=== PATIENT | male | born 1980 | race Caucasian/White ===

== ENCOUNTER → 2023-07-27 11:45 | Outpatient (REF) | payer BC, SELFPAY | LOC: RAD 11:45 | PROVIDERS: ATTENDING PHYSICIAN Internal Medicine Hematology & Oncology | DX: D72.10 Eosinophilia, unspecified (principal); D72.119 Hypereosinophilic syndrome [HES], unspecified; Z79.60 Long term (current) use of unspecified immunomodulators and immunosuppressants; D72.1 Eosinophilia; I81 Portal vein thrombosis | CPT/HCPCS: 71260; 74177; Q9967 ==

== ENCOUNTER 2024-11-13 19:34 | Inpatient (IN) | payer BC, SELFPAY ==
[2024-11-13 15:17] VITALS: BP 149/92
[2024-11-13 15:34] LABS: Hematocrit 38.4 % (39.0-52.0); Hemoglobin 12.9 g/dL (13.0-18.0); Mean Corp Hgb Conc. 33.6 g/dL (33.0-37.0); Mean Corpuscular Volume 83.1 fL (80.0-94.0); Platelet Count 260 10^3/uL (130-400); Red Cell Dist. Width 14.9 % (11.5-14.5)
[2024-11-13 15:53] VITALS: BP 107/77
[2024-11-13] MEDS: ZOFRAN 4 MG IV ×2 (15:58→16:54)
[2024-11-13] MEDS: NSS 1000 IV ×3 (15:59→21:44)
[2024-11-13 16:00] LABS: ALT (SGPT) 35 U/L (0-50); AST (SGOT) 20 U/L (17-59); Albumin 4.5 g/dl (3.5-5.0); Alkaline Phosphatase 53 U/L (38-126); Blood Urea Nitrogen 11 mg/dl (9-20); Calcium 9.1 mg/dl (8.4-10.2); Carbon Dioxide 24 mmol/L (22-30); Chloride 100 mmol/L (98-107); Glucose 208 mg/dl (70-99); Potassium 4.8 mmol/L (3.5-5.1); Sodium 133 mmol/L (135-145); Total Protein 7.5 g/dl (6.3-8.2); eGFR > 60.00
[2024-11-13] MEDS: ZOSYN 100 IV (16:04)
[2024-11-13] MEDS: SOLU-CORTEF 100 MG IV (16:05)
[2024-11-13] MEDS: MORPHINE SULFATE 4 MG IV (16:13)
[2024-11-13 16:15] VITALS: BMI 33.2
--- NOTE | 2024-11-13 16:17 | ED.GENMED ---
History of Present Illness
General
Chief Complaint: Abdominal Symptoms
Source: patient and spouse
Exam Limitations: none
Time Seen by Provider: 11/13/24 15:50
History of Present Illness
History of Present Illness:
44-year-old male with a history of hypereosinophilic syndrome presents with abdominal pain nausea vomiting general weakness lower abdominal pain bright red rectal bleeding multiple times. Started after prepping for a colonoscopy and upper GI
series. Just classically on steroids 21 mg. This was stopped 2 days ago. Also was on Eliquis for clotting issues. This was stopped a week ago.
Past History
Past History
ED Past Medical History: Other (Hypereosinophilic syndrome. Clotting issues. 31 yea yeah thank you)
Social History
Tobacco: Smoker
Alcohol: Occasional
Drug: None
Personal:
Living: with family
Employment: Employed
Family History
Family History: Other (Noncontributory)
Review of Systems
Review of Systems
All Other Systems: Not applicable
Constitutional: Reports fever
Respiratory: Reports no symptoms
Cardiac: Reports no symptoms
Phy Exam
Physical Exam
Physical Exam:
GENERAL: Alert and oriented in no apparent distress
EYE: Orbits normal.
NECK: Supple, no significant adenopathy.
ENT: Pharynx without erythema
CARDIAC: Tachycardic and regular no murmur
LUNGS: Clear breath sounds,normal
ABDOMEN: Soft, diffuse lower abdominal tenderness. No rebound or guarding no mass or hernia
NEUROLOGICAL: Alert and oriented , grossly non-focal
SKIN: Warm and dry, mild mottled appearance to the lower extremities. This apparently happens per the
MUSCULOSKELETAL: No edema,no deformity.Good color
PSYCH: Normal and appropriate interaction.
Course
Orders/Labs/Results
Orders:
Orders
11/13/24 15:24
Complete Blood Count/With Diff Urgent
Comprehensive Metabolic Panel Urgent
Lactic Acid Urgent
Lipase Urgent
Comment: ADD ON
11/13/24 15:54
Electrocardiogram (*1) Urgent
Reason for Study: Bradycardia / Tachycardia
EKG- Treatment ONCE
11/13/24 15:55
Ondansetron Injectable [Zofran] 4 mg .ROUTE .STK-MED ONE
11/13/24 15:57
IV Insert/Care/Rem.- Treatment PRN
0.9% Sodium Chloride 1000 ml [Nss] 1,000 ml IV BOLUS
Ondansetron Injectable [Zofran] 4 mg IV NOW STA
Piperacillin/Tazo 4.5 Gram [Zosyn] 4.5 gram in 100 ml IV NOW
Pulse Ox/cont/shift [RESP] Urgent
Quantity: 1
11/13/24 15:58
CT Abd/pelvis Angio W/wo Iv Urgent
Comment:
Reason For Exam: Severe bright red rectal bleeding
Hydrocortisone Sod Succinate [Solu-Cortef] 100 mg IV NOW STA
11/13/24 16:01
Blood Culture Q30M
BEBETO Source: Blood/Venous
Specimen Description:
Blood Culture Q30M
BEBETO Source: Blood/Venous
Specimen Description:
11/13/24 16:09
Type And Crossmatch [Type+Screen] Urgent
11/13/24 16:10
Add On- LAB Urgent
Tests Added?: lipase
11/13/24 16:11
Morphine Sulfate 4 mg .ROUTE .STK-MED ONE
11/13/24 16:13
Morphine Sulfate 4 mg IV NOW STA
11/13/24 16:52
Ondansetron Injectable [Zofran] 4 mg .ROUTE .STK-MED ONE
11/13/24 16:54
ABO2 Urgent
BBK Wristband Number:
Associate notified that ABO2 has been ordered: [id number]
Date: 11/13/24
Time: 16:26
Clinical Faculty ID: [id number]
Ondansetron Injectable [Zofran] 4 mg IV NOW STA
Abnormal Lab Results
11/13/24
15:24
WBC 11.6 H 10^3/uL
(4.8-10.8)
RBC 4.62 L 10^6/uL
(4.70-6.10)
Hgb 12.9 L g/dL
(13.0-18.0)
Hct 38.4 L %
(39.0-52.0)
RDW 14.9 H %
(11.5-14.5)
MPV 11.4 H fL
(7.4-10.4)
Abs Immat Gran (auto) 0.1 H 10^3/uL
(0-0.05)
Absolute Neuts (auto) 9.7 H 10^3/uL
(1.4-6.5)
Absolute Lymphs (auto) 0.5 L 10^3/uL
(1.2-3.4)
Absolute Monos (auto) 1.2 H 10^3/uL
(0.1-0.6)
Immature Gran % 0.8 H %
(0-0.5)
Neutrophils % 83.7 H %
(42.2-75.2)
Lymphocytes % 4.1 L %
(20.5-51.1)
Monocytes % 10.7 H %
(1.7-9.3)
Sodium 133 L mmol/L
(135-145)
Glucose 208 H mg/dl
(70-99)
11/13/24 15:24
11/13/24 15:24
Vital Signs
Initial and Last Documented VS:
Initial Vital Signs
Temp Pulse Resp BP Pulse Ox
100 F 145 16 149/92 98
11/13/24 15:17 11/13/24 15:17 11/13/24 15:17 11/13/24 15:17 11/13/24 15:17
Last Documented Vital Signs
Temp Pulse Resp BP Pulse Ox
100 F 120 9 107/77 97
11/13/24 15:17 11/13/24 16:15 11/13/24 16:15 11/13/24 15:53 11/13/24 16:28
*Radiology
Radiology exam reviewed: radiology read reviewed (Severe enteritis. No active bleed)
*Pulse Oximetry
SaO2: 98
Oxygen Mode of Delivery: Room air
Patient hypoxic: no
*Telescope Repairer Interpretation
Rate: tachycardiac
Interpretation: abnormal
Heart Rate: 130
Rhythm: sinus
*Critical Care Note
Total Time (30-74mins, 75-104mins- exclusive of procedures): 15
Update Note
Update Note:
Patient appears improved. Mildly tachycardic. Discussed with hematology at [facility]. They are comfortable having him here as is the patient and family.
ED Attending Note
-
Portions of this chart may have been created with voice recognition software.� Occasional wrong word or��sound alike� substitutions may have occurred due to the inherent limitations of voice recognition software.
Discharge Plan
Departure
Patient Disposition: Admit
Date of Disposition: 11/13/24
Time of Disposition: 17:54
Presentation/result/management discussed w/ accepting MD/DO: Hospitalist
Discharge Problem:
Severe enteritis, Acute GI bleed, History of hypereosinophilic syndrome
Prescriptions:
No Action
gabapentin 100 mg Capsule
100 mg PO TID
Referrals:
Ondina Llamas DO [Family Provider]
Interventions
Interventions:
*Risk Screen - Suicide Last Done: 11/13/24 15:18
*General Assessment Last Done: 11/13/24 16:28
*Neglect/Abuse Screening Last Done: 11/13/24 15:18
*ED- Fall Risk Assessment Last Done: 11/13/24 16:28
*ED COVID-19 Vaccine History Last Done: 11/13/24 16:28
SN-Fsfzog-Xeinfdhwcu Assessment Last Done: 11/13/24 16:28
Discharge Date and Time
Print Language: INDONESIAN
[2024-11-13 16:20] LABS: Nucleated Red Blood Cells % 0 % (-)
[2024-11-13 16:24] LABS: Lipase 44 U/L (23-300)
--- NOTE | 2024-11-13 18:04 | HPS.HSE ---
Addendum entered and electronically signed by Wilda Bellamy MD 11/13/24 19:45:
This is an addendum to the H&P written by Dominique Bruno on 11/13/2024. �Patient seen and examined independently with RESIDENTIAL GLAZIER.
44-year-old male past medical history of hypereosinophilic syndrome with skin involvement, diabetes, smoker, neuropathy, depression, portal vein thrombosis on Eliquis, obesity, presenting with abdominal pain, nausea and vomiting, bloody diarrhea
after taking Dulcolax and half a bottle of MiraLAX for EGD and colonoscopy today to be performed due to evaluation of underlying GI involvement of hypereosinophilic syndrome.
No prior history of GI involvement of hypereosinophilic syndrome.
Vital signs show temperature of 101.2. �Tachycardia.
Labs show leukocytosis of 11.
CTA abdomen pelvis shows no evidence of active GI bleeding. �Severe enteritis involving long segment of ileum. �No abdominal aortic aneurysm or dissection.
Patient with clinical sepsis secondary to enteritis. �N.p.o., IV fluids, blood cultures, Zosyn, Stool Studies, GI. �Stress dose steroids due to chronic steroid use. �Continue to hold Eliquis which has been held for 5 days.
Original Note:
Family Physician
-
Family Physician: Ondina Llamas DO
Chief Complaint
-
Abdominal pain, nausea, vomiting, bright red blood per rectum after [place] prep
History of Present Illness
44-year-old male with history of hypereosinophilic syndrome that causes a rash from neck to skin. He is maintained on prednisone 21 mg for the past few weeks he initially started at 30 mg but slowly tapers down by 1 mg. He follows with GI at [place]
who wanted to do routine endoscopy/colonoscopy although patient had not been having any GI symptoms. He took a prep of Dulcolax 4 tablets last night then MiraLAX half a bottle mixed with 32 ounces was supposed to do additional half a bottle with 32
ounces but did not get the prep due lower abdominal pain, nausea, vomiting, and bright red rectal bleeding times multiple times . He has been off of his 21 mg prednisone for 2 days however today when he had pain he took 15 mg. He was also on
Eliquis for history of portal vein thrombosis for several years however he has not taken in 5 days due to upcoming Endo [place]. He is an DM2 steroid-induced, neuropathy, depression, portal vein thrombosis, class II obesity
Medical History
Past Medical History
Past Medical History: Reports Other
Additional Past Medical History:
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
active smoker
DM2 steroid-induced
neuropathy
depression
portal vein thrombosis
class I obesity
Past Surgical History: Reports None
Social History
Tobacco: Smoker
Alcohol: None
Drug: None
Personal:
Living: With Family
Family History
Family History: Not pertinent
Allergies / Home Medications
Allergies reflects when Allergies were last updated in [employer].
Home Medications with original date entered in [employer]
Allergy/Medication List:
Allergies
Allergy/AdvReac Type Severity Reaction Status Date / Time
vancomycin Allergy Rash Verified 05/25/22 15:00
Home Medications
gabapentin 100 mg capsule 300 mg PO HS PRN Neuropathy 06/30/22
Prilosec OTC 20 mg PO DAILY 11/13/24
acyclovir 400 mg tablet 400 mg PO BID 11/13/24
apixaban 5 mg tablet (Eliquis) 5 mg PO BID 11/13/24
clobetasol 0.05 % topical cream 1 applic topical DAILY PRN rash 11/13/24
peginterferon shan-2a 180 mcg/mL subcutaneous solution (Pegasys) 144 mcg SC 11/13/24
prednisone 15 mg PO ONCE 11/13/24
prednisone 21 mg PO DAILY 11/13/24
ruxolitinib 5 mg tablet (Jakafi) 20 mg PO BID 11/13/24
sertraline 50 mg tablet 100 mg PO HS 11/13/24
sulfamethoxazole 800 mg-trimethoprim 160 mg tablet 1 tab PO MOWEFR 11/13/24
Review of Systems
-
History Source: Patient and Family ()
A 12 point ROS was completed and negative except as noted: Yes
Constitutional: Reports Fever and Chills
EENT: Denies Sore Throat or Runny Nose
Respiratory: Denies Cough or Trouble Breathing
Cardiac: Denies Chest Pain, Diaphoresis or Palpitations
Abdomen/GI: Reports Abdominal Pain, Nausea, Vomiting and Bloody Stools
: Denies Dysuria, Frequency, Flank Pain, Incontinence or Difficulty Voiding
Musculoskeletal: Denies Joint Pain or Edema
Skin: Denies Itching or Rash
Neurological: Denies Dizzy, Headache or Weakness
Endocrine: Reports No Symptoms
Hematologic/Lymphatic: Reports No Symptoms
Psych: Reports Calm
Physical Exam
Vital Signs
Vital Signs
Temp Pulse Resp BP Pulse Ox
100 F 120 9 107/77 97
11/13/24 15:17 11/13/24 16:15 11/13/24 16:15 11/13/24 15:53 11/13/24 16:28
Physical Exam
General: Comfortable, Conversant, Pain, Fever and Chills
HEENT: NormoCephalic, Anicteric, Moist mucous membranes, PERRLA, [place] Conjunctivae, No Ptosis and Other (Cheng face appearance from chronic steroid use)
Respiratory: Clear; No Wheezes, Rales or Rhonchi
Cardiac: S1/S2 and Tachycardia (Sinus); No Murmur, Rub, Gallop or Peripheral Edema
Breast: Deferred by me
GI: Soft, Non Distended, Normal Bowel Sounds and Tender (Lower abdomen)
Rectal: Deferred by Provider
Genito-urinary: Deferred by me
Musculoskeletal: No Clubbing, No Cyanosis and No Edema
Skin: Warm and Dry; No Rash or Jaundice
Neuro: AO x 3, No Motor Deficits, Nonfocal/grossly intact, Cranial Nerves Intact and No Sensory Deficits; No Slurred Speech, Facial Droop, Tremors or Sedated
Psych: Calm
Laboratory Results
-
11/13/24 15:24
11/13/24 15:24
Laboratory Results
Lactic Acid 1.9 mmol/L (0.7-2.0) 11/13/24 15:
Total Bilirubin 1.3 mg/dl (0.2-1.3) 11/13/24 15:
AST 20 U/L (17-59) 11/13/24 15:
ALT 35 U/L (0-50) 11/13/24 15:
Alkaline Phosphatase 53 U/L (38-126) 11/13/24 15:
Lipase 44 U/L (23-300) 11/13/24 15:24
Data Reviewed
-
CT Scan: Report Reviewed by me
Lab Data: Labs Reviewed by me
Impression/Plan
-
Impression/plan:
Admit to telemetry
# Sepsis with severe enteritis involving long segment of ileum with rectal bleeding post colonoscopy and upper GI series prep
WBC 11.6 with left shift, 101.7 F, HR 120, 107/77
Hgb stable 12.9
-IV NSS 2 L bolus
- IV NSS 100 cc/h
-Consult GI
- Hydrocortisone 100 mg given in ER-patient is on chronic steroid 21 mg last dose was 11/11/2024 has slowly been tapering from 30 mg down by 1 mg has been at 21 mg for the past few weeks
-We will give stress dose hydrocortisone 50 mg every 8 hours given sepsis
- IV Zosyn
-Tylenol as needed
- IV Dilaudid as needed pain, Zofran nausea
- Follow CBC, CMP, blood cultures x 2
#History of Hypereosinophilic syndrome with typical skin rash follows at [place] [facility] on chronic steroids
on chronic steroid 21 mg last dose was 11/11/2024 has slowly been tapering from 30 mg down by 1 mg has been at 21 mg for the past few weeks
Patient did take 15 mg this morning
-Continue Jakafi 20 mg twice daily
-Patient receives Pegasys infusion once a week
-Continue Prilosec 20 mg daily
-Continue acyclovir 4 mg twice daily
-Patient is on prophylactic Bactrim DS Sunday
CT abdomen pelvis angio with and without:
1. No CTA evidence for active GI bleed.
2. Severe enteritis involving a long segment of ileum.
3. No abdominal aortic aneurysm or dissection.
4. Additional chronic changes as described.
#History of portal vein thrombosis years ago
Has not taken Eliquis 5 mg twice daily in 5 days due to upper GI and colonoscopy plan
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
Blood sugar 208, check HgbA1c
- Patient is using Ozempic 1 mg once a week last dose was 11/08/2024
#Chronic neuropathy
Patient takes gabapentin 300 mg at bedtime as needed
#Depression
Continue Zoloft 50 mg at bedtime
#Class I obesity�BMI 33
Patient currently on Ozempic
DVT prophylaxis
SCDs
Full code
[2024-11-13] MEDS: TYLENOL 1000 MG PO (18:45)
[2024-11-13 21:25] VITALS: BP 142/95
[2024-11-13] MEDS: DILAUDID 1 MG IV (21:45)
[2024-11-13] MEDS: ZOSYN 50 IV (22:19)
[2024-11-13 22:26] LABS: Glucose - Point of Care 171 mg/dl (70-99)
[2024-11-13] MEDS: ZOLOFT 50 MG PO (23:02)
[2024-11-13] MEDS: ZOVIRAX PO (23:04)
[2024-11-14] VITALS (16 sets, daily range): BP systolic 106–156; BP diastolic 67–96; BMI 32.4
[2024-11-14] MEDS: SOLU-CORTEF 50 MG IV ×4 (00:17→23:56)
[2024-11-14] MEDS: TYLENOL 1000 MG PO ×2 (00:34→11:00)
[2024-11-14] MEDS: ZOSYN 50 IV ×4 (04:06→21:51)
[2024-11-14] MEDS: DILAUDID 1 MG IV ×3 (04:48→21:53)
[2024-11-14] MEDS: ZOFRAN 4 MG IV (05:00)
[2024-11-14 06:36] LABS: Glucose - Point of Care 182 mg/dl (70-99)
--- NOTE | 2024-11-14 06:45 | CON.GI ---
Addendum entered and electronically signed by Chris Silva MD 11/14/24 13:38:
I saw and examined the patient.
The CHINESE INSTRUCTOR or PA's note was reviewed and I agree with the note.
Comment: 44yo male with hx hypereosinophilic syndrome presents with rectal bleeding and abd pain while prepping for EGD/colonoscopy scheduled for yesterday. Initially BRBPR, now dark stools. Has been on steroids, Pegasys, Jakafi and follows at
[place] for hypereosinophilic syndrome. Has hx chronic PVT and is on eliquis, which was held for his GI procedures. On admission, fever 101.2, WBC 11.6. CT shows severe wall thickening, submucosal edema RLQ ileal loops down to ICV in addition to SMV
thrombosis. Abdomen is diffusely tender with guarding
REC:
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
Despite his rectal bleeding, he may resume anticoagulation post op and we can monitor for ongoing bleeding. The benefits outweigh the risks and goal is to preserve SB viability. Discussed with General Surgery and Hematology.
Continue PPI BID
Will follow
Addendum entered and electronically signed by OLMAN Moser 11/14/24 13:24:
also add to below noted tender and mild guarding when seen in Exam earlier today
Addendum entered and electronically signed by OLMAN Moser 11/14/24 12:53:
add to below also noted fever overnight -- appeciate surgical input
Addendum entered and electronically signed by OLMAN Moser 11/14/24 11:12:
with hx chronic steroid use and bleeding will also change PPI to IV BID
Original Note:
Consultation
-
Date/Time Consultation Requested: 11/13/24 1920
Date/Time Consultation Performed: 11/14/24 0950
Requesting Provider: OLMAN Damian
Performing Provider: OLMAN Mckinley, Chris Silva MD
Reason for Consultation: rectal bleeding
Medical History
Chief Complaint / HPI
History of Present Illness:
Pt is a 44yo with hx hypereosinophilic syndrome with steroid dependence since [address] Montano at [place], clotting disorder with chronic portal vein thrombus chronic Eliquis for last year, , obesity on Ozempic with use for DM , NIDDM,
depression presents to 12/14 with abdominal pain, nausea, vomiting, weakness with rectal bleeding. Pt was prepping for EGD/colon at [place] when started with symptoms. On admission CT a/p angio was completed with no active GI bleeding but noted
severe enteritis in long segment of ileum, no dissection but also noted changes of chronic right portal vein thrombus with atrophic changes of right hepatic lobe, attenuated right portal vein branches and mild upper abd varices with diffuse hepatic
steatosis.
In review with patient he has had intermittent rashes and noted concern for PVT. He initially held Eliquis on then weekend prior to GI procedures. He also held Ozempic 2 weeks ago. + some wt loss with Ozempic He admits to occasional nausea
but denies GI symptoms prior to prep no odynophagia, dysphagia, GERD,, vomiting, diarrhea, constipation or bleeding prior to prep. Since prep he had multiple bout of blood stool and overnight noted darker stool with less volume.
Past Medical History
Past Medical History: NIDDM (steroid induced), Psychiatric (depression) and Other (hypereosinophilic syndrome with steroid dependence, clotting disorder with chronic portal vein thrombus on chronic Eliquis, obesity)
Past Surgical History: Other (wisdom teeth extraction)
Social History
Tobacco: Former Smoker
Alcohol: None
Drug: None
Personal:
Living: With Family
Employment: Employed
Family History
Family History: Other (no family hx GI issues or clotting issues )
Allergies / Home Medications
Allergy/AdvReac Type Severity Reaction Status Date / Time
vancomycin Allergy Rash Verified 05/25/22 15:00
�Medication �Instructions �Recorded
gabapentin 100 mg capsule 300 mg PO HS PRN Neuropathy 06/30/22
Prilosec OTC 20 mg PO DAILY 11/13/24
acyclovir 400 mg tablet 400 mg PO BID 11/13/24
apixaban 5 mg tablet (Eliquis) 5 mg PO BID 11/13/24
clobetasol 0.05 % topical cream 1 applic topical DAILY PRN rash 11/13/24
peginterferon shan-2a 180 mcg/mL 144 mcg SC 11/13/24
subcutaneous solution (Pegasys)
prednisone 15 mg PO ONCE 11/13/24
prednisone 21 mg PO DAILY 11/13/24
ruxolitinib 5 mg tablet (Jakafi) 20 mg PO BID 11/13/24
sertraline 50 mg tablet 50 mg PO HS 11/13/24
sulfamethoxazole 800 1 tab PO MOWEFR 11/13/24
mg-trimethoprim 160 mg tablet
Review of Systems
-
History Source: Patient and Family
Constitutional: Reports Weight Loss
EENT: Reports No Symptoms
Respiratory: Reports No Symptoms
Cardiac: Reports Palpitations
Abdomen/GI: Reports Abdominal Pain and Bloody Stools
: Reports No Symptoms
Musculoskeletal: Reports No Symptoms
Skin: Reports No Symptoms
Neurological: Reports Weakness
Endocrine: Reports No Symptoms
Hematologic/Lymphatic: Reports Bleeding
Vital Signs
Temp Pulse Resp BP Pulse Ox
99.6 F 121 18 140/93 98
11/14/24 04:12 11/14/24 03:14 11/14/24 03:14 11/14/24 03:14 11/14/24 03:14
Physical Exam
Exam
General: Other (some distress with pain )
HEENT: Normocephalic and Anicteric
Respiratory: Clear
Cardiac: Other (tachy )
GI: Soft and Distended
Musculoskeletal: No Clubbing and No Cyanosis
Skin: Warm and Dry
Neuro: Awake, Alert and Other (sleepy but arousable)
Psych: Calm
Results
WBC 11.6 10^3/uL (4.8-10.8) H 11/13/24 15:24
Hgb 12.9 g/dL (13.0-18.0) L 11/13/24 15:24
Hct 38.4 % (39.0-52.0) L 11/13/24 15:24
MCV 83.1 fL (80.0-94.0) 11/13/24 15:24
Plt Count 260 10^3/uL (130-400) 11/13/24 15:24
Absolute Neuts (auto) 9.7 10^3/uL (1.4-6.5) H 11/13/24 15:24
Sodium 133 mmol/L (135-145) L 11/13/24 15:24
Potassium 4.8 mmol/L (3.5-5.1) 11/13/24 15:
Chloride 100 mmol/L (98-107) 11/13/24 15:24
Carbon Dioxide 24 mmol/L (22-30) 11/13/24 15:24
BUN 11 mg/dl (9-20) 11/13/24 15:24
Creatinine 0.8 mg/dL (0.7-1.3) 11/13/24 15:24
Calcium 9.1 mg/dl (8.4-10.2) 11/13/24 15:24
Total Bilirubin 1.3 mg/dl (0.2-1.3) 11/13/24 15:24
AST 20 U/L (17-59) 11/13/24 15:24
ALT 35 U/L (0-50) 11/13/24 15:24
Alkaline Phosphatase 53 U/L (38-126) 11/13/24 15:24
Lipase 44 U/L (23-300) 11/13/24 15:24
Diagnostic Image Results:
11/13/24 CTA
1. No CTA evidence for active GI bleed.
2. Severe enteritis involving a long segment of ileum.
3. No abdominal aortic aneurysm or dissection.
4. Additional chronic changes as described as changes of chronic right portal vein thrombus with atrophic changes of right hepatic lobe, attenuated right portal vein branches and mild upper abd varices with diffiuse hepatic steatosis.
07/2023 CT chest/abd/pelvis
1. Negative for lymphadenopathy. Interval decrease in size of previously seen axillary, mediastinal, retroperitoneal, and inguinal lymph nodes. This interval decrease in the size of the spleen, now at the upper limits of normal.
2. Unchanged findings related to known chronic right portal vein thrombosis with atrophic changes of the right lobe of the liver, attenuated right portal vein branches, upper abdominal varices.
3. Hepatic fatty infiltration.
02/2023 MRI abdomen
1. Similar appearance of chronic thrombosis of the right portal vein. Stable enhancing curvilinear vascular shunts in the peripheral right hepatic lobe. Improved heterogeneous parenchymal enhancement compared to the MRI abdomen from 12/21/2022.
2. Mild splenomegaly.
Prior GI Procedures:
EGD: none
Colonoscopy: none
Assessment / Plan
-
Pt is a 44yo with hx hypereosinophilic syndrome with steroid dependence since [address] Montano at [place], clotting disorder with chronic portal vein thrombus chronic Eliquis for last year, , obesity on Ozempic with use for DM , NIDDM,
depression presents to 12/14 with abdominal pain, nausea, vomiting, weakness with rectal bleeding. Pt was prepping for EGD/colon at [place] when started with symptoms. On admission CT a/p angio was completed with no active GI bleeding but noted
severe enteritis in long segment of ileum, no dissection but also noted changes of chronic right portal vein thrombus with atrophic changes of right hepatic lobe, attenuated right portal vein branches and mild upper abd varices with diffuse hepatic
steatosis.
-GI bleeding
-CTA with severe enteritis
-tachycardia
-hypereosinophilic syndrome with steroid dependence and underlying clotting disorder with chronic portal vein thrombus chronic Eliquis prior to
other med issues:
-tobacco abuse
-obesity
- NIDDM
-depression
-hepatic steatosis
PLAN:
etiology of bleeding/pain related to enteritis vs other
etiology of enteritis -- ischemic process with hold on anticoagulation, vs secondary to hypereosinophilic related vs other-- no chronic symptoms prior to prep
reviewed wt Dr. Donovan with increased pain on exam -- will get heme eval for ? need to anticoagulation, surgical eval with extent of enteritis with increased pain/tachycardia and transfer to IMU
serial exams
trend hbg and stool studies
sips of clear diet
updated nursing staff
updated several time on plan
eventual EGD/colon but hold for now with increased pain/tachycardia etc
OP follow up with Dr. ray -- chronic follow for hypereosinophilic syndrome
-
-
Thank you for consultation and allowing me to participate in the patient's care. Please call the denier control operator GI physician during the after hours with any questions or concerns.
[2024-11-14] MEDS: NOVOLOG FLEXPEN-LOW RESISTANCE 1 UNITS SC ×2 (06:53→23:55)
--- NOTE | 2024-11-14 07:25 | W.PN.HOSP.TC ---
Today's Communication/Plan
-
IV Dilaudid for pain; increase the dose, Zofran for nausea,
Maintain IV fluids for now
Keep n.p.o.
Follow-up on blood culture
repeat cbc later today
consult heme and surgery
transfer to IMU
stool studies
Assessment / Plan
Assessment / Plan
This is a 44-year-old male with past medical history of hypereosinophilic syndrome with skin involvement, diabetes, smoker, neuropathy, depression, portal vein thrombus on Eliquis, obesity presented with abdominal pain, nausea and vomiting, bright
red blood in the stools after taking Dulcolax and MiraLAX for EGD and colonoscopy.
# Sepsis with severe enteritis involving long segment of ileum with rectal bleeding post colonoscopy and upper GI series prep
Leukocytosis resolved, intermittent fevers, remains tachycardic
- Hemoglobin dropped from 12.9-10.7(partly dilutional)
- s/p IV NSS 2 L bolus in ER ; currently on IV NSS 100 cc/h
- Awaiting GI input
- Hydrocortisone 100 mg given in ER-patient is on chronic steroid 21 mg last dose was 11/11/2024 has slowly been tapering from 30 mg down by 1 mg has been at 21 mg for the past few weeks
- We will continue stress dose hydrocortisone 50 mg every 8 hours given sepsis
- Continue IV Zosyn
- Tylenol as needed
- IV Dilaudid as needed pain, Zofran nausea
- Blood cultures pending
#History of Hypereosinophilic syndrome with typical skin rash follows at [facility] on chronic steroids
on chronic steroid 21 mg last dose was 11/11/2024 has slowly been tapering from 30 mg down by 1 mg has been at 21 mg for the past few weeks
-Continue Jakafi 20 mg twice daily
-Patient receives Pegasys infusion once a week
-Continue Prilosec 20 mg daily
-Continue acyclovir 4 mg twice daily
-Patient is on prophylactic Bactrim DS Sunday
11/13/24 CT abdomen pelvis angio with and without:
1. No CTA evidence for active GI bleed.
2. Severe enteritis involving a long segment of ileum.
3. No abdominal aortic aneurysm or dissection.
4. Additional chronic changes as described.
#History of portal vein thrombosis years ago
Has not taken Eliquis 5 mg twice daily in 6 days due to upper GI and colonoscopy plan
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
A1c is pending
- Patient is using Ozempic 1 mg once a week last dose was 11/08/2024
#Chronic neuropathy
Patient takes gabapentin 300 mg at bedtime as needed
#Depression
Continue Zoloft 50 mg at bedtime
#Class I obesity�BMI 33
Patient currently on Ozempic
DVT prophylaxis
SCDs
Full code
Anticipated Discharge: 24 - 48 hours
Subjective/Interval History
-
Date of Service: November 14, 2024
Seen and examined at bedside. Patient lying in the bed. Tachycardic with intermittent fevers of 101.8. Appears in mild distress
Objective Data
-
Labs:
Laboratory Results
11/14/24
07:22
WBC Pending
Hgb Pending
Hct Pending
Plt Count Pending
Sodium Pending
Potassium Pending
Chloride Pending
Carbon Dioxide Pending
BUN Pending
Creatinine Pending
Glucose Pending
Calcium Pending
Total Bilirubin Pending
AST Pending
ALT Pending
Alkaline Phosphatase Pending
Vital Signs:
Vital Signs
Temp Pulse Resp BP Pulse Ox
99.5 F 116 18 151/90 95
11/14/24 07:23 11/14/24 07:23 11/14/24 07:23 11/14/24 07:23 11/14/24 07:23
Review of Systems
-
History Source: Patient
All other systems: Reviewed and negative (Except document)
Abdomen/GI: Reports Abdominal Pain, Nausea, Bloody Stools and Black Stools
Physical Exam
-
General: Well Developed and Pain (Lower abdominal)
Respiratory: Clear to Auscultation and Non Labored Respirations
Cardiac: S1/S2 and Tachycardic
GI: Soft, Tender (Diffuse mostly in the lower quadrants) and No Hernias
Neuro: Awake, Alert and Oriented
Psych: Calm
Data Reviewed
-
CT Scan: Report Reviewed by me, Discussed with Physician and Discussed with Patient
Labs: Labs Reviewed by me, Discussed with Physician and Discussed with Patient
[2024-11-14 08:07] LABS: Hematocrit 31.9 % (39.0-52.0); Hemoglobin 10.7 g/dL (13.0-18.0); Mean Corp Hgb Conc. 33.5 g/dL (33.0-37.0); Mean Corpuscular Volume 83.7 fL (80.0-94.0); Red Cell Dist. Width 14.9 % (11.5-14.5)
[2024-11-14 08:31] LABS: ALT (SGPT) 40 U/L (0-50); AST (SGOT) 29 U/L (17-59); Albumin 3.7 g/dl (3.5-5.0); Alkaline Phosphatase 47 U/L (38-126); Blood Urea Nitrogen 8 mg/dl (9-20); Calcium 8.0 mg/dl (8.4-10.2); Carbon Dioxide 23 mmol/L (22-30); Chloride 102 mmol/L (98-107); Estimated Creatinine Clearance > 125 ml/min; Glucose 157 mg/dl (70-99); Potassium 4.0 mmol/L (3.5-5.1); Sodium 133 mmol/L (135-145); Total Protein 6.4 g/dl (6.3-8.2); eGFR > 60.00
[2024-11-14 08:42] LABS: Nucleated Red Blood Cells % 0 % (-); Platelet Count 174 10^3/uL (130-400)
[2024-11-14 08:54] LABS: Glycohemoglobin (HgbA1c) 7.9 % (4.0-5.6)
[2024-11-14] MEDS: NSS 1000 IV (09:56)
[2024-11-14] MEDS: COMPAZINE 10 MG IV (10:14)
[2024-11-14] MEDS: ZOVIRAX 400 MG PO (11:02)
[2024-11-14] MEDS: PROTONIX 40 MG PO (11:02)
--- NOTE | 2024-11-14 11:45 | W.PN.UPDATE ---
Update Note
Progress Note Update
Discsussed with team and surgery since there is a new/addendum on the CTA report which shows that there is evidence of SMV thrombosis. Patient continues to be in distress/pain. Surgery plan for an exploratory laparotomy, bowel resection.
--- NOTE | 2024-11-14 11:45 | CON.GS ---
Addendum entered and electronically signed by Jeff Uribe MD 11/14/24 12:09:
I saw and examined the patient independently.
The Sales And Service Change Leader's note was reviewed and I agree with the note, assessment and plan except where noted below.
Comment: This is a 44-year-old male with history of hypereosinophilic syndrome with known clotting disorder and chronic portal vein thrombus on Eliquis held anticipation of a colonoscopy this week however during the prep he developed nausea vomiting
and intense abdominal pain followed by rectal bleeding. He presented to our hospital yesterday with a CT scan which demonstrated significant inflammation in the terminal ileum as well as an SMV thrombus concerning for type IV mesenteric ischemia.
His exam is concerning with a high-grade fever, tachycardia and tenderness on exam out of proportion to his reported pain.
Will plan for an exploratory laparotomy, bowel resection. I did explain to the patient and his that unless I felt very certain about the remaining blood supply we would likely do this in a staged procedure with a planned second look operation
either this or Sunday.
IV antibiotics ordered.
The patient has an active type and screen, coags sent.
Risks/Benefits/Alternatives, expected postoperative course and possible complications (bleeding, infection, injury to surrounding structures, acute/chronic pain) discussed at length. Patient wishes to proceed with surgery. All questions answered.
Consent obtained.
I spent 70 minutes in total for the care of this patient today including direct patient care and counseling, reviewing labs, imaging, coordination of care, as well as documentation.
Original Note:
Consultation
-
Date/Time Consultation Performed: 11/14/24 1130
Medical History
-
Chief Complaint: Abdominal pain
History of Present Illness:
Mr Dave is a 44 yo male with current smoker with a hx hypereosinophilic syndrome with steroid dependence since [address] Montano at [facility], clotting disorder with chronic portal vein thrombus on Eliquis (LD 11/08), NIDDM and obesity on
Ozempic who was undergoing a bowel prep at home for upcoming EGD and Colonoscopy at [facility] when he developed nausea, vomiting and abdominal pain with rectal bleeding. Pain has increased since presentation with marked tenderness on abdominal exam.
Still passing some liquid stools but less volume and with dark blood noted. Nausea persists. He is significantly tachycardic with low grade fever of 100.2.
Past Medical History
Past Medical History: NIDDM, Psychiatric (depression) and Other (obesity, with hx hypereosinophilic syndrome with steroid dependence since [address] Montano at [facility], clotting disorder with chronic portal vein thrombus, neuropathy)
Past Surgical History: None
Social History
Tobacco: Smoker
Alcohol: None
Personal:
Family History
Family History: Reviewed & Not Pertinent
Allergies / Home Medications
Allergy/AdvReac Type Severity Reaction Status Date / Time
vancomycin Allergy Rash Verified 05/25/22 15:00
�Medication �Instructions �Recorded �Confirmed �Type
gabapentin 100 mg capsule 300 mg PO HS PRN Neuropathy 06/30/22 11/13/24 History
Prilosec OTC 20 mg PO DAILY 11/13/24 11/13/24 History
acyclovir 400 mg tablet 400 mg PO BID 11/13/24 11/13/24 History
apixaban 5 mg tablet (Eliquis) 5 mg PO BID 11/13/24 11/13/24 History
clobetasol 0.05 % topical cream 1 applic topical DAILY PRN rash 11/13/24 11/13/24 History
peginterferon shan-2a 180 mcg/mL 144 mcg SC 11/13/24 History
subcutaneous solution (Pegasys)
prednisone 15 mg PO ONCE 11/13/24 11/13/24 History
prednisone 21 mg PO DAILY 11/13/24 11/13/24 History
ruxolitinib 5 mg tablet (Jakafi) 20 mg PO BID 11/13/24 11/13/24 History
sertraline 50 mg tablet 50 mg PO HS 11/13/24 11/13/24 History
sulfamethoxazole 800 1 tab PO MOWEFR 11/13/24 11/13/24 History
mg-trimethoprim 160 mg tablet
Review of Systems
-
History Source: Patient and Family
All other systems: Negative unless noted
A 10 point review of systems was completed, and was negative except as per HPI.
Physical Exam
Vital Signs
Temp Pulse Resp BP Pulse Ox
100.2 F 135 25 156/93 94
11/14/24 11:29 11/14/24 11:29 11/14/24 11:29 11/14/24 11:29 11/14/24 11:29
11/13/24 11/14/24 11/15/24
06:59 06:59 06:59
Actual Weight 114.305 kg
Body Mass Index (BMI) 32.4
Lab Results
11/14/24 07:22
WBC 8.4 10^3/uL (4.8-10.8) 11/14/24 07:22
Hgb 10.7 g/dL (13.0-18.0) L 11/14/24 07:22
Hct 31.9 % (39.0-52.0) L 11/14/24 07:22
Plt Count 174 10^3/uL (130-400) D 11/14/24 07:22
Abs Immat Gran (auto) 0.1 10^3/uL (0-0.05) H 11/14/24 07:22
Neutrophils % 92.1 % (42.2-75.2) H 11/14/24 07:22
Physical Exam
General: Well Developed; Negative Comfortable
HEENT: Moist Mucous Membranes
Respiratory: Non Labored Respirations
GI: Tender and Distended
Skin: Warm
Neuro: Awake, Alert and AO x 3
Psych: Calm
Data Reviewed
-
CT Scan: Image Personally Visualized and interpreted, Report Reviewed by me, Discussed with Physician, Discussed with Patient and Discussed with Family
Labs: Labs Reviewed by me, Discussed with Physician and Discussed with Patient
Old Records: Reviewed
Assessment / Plan
-
44 yo male active smoker with a h/o hypereosinophilic syndrome with steroid dependence, clotting disorder with chronic portal vein thrombus on Eliquis (LD 11/08), NIDDM and obesity on Ozempic who was undergoing a bowel prep at home for upcoming EGD
and Colonoscopy at [facility] when he developed nausea, vomiting and abdominal pain with rectal bleeding. Pain has increased since presentation with severe abdominal tenderness. Acute blood loss anemia present with repeat trending. Hgb 12.9 on arrival now
at 11. Coags pending. Leukocytosis on presentation resolved with repeat.
CT imaging from yesterday reviewed with severe enteritis involving a long segment of the terminal ileum. Portal vein thrombus again noted as well as concern for SMV thrombosis with patent SMA. Suspect mesenteric and bowel ischemia secondary to
venous congestion/impaired venous drainage.
Plan:
Check coags, cbc, bmp, lactic acid stat. type and screen is current, will transfuse if necessary
Continue NPO for OR
Will plan OR emergently for dx lap
Hold AC prior to OR
c/w IV zosyn
d/w vascular and GI teams at bedside as well as patient's primary nurse. d/w hospitalist team via telephone.
--- NOTE | 2024-11-14 11:56 | CON.ONC ---
Documented by User: Janis Madison MD, Resident 11/14/24 13:05
Consultation
-
Date Consultation Requested: 11/13/24
Date Consultation Performed: 11/14/24
Requesting Provider: Dr. Chris Silva
Performing Provider: Dr. Omero Brower
Reason for Consultation: sepsis severe enteritis, anticoagulation
Impression
Impression
Sepsis secondary to severe enteritis
Possible mesenteric ischemia
Acute blood loss anemia in setting of rectal bleed
Hypereosinophilic syndrome with steroid dependence
Chronic portal vein thrombosis (last dose eliquis 11/08)
DMII
Neuropathy
Plan
Plan
--To OR today for exploratory laparoscopy and possible bowel resection for concern for mesenteric ischemia
--Okay for heparin drip post-op
--Cont Jakifi
--Cont acyclovir
--Continue stress dose steroids in setting of acute illness
--Monitor CBC - hg appears stable - transfuse for hg <7
Patient History
History of Present Illness
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 Donovan and Dr. De La Fuente at [place], chronic portal vein thrombus on chronic Eliquis, type 2 diabetes, depression and neuropathy
presents to the hospital with abdominal pain, nausea, vomiting and rectal bleeding. Patient had been doing a GI prep for endoscopy/colonoscopy at [facility] to evaluate if there was GI involvement related to his hypereosinophilic syndrome. In
preparation for endoscopy/colonoscopy, his last dose of Eliquis was 11/08. After starting the prep, he started to have lower abdominal pain, nausea, vomiting and bright rectal bleeding multiple times at which point he came into the hospital for
further evaluation.
Of note, patient receives pegasys injections weekly and is on jakafi for treatment of his hypereosinophilic syndrome. He has been off of his prednisone for the 2 days prior to admission, but due to pain on 11/13 he took a 15mg dose of prednisone. He
was seen by Dr. Hill in 2023. He was diagnosed with a chronic thrombosis of the right portal vein found incidentally noted in MRI 12/21/22 and started on Eliquis. Hypereosinophilic syndrome is associated with hypercoagulable state.
In the ED he was febrile with temp 101.2, HR 120, 97% on room air. WBC was 11.6, hg 12.9, Na 133, Cr 0.8. Ab/pelvic CT revealed severe enteritis/ileitis along ileum and later addendum added SMV thrombosis. Cultures were taken, he was started on
Zosyn, stress dose steroids and was admitted for sepsis secondary to severe enteritis. GI was consulted. Due to tachycardia, fevers, pain out of proportion to exam and SMV thrombosis on CT, general surgery was consulted as well for concerns of
mesenteric ischemia. Heme/onc was consulted for recommendations of anti-coagulation post-operatively and history of hypereosinophilic syndrome.
Past-Medical/Surgical History
Past medical history: hypereosinophilic syndrome lymphocytic variant, Steroid-dependence,active smoker, DM2 steroid-induced, neuropathy, depression, portal vein thrombosis, class I obesity
Past surgical history: [place] tooth removal
Social history: Active smoker
Allergies
Allergy/AdvReac Type Severity Reaction Status Date / Time
vancomycin Allergy Rash Verified 05/25/22 15:00
Home Medications
gabapentin 100 mg capsule 300 mg PO HS PRN Neuropathy 06/30/22
Prilosec OTC 20 mg PO DAILY 11/13/24
acyclovir 400 mg tablet 400 mg PO BID 11/13/24
apixaban 5 mg tablet (Eliquis) 5 mg PO BID 11/13/24
clobetasol 0.05 % topical cream 1 applic topical DAILY PRN rash 11/13/24
peginterferon shan-2a 180 mcg/mL subcutaneous solution (Pegasys) 144 mcg SC 11/13/24
prednisone 15 mg PO ONCE 11/13/24
prednisone 21 mg PO DAILY 11/13/24
ruxolitinib 5 mg tablet (Jakafi) 20 mg PO BID 11/13/24
sertraline 50 mg tablet 50 mg PO HS 11/13/24
sulfamethoxazole 800 mg-trimethoprim 160 mg tablet 1 tab PO MOWEFR 11/13/24
Patient Medication
�Medication �Instructions �Recorded �Confirmed �Last Taken �Type
gabapentin 100 mg capsule 300 mg PO HS PRN Neuropathy 06/30/22 11/13/24 11/09/24 22:00 History
Prilosec OTC 20 mg PO DAILY 11/13/24 11/13/24 11/13/24 09:00 History
acyclovir 400 mg tablet 400 mg PO BID 11/13/24 11/13/24 11/13/24 09:00 History
apixaban 5 mg tablet (Eliquis) 5 mg PO BID 11/13/24 11/13/24 11/08/24 20:00 History
clobetasol 0.05 % topical cream 1 applic topical DAILY PRN rash 11/13/24 11/13/24 10/14/24 History
1
peginterferon shan-2a 180 mcg/mL 144 mcg SC 11/13/24 11/10/24 09:00 History
subcutaneous solution (Pegasys)
prednisone 15 mg PO ONCE 11/13/24 11/13/24 11/13/24 09:00 History
prednisone 21 mg PO DAILY 11/13/24 11/13/24 11/11/24 09:00 History
ruxolitinib 5 mg tablet (Jakafi) 20 mg PO BID 11/13/24 11/13/24 11/13/24 09:00 History
sertraline 50 mg tablet 50 mg PO HS 11/13/24 11/13/24 11/12/24 22:00 History
sulfamethoxazole 800 1 tab PO MOWEFR 11/13/24 11/13/24 11/12/24 09:00 History
mg-trimethoprim 160 mg tablet
Active Medications
Generic Name Dose Route Start Last Admin
Trade Name Freq PRN Reason Stop Dose Admin
Acetaminophen 1,000 mg 11/14/24 00:29 11/14/24 11:00
Acetaminophen 500 Mg Tablet PO 12/12/24 00:28 1,000 mg
Q6HPRN PRN Administration
temp >100.5 or mild pain
Acyclovir Sodium 400 mg 11/13/24 22:00 11/14/24 11:02
Acyclovir Sodium 200 Mg Capsule PO 11/23/24 21:59 400 mg
BID ERIN Administration
Dextrose 12.5 grams 11/13/24 21:17
Dextrose 50% (0.5 Grams/Ml) 50 Ml Syringe IV 12/11/24 21:16
[id number] PRN
hypoglycemia
Protocol
Gabapentin 300 mg 11/13/24 21:26
Gabapentin 300 Mg Capsule PO 12/11/24 21:25
HSPRN PRN
Neuropathy
Glucagon 1 mg 11/13/24 21:17
Glucagon 1 Mg Vial IM 12/11/24 21:16
PRN PRN
hypoglycemia
Protocol
Hydrocortisone Sodium Succinate 50 mg 11/14/24 00:00 11/14/24 09:57
Hydrocortisone Sodium Succinate 100 Mg/2 Ml Vial IV 12/12/24 00:00 50 mg
Q8 ERIN Administration
Hydromorphone HCl 1 mg 11/14/24 11:14
Hydromorphone 0.5 Mg/0.5 Ml Syringe IV 11/27/24 21:16
Q4HPRN PRN
mod pain
Hydromorphone HCl 1.5 mg 11/14/24 11:14
Hydromorphone 1 Mg/Ml Carpuject IV 11/27/24 21:21
Q4HPRN PRN
severe pain
Hydromorphone HCl 0.5 mg 11/14/24 11:14
Hydromorphone 0.25 Mg/0.5 Ml Syringe IV 11/27/24 21:16
Q3HPRN PRN
mild pain
Sodium Chloride 1,000 mls @ 100 mls/hr 11/13/24 21:17 11/14/24 09:56
Nss IV 1,000 mls
.Q10H ERIN Administration
Piperacillin Sod/Tazobactam Sod 3.375 gram in 50 mls @ 100 mls/hr 11/13/24 22:00 11/14/24 09:56
Zosyn IV 50 mls
Q6H ERIN Administration
Insulin Aspart 0 units 11/14/24 07:30 11/14/24 06:53
Insulin Aspart Low Resistance 300 Units/3 Ml Pen.Injctr SC 12/12/24 07:29 1 units
AC ERIN Administration
Protocol
Ruxolitinib [Jakafi] 0 mg 11/13/24 21:17
20 Mg Tablet Po Bid PO 12/11/24 21:16
BID ERIN
Ondansetron HCl 4 mg 11/13/24 21:17 11/14/24 05:00
Ondansetron 4 Mg/2 Ml Vial IV 12/11/24 21:16 4 mg
Q6HPRN PRN Administration
nausea and vomiting
Pantoprazole Sodium 40 mg 11/14/24 20:00
Pantoprazole Sodium 40 Mg/10 Ml Vial IV 12/12/24 19:59
BID ERIN
Sertraline HCl 50 mg 11/13/24 23:00 11/13/24 23:02
Sertraline 50 Mg Tablet PO 12/11/24 22:59 50 mg
HS ERIN Administration
Sodium Chloride 0 flush 11/13/24 22:00
Sodium Chloride 0.9% (Flush) Syringe IV 12/11/24 21:59
PER PROTOCOL ERIN
Sodium Chloride 10 ml 11/14/24 20:00
Sodium Chloride 0.9% (Preservative Free) 10 Ml Vial IV 12/12/24 19:59
BID ERIN
Review of Systems
-
History Source: Patient
Constitutional: Reports Fever, Fatigue and Chills
Respiratory: Reports Trouble Breathing
Cardiac: Reports No Symptoms
GI: Reports Abdominal Pain, Nausea, Diarrhea and Bloody Stools
: Reports No Symptoms
Neuro: Reports No Symptoms
Physical Exam
-
General: Appears in Distress and Pain
Cardiology: Normal Sinus Rhythm, S1 and S2
Pulmonary: Clear
GI: Normal Bowel Sounds, Distended and Other (Tenderness in LLQ )
Musculoskeletal: No Cyanosis and No Edema
Skin: Warm and Dry
Psych: Calm
Labs
Lab Results
WBC Cancelled 11/14/24 13:00
RBC Cancelled 11/14/24 13:00
Hgb Cancelled 11/14/24 13:00
Hct Cancelled 11/14/24 13:00
MCV Cancelled 11/14/24 13:00
MCH Cancelled 11/14/24 13:00
MCHC Cancelled 11/14/24 13:00
RDW Cancelled 11/14/24 13:00
Plt Count Cancelled 11/14/24 13:00
MPV Cancelled 11/14/24 13:00
Abs Immat Gran (auto) 0.1 10^3/uL (0-0.05) H 11/14/24 07:22
Absolute Neuts (auto) 7.7 10^3/uL (1.4-6.5) H 11/14/24 07:22
Absolute Lymphs (auto) 0.1 10^3/uL (1.2-3.4) L 11/14/24 07:22
Absolute Monos (auto) 0.5 10^3/uL (0.1-0.6) 11/14/24 07:22
Absolute Eos (auto) 0.0 10^3/uL (0-0.7) 11/14/24 07:22
Absolute Basos (auto) 0.0 10^3/uL (0-0.2) 11/14/24 07:22
Immature Gran % 0.6 % (0-0.5) H 11/14/24 07:22
Neutrophils % 92.1 % (42.2-75.2) H 11/14/24 07:22
Lymphocytes % 1.4 % (20.5-51.1) L 11/14/24 07:22
Monocytes % 5.8 % (1.7-9.3) 11/14/24 07:22
Eosinophils % 0.0 % (0-6) 11/14/24 07:22
Basophils % 0.1 % (0-2) 11/14/24 07:22
Creatinine 0.6 mg/dL (0.7-1.3) L 11/14/24 07:22
Vital Signs
Vital Signs
Temp Pulse Resp BP Pulse Ox
100.2 F 135 25 156/93 94
11/14/24 11:29 11/14/24 11:29 11/14/24 11:29 11/14/24 11:29 11/14/24 11:29

Documented by User: Omero Brower MD 11/14/24 13:41
Impression
Impression
Sepsis secondary to severe enteritis
Possible mesenteric ischemia
rectal bleed
Hypereosinophilic syndrome with steroid dependence
Chronic portal vein thrombosis (last dose eliquis 11/08)
hypercoagulable state
DMII
Neuropathy
Plan
Plan
1. Hypercoagulable state - in setting of hypereosinophilic sydrome w/ h/o portal vein thrombosis - w/ possible SMV thrombosis on CT imaging
-eliquis has been held for several days
-plans are underway for exploratory laparoscopy w/ possible bowel resection this afternoon for mesenteric ischemia
-post-operatively - heparin drip could be utilized for anticoagulation - w/ close monitoring of hemoglobin/ GI blood loss
-GI following
-follow CBC
Hematology Addendum:
Patient seen and evaluated w/ resident and agree w/ note and plan as outlined
1. Hypercoagulable state - w/ HES syndrome - h/o portal vein thrombosis/ SMV thrombosis on CT imaging
-discussed case w/ GI - heparin gtt will be utilized post-operatively for anticoagualtion w/ close monitoring
-follow CBC
Will continue to follow with you.
Patient History
History of Present Illness
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 Donovan and Dr[address] De La Fuente at [place], chronic portal vein thrombus on chronic Eliquis, type 2 diabetes, depression and neuropathy
presents to the hospital with abdominal pain, nausea, vomiting and rectal bleeding. Patient had been doing a GI prep for endoscopy/colonoscopy at [place] to evaluate if there was GI involvement related to his hypereosinophilic syndrome. In
preparation for endoscopy/colonoscopy, his last dose of Eliquis was 11/08. After starting the prep, he started to have lower abdominal pain, nausea, vomiting and bright rectal bleeding multiple times at which point he came into the hospital for
further evaluation.
Of note, patient receives Pegasys injections weekly and is on Jakafi for treatment of his hypereosinophilic syndrome. He has been off of his prednisone for the 2 days prior to admission, but due to pain on 11/13 he took a 15mg dose of prednisone. He
was also seen in the past by Dr. Hill in 2023. He was diagnosed with a chronic thrombosis of the right portal vein found incidentally noted in MRI 12/21/22 and started on Eliquis. Hypereosinophilic syndrome is associated with hypercoagulable
state.
In the ED he was febrile with temp 101.2, HR 120, 97% on room air. WBC was 11.6, hg 12.9, Na 133, Cr 0.8. Ab/pelvic CT revealed severe enteritis/ileitis along ileum and later addendum added SMV thrombosis. Cultures were taken, he was started on
Zosyn, stress dose steroids and was admitted for sepsis secondary to severe enteritis. GI was consulted. Due to tachycardia, fevers, pain out of proportion to exam and SMV thrombosis on CT, general surgery was consulted as well for concerns of
mesenteric ischemia. Plans are tentively underway for him to go to the OR this afternoon.
Past-Medical/Surgical History
Past medical history: hypereosinophilic syndrome lymphocytic variant, Steroid-dependence,active smoker, DM2 steroid-induced, neuropathy, depression, portal vein thrombosis, class I obesity
Past surgical history: [place] tooth removal
Social history: Active smoker
FH: non-contributory
Allergies
Allergy/AdvReac Type Severity Reaction Status Date / Time
vancomycin Allergy Rash Verified 05/25/22 15:00
Home Medications
gabapentin 100 mg capsule 300 mg PO HS PRN Neuropathy 06/30/22
Prilosec OTC 20 mg PO DAILY 11/13/24
acyclovir 400 mg tablet 400 mg PO BID 11/13/24
apixaban 5 mg tablet (Eliquis) 5 mg PO BID 11/13/24
clobetasol 0.05 % topical cream 1 applic topical DAILY PRN rash 11/13/24
peginterferon shan-2a 180 mcg/mL subcutaneous solution (Pegasys) 144 mcg SC 11/13/24
prednisone 15 mg PO ONCE 11/13/24
prednisone 21 mg PO DAILY 11/13/24
ruxolitinib 5 mg tablet (Jakafi) 20 mg PO BID 11/13/24
sertraline 50 mg tablet 50 mg PO HS 11/13/24
sulfamethoxazole 800 mg-trimethoprim 160 mg tablet 1 tab PO MOWEFR 11/13/24
[2024-11-14 12:01] LABS: Hematocrit 32.0 % (39.0-52.0); Hemoglobin 11.0 g/dL (13.0-18.0); Mean Corp Hgb Conc. 34.4 g/dL (33.0-37.0); Mean Corpuscular Volume 82.9 fL (80.0-94.0); Platelet Count 167 10^3/uL (130-400); Red Cell Dist. Width 15.0 % (11.5-14.5)
--- NOTE | 2024-11-14 12:05 | W.SUR.PREOP ---
Pre-Operative Surgical Note
-
I have examined this patient prior to the performance of the scheduled procedure.
The patient's condition is unchanged from the time of the current History and
Physical and the patient is able to undergo the scheduled procedure.
[2024-11-14 12:11] LABS: INR 1.25; PT 16.0 Sec (11.4-14.6)
[2024-11-14 12:12] LABS: APTT 31.6 Sec (23.4-35.0)
[2024-11-14 12:16] LABS: Blood Urea Nitrogen 8 mg/dl (9-20); Calcium 8.0 mg/dl (8.4-10.2); Carbon Dioxide 21 mmol/L (22-30); Chloride 103 mmol/L (98-107); Estimated Creatinine Clearance > 125 ml/min; Glucose 171 mg/dl (70-99); Potassium 3.9 mmol/L (3.5-5.1); Sodium 130 mmol/L (135-145); eGFR > 60.00
--- NOTE | 2024-11-14 12:33 | CM ---
CM following re: discharge planning.
Reviewed pt's chart, met with pt and pt's spouse at bedside.
Pt is a 44 year old male, admitted with primary dx of Abdominal pain. OR today.
Pt reports he lives with spouse 2SH, 3 steps to enter, has no children. 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
PCP: Omero Brower
Pharmacy: [facility]
D/c plan: home with anticipated no needs. Spouse to transport at discharge.
CM will follow with discharge plan updates as hospitalization progresses
--- NOTE | 2024-11-14 14:21 | W.IMMPOSTOP ---
Surgical Immed Post Op Note
-
Primary Surgeon: Jeff Uribe MD
Assisting Surgeon: None
Pre-op Diagnosis: Acute mesenteric ischemia
Post-op Diagnosis: Same
Procedure Performed:
Exploratory laparotomy, small bowel resection
Anesthesia Type: General
Specimen / Cultures: Small bowel
Estimated Blood Loss: 7 cc
Complications: None
Operative Findings: Bowen and NG tube placed. NG tube confirmed to be in good position intraoperatively. Periumbilical vertical midline incision. Umbilical hernia reduced. Abdomen entered safely with murky fluid. Small bowel run proximal to
distal. The distal 40 cm of the small bowel was notable for increasing creeping fat and a markedly thickened mesentery. There was a roughly 20 cm segment of mildly dusky bowel before there was a 18 cm segment of small bowel that was frankly
necrotic but not perforated. There was an additional 12 cm of healthy bowel/terminal ileum before the colon. A small bowel resection of the 18 cm segment of necrotic bowel was performed using 2 fires of an 80 POONAM stapler. The intervening
mesentery was ligated using LigaSure device. The ends were marked with Prolene suture, single tail for proximal, double tail for distal. Given the question of viability of the proximal bowel we elected not to perform an anastomosis and plan for a
second look laparotomy in 2 to 3 days pending his clinical course.
POST OP PLAN:
Imaging: None
Labs: Routine AM
Diet: NPO.
Analgesia: Tylenol IV, Dilaudid 0.5mg q2h PRN
Neuro/vascular checks: Per unit protocol
AC/AP: Okay for heparin drip no bolus tonight at 10 PM
Activity: Ad Analisa
Wound/Incisions/Drains: Routine, Bowen to gravity, NG tube to low intermittent wall suction.
Abx: Continue antibiotics
Dispo: IMU. Family updated
[2024-11-14 14:30] LABS: Glucose - Point of Care 164 mg/dl (70-99)
--- NOTE | 2024-11-14 14:36 | OR.RPT ---
Operative Report
Operative Report
Patient Name: Magen Dave
: 1980
Date of Operation: 11/14/2024
Preoperative Diagnosis: Acute mesenteric ischemia
Postoperative Diagnosis: Same
Procedure(s):
1. Exploratory laparotomy
2. Small bowel resection
Surgeon(s):
Dr. Uribe
Image Archivist(s):
None
Anesthesia: General
Estimated Blood Loss: 7 cc
Urine Output: See anesthesia records
Drains/Lines/Implants:
16 Gib[place]tarian Bowen catheter
18 Gib[place]tarian NG tube
Specimens: Small bowel
Indication for surgery:
This is a 44-year-old male with history significant for diabetes, hypereosinophilic syndrome, history of portal vein thrombus on chronic Eliquis who after starting a prep in anticipation of a colonoscopy this week began having sudden and severe
abdominal pain that worsened prompting a visit to our ER and subsequent CT scan which demonstrated significantly inflamed terminal ileum and SMV thrombus. General surgery consulted. Patient was tachycardic and tender on exam out of proportion to
his pain all consistent with type for mesenteric ischemia. After discussion of risk benefits and alternatives, the patient consented to surgery.
Operative Findings: Bowen and NG tube placed. NG tube confirmed to be in good position intraoperatively. Periumbilical vertical midline incision. Umbilical hernia reduced. Abdomen entered safely with murky fluid. Small bowel run proximal to
distal. The distal 40 cm of the small bowel was notable for increasing creeping fat and a markedly thickened mesentery. There was a roughly 20 cm segment of mildly dusky bowel before there was a 18 cm segment of small bowel that was frankly
necrotic but not perforated. There was an additional 12 cm of healthy bowel/terminal ileum before the colon. A small bowel resection of the 18 cm segment of necrotic bowel was performed using 2 fires of an 80 POONAM stapler. The intervening
mesentery was ligated using LigaSure device. The ends were marked with Prolene suture, single tail for proximal, double tail for distal. Given the question of viability of the proximal bowel we elected not to perform an anastomosis and plan for a
second look laparotomy in 2 to 3 days pending his clinical course.
Details of the operation:
The patient was brought to the operating room and positioned supine on the operating table. General anesthesia with rapid sequence intubation was induced, followed by successful endotracheal intubation. A Bowen catheter and NG tube were placed
without incident. The abdomen was prepped and draped in the usual sterile fashion. A timeout was performed.
A vertical midline periumbilical incision was made. A fairly prominent umbilical hernia was identified and reduced. The abdomen was entered safely. We immediately encountered somewhat murky appearing ascites. The skin was protected using a large
Keerthi device. The small bowel was identified and run initially proximally which all appeared to be normal. We then began running the bowel distally. The majority of the small bowel was completely normal however as we ran the distal edge jejunum
the mesentery started becoming more thickened and creeping fat was noted. We encountered a segment of roughly 20 cm that was mildly dusky before and 18 said major segment of frankly necrotic bowel. Distal to this there was an additional 12 cm of
healthy bowel before the terminal ileum reached the colon. Thankfully there was no perforation in the necrotic bowel was resected using 2 fires of the 80 POONAM stapler with purple loads. The intervening mesentery was ligated using a bipolar energy
device. Given that the upstream bowel looks somewhat dusky I was concerned about performing an anastomosis in this setting so elected to papito the ends of the bowel with Prolene suture (single tail for proximal, double tail for distal) with plans
for a second look laparotomy in a few days. After confirming hemostasis the bowel was returned to the abdomen and the abdomen was irrigated with 500 cc of warm saline and suctioned until clear. Given his obesity I elected to close his abdomen to
decrease the risk of future incisional hernia. The fascia was closed using running 0 PDS suture anchored at each apex and run towards the middle and tied together. The skin was then approximated using skin stapler, gaps were left in the lower
portion of the wound to allow for drainage. The wound was then covered with an Aquacel dressing, concluding the procedure. Counts were correct x 2. The patient tolerated the procedure well. They were extubated and taken to the recovery area
hemodynamically stable with plans to be admitted to the IMU for hemodynamic monitoring.
I was the attending physician and performed the procedure with no assistance. I was present for all portions of the case
Jeff Uribe MD
--- NOTE | 2024-11-14 15:49 | PTCARENOTE ---
Received patient from PACU in bed. Patient AAOx3, no complaints. Oriented to room, family at bedside. NGT to LIS. RA. NST on monitor with HR in 120s, aware. All other VSS, on RA. Midline incision CDI with some circled shadowing on dressing. Bowen
draining clear, yellow urine. IVF infusing per orders. Will closely monitor.
[2024-11-14] MEDS: NOVOLOG FLEXPEN-LOW RESISTANCE SC (15:53)
[2024-11-14] MEDS: OFIRMEV 100 IV ×2 (16:20→21:51)
[2024-11-14 18:14] LABS: Glucose - Point of Care 217 mg/dl (70-99)
[2024-11-14] MEDS: NOVOLOG FLEXPEN-LOW RESISTANCE 2 UNITS SC (18:16)
[2024-11-14] MEDS: ZOVIRAX INJECTION 108 MG IV (20:05)
[2024-11-14] MEDS: NSS (PRESERVATIVE FREE) 10 ML IV (20:05)
[2024-11-14] MEDS: PROTONIX IV 40 MG IV (20:05)
[2024-11-14] MEDS: FLUSH (NSS) 2 FLUSH IV (20:06)
[2024-11-14 20:13] LABS: Hematocrit 29.9 % (39.0-52.0); Hemoglobin 10.5 g/dL (13.0-18.0); Mean Corp Hgb Conc. 35.1 g/dL (33.0-37.0); Mean Corpuscular Volume 80.6 fL (80.0-94.0); Platelet Count 161 10^3/uL (130-400); Red Cell Dist. Width 15.0 % (11.5-14.5)
[2024-11-14 20:23] LABS: APTT 34.3 Sec (23.4-35.0)
[2024-11-14] MEDS: HEPARIN 25000 UNITS/250 ML IV (21:55)
--- NOTE | 2024-11-14 22:19 | PTCARENOTE ---
PTT obtained as ordered at 1999 resulted 34.3. Heparin gtt at 2000unit/hr initiated as ordered at this time. Next PTT in for 0415 in am. All pt's questions answered to his satisfaction. Will continue to monitor.
[2024-11-14 23:41] LABS: Glucose - Point of Care 185 mg/dl (70-99)
[2024-11-15] VITALS (19 sets, daily range): BP systolic 110–159; BP diastolic 70–99
[2024-11-15] MEDS: NSS 1000 IV ×2 (04:11→16:34)
[2024-11-15] MEDS: NSS IV (04:11)
[2024-11-15] MEDS: OFIRMEV 100 IV ×4 (04:12→21:00)
[2024-11-15] MEDS: ZOSYN 50 IV ×4 (04:17→21:00)
[2024-11-15] MEDS: CHLORASEPTIC/SORE THROAT SPRAY 2 SPRAY PO ×2 (04:20→21:18)
[2024-11-15 04:25] LABS: Hematocrit 29.8 % (39.0-52.0); Hemoglobin 10.0 g/dL (13.0-18.0); Mean Corp Hgb Conc. 33.6 g/dL (33.0-37.0); Mean Corpuscular Volume 84.2 fL (80.0-94.0); Nucleated Red Blood Cells % 0 % (-); Platelet Count 144 10^3/uL (130-400); Red Cell Dist. Width 14.9 % (11.5-14.5)
[2024-11-15 04:36] LABS: APTT 127.2 Sec (23.4-35.0)
[2024-11-15 05:12] LABS: ALT (SGPT) 72 U/L (0-50); AST (SGOT) 52 U/L (17-59); Albumin 3.2 g/dl (3.5-5.0); Alkaline Phosphatase 49 U/L (38-126); Blood Urea Nitrogen 7 mg/dl (9-20); Calcium 7.5 mg/dl (8.4-10.2); Carbon Dioxide 25 mmol/L (22-30); Chloride 105 mmol/L (98-107); Estimated Creatinine Clearance > 125 ml/min; Glucose 158 mg/dl (70-99); Potassium 3.8 mmol/L (3.5-5.1); Sodium 135 mmol/L (135-145); Total Protein 5.8 g/dl (6.3-8.2); eGFR > 60.00
[2024-11-15] MEDS: NOVOLOG FLEXPEN-LOW RESISTANCE 1 UNITS SC ×2 (05:43→13:13)
[2024-11-15 05:48] LABS: Glucose - Point of Care 152 mg/dl (70-99)
--- NOTE | 2024-11-15 07:16 | W.PN.HOSP.TC ---
Today's Communication/Plan
-
Continue ivf, maintain NG.
relook procedure with surgery in 2-3 days
cont zosyn
Assessment / Plan
Assessment / Plan
This is a 44-year-old male with past medical history of hypereosinophilic syndrome with skin involvement, diabetes, smoker, neuropathy, depression, portal vein thrombus on Eliquis, obesity presented with abdominal pain, nausea and vomiting, bright
red blood in the stools after taking Dulcolax and MiraLAX for EGD and colonoscopy.
# Sepsis with severe enteritis involving long segment of ileum with rectal bleeding post colonoscopy and upper GI series prep
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 s/p resection 18cm necrotic ileum 11/14 and SB left in discontinuity for relook in 2-3 days
- Leukocytosis resolved
- Hemoglobin appears stable
- NSS 100 cc/h
- Hydrocortisone 100 mg given in ER-patient is on chronic steroid 21 mg last dose was 11/11/2024 has slowly been tapering from 30 mg down by 1 mg has been at 21 mg for the past few weeks
- We will continue stress dose hydrocortisone 50 mg every 8 hours given sepsis
- Continue IV Zosyn
- IV Tylenol
- IV Dilaudid as needed pain, Zofran nausea
- Blood cultures NGTD
#History of Hypereosinophilic syndrome with typical skin rash follows at [facility] on chronic steroids
on chronic steroid 21 mg last dose was 11/11/2024 has slowly been tapering from 30 mg down by 1 mg has been at 21 mg for the past few weeks
-Continue Jakafi 20 mg twice daily
-Patient receives Pegasys infusion once a week
-Continue Prilosec 20 mg daily
-Continue acyclovir 4 mg twice daily; now iv
-Patient is on prophylactic Bactrim DS Sunday
.
#History of portal vein thrombosis years ago
Has not taken Eliquis 5 mg twice daily in 6 days due to upper GI and colonoscopy plan; now on hep gtt
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
A1c is 7.9
- Patient is using Ozempic 1 mg once a week last dose was 11/08/2024
#Chronic neuropathy
Patient takes gabapentin 300 mg at bedtime as needed
#Depression
Zoloft 50 mg at bedtime, npo and on hold for now
#Class I obesity�BMI 33
Patient currently on Ozempic
DVT prophylaxis
SCDs
Full code
Anticipated Discharge: > 48 hours
Subjective/Interval History
-
Date of Service: November 15, 2024
seen and examined at bedside. Lying Comfortable. Offers no new complaints.AFVSS
Objective Data
-
Labs:
Laboratory Results
11/14/24 11/15/24 11/15/24
20:03 04:03 10:40
WBC 7.8 7.0
Hgb 10.5 L 10.0 L
Hct 29.9 L 29.8 L
Plt Count 161 144
APTT 34.3 127.2 H Pending
Sodium 135
Potassium 3.8
Chloride 105
Carbon Dioxide 25
BUN 7 L
Creatinine 0.6 L
Glucose 158 H
Calcium 7.5 L
Total Bilirubin 1.4 H
AST 52
ALT 72 H
Alkaline Phosphatase 49
Vital Signs:
Vital Signs
Temp Pulse Resp BP Pulse Ox
99.2 F 91 17 145/82 95
11/15/24 03:00 11/15/24 06:15 11/15/24 06:15 11/15/24 06:00 11/15/24 06:15
I&O
11/14/24 11/15/24 11/16/24
06:59 06:59 06:59
Intake Total 1540 / 1540
Output Total 2375 / 2375
Balance -835 / -835
Review of Systems
-
History Source: Patient
All other systems: Reviewed and negative (Except document)
Abdomen/GI: Reports Abdominal Pain (Mild Pain near surgery site)
Genitourinary: Reports No Symptoms
Physical Exam
-
General: Well Developed and No Apparent Distress
HEENT: Moist Mucous Membranes
Respiratory: Clear to Auscultation and Non Labored Respirations
Cardiac: Regular Rhythm and S1/S2
GI: Soft, Nontender, No Hernias and Other (Dressing in place)
Neuro: Awake, Alert and Oriented
Psych: Calm
Data Reviewed
-
Labs: Labs Reviewed by me, Discussed with Physician and Discussed with Patient
--- NOTE | 2024-11-15 08:55 | W.PN.GI.CBS2 ---
Today's Communication / Plan
-
No further rectal bleeding or discharge since SB resection with SB left in discontinuity for relook in 2-3 days
On heparin gtt, hgb stable
Further management per surgery and hospitalist team
Will sign off for now. Please call back if needed
Assessment / Plan
-
Pt is a 44yo with hx hypereosinophilic syndrome with steroid dependence since [address] Montano at [place], clotting disorder with chronic portal vein thrombus chronic Eliquis for last year, , obesity on Ozempic with use for DM , NIDDM,
depression presents to 12/14 with abdominal pain, nausea, vomiting, weakness with rectal bleeding. Pt was prepping for EGD/colon at [place] when started with symptoms. On admission CT a/p angio was completed with no active GI bleeding but noted
severe enteritis in long segment of ileum, no dissection but also noted changes of chronic right portal vein thrombus with atrophic changes of right hepatic lobe, attenuated right portal vein branches and mild upper abd varices with diffuse hepatic
steatosis. In addition, addendum reported SMV thrombosis
Impression:
Acute mesenteric ischemia due to SMV thrombosis. s/p resection 18cm necrotic ileum 11/14 and SB left in discontinuity for relook in 2-3 days
-GI bleeding- resolved
-hypereosinophilic syndrome on prednisone, Pegasys, Jakafi
-chronic portal vein thrombus chronic Eliquis
Subjective
Subjective
Date of Service: November 15, 2024
Feels much better today. Minimal abd pain. No rectal output
On heparin gtt
Objective
Data Reviewed
Laboratory Data:
Laboratory Results
11/15/24 04:03
11/15/24 04:03
Laboratory Results
PT Cancelled 11/14/24 13:00
INR Cancelled 11/14/24 13:00
APTT 127.2 Sec (23.4-35.0) H 11/15/24 04:03
Total Bilirubin 1.4 mg/dl (0.2-1.3) H 11/15/24 04:03
AST 52 U/L (17-59) 11/15/24 04:03
ALT 72 U/L (0-50) H 11/15/24 04:03
Alkaline Phosphatase 49 U/L (38-126) 11/15/24 04:03
Lipase 44 U/L (23-300) 11/13/24 15:24
Vital Signs and I&O:
Vital Signs
Temp Pulse Resp BP Pulse Ox
98.5 F 91 17 145/82 94
11/15/24 08:03 11/15/24 06:15 11/15/24 06:15 11/15/24 06:00 11/15/24 07:53
I&O
11/14/24 11/15/24 11/16/24
06:59 06:59 06:59
Intake Total 1540 / 1540
Output Total 2375 / 2375
Balance -835 / -835
Physical Exam
Physical Exam
GI: Soft, Non Distended, Tender (mild, much improved from admission) and Other (midline incision)
[2024-11-15] MEDS: ZOVIRAX INJECTION 108 MG IV ×2 (08:57→21:00)
[2024-11-15] MEDS: SOLU-CORTEF 50 MG IV ×3 (08:58→23:52)
[2024-11-15] MEDS: NSS (PRESERVATIVE FREE) 10 ML IV ×2 (08:58→21:00)
[2024-11-15] MEDS: PROTONIX IV 40 MG IV ×2 (08:58→21:00)
--- NOTE | 2024-11-15 09:47 | CM ---
Patient seen at bedside with Silvia
NGT
OR tomorrow
PLAN: home with anticipated no needs. Spouse to transport at discharge.
CM will follow with discharge plan updates as hospitalization progresses
[2024-11-15] MEDS: DILAUDID 1 MG IV ×2 (10:06→20:58)
[2024-11-15 11:37] LABS: APTT 78.3 Sec (23.4-35.0)
[2024-11-15] MEDS: HEPARIN 25000 UNITS/250 ML IV (12:07)
[2024-11-15 12:50] LABS: Glucose - Point of Care 156 mg/dl (70-99)
--- NOTE | 2024-11-15 13:26 | W.PN.ONC2 ---
Today's Communication / Plan
-
- continue heparin gtt for now.
- ACL, B2G testing.
Impression
Impression
Sepsis secondary to severe enteritis
Possible mesenteric ischemia
rectal bleed
Hypereosinophilic syndrome with steroid dependence
Chronic portal vein thrombosis (last dose eliquis 11/08)
hypercoagulable state
DMII
Neuropathy
Plan
Plan
1. Hypercoagulable state - in setting of hypereosinophilic syndrome, FVL w/ h/o portal vein thrombosis
-presented with bowel ischemia w/ SMV thrombosis in setting of holding eliquis since 11/08 for elective colonoscopy.
-s/p exploratory laparoscopy 11/14 with removal of 18 cm of more distal SB. anastomosis not performed due to questionable viability of more proximal bowel. plan for repeat laparotomy 2-3 days pending clinical course.
- now on heparin gtt.
- prior thrombophilia testing was notable for elevated AcL IgM 46, B2G IgM 96 however due to other underlying hypercoagulable conditions (HES, FVL) diagnosis of APLAS and need to switch to coumadin felt appropriately un-necessary. repeat AcL, B2G
antibodies studies now with recurrent thrombotic event with only 72 hours of holding DOAC. If positive he should have these repeated in 12 weeks.
- I would not consider this to be DOAC failure and, up to now, no recurrent VTE events on DOAC. therefore, reasonable to resume this on discharge pending further APLA testing. However, reviewed that DOACs are predominately absorbed in SB and SB
resections can impact efficacy due to impaired absorption. Eliquis is less affected by this however decreased concentrations can be seen after significant resection of the proximal small bowel. From op report it appears majority of bowel was taken
more distally however if additional resection of more proximal bowel required on repeat laproscopy would favor switching to coumadin to ensure AC remains therapeutic in this high VTE risk pt.
Will continue to follow with you.
Subjective/Objective
Chief Complaint
SMV thrombosis off AC, hx of FVL w/ PVT on DOAC, HES
Subjective
pt feeling well post surgery, resolution of abdominal pain. no recurrent GIB. Denies fevers, chills, chest pain. He notes mild hives under left arm in setting of holding HES meds.
Vital Signs:
Vital Signs
Temp Pulse Resp BP Pulse Ox
99.0 F 91 17 145/82 94
11/15/24 11:59 11/15/24 06:15 11/15/24 06:15 11/15/24 06:00 11/15/24 07:53
Lab Results:
Laboratory Data
WBC 7.0 10^3/uL (4.8-10.8) 11/15/24 04:03
Hgb 10.0 g/dL (13.0-18.0) L 11/15/24 04:03
Plt Count 144 10^3/uL (130-400) 11/15/24 04:03
PT Cancelled 11/14/24 13:00
INR Cancelled 11/14/24 13:00
APTT 78.3 Sec (23.4-35.0) H 11/15/24 11:07
eGFR > 60.00 11/15/24 04:03
Physical Exam
HEENT: Other (NGT in place ); No Jaundice
Pulmonary: Clear
GI: Soft and Normal Bowel Sounds; No Distended
Extremities: No Edema
Neuro: Non Focal
Review of Systems
Review of Systems
Respiratory: Denies Dyspnea
Cardiovascular: Denies Chest Pain
Gastrointestinal: Denies Nausea/Vomiting or Diarrhea
Skin: Reports Rash
--- NOTE | 2024-11-15 13:58 | W.PN.GS2 ---
Addendum entered and electronically signed by Omid Sue MD 11/15/24 14:44:
I saw and examined the patient.
The SECURITY ALARM INSTALLER's note was reviewed and I agree with the note.
Comment: KSENIA VEGA, ttp about incision, denies n/v; excellent UOP; incision cdi with interpolated jayjay and scant ss drainage; plan for RTOR for second look and possible anastomosis. D/w pw and . op findings and expected clinical course
including likely post-op ileus explained.
Original Note:
Today's Communication / Plan
-
OR in AM
NGT and strict NPO
Assessment / Plan
-
44 yo male with history of hypereosinophilic syndrome with known clotting disorder and chronic portal vein thrombus on Eliquis with AC held in anticipation of a colonoscopy this week who developed nausea, vomiting and intense abdominal pain followed
by rectal bleeding during his prep. CT with findings concerning for mesenteric ischemia, portal vein thrombus and SMV thrombus noted and taken to the OR for mesenteric ischemia.
POD #1 ex lap with SBR (18cm necrotic bowel), left in discontinuity given ?viability of proximal bowel
AFVSS
Pain much better than preop
NGT with light bilious outputs (low output)
Plan:
RTOR planned tomorrow to reassess bowel and perform anastomosis vs additional resection pending operative findings
Continue IV heparin gtt, hold at tomorrow at 0400 for OR in AM
Strict NPO, IV meds only
NGT to wall suction, do not clamp
C/W vogel
Analgesics scheduled and prn
Subjective Data
-
Date of Service: November 15, 2024
Pt seen and examined at bedside with Dr Sue earlier this am around 0845. Spouse at bedside, updated. Pain well controlled. Denies n/v.
Objective Data
-
Intake and Output
11/14/24 11/15/24 11/16/24
06:59 06:59 06:59
Intake Total 1540 / 1540
Output Total 2375 / 2375
Balance -835 / -835
Intake:
IV fluids (Total) 900 / 900
normosol 100 / 100
IV piggybacks 640 / 640
Output:
Gastrointestinal tube output ( 100 / 100
Total)
[place] Sump 100 / 100
Urine, Vogel 2275 / 2275
Vital Signs
Temp Pulse Resp BP Pulse Ox
99.0 F 91 17 145/82 94
11/15/24 11:59 11/15/24 06:15 11/15/24 06:15 11/15/24 06:00 11/15/24 07:53
Lab Results
11/15/24 04:03
11/15/24 04:03
Calcium 7.5 mg/dl (8.4-10.2) L 11/15/24 04:03
Total Bilirubin 1.4 mg/dl (0.2-1.3) H 11/15/24 04:03
AST 52 U/L (17-59) 11/15/24 04:03
ALT 72 U/L (0-50) H 11/15/24 04:03
Alkaline Phosphatase 49 U/L (38-126) 11/15/24 04:03
Total Protein 5.8 g/dl (6.3-8.2) L 11/15/24 04:03
Albumin 3.2 g/dl (3.5-5.0) L 11/15/24 04:03
Physical Exam
-
NAD
ABD soft, mild tenderness around incisions, no rebound/rigidity or guarding
NGT with light bilious outputs
Midline incision with intact jayjay, dressing changed
[2024-11-15] MEDS: DILAUDID 0.5 MG IV (16:43)
[2024-11-15 17:26] LABS: APTT 89.9 Sec (23.4-35.0)
--- NOTE | 2024-11-15 17:34 | PTCARENOTE ---
Pt care assumed after morning report. Pt alert and oriented x 3 NG intact to left nares and to LIS, No flushing ordered. NG patent and draining pale green liquid. Pt has loud audible bowel sounds, Small smear of brown from rectum. Pt seen by
surgical team and they changed midline abdominal dressing from Aquacel to gauze, which is CDI throughout the shift. PT remains on heparin gtt per protocol, Lungs diminished and pt started on IS today. OOB with 1 assist and tolerated over 3 hours in
recliner. Pt medicated for generalized abdominal pain and IV Dilaudid effective each time. Pt visited with family members and is in good spirits.
[2024-11-15 18:33] LABS: Glucose - Point of Care 122 mg/dl (70-99)
[2024-11-15] MEDS: NOVOLOG FLEXPEN-LOW RESISTANCE SC ×2 (18:34→23:03)
[2024-11-15] MEDS: FLUSH (NSS) 2 FLUSH IV ×3 (20:59→23:52)
[2024-11-15] MEDS: ZOFRAN 4 MG IV (21:36)
--- NOTE | 2024-11-15 21:56 | PTCARENOTE ---
Pt received at beginning of shift resting comfortably in bed. at bedside. AAOx3. Admits to lower abdominal pain 6/10 pain rating. Medicated with Dilaudid as ordered. Developed nausea, medicated with Zofran as ordered with good relief. Left nare
[place] sump to LIS with clear green drainage in collection canister. Tube clamped to gown. Midline abdominal gauze dressing with shadowing noted, marked. Abdomen softly distended and round. +BS. Bowen draining yellow urine. Knee high scd's on. VSS.
Afebrile. SR on CM rate 90's. POX 94% on RA. Heparin gtt infusing at 1800units/hr. Next PTT in am. IVF's infusing as ordered. Pt strict NPO. For OR tomorrow. Rest of assessment as documented. Pt turning self. staying at bedside tonight. Call
reese remains within reach. Will continue to monitor.
[2024-11-15 23:08] LABS: Glucose - Point of Care 124 mg/dl (70-99)
[2024-11-16] VITALS (21 sets, daily range): BP systolic 121–161; BP diastolic 63–97; BMI 32.4
--- NOTE | 2024-11-16 | PTCARENOTE ---
CHG bath given. All linens changed.
--- NOTE | 2024-11-16 01:59 | PTCARENOTE ---
Addendum entered by Althea Williamson RN 11/16/24 02:52:
Per surgery
Original Note:
Heparin gtt stopped and disconnected as ordered at this time for OR time between 8am-10am this morning.
[2024-11-16] MEDS: ZOSYN 50 IV ×3 (03:27→21:05)
[2024-11-16] MEDS: NSS 1000 IV ×2 (03:27→18:43)
[2024-11-16] MEDS: OFIRMEV 100 IV ×4 (03:27→21:03)
[2024-11-16 03:57] LABS: Hematocrit 27.5 % (39.0-52.0); Hemoglobin 9.3 g/dL (13.0-18.0); Mean Corp Hgb Conc. 33.8 g/dL (33.0-37.0); Mean Corpuscular Volume 84.6 fL (80.0-94.0); Nucleated Red Blood Cells % 0 % (-); Platelet Count 157 10^3/uL (130-400); Red Cell Dist. Width 15.3 % (11.5-14.5)
[2024-11-16 04:19] LABS: APTT 41.0 Sec (23.4-35.0)
[2024-11-16 04:21] LABS: ALT (SGPT) 65 U/L (0-50); AST (SGOT) 36 U/L (17-59); Albumin 3.1 g/dl (3.5-5.0); Alkaline Phosphatase 57 U/L (38-126); Blood Urea Nitrogen 8 mg/dl (9-20); Calcium 7.6 mg/dl (8.4-10.2); Carbon Dioxide 24 mmol/L (22-30); Chloride 108 mmol/L (98-107); Estimated Creatinine Clearance > 125 ml/min; Glucose 136 mg/dl (70-99); Potassium 3.8 mmol/L (3.5-5.1); Sodium 137 mmol/L (135-145); Total Protein 5.6 g/dl (6.3-8.2); eGFR > 60.00
[2024-11-16] MEDS: NOVOLOG FLEXPEN-LOW RESISTANCE SC ×2 (05:14→12:32)
[2024-11-16 05:18] LABS: Glucose - Point of Care 127 mg/dl (70-99)
[2024-11-16] MEDS: DILAUDID 1 MG IV ×3 (06:18→23:17)
[2024-11-16] MEDS: FLUSH (NSS) 2 FLUSH IV ×3 (06:19→21:07)
--- NOTE | 2024-11-16 06:25 | PTCARENOTE ---
CHG bath given this am. Pt tearful with concern for surgery and outcome. Emotional support provided to pt. Pt c/o 09/02 right lower abdominal pain. Medicated with Dilaudid as ordered. Currently resting comfortable. Call reese remains at bedside. Will
continue to monitor.
--- NOTE | 2024-11-16 07:14 | W.PN.HOSP.TC ---
Today's Communication/Plan
-
Relook surgery(ex lap) today with general surgery
Continue Zosyn
Assessment / Plan
Assessment / Plan
This is a 44-year-old male with past medical history of hypereosinophilic syndrome with skin involvement, diabetes, smoker, neuropathy, depression, portal vein thrombus on Eliquis, obesity presented with abdominal pain, nausea and vomiting, bright
red blood in the stools after taking Dulcolax and MiraLAX for EGD and colonoscopy.
# Sepsis with severe enteritis involving long segment of ileum with rectal bleeding post colonoscopy and upper GI series prep
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 s/p resection 18cm necrotic ileum 11/14 and SB left in discontinuity ; plan to repeat procedure today
- Leukocytosis resolved
- Hemoglobin appears stable
- NSS 100 cc/h
- Hydrocortisone 100 mg given in ER-patient is on chronic steroid 21 mg last dose was 11/11/2024 has slowly been tapering from 30 mg down by 1 mg has been at 21 mg for the past few weeks
- We will continue stress dose hydrocortisone 50 mg every 8 hours given sepsis
- Continue IV Zosyn
- IV Tylenol
- IV Dilaudid as needed pain, Zofran nausea
- Blood cultures NGTD
#History of Hypereosinophilic syndrome with typical skin rash follows at [facility] on chronic steroids
on chronic steroid 21 mg last dose was 11/11/2024 has slowly been tapering from 30 mg down by 1 mg has been at 21 mg for the past few weeks
-Continue Jakafi 20 mg twice daily
-Patient receives Pegasys infusion once a week
-Continue Prilosec 20 mg daily
-Continue acyclovir 4 mg twice daily; now iv
-Patient is on prophylactic Bactrim DS Sunday
.
#History of portal vein thrombosis years ago
Has not taken Eliquis 5 mg twice daily in 6 days due to upper GI and colonoscopy plan; now on hep gtt
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
A1c is 7.9
- Patient is using Ozempic 1 mg once a week last dose was 11/08/2024
#Chronic neuropathy
Patient takes gabapentin 300 mg at bedtime as needed
#Depression
Zoloft 50 mg at bedtime, npo and on hold for now
#Class I obesity�BMI 33
Patient currently on Ozempic
DVT prophylaxis
SCDs
Full code
Anticipated Discharge: > 48 hours
Subjective/Interval History
-
Date of Service: November 16, 2024
Seen and examined at bedside. AFVSS. Offers no new complaints.
Objective Data
-
Labs:
Laboratory Results
11/16/24
03:26
WBC 4.9
Hgb 9.3 L
Hct 27.5 L
Plt Count 157
APTT 41.0 H
Sodium 137
Potassium 3.8
Chloride 108 H
Carbon Dioxide 24
BUN 8 L
Creatinine 0.5 L
Glucose 136 H
Calcium 7.6 L
Total Bilirubin 0.7
AST 36
ALT 65 H
Alkaline Phosphatase 57
Vital Signs:
Vital Signs
Temp Pulse Resp BP Pulse Ox
98.0 F 83 14 141/82 95
11/16/24 03:55 11/16/24 06:30 11/16/24 06:30 11/16/24 05:00 11/16/24 06:30
I&O
11/15/24 11/16/24 11/17/24
06:59 06:59 06:59
Intake Total 1540 / 1540 3078 / 3078
Output Total 2375 / 2375 1700 / 1700
Balance -835 / -835 1378 / 1378
Review of Systems
-
History Source: Patient
All other systems: Reviewed and negative (Except document)
Abdomen/GI: Reports Abdominal Pain (Mild Pain near surgery site)
Genitourinary: Reports No Symptoms
Physical Exam
-
General: Well Developed and No Apparent Distress
HEENT: Moist Mucous Membranes
Respiratory: Clear to Auscultation and Non Labored Respirations
Cardiac: Regular Rhythm and S1/S2
GI: Soft, Nontender, No Hernias and Other (Dressing in place)
Neuro: Awake, Alert and Oriented
Psych: Calm
Data Reviewed
-
Labs: Labs Reviewed by me, Discussed with Physician and Discussed with Patient
[2024-11-16] MEDS: PROTONIX IV 40 MG IV ×2 (08:10→21:06)
[2024-11-16] MEDS: NSS (PRESERVATIVE FREE) 10 ML IV ×2 (08:10→21:06)
[2024-11-16] MEDS: SOLU-CORTEF 50 MG IV ×3 (08:11→23:16)
[2024-11-16] MEDS: ZOVIRAX INJECTION 108 MG IV ×2 (08:11→21:08)
[2024-11-16] MEDS: FLUSH (NSS) 3 FLUSH IV (08:13)
--- NOTE | 2024-11-16 08:49 | PTCARENOTE ---
Patient with gabriela Tapia at bedside. Emotional support provided and pre/post op plan of care reviewed. Surgeon at bedside and discussed surgical plan and answered questions for pt and nish tapia. Pt transported to OR via bed and hand off to
Jelly.
[2024-11-16] MEDS: ZOSYN IV (09:07)
--- NOTE | 2024-11-16 10:47 | W.IMMPOSTOP ---
Surgical Immed Post Op Note
-
Primary Surgeon: Jeff Uribe MD
Assisting Surgeon: Omid Sue MD
Pre-op Diagnosis: Acute mesenteric ischemia
Post-op Diagnosis: Same
Procedure Performed:
Diagnostic laparoscopy converted to an exploratory laparotomy
Small bowel anastomosis
Anesthesia Type: General
Specimen / Cultures: None
Estimated Blood Loss: 11 cc
Complications: None
Operative Findings: His previous ends of the small bowel were noted to be healthy and viable as was the remainder of the bowel. We then converted to perform our extracorporeal small bowel anastomosis. Due to the somewhat shortened limb of the
distal bowel we elected to do a side to side functional end-to-end isoperistaltic handsewn small bowel anastomosis using 2 layers (3-0 PDS inner, 3-0 silk outer). The fascia was then closed with 0 PDS sutures anchored at each apex and run towards
the middle and tied together. The skin was closed with skin jayjay.
POST OP PLAN:
Imaging: None
Labs: Routine AM
Diet: N.p.o., continue NG tube to low intermittent wall suction. Will start TPN
Analgesia: Tylenol 650mg q6 Cabrrea, Dilaudid 0.5mg q2h PRN
Neuro/vascular checks: Per unit protocol
AC/AP: Will plan to restart heparin drip tomorrow morning
Activity: Ad Analisa
Wound/Incisions/Drains: Routine
Abx: Continue antibiotics x 24 hours
Dispo: IMU
[2024-11-16 11:09] LABS: Glucose - Point of Care 135 mg/dl (70-99)
[2024-11-16] MEDS: ZOFRAN 4 MG IV ×2 (11:18→18:18)
--- NOTE | 2024-11-16 12:09 | PTCARENOTE ---
Patient arrived to room via bed. He is drowsy but easily arousable to vice and oriented x 4 and surroundings. He is repporting pain as improved at 3/10. Room air pulse ox 94%, pt lungs diminished but clear to auscultation. NSR at 90 BPM. IV infusing
NS at 100ml/hr. Pt moving all extremities and following directions with ease. SCDs intact to lower extremities. NG to LIS, Abd distended, absent bowel tones NG patent for light green draiange. ABd Aquacell dressing CDI
[2024-11-16 12:18] LABS: Magnesium 2.5 mg/dl (1.6-2.3); Triglycerides 266 mg/dl (10-149)
[2024-11-16] MEDS: NSS IV (12:35)
[2024-11-16] MEDS: POTASSIUM PHOSPHATE 259.0909 MEQ IV (13:13)
[2024-11-16 18:16] LABS: Glucose - Point of Care 154 mg/dl (70-99)
--- NOTE | 2024-11-16 18:36 | PTCARENOTE ---
PICC line placed by VAT team, placement confirmed by xray.
--- NOTE | 2024-11-16 18:38 | PTCARENOTE ---
Patient with complaint of abdominal pain and describes it as sharp pain in Rt lower quadrant and radiates up to left. Patient given IV Dilaudid and then complains of nausea, medicated with IV Zofran and nausea relieved. NG patent for light green
drainage.
[2024-11-16] MEDS: NOVOLOG FLEXPEN-LOW RESISTANCE 1 UNITS SC ×2 (18:59→23:18)
--- NOTE | 2024-11-16 19:16 | PTCARENOTE ---
NG to LIS, new order to flush NG, NG flushes easily, pt tolerated and now draining darker green fluid. Pt okay for ice chips, instructed to begin sparingly
[2024-11-16] MEDS: Parenteral Nutrition, Central 1060 IV (20:59)
--- NOTE | 2024-11-16 22:05 | PTCARENOTE ---
Pt received at beginning of shift resting comfortably in bed. AAOx3. VSS. Afebrile. SR on CM rate 70's. POX RA 97%. States pain 2/10 to abdomen. Abdominal dressing with shadowing, marked. Hypoactive BS. Left nare [place] sump to LIS flushed at
beginning shift as ordered with red/brownish drainage in collection canister. Marked at 60. IVF's infusing as ordered. TPN initiated to newly placed/verified right PICC. Bowen draining clear yellow urine. Knee highs scd's on. Rest of assessment as
documented. at bedside. Call reese remains within reach. Will continue to monitor.
[2024-11-16 23:29] LABS: Glucose - Point of Care 173 mg/dl (70-99)
[2024-11-17] VITALS (10 sets, daily range): BP systolic 133–161; BP diastolic 72–90; BMI 33.9
[2024-11-17] MEDS: ZOSYN 50 IV ×4 (04:02→21:58)
[2024-11-17] MEDS: OFIRMEV 100 IV ×2 (04:02→10:44)
[2024-11-17] MEDS: DILAUDID 1 MG IV (04:02)
[2024-11-17] MEDS: NOVOLOG FLEXPEN-LOW RESISTANCE 1 UNITS SC (05:36)
[2024-11-17 05:45] LABS: Glucose - Point of Care 194 mg/dl (70-99)
[2024-11-17 06:06] LABS: APTT 27.4 Sec (23.4-35.0); Hematocrit 25.3 % (39.0-52.0); Hemoglobin 8.5 g/dL (13.0-18.0); Mean Corp Hgb Conc. 33.6 g/dL (33.0-37.0); Mean Corpuscular Volume 83.8 fL (80.0-94.0); Nucleated Red Blood Cells % 0 % (-); Platelet Count 195 10^3/uL (130-400); Red Cell Dist. Width 15.4 % (11.5-14.5)
[2024-11-17 06:17] LABS: ALT (SGPT) 42 U/L (0-50); AST (SGOT) 19 U/L (17-59); Albumin 2.9 g/dl (3.5-5.0); Alkaline Phosphatase 58 U/L (38-126); Blood Urea Nitrogen 9 mg/dl (9-20); Calcium 7.1 mg/dl (8.4-10.2); Carbon Dioxide 25 mmol/L (22-30); Chloride 108 mmol/L (98-107); Estimated Creatinine Clearance > 125 ml/min; Glucose 190 mg/dl (70-99); Magnesium 2.4 mg/dl (1.6-2.3); Potassium 4.0 mmol/L (3.5-5.1); Sodium 137 mmol/L (135-145); Total Protein 5.5 g/dl (6.3-8.2); Triglycerides 243 mg/dl (10-149); eGFR > 60.00
[2024-11-17] MEDS: NSS 1000 IV ×2 (06:40→18:29)
--- NOTE | 2024-11-17 07:05 | W.PN.HOSP.TC ---
Addendum entered and electronically signed by Rudi Prescott MD 11/17/24 21:15:
Attending Addendum-
I saw and evaluated the patient. I reviewed the resident�s note and agree with findings and plan as documented in the resident�s note. Sub: Complained of RLQ pain this am. 'possibly gas pain' Denies flatus or BM. Pain better controlled now. Per
nursing has urinated. Full 12 point ROS reviewed and negative except as documented Exam: Vitals reviewed in chart GEN-NAD HEENT- NG tube in place heart RRR lungs clear Abd soft mild ttp RLQ hypoactive BS no rebound guarding incision bandaged LE no
edema RUE picc in place - NPB
Plan:
# Sepsis with severe enteritis involving long segment of ileum with rectal bleeding and cellulitis
# Acute mesenteric ischemia
- 11/14- SB resection- 18cm necrotic ileum
- 11/16- s/p SB re-anastomosis
- Hemoglobin stable
- cont NPO cont TPN x 2-3 days hopefully start PO soon.
- start stress dose steroid taper- SALESFORCE DEVELOPER has been at 21 mg for the past few weeks
- cont IV Zosyn for now- DC soon
- IV Tylenol
- IV Dilaudid as needed pain, Zofran nausea
- Blood cultures NGTD
#History of Hypereosinophilic syndrome with typical skin rash follows at [facility] on chronic steroids
on chronic steroid 21 mg last dose was 11/11/2024 has slowly been tapering from 30 mg down by 1 mg has been at 21 mg for the past few weeks
-SALES[employer]CE DEVELOPER Jakafi
-SALESFORCE DEVELOPER Pegasys infusion once a week
-Continue pantoprazole
-Continue acyclovir
-SALESFORCE DEVELOPER Bactrim DS Sunday
-start stress dose steroid slow taper to home dose.
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
- Eliquis on hold
- start hep gtt- high risk for clot (hypercoag state)
#Hypophosphatemia
- replete
- repeat in am
#Hypocalcemia
- check albumin
- replete prn
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
- A1c is 7.9
- on NovoLog 3u q 6 adjust accordingly
- SALESFORCE DEVELOPER Ozempic 1 mg once a week last dose was 11/08
- start SSI mod resistance
#Chronic neuropathy-gabapentin 300 mg at bedtime as needed
#Depression-Zoloft q hs
#Urinary Retention- TOV underway 11/18
#Class I obesity�BMI 33
DVT prophylaxis
SCDs
Full code
Time spent coordinating care, review of plan of care with resident, personally reviewed records in EMR, med rec, consults, notes, labs, radiology, d/w nursing � 52 mins
Original Note:
Today's Communication/Plan
-
Started heparin drip
continue TPN
monitor NG secretions
Assessment / Plan
Assessment / Plan
This is a 44-year-old male with past medical history of hypereosinophilic syndrome with skin involvement, diabetes, smoker, neuropathy, depression, portal vein thrombus on Eliquis, obesity presented with abdominal pain, nausea and vomiting, bright
red blood in the stools after taking Dulcolax and MiraLAX for EGD and colonoscopy.
# Sepsis with severe enteritis involving long segment of ileum with rectal bleeding post colonoscopy and upper GI series prep
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 s/p resection 18cm necrotic ileum 11/14 and SB left in discontinuity ; plan to repeat procedure today
- Leukocytosis resolved
- Hemoglobin 8.6 (from 8.5) appears stable
- NSS 60 cc/h
-NPO+TPN
- Hydrocortisone 100 mg given in ER-patient is on chronic steroid 21 mg last dose was 11/11/2024 has slowly been tapering from 30 mg down by 1 mg has been at 21 mg for the past few weeks
- We will start tapering off stress dose hydrocortisone 50mg Q12h
- Continue IV Zosyn will discuss tomorrow if necessary to continue
- IV Tylenol
- IV Dilaudid as needed pain, Zofran nausea
- Blood cultures NGTD
#History of Hypereosinophilic syndrome with typical skin rash follows at [facility] on chronic steroids
on chronic steroid 21 mg last dose was 11/11/2024 has slowly been tapering from 30 mg down by 1 mg has been at 21 mg for the past few weeks
-Continue Jakafi 20 mg twice daily
-Patient receives Pegasys infusion once a week
-Continue IV pantoprozole 40mg BID
-Holding Acyclovir
.
#History of portal vein thrombosis years ago
Has not taken Eliquis 5 mg twice daily in 6 days due to upper GI and colonoscopy plan; now on hep gtt
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
A1c is 7.9
- Patient is using Ozempic 1 mg once a week last dose was 11/08/2024
#Chronic neuropathy
Patient takes gabapentin 300 mg at bedtime as needed
#Depression
Zoloft 50 mg at bedtime, npo and on hold for now
#Class I obesity�BMI 33
Patient currently on Ozempic
DVT prophylaxis- heparin
Full code
Anticipated Discharge: 24 - 48 hours
Subjective/Interval History
-
Date of Service: November 17, 2024
I saw the patient around 7:30 AM. He had a surgery yesterday in the morning. He reports experiencing intense pain 8/10 on the right lower quadrant spreading vaguely to all quadrants. Nurse gave him pain med his pain improved an hour later. Currently
experiences pain 3/10. He has NG tube on yellow/brown in color. He eats crushed ice PO. No nausea, chest pain, SOB. He has vogel catheter yellow color.
Surgery: start heparin today morning
Objective Data
-
Labs:
Laboratory Results
11/17/24
05:44
WBC 4.4 L
Hgb 8.5 L
Hct 25.3 L
Plt Count 195 D
APTT 27.4
Sodium 137
Potassium 4.0
Chloride 108 H
Carbon Dioxide 25
BUN 9
Creatinine 0.5 L
Glucose 190 H
Calcium 7.1 L
Total Bilirubin 0.6
AST 19
ALT 42
Alkaline Phosphatase 58
Vital Signs:
Vital Signs
Temp Pulse Resp BP Pulse Ox
98.2 F 80 17 142/83 97
11/17/24 03:00 11/17/24 06:00 11/17/24 06:00 11/17/24 06:00 11/17/24 06:00
I&O
11/16/24 11/17/24 11/18/24
06:59 06:59 06:59
Intake Total 3078 / 3078 3082 / 3082
Output Total 1700 / 1700 2575 / 2575
Balance 1378 / 1378 507 / 507
Review of Systems
-
History Source: Patient
Constitutional: Reports No Symptoms
EENT: Reports No Symptoms Reported
Respiratory: Reports No Symptoms
Cardiac: Reports No Symptoms
Abdomen/GI: Reports Abdominal Pain
Genitourinary: Reports No Symptoms
Musculoskeletal: Reports No Symptoms
Skin: Reports No Symptoms
Neuro: Reports No Symptoms
Psych: Reports Other (Calm)
Physical Exam
-
General: Well Developed, Well Nourished and No Apparent Distress
HEENT: Normocephalic and Atraumatic
Respiratory: Clear to Auscultation
Cardiac: Regular Rhythm and S1/S2
GI: Soft, Tender and Other (decreased bowel sounds)
Musculoskeletal: No Edema
Skin: Warm and Dry
Neuro: AO x 3
Psych: Calm
--- NOTE | 2024-11-17 07:09 | PTCARENOTE ---
Received pt at change of shift. Salum sump in left nare at 60 cm to LIS. 450 output this shift. C/o nausea and pain. Pain medication administered as ordered (see MAR). TPN infusing at 44 ml/hr. NSS at 100 ml/hr. Resting in bed with call reese
in reach.
--- NOTE | 2024-11-17 08:00 | PTCARENOTE ---
Pt AAOx3 , Lungs are clear and shallow, encourafed to use IS, vogel in place with yellow urine. Trace BLE and hand edema. NG tube to i nt suction. R dual picc with TPN infusing as ordered. May have ice chips. CHG bath completed. Pt in NSR
[2024-11-17] MEDS: NSS (PRESERVATIVE FREE) 10 ML IV ×2 (08:37→21:50)
[2024-11-17] MEDS: PROTONIX IV 40 MG IV ×2 (08:38→21:50)
[2024-11-17] MEDS: SOLU-CORTEF 50 MG IV ×2 (08:38→15:43)
[2024-11-17] MEDS: ZOVIRAX INJECTION 108 MG IV ×2 (08:39→20:26)
[2024-11-17] MEDS: SODIUM PHOSPHATE 255 MEQ IV (08:39)
--- NOTE | 2024-11-17 11:16 | W.PN.GS2 ---
Today's Communication / Plan
-
NPO/NGT/TPN
Resume heparin once h/h stable
Assessment / Plan
-
44 yo male with history of hypereosinophilic syndrome with known clotting disorder and chronic portal vein thrombus on Eliquis with AC held in anticipation of a colonoscopy this week who developed nausea, vomiting and intense abdominal pain followed
by rectal bleeding during his prep. CT with findings concerning for mesenteric ischemia, portal vein thrombus and SMV thrombus noted and taken to the OR for mesenteric ischemia.
POD #3 ex lap with SBR (18cm necrotic bowel), left in discontinuity given ?viability of proximal bowel
POD #1 RTOR for small bowel anastomosis, no further resection needed
AFVSS
NGT with bilious outputs, await bowel recovery
Acute blood loss anemia present with element of hemodilution. Drifted this am.
No leukocytosis
Plan:
NGT to LIWS, NPO with ice chips for comfort.
Hold PO meds, converted acyclovir to IV
Void trial today
TPN initiated on 11/16/24, nutrition consulted for recs. Anticipate prolonged NPO
Insulin SS while on TPN
Replace phos, trend labs
PO AC on hold. Hold IV heparin gtt given drift in h/h. Repeat at noon and resume heparin if stable
IV steroids as per primary team
Analgesics scheduled and prn
Subjective Data
-
Date of Service: November 17, 2024
Pt seen and examined at bedside with Dr. Uribe. Denies n/v. Pain well managed, occasional cramping pain to the right abdomen. Not yet passing flatus or stools.
Objective Data
-
Intake and Output
11/16/24 11/17/24 11/18/24
06:59 06:59 06:59
Intake Total 3078 / 3078 3082 / 3082 355 / 355
Output Total 1700 / 1700 2575 / 2575 450 / 450
Balance 1378 / 1378 507 / 507 -95 / -95
Intake:
IV fluids (Total) 1950 / 1949 2099 / 2099
normosol 100 / 100
ofirmev 100 / 100
IV piggybacks 1128 / 1128 600 / 600 355 / 355
TPN/PPN 352 / 352
Amount instilled into GI Tube ( 30 / 30
Total)
Howard Sump 30 / 30
Output:
Gastrointestinal tube output ( 200 / 200 50 / 50 450 / 450
Total)
Howard Sump 200 / 200 50 / 50 450 / 450
Urine, Vogel 1500 / 1500 2525 / 2525
Vital Signs
Temp Pulse Resp BP Pulse Ox
98.7 F 76 20 158/84 96
11/17/24 08:21 11/17/24 10:00 11/17/24 10:00 11/17/24 10:00 11/17/24 10:00
Lab Results
11/17/24 05:44
Calcium 7.1 mg/dl (8.4-10.2) L 11/17/24 05:44
Phosphorus 1.3 mg/dl (2.5-4.5) L 11/17/24 05:44
Magnesium 2.4 mg/dl (1.6-2.3) H 11/17/24 05:44
Total Bilirubin 0.6 mg/dl (0.2-1.3) 11/17/24 05:44
AST 19 U/L (17-59) 11/17/24 05:44
ALT 42 U/L (0-50) 11/17/24 05:44
Alkaline Phosphatase 58 U/L (38-126) 11/17/24 05:44
Total Protein 5.5 g/dl (6.3-8.2) L 11/17/24 05:44
Albumin 2.9 g/dl (3.5-5.0) L 11/17/24 05:44
Physical Exam
-
NAD
ABD soft, mild tenderness around incisions, no rebound/rigidity or guarding
NGT with light bilious outputs
Midline incision with intact dressing
Patient has a vogel catheter: Yes
Patient has a central line: Yes
[2024-11-17] MEDS: DILAUDID 0.5 MG IV ×2 (11:38→19:56)
[2024-11-17] MEDS: ZOFRAN 4 MG IV ×2 (12:00→19:55)
[2024-11-17] MEDS: NOVOLOG FLEXPEN-LOW RESISTANCE 2 UNITS SC (12:03)
[2024-11-17 12:04] LABS: Glucose - Point of Care 235 mg/dl (70-99)
--- NOTE | 2024-11-17 12:23 | PTCARENOTE ---
Pt OOb in chair without incident
[2024-11-17 12:35] LABS: APTT 26.9 Sec (23.4-35.0)
[2024-11-17 12:44] LABS: Hematocrit 25.2 % (39.0-52.0); Hemoglobin 8.6 g/dL (13.0-18.0)
[2024-11-17] MEDS: HEPARIN 25000 UNITS/250 ML IV (13:49)
--- NOTE | 2024-11-17 16:14 | CM ---
CM reviewed chart
Pt remains in IMU
NPO/NGT/TPN initiated
CM will follow for dc planning
Call from [facility]/Iliana SEGOVIA to offer assistance with dc planning [phone]
Discharge Disposition- home, follow for needs
[2024-11-17] MEDS: NOVOLOG FLEXPEN 3 UNITS SC ×2 (17:56→23:45)
[2024-11-17] MEDS: NOVOLOG FLEXPEN-MODERATE RESISTANCE 3 UNITS SC ×2 (17:58→23:45)
[2024-11-17 18:01] LABS: Glucose - Point of Care 234 mg/dl (70-99)
--- NOTE | 2024-11-17 18:08 | PTCARENOTE ---
Pt moved to chair, pt thinks he passed a small amt of gas
--- NOTE | 2024-11-17 19:41 | W.PN.ONC2 ---
Today's Communication / Plan
-
Continue current management
Await APLA panel.
We remain available for outpt support in any way needed. He does has a rare condition warranting management at tertiary institution.
Will continue to follow closely.
Impression
Impression
Sepsis secondary to severe enteritis
Ischemic bowel s/p ex lap with small bowel resection 11/14/24, repeat procedure 11/16/24
Rectal bleed
Hypereosinophilic syndrome with steroid dependence, now managed by Dr.s Donovan and Leisa at [facility]
Chronic portal vein thrombosis (last dose eliquis 11/08)
Hypercoagulable state
DMII
Neuropathy
Plan
Plan
1. Hypercoagulable state - in setting of hypereosinophilic syndrome, FVL w/ h/o portal vein thrombosis
-presented with bowel ischemia w/ SMV thrombosis in setting of holding eliquis since 11/08 for elective colonoscopy.
-s/p exploratory laparoscopy 11/14 with removal of 18 cm of more distal SB, followed by anastomosis 11/16.
- heparin gtt temporarily held for dropping hemoglobin with plan to resume today 11/17 if noon CBC shows stable Hgb.
- prior thrombophilia testing was notable for elevated AcL IgM 46, B2G IgM 96 however due to other underlying hypercoagulable conditions (HES, FVL) diagnosis of APLAS and need to switch to coumadin felt appropriately un-necessary. repeat AcL, B2G
antibodies studies now with recurrent thrombotic event with only 72 hours of holding DOAC. If positive he should have these repeated in 12 weeks.
- I would not consider this to be DOAC failure and, up to now, no recurrent VTE events on DOAC. therefore, reasonable to resume this on discharge pending further APLA testing. However, reviewed that DOACs are predominately absorbed in SB and SB
resections can impact efficacy due to impaired absorption. Eliquis is less affected by this however decreased concentrations can be seen after significant resection of the proximal small bowel. From op report it appears majority of bowel was taken
more distally however if additional resection of more proximal bowel required on repeat laproscopy would favor switching to coumadin to ensure AC remains therapeutic in this high VTE risk pt.
Subjective/Objective
Chief Complaint
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
Subjective
States feeling better today. Appears awake, alert, non-toxic.
Vital Signs:
Vital Signs
Temp Pulse Resp BP Pulse Ox
98.3 F 81 18 152/86 95
11/17/24 15:05 11/17/24 18:00 11/17/24 18:00 11/17/24 18:00 11/17/24 12:00
Lab Results:
Laboratory Data
WBC 4.4 10^3/uL (4.8-10.8) L 11/17/24 05:44
Hgb 8.6 g/dL (13.0-18.0) L 11/17/24 11:54
Plt Count 195 10^3/uL (130-400) D 11/17/24 05:44
PT Cancelled 11/14/24 13:00
INR Cancelled 11/14/24 13:00
APTT 26.9 Sec (23.4-35.0) 11/17/24 11:54
eGFR > 60.00 11/17/24 05:44
Physical Exam
HEENT: Moist Mucous Membranes; No Jaundice
Cardiology: Normal Sinus Rhythm, S1 and S2
Pulmonary: Clear
GI: Soft
Extremities: No C/C/E
Neuro: Non Focal
[2024-11-17 20:49] LABS: APTT 41.7 Sec (23.4-35.0)
[2024-11-17 21:38] LABS: Beta-2-Glycoprotein I Ab. IgG <10 SGU (<=20); Beta-2-Glycoprotein I Ab. IgM 40 SMU (<=20)
[2024-11-17] MEDS: Parenteral Nutrition, Central 1580 IV (21:42)
--- NOTE | 2024-11-17 22:53 | PTCARENOTE ---
Patient assisted from the chair to bed for the night; steady gait. NGT @ 62 cm and connected to LIWS; flushed and patent. Re-taped to nose. Light brown output in suction canister. Reports 6/10 pain to abdomen. Zofran provided to prevent nausea with
IV Dilaudid. Encouraged to brace abdomen w/ wrapped blanket when coughing or moving. +BS throughout, RLQ slightly tender upon palpation. Abd dressing with old drainage area that is marked; no change in shadowing. RUE PICC dressing intact, +blood
return. New TPN order infusing @66mL/hr to DL PICC. Heparin gtt infusing to LAC PIV; titrating per protocol. IVF & Abx to second lumen in RUE PICC. SCDs on. Sp02 mid 90s on RA; encouraged deep breathing. NSR/ST on telemetry. Voiding via urinal.
Small cup of ice chips provided. at bedside, to stay overnight. Pt and thankful for care. Call reese within reach. calls appropriately for assistance.
[2024-11-17] MEDS: CHLORASEPTIC/SORE THROAT SPRAY 1 SPRAY PO (23:51)
[2024-11-17 23:54] LABS: Glucose - Point of Care 226 mg/dl (70-99)
[2024-11-18] VITALS (15 sets, daily range): BP systolic 128–154; BP diastolic 67–98; PULSE 95; O2SAT 99; BMI 33.0
[2024-11-18] MEDS: HEPARIN 25000 UNITS/250 ML IV ×3 (00:31→19:16)
[2024-11-18] MEDS: ZOSYN 50 IV ×4 (04:06→21:59)
[2024-11-18 04:19] LABS: Hematocrit 23.6 % (39.0-52.0); Hemoglobin 8.0 g/dL (13.0-18.0); Mean Corp Hgb Conc. 33.9 g/dL (33.0-37.0); Mean Corpuscular Volume 82.2 fL (80.0-94.0); Platelet Count 187 10^3/uL (130-400); Red Cell Dist. Width 15.3 % (11.5-14.5)
--- NOTE | 2024-11-18 04:19 | PTCARENOTE ---
Patient reports 4/10 pain to abdomen. Requesting a lower dose of pain medication. One time order for 0.25mg IV Dilaudid received from OLMAN Hu.
[2024-11-18] MEDS: DILAUDID 0.25 MG IV (04:23)
[2024-11-18 04:35] LABS: APTT 85.3 Sec (23.4-35.0)
[2024-11-18 04:47] LABS: Blood Urea Nitrogen 8 mg/dl (9-20); Calcium 7.2 mg/dl (8.4-10.2); Carbon Dioxide 28 mmol/L (22-30); Chloride 110 mmol/L (98-107); Estimated Creatinine Clearance > 125 ml/min; Glucose 191 mg/dl (70-99); Potassium 3.1 mmol/L (3.5-5.1); Sodium 139 mmol/L (135-145); eGFR > 60.00
[2024-11-18] MEDS: KCL 270 MEQ IV (05:21)
[2024-11-18] MEDS: NOVOLOG FLEXPEN 3 UNITS SC (05:23)
[2024-11-18] MEDS: NOVOLOG FLEXPEN-MODERATE RESISTANCE 1 UNITS SC (05:24)
[2024-11-18 05:32] LABS: Glucose - Point of Care 193 mg/dl (70-99)
--- NOTE | 2024-11-18 07:33 | PTCARENOTE ---
Pt voided in urinal and had a med thick liq brown BM . Now OOB to chair with Heparin and TPN infusing. Also Yusra Caballero infusing . Pt on Ra states he feels better today than yesterday . NGT in place draining brown fluid.
--- NOTE | 2024-11-18 07:43 | W.PN.HOSP.TC ---
Addendum entered and electronically signed by Rudi Prescott MD 11/18/24 20:14:
Attending Addendum-
I saw and evaluated the patient. I reviewed the resident�s note and agree with findings and plan as documented in the resident�s note. Sub: Has been having multiple BMs and passing gas. Seen with present. Feels greatly improved. . Pain better
controlled now. Full 12 point ROS reviewed and negative except as documented Exam: Vitals reviewed in chart GEN-NAD HEENT- NG tube in place clamped heart RRR lungs clear Abd soft mild ttp pos BS no rebound guarding incision bandaged LE 1+ pitting
edema B/L RUE picc in place - NPB
Plan:
# Sepsis with severe enteritis involving long segment of ileum with ABLA and cellulitis
# Acute mesenteric ischemia
- transfer to [facility] if repeat hb stable
- 11/14- SB resection- 18cm necrotic ileum
- 11/16- s/p SB anastomosis
- Hemoglobin trending down- check stat hb
- cont NPO cont TPN x 2-3 days hopefully start PO soon
- NG clamp trial underway
- start stress dose steroid taper- PHYSICAL THERAPY ASST has been at 21 mg for the past few weeks
- cont IV Zosyn 08/30
- IV Dilaudid as needed pain, Zofran nausea
- Blood cultures NGTD
#History of Hypereosinophilic syndrome
-follows at [facility]
-on chronic steroid 21 mg last dose was 11/11/2024 has slowly been tapering from 30 mg down by 1 mg has been at 21 mg for the past few weeks
-hold Jakafi
-Pegasys infusion once a week as OP
-Continue pantoprazole
-hold acyclovir
-hold Bactrim DS Sunday
-heme/onc input appreciated
-cont stress dose steroid slow taper to home dose
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
- Eliquis on hold
- cont hep gtt- high risk for clot (hypercoag state)
# Hyponatremia
- resolved
#Hypophosphatemia
- replete
- repeat in am
# Hypokalemia- replete, repeat in AM
#Hypocalcemia
- corrected > 8
- replete prn
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
- A1c-7.9
- sugars elevated, increase NovoLog 3u->6u q 6
- PHYSICAL THERAPY ASST Ozempic 1 mg once a week last dose was 11/08
- start SSI mod resistance
#Chronic neuropathy-gabapentin 300 mg at bedtime as needed
#Depression-Zoloft q hs-held
#Urinary Retention- successful TOV-11/18
#Class I obesity�BMI 33
DVT prophylaxis-hep gtt
Full code
Time spent coordinating care, review of plan of care with resident, personally reviewed records in EMR, med rec, consults, notes, labs, radiology, d/w nursing, surgery and � 54 mins
Original Note:
Today's Communication/Plan
-
Increase Insulin from 3U to 6U
Continue Zosyn #D6/7
Move to Medical/surgical floor
Assessment / Plan
Assessment / Plan
This is a 44-year-old male with past medical history of hypereosinophilic syndrome with skin involvement, diabetes, smoker, neuropathy, depression, portal vein thrombus on Eliquis, obesity presented with abdominal pain, nausea and vomiting, bright
red blood in the stools after taking Dulcolax and MiraLAX for EGD and colonoscopy.
# Sepsis with severe enteritis involving long segment of ileum with rectal bleeding post colonoscopy and upper GI series prep
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 s/p resection 18cm necrotic ileum 11/14 and SB left in discontinuity ; plan to repeat procedure today
- Leukocytosis resolved
- Hemoglobin 8.3 (from 8.6, 8.5) appears stable
- NSS 60 cc/h
-NPO+TPN
- Hydrocortisone 100 mg given in ER-patient is on chronic steroid 21 mg last dose was 11/11/2024 has slowly been tapering from 30 mg down by 1 mg has been at 21 mg for the past few weeks
- Started tapering off stress dose hydrocortisone 50mg Q12h
- 11/18/2024 Continue IV Zosyn #D 6
- IV Tylenol
- IV Dilaudid as needed pain, Zofran nausea
- Blood cultures NGTD 11/13/2024
#History of Hypereosinophilic syndrome with typical skin rash follows at [facility] on chronic steroids
on chronic steroid 21 mg last dose was 11/11/2024 has slowly been tapering from 30 mg down by 1 mg has been at 21 mg for the past few weeks
-discontinued Jakafi 20 mg BID
-Patient receives Pegasys infusion once a week
-Continue IV pantoprozole 40mg BID
-Holding Acyclovir
.
#History of portal vein thrombosis years ago
Has not taken Eliquis 5 mg twice daily in 6 days due to upper GI and colonoscopy plan; now on hep gtt APTT 45.8
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
A1c is 7.9
- Patient is using Ozempic 1 mg once a week last dose was 11/08/2024
- Hyperglycemia 193 - TPN dose changed 11/17/2024 (from44 dose 66)-- increased insulin Aspart 6Units SC Q6h
-monitor glucose
- Phosphorus 1.4- repleted Na Phosphate 40 Meq in dextrose
- Potassium 3.1- IV KCl 40 Meq in NaCl
-Corrected Calcium 8.08
#Chronic neuropathy
Patient takes gabapentin 300 mg at bedtime as needed
#Depression
Zoloft 50 mg at bedtime, npo and on hold for now
#Class I obesity�BMI 33
Patient currently on Ozempic
DVT prophylaxis- heparin
Full code
Anticipated Discharge: > 48 hours
Subjective/Interval History
-
Date of Service: November 18, 2024
I see him sitting on his chair, calm. Overnight he pushed himself to sit on the chair but he didnt take pain med at that time. He had pain after moving to his bed. At that time he reports Vague pain on his abdomen 10/02. He received daluidid 0.25
his pain resolved. Had difficulty with sleeping. He woke up at 4am his whole body felt achy. He took dilaudid 0.05 he felt better.
Today in the morning he passed first gas at 5 am. Then at 7am he had bowel movements. Nurse describes it like medium mushy liquid bowel movements.
Since yesterday vogel catheter out, voiding great. NPO only ice chips.
Objective Data
-
Labs:
Laboratory Results
11/17/24 11/18/24 11/18/24
20:21 04:03 10:00
WBC 3.3 L
Hgb 8.0 L
Hct 23.6 L
Plt Count 187
APTT 41.7 H 85.3 H Pending
Sodium 139
Potassium 3.1 L
Chloride 110 H
Carbon Dioxide 28
BUN 8 L
Creatinine 0.4 L
Glucose 191 H
Calcium 7.2 L
Vital Signs:
Vital Signs
Temp Pulse Resp BP Pulse Ox
98.3 F 83 19 140/77 97
11/18/24 03:55 11/18/24 06:00 11/18/24 06:00 11/18/24 06:00 11/18/24 06:00
I&O
11/17/24 11/18/24 11/19/24
06:59 06:59 06:59
Intake Total 3082 / 3082 1835 / 1835
Output Total 2575 / 2575 3125 / 3125
Balance 507 / 507 -1290 / -1290
Review of Systems
-
History Source: Patient
Constitutional: Reports No Symptoms and Fatigue
EENT: Reports No Symptoms Reported
Respiratory: Reports No Symptoms and Cough (coughs a lot of phlegm)
Cardiac: Reports No Symptoms
Abdomen/GI: Reports Abdominal Pain (started at 8pm yesterday and at 4 am vague)
Breast: Reports No Symptoms
Genitourinary: Reports No Symptoms
Musculoskeletal: Reports No Symptoms
Skin: Reports No Symptoms
Neuro: Reports No Symptoms
Allergy / Immunology: Reports No Symptoms
Psych: Reports Other (calm )
Physical Exam
-
General: Well Developed and Well Nourished
HEENT: Normocephalic and Atraumatic
Respiratory: Clear to Auscultation
Cardiac: Regular Rhythm
Breast: Deferred by me
GI: Soft, Nontender, Nondistended and Normal Bowel Sounds
Musculoskeletal: No Cyanosis and No Edema
Skin: Warm
Neuro: AO x 3
Psych: Calm
[2024-11-18] MEDS: PROTONIX IV 40 MG IV ×2 (08:50→19:57)
[2024-11-18] MEDS: NSS (PRESERVATIVE FREE) 10 ML IV ×2 (08:51→19:57)
[2024-11-18] MEDS: SOLU-CORTEF 50 MG IV ×2 (08:51→19:57)
[2024-11-18] MEDS: ZOVIRAX INJECTION 108 MG IV ×2 (08:54→19:57)
[2024-11-18 09:49] LABS: ALT (SGPT) 44 U/L (0-50); AST (SGOT) 37 U/L (17-59); Albumin 2.9 g/dl (3.5-5.0); Alkaline Phosphatase 84 U/L (38-126); Magnesium 2.3 mg/dl (1.6-2.3); Total Protein 5.2 g/dl (6.3-8.2)
--- NOTE | 2024-11-18 10:09 | W.PN.GS2 ---
Today's Communication / Plan
-
-- NGT clamp trial for today
-- DVT: PO AC on hold until dietary advancement, continue with Hep gtt, recheck Hb in AM
Assessment / Plan
-
44 yo male with history of hypereosinophilic syndrome with known clotting disorder and chronic portal vein thrombus on Eliquis with AC held in anticipation of a colonoscopy this week who developed nausea, vomiting and intense abdominal pain followed
by rectal bleeding during his prep. CT with findings concerning for mesenteric ischemia, portal vein thrombus and SMV thrombus noted and taken to the OR for mesenteric ischemia.
POD #4 ex lap with SBR (18cm necrotic bowel), left in discontinuity given ?viability of proximal bowel
POD #2 RTOR for small bowel anastomosis, no further resection needed
AFVSS
NGT with low volume light bilious output, plan for clamp trial today
Acute blood loss anemia present with element of hemodilution. Stable.
Leukopenia
Recovering well overall. Ileus watch, plan for NGT clamp trial today. Continue to monitor anemia, okay to resume heparin drip.
Plan:
-- NGT clamp trial for today
-- Pain control: IV Tylenol and Dilaudid
-- Hold PO meds,IV steroids and abx, and antivirals as per primary team
-- TPN reordered, nutrition consult appreciated
-- Insulin SS while on TPN
-- Replace phos, trend labs
-- DVT: PO AC on hold until dietary advancement, continue with Hep gtt, recheck Hb in AM
Subjective Data
-
Date of Service: November 18, 2024
Feels improved, continued abdominal soreness. No nausea or vomiting. Reports passing flatus and formed, nonbloody bowel movements. No fevers or chills. OOB to chair yesterday, plans for PT work today. Voiding.
Objective Data
-
Intake and Output
11/17/24 11/18/24 11/19/24
06:59 06:59 06:59
Intake Total 3082 / 3082 1835 / 1835
Output Total 2575 / 2575 3125 / 3125
Balance 507 / 507 -1290 / -1290
Intake:
Oral fluids 100 / 100
IV fluids (Total) 2100 / 2099 800 / 800
normosol 100 / 100
ofirmev 100 / 100
IV piggybacks 600 / 600 855 / 855
TPN/PPN 352 / 352
Amount instilled into GI Tube ( 30 / 30 80 / 80
Total)
[place] Sump 30 / 30 80 / 80
Output:
Gastrointestinal tube output ( 50 / 50 1100 / 1100
Total)
[place] Sump 50 / 50 1100 / 1100
Urine, Vogel 2524 / 2524
Urine, Voided 2024
Vital Signs
Temp Pulse Resp BP Pulse Ox
98.3 F 91 21 148/98 97
11/18/24 03:55 11/18/24 08:00 11/18/24 08:00 11/18/24 08:00 11/18/24 06:00
Lab Results
11/18/24 04:03
11/18/24 04:03
Calcium 7.2 mg/dl (8.4-10.2) L 11/18/24 04:03
Phosphorus 1.4 mg/dl (2.5-4.5) L 11/18/24 04:03
Magnesium 2.3 mg/dl (1.6-2.3) 11/18/24 04:03
Total Bilirubin 0.4 mg/dl (0.2-1.3) 11/18/24 04:03
Direct Bilirubin 0.3 mg/dl (0.0-0.4) 11/18/24 04:03
AST 37 U/L (17-59) 11/18/24 04:03
ALT 44 U/L (0-50) 11/18/24 04:03
Alkaline Phosphatase 84 U/L (38-126) 11/18/24 04:03
Total Protein 5.2 g/dl (6.3-8.2) L 11/18/24 04:03
Albumin 2.9 g/dl (3.5-5.0) L 11/18/24 04:03
Physical Exam
-
Gen: NAD
HEENT: NGT with low volume light bilious output
Abd: soft, mild tenderness, ND, obese, non-peritoneal, midline dressing with shadowing, no active drainage
Patient has a vogel catheter: No
Patient has a central line: No
[2024-11-18 10:54] LABS: APTT 65.6 Sec (23.4-35.0)
[2024-11-18] MEDS: OFIRMEV 100 IV ×2 (11:36→17:43)
[2024-11-18] MEDS: NOVOLOG FLEXPEN-MODERATE RESISTANCE 5 UNITS SC (11:39)
[2024-11-18 11:47] LABS: Glucose - Point of Care 270 mg/dl (70-99)
--- NOTE | 2024-11-18 11:58 | W.PN.ONC ---
Today's Communication / Plan
-
Continue heparin drip; eventual transition to oral a/c
Await cardiolipin Ab panel, rec. repeating APLA panel in 12 weeks
Impression
Impression
Sepsis secondary to severe enteritis
Ischemic bowel s/p ex lap with small bowel resection 11/14/24, repeat procedure 11/16/24
Rectal bleed
Hypereosinophilic syndrome with steroid dependence, now managed by Dr.s Donovan and Leisa at [facility]
Chronic portal vein thrombosis (last dose eliquis 11/08)
Hypercoagulable state
DMII
Neuropathy
Plan
Plan
1. Hypercoagulable state - in setting of hypereosinophilic syndrome, FVL w/ h/o portal vein thrombosis
-presented with bowel ischemia w/ SMV thrombosis in setting of holding eliquis since 11/08 for elective colonoscopy.
-s/p exploratory laparoscopy 11/14 with removal of 18 cm of more distal SB, followed by anastomosis 11/16.
- prior thrombophilia testing was notable for elevated AcL IgM 46, B2G IgM 96 however due to other underlying hypercoagulable conditions (HES, FVL) diagnosis of APLAS and need to switch to coumadin felt appropriately un-necessary.
- 11/15/24 APL labs repeated -- [id number] Igm = 40, ACLA pending. Unclear how accurate these results are in the setting of sepsis/surgery; he should have these repeated in 12 weeks.
- I would not consider this to be DOAC failure and, up to now, no recurrent VTE events on DOAC. therefore, reasonable to resume this on discharge pending further APLA testing. However, reviewed that DOACs are predominately absorbed in SB and SB
resections can impact efficacy due to impaired absorption. Eliquis is less affected by this however decreased concentrations can be seen after significant resection of the proximal small bowel. From op report it appears majority of bowel was taken
more distally however if additional resection of more proximal bowel required on repeat laproscopy would favor switching to coumadin to ensure AC remains therapeutic in this high VTE risk pt.
Subjective/Objective
Subjective/Objective
feels like he's making good progress -- passing flatus, got OOB and walked around unit
Vital Signs:
Vital Signs
Temp Pulse Resp BP Pulse Ox
97.8 F 104 19 152/71 100
11/18/24 07:50 11/18/24 10:00 11/18/24 10:00 11/18/24 09:45 11/18/24 09:45
Lab Results:
Laboratory Data
WBC 3.3 10^3/uL (4.8-10.8) L 11/18/24 04:03
Hgb 8.0 g/dL (13.0-18.0) L 11/18/24 04:03
Plt Count 187 10^3/uL (130-400) 11/18/24 04:03
PT Cancelled 11/14/24 13:00
INR Cancelled 11/14/24 13:00
APTT 65.6 Sec (23.4-35.0) H 11/18/24 10:09
eGFR > 60.00 11/18/24 04:03
--- NOTE | 2024-11-18 12:09 | PTCARENOTE ---
Pt to BSC large BM very soft. Pt tired today. For tx to med surg . NGT remains clamped no nausea or discomfort.
--- NOTE | 2024-11-18 13:21 | PN.CDI ---
CDI
- -
CDI:
Physician Documentation Request
Admit Date: 11/13/24 19:34
Dear Doctor Kenyon/Resident,
Please review the following and provide your response in the progress notes.
Clinical Indicators:
Pt admitted with Sepsis 2/2 Acute mesenteric ischemia SMA thrombosis /rectal bleeding
S/P 11/14- SB resection- 18cm necrotic ileum 11/16- s/p SB re-anastomosis
Trended Hemoglobin/Hematocrit below
11/13/24 11/14/24 11/17/24
15:24 20:03 05:44
Hgb 12.9 L 10.5 L 8.5 L
Hct 38.4 L 29.9 L 25.3 L
11/18/24
04:03
Hgb 8.0 L
Hct 23.6 L
Please provide a diagnosis for the above laboratory finding:
Acute blood loss anemia
Abnormal lab value only
Other ( please specify)
Use of terms such as suspected, likely, concern for, or probable (associated with a specific diagnosis that is being evaluated, monitored, or treated as if it exists) are acceptable and can be coded in the inpatient setting, when documented at the
time of discharge.
Thank you,
Veena Shoemaker RN
CDI Specialist
[place] [employer]
Please use your independent medical judgment in providing your response.
[2024-11-18] MEDS: NOVOLOG FLEXPEN 6 UNITS SC ×2 (13:23→17:44)
[2024-11-18] MEDS: NSS 1000 IV (13:25)
--- NOTE | 2024-11-18 13:30 | PN.CDI ---
CDI
- -
CDI:
Physician Documentation Request
Admit Date: 11/13/24 19:34
Dear Doctor Kenyon/ Resident,
Please review the following and provide your response in the progress notes.
Clinical Indicators:
Pt admitted with Sepsis 2/2 Enteritis /Acute mesenteric ischemia SMA thrombosis /rectal bleeding
Sodium levels are as below /Pt did get IVFs
11/13/24 11/14/24 11/14/24
15:24 07:22 11:51
Sodium 133 L 133 L 130 L
Based on the above, could you clarify in the progress notes, the appropriate diagnosis, if significant, that supports the above abnormalities and additional evaluation, monitoring and/or treatment rendered:
Hyponatremia
Abnormal lab value
Other ( please specify)
Use of terms such as suspected, likely, concern for, or probable (associated with a specific diagnosis that is being evaluated, monitored, or treated as if it exists) are acceptable and can be coded in the inpatient setting, when documented at the
time of discharge.
Thank you,
Veena Shoemaker RN
CDI Specialist
[place] [employer]
Please use your independent medical judgment in providing your response.
[2024-11-18] MEDS: SODIUM PHOSPHATE 260 MEQ IV (13:31)
[2024-11-18 13:37] LABS: Glucose - Point of Care 266 mg/dl (70-99)
[2024-11-18] MEDS: ZOFRAN 4 MG IV (15:24)
--- NOTE | 2024-11-18 15:57 | PTCARENOTE ---
Pt had large liq bm hemecult positive also pt is pale VS stableat thie time.
[2024-11-18] MEDS: DILAUDID 0.5 MG IV (16:24)
--- NOTE | 2024-11-18 16:39 | PTCARENOTE ---
DR Prescott , resident and DR Kirby TT , DR Kirby ordered H/H and stop heparin drip.
[2024-11-18 16:47] LABS: Hematocrit 24.8 % (39.0-52.0); Hemoglobin 8.3 g/dL (13.0-18.0)
--- NOTE | 2024-11-18 16:58 | PTCARENOTE ---
NG to suction per DR Kirby
--- NOTE | 2024-11-18 17:30 | PTCARENOTE ---
Dr Kirby aware of H/H . saw pt start Heparin and do PTT as ordered .
[2024-11-18] MEDS: NOVOLOG FLEXPEN-MODERATE RESISTANCE 3 UNITS SC (17:44)
[2024-11-18 17:48] LABS: APTT 45.8 Sec (23.4-35.0)
[2024-11-18 17:51] LABS: Glucose - Point of Care 216 mg/dl (70-99)
--- NOTE | 2024-11-18 19:49 | W.PN.UPDATE ---
Update Note
Progress Note Update
Talked to the patient. He reports after seeing us he saw Physical therapy team. He walked in the hallway. He came back to the room had bowel movement. Did not notice blood. Around 3pm he started feeling nauseous, started burping, felt like going to
vomit. He did not vomit. He stood up hoping it will improve, he the ended up having a bowel movement. He did not notice any blood on toilet paper. He reports his nurse noticed discoloration orange/red color after cleaning the toilet. She checked for
hemeoccult test. Nurse told him he looked pale. He felt lightheaded, experienced 3/10 whole body pain. She gave Zofran for nausea, he was still burping. Hemeoccult test was (+). He was concerned because the symptoms when he was admitted were very
similar.
Earlier NG tube was clamped for 6 hours. Surgery team ordered H/H, visited him put on NG tube, held heparin. Hb 8.3, Hct 24.8. Surgeon decided on continuing heparin and watching him for tonight at IMU.
mentioned talking to , he recommended holding pegasys, jakafi for 2 weeks from surgery date 11/16/2024 until pathology results come back. Day #2
[2024-11-18] MEDS: Parenteral Nutrition, Central 1610 IV (21:45)
--- NOTE | 2024-11-18 22:36 | PTCARENOTE ---
Patient HR increased to 140s-150s while using BSC. Pt extremely modest and refusing to let staff be in the room while pt is utilizing the BSC. RN checked on pt from the doorway, pt denied lightheadedness or dizziness. Reports feeling his heart
racing and slightly winded. HR decreased to 90s once pt back in bed. BP stable. at bedside assisting pt. Pt had 2 moderate liquid dark brown/dark maroon colored stool. Discussed with OLMAN Charles. Plan to recheck H/H at [place]. Will report any
changes to LEAVE SPECIALIST and trend BP.
[2024-11-19] VITALS (24 sets, daily range): BP systolic 124–174; BP diastolic 70–116; BMI 32.7
[2024-11-19] MEDS: NOVOLOG FLEXPEN 6 UNITS SC ×3 (00:18→13:51)
[2024-11-19] MEDS: NOVOLOG FLEXPEN-MODERATE RESISTANCE 5 UNITS SC ×3 (00:18→17:58)
[2024-11-19 00:27] LABS: Glucose - Point of Care 289 mg/dl (70-99)
[2024-11-19] MEDS: OFIRMEV 100 IV ×2 (00:27→05:44)
[2024-11-19 00:35] LABS: Hematocrit 22.6 % (39.0-52.0); Hemoglobin 7.7 g/dL (13.0-18.0)
[2024-11-19 00:55] LABS: APTT 156.3 Sec (23.4-35.0)
--- NOTE | 2024-11-19 01:02 | PTCARENOTE ---
PTT 156.3.. Heparin gtt placed on HOLD for 1 hour per protocol.
H/H resulted; OLMAN Charles made aware. BP 158/74 (100) HR 74. Sp02 97% RA. Patient offers no complaints at this time. at bedside.
[2024-11-19] MEDS: ZOSYN 50 IV ×3 (03:17→16:09)
--- NOTE | 2024-11-19 03:33 | W.PN.UPDATE ---
Update Note
Progress Note Update
-Mod-large red burgundy bm at midnight.
-Will hold heparin drip and check h&h. hgb is dropping gradually 8.3 --> 7.7---> 7.4 . Vital signs within normal baseline, denies dizziness, lightheaded.
-At 0545 am Another red liquid bm around 200cc, vital signs still within baseline.
- Will order one unit of blood ordered and will continue monitoring h&h q 6hrs
--- NOTE | 2024-11-19 03:39 | PTCARENOTE ---
Patient had moderate to large dark red/burgundy liquid BM in BSC. HR up to 120-130s upon exertion, able to decrease to 90s when pt back to bed. pt denied dizziness or lightheadedness. OLMAN Charles made aware via tiger text. Morning labs sent.
Mirta sent tiger text to update. Heparin gtt stopped at this time; ok per OLMAN. Pt and updated.
[2024-11-19 03:44] LABS: Hematocrit 21.7 % (39.0-52.0); Hemoglobin 7.4 g/dL (13.0-18.0)
[2024-11-19] MEDS: DILAUDID 0.25 MG IV (04:21)
[2024-11-19 04:44] LABS: Blood Urea Nitrogen 9 mg/dl (9-20); Calcium 7.9 mg/dl (8.4-10.2); Carbon Dioxide 28 mmol/L (22-30); Chloride 109 mmol/L (98-107); Estimated Creatinine Clearance > 125 ml/min; Glucose 209 mg/dl (70-99); Potassium 3.2 mmol/L (3.5-5.1); Sodium 140 mmol/L (135-145); eGFR > 60.00
[2024-11-19] MEDS: NOVOLOG FLEXPEN-MODERATE RESISTANCE 1 UNITS SC (05:54)
--- NOTE | 2024-11-19 06:04 | PTCARENOTE ---
Patient had bright red liquid BM, agreed to use bedpan and stay in bed for safety. OLMAN Charles made aware. Lupillo texted Dr. Kirby again to make aware. Pt tearful and upset, at bedside. Support provided. Type & screen sent.
[2024-11-19 06:08] LABS: Glucose - Point of Care 189 mg/dl (70-99)
--- NOTE | 2024-11-19 07:06 | W.PN.HOSP.TC ---
Addendum entered and electronically signed by Rudi Presoctt MD 11/19/24 20:39:
Attending Addendum-
I saw and evaluated the patient. I reviewed the resident�s note and agree with findings and plan as documented in the resident�s note. Sub: overnight had multiple bloody BMs. hb dropping so PRCB x 1 unit ordered. Patient complains fo centralized abd
pain, dizziness, nausea, and burping. No vomiting. Seen with present. Denies fevers chills. Had large bloody BM this am. Full 12 point ROS reviewed and negative except as documented Exam: Vitals reviewed in chart GEN-NAD HEENT- NG tube in
place draining bilious material non bloody heart RRR lungs clear Abd soft mild ttp central pos BS no rebound guarding incision bandaged LE 1+ pitting edema B/L RUE picc in place
Plan:
# Sepsis with severe enteritis involving long segment of ileum with ABLA likely exacerbated by hep gtt
# Acute mesenteric ischemia
- continue care in IMU
- 11/14- POD#5- SB resection- 18cm necrotic ileum
- 11/16- POD# 3-SB anastomosis
- Hemoglobin trending down-transfuse 1 unit prbc- 11/19
- serial h and h
- cont NPO cont TPN x 2-3 days hopefully start PO soon
- NG unclamped 11/19
- cont stress dose steroid taper- LEAD PRINTER has been at 21 mg for the past few weeks
- last day of IV Zosyn 09/29
- Blood cultures NGTD
- d/w surg re obtaining CTA a/p to visualize source of bleed
#History of Hypereosinophilic syndrome
-follows at [facility]
-on chronic steroid 21 mg last dose was 11/11/2024 has slowly been tapering from 30 mg down by 1 mg has been at 21 mg for the past few weeks
-hold Jakafi
-Pegasys infusion once a week as OP
-Continue pantoprazole
-cont acyclovir
-hold Bactrim DS Sunday
-heme/onc input appreciated
-cont stress dose steroid slow taper to home dose
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
- Eliquis on hold
- hep gtt- on hold due to GI bleed, t/c using Coumadin instead of DOAC in future
- repeat CTA if warranted
- appreciate heme onc input regarding restarting hep gtt
# Hyponatremia
- resolved
#Hypophosphatemia
- replete
- repeat in am
# Hypokalemia- replete, repeat in AM check mag
#Hypocalcemia
- corrected @ 8
- replete prn
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
- A1c-7.9
- sugars still elevated, increase NovoLog 6u->9u q 6
- LEAD PRINTER Ozempic 1 mg once a week last dose was 11/08
- cont SSI mod resistance
#Chronic neuropathy-gabapentin 300 mg at bedtime as needed
#Depression-Zoloft q hs-held
#Urinary Retention- successful TOV-11/18
#Class I obesity�BMI 33
DVT prophylaxis-hep gtt held- cont scds
Full code
Time spent coordinating care, review of plan of care with resident, personally reviewed records in EMR, med rec, consults, notes, labs, radiology, d/w nursing, surgery and � 52 mins
Original Note:
Today's Communication/Plan
-
Discuss with surgery if they have any suggestions regarding CTA imaging
Taper off Hydrocortisone slowly back to his baseline
Follow aPTT in 6 hours
Increased his Insulin dose, will monitor glucose levels
Check H&H for anemia [id number]
Assessment / Plan
Assessment / Plan
This is a 44-year-old male with past medical history of hypereosinophilic syndrome with skin involvement, diabetes, smoker, neuropathy, depression, portal vein thrombus on Eliquis, obesity presented with abdominal pain, nausea and vomiting, bright
red blood in the stools after taking Dulcolax and MiraLAX for EGD and colonoscopy. Post-op #D3 he started having continous bloody bowel movements.
# Sepsis with severe enteritis involving long segment of ileum with rectal bleeding post colonoscopy and upper GI series prep
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 s/p resection 18cm necrotic ileum 11/14 and SB left in discontinuity ; plan to repeat procedure today
- Leukocytosis resolved
- Hemoglobin 7.4 (from 7.7, 8.5) declining, P1RBC was given will monitor h&h Q6h
- NSS 60 cc/h
-NPO+TPN
- Hydrocortisone 100 mg given in ER-patient is on chronic steroid 21 mg last dose was 11/11/2024 has slowly been tapering from 30 mg down by 1 mg has been at 21 mg for the past few weeks
- 11/19/2024 Continue IV Zosyn #D 09/29
- IV Tylenol
- IV Dilaudid as needed pain, Zofran nausea
- Blood cultures NGTD 11/13/2024
-Surgery- CTA scan of abdomen/pelvis was not recommended. Heparin on hold. Will watch hb level after 1PRBC
#Acute blood loss anemia
-Hb 7.4 ( from 7.7/ 8.3 )
-Heparin on hold. (APTT 156.3)
-APTT in 6 hours
#History of Hypereosinophilic syndrome with typical skin rash follows at [facility] on chronic steroids
on chronic steroid 21 mg last dose was 11/11/2024 has slowly been tapering from 30 mg down by 1 mg has been at 21 mg for the past few weeks
- Will tapering off stress dose hydrocortisone to 25mg IV Q12h. Eventually back to his baseline 21mg
-discontinued Jakafi 20 mg BID
-Patient receives Pegasys infusion once a week- held by
-Continue IV pantoprozole 40mg BID
-Holding Acyclovir
#Hyponatremia
-resolved 140
#Electrolyte abnormalities
- Phosphorus 2.4- discussed with pharmacist maxed out his TPN for Phosporus, given curve is at -- monitor BMP, Phos, Mg, K
- Potassium 3.2 - 40 Meq KCL IV
.
#History of portal vein thrombosis years ago
Has not taken Eliquis 5 mg twice daily in 6 days due to upper GI and colonoscopy plan; now on hep gtt APTT 156.3 H (from 45.8)- on hold because of ongoing bleeding started 11/18/24 D#2 will check aPTT in 6 hours
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
A1c is 7.9
- Patient is using Ozempic 1 mg once a week last dose was 11/08/2024
- Hyperglycemia 209 (from 191) - TPN dose changed 11/17/2024 (from44 dose 66)-- increased insulin Aspart 9 Units SC Q6h
-monitor glucose
#Chronic neuropathy
Patient takes gabapentin 300 mg at bedtime as needed
#Depression
Zoloft 50 mg at bedtime, npo and on hold for now
#Class I obesity�BMI 33
Patient currently on Ozempic
DVT prophylaxis- heparin
Full code
Anticipated Discharge: > 48 hours
Subjective/Interval History
-
Date of Service: November 19, 2024
Overnight he had 5 bowel movements last 2 ones were bright red, liquid blood. All liquid, bloody. He felt lighheaded and his HR went up. Nurse encouraged him not move from bed. He has been staying on bed for few hours now. He started feeling
heartburn nurse adjusted his seat, pump feels better. He is going to receive RBC pack. HE feels lightheaded and sleepy. Experiences pain in general on his body.
Objective Data
-
Labs:
Laboratory Results
11/19/24 11/19/24 11/19/24
00:25 03:35 08:00
Hgb 7.7 L 7.4 L
Hct 22.6 L 21.7 L
APTT 156.3 H* Pending
Sodium 140
Potassium 3.2 L
Chloride 109 H
Carbon Dioxide 28
BUN 9
Creatinine 0.4 L
Glucose 209 H
Calcium 7.9 L
11/19/24 11/19/24 11/19/24
09:30 15:30 21:30
Hgb Pending Pending Pending
Hct Pending Pending Pending
APTT
Sodium
Potassium
Chloride
Carbon Dioxide
BUN
Creatinine
Glucose
Calcium
Vital Signs:
Vital Signs
Temp Pulse Resp BP Pulse Ox
98.0 F 91 21 144/79 100
11/19/24 03:14 11/19/24 06:00 11/18/24 18:00 11/19/24 06:00 11/19/24 06:00
I&O
11/18/24 11/19/24 11/20/24
06:59 06:59 06:59
Intake Total 1835 / 1835 3108 / 3108
Output Total 3125 / 3125 1675 / 1675
Balance -1290 / -1290 1433 / 1433
Review of Systems
-
History Source: Patient and Family
Constitutional: Reports Fatigue
EENT: Reports No Symptoms Reported
Respiratory: Reports No Symptoms
Cardiac: Reports No Symptoms
Abdomen/GI: Reports Bloody Stools (bright red 2 bm)
Breast: Reports No Symptoms
Genitourinary: Reports No Symptoms
Musculoskeletal: Reports No Symptoms
Skin: Reports No Symptoms
Neuro: Reports Lightheadedness
Physical Exam
-
General: Appears in Distress
HEENT: Normocephalic
Respiratory: Decreased Breath Sounds
Cardiac: Regular Rhythm, S1/S2 and Tachycardic
GI: Soft, Nondistended and Tender
Skin: Warm
Neuro: Sedated
Psych: Calm
Data Reviewed
-
Labs: Labs Reviewed by me and Discussed with Physician
--- NOTE | 2024-11-19 08:12 | W.PN.ONC2 ---
Today's Communication / Plan
-
IV heparin to maintain therapeutic aPTT with severe hypercoagulability.
PRBC for HgB < 7.5 as active GI bleeding.
Discussed need for bridging in the future (admission for IV heparin) for even minor invasive procedures.
Impression
Impression
Sepsis secondary to severe enteritis
Ischemic bowel s/p ex lap with small bowel resection 11/14/24, repeat procedure 11/16/24
Rectal bleed
Hypereosinophilic syndrome with steroid dependence, now managed by Dr.s Donovan and Leisa at [facility]
Chronic portal vein thrombosis (last dose eliquis 11/08)
Hypercoagulable state
DMII
Neuropathy
Plan
Plan
1. Hypercoagulable state - in setting of hypereosinophilic syndrome, FVL w/ h/o portal vein thrombosis
-presented with bowel ischemia w/ SMV thrombosis in setting of holding eliquis since 11/08 for elective colonoscopy.
-s/p exploratory laparoscopy 11/14 with removal of 18 cm of more distal SB, followed by anastomosis 11/16.
- prior thrombophilia testing was notable for elevated AcL IgM 46, B2G IgM 96 however due to other underlying hypercoagulable conditions (HES, FVL) diagnosis of APLAS and need to switch to coumadin felt appropriately un-necessary.
- 11/15/24 APL labs repeated -- B2GP1 Igm = 40, ACLA IgM 25. Unclear how accurate these results are in the setting of sepsis/surgery; he should have these repeated in 12 weeks.
- I would NOT consider this to be DOAC failure and, up to now, no recurrent VTE events on DOAC. therefore, reasonable to resume this on discharge pending further APLA testing. However, reviewed that DOACs are predominately absorbed in SB and SB
resections can impact efficacy due to impaired absorption. Eliquis is less affected by this however decreased concentrations can be seen after significant resection of the proximal small bowel. From op report it appears majority of bowel was taken
more distally however if additional resection of more proximal bowel required on repeat laproscopy would favor switching to coumadin to ensure AC remains therapeutic in this high VTE risk pt.
Subjective/Objective
Chief Complaint
ACS Heme Onc
Subjective
PRBC ordered. asking how quickly he can get. Still GI bleeding
Vital Signs:
Vital Signs
Temp Pulse Resp BP Pulse Ox
98.2 F 83 16 152/72 100
11/19/24 08:09 11/19/24 08:09 11/19/24 08:09 11/19/24 08:09 11/19/24 06:00
Lab Results:
Laboratory Data
WBC Cancelled 11/19/24 07:50
Hgb Cancelled 11/19/24 07:50
Plt Count Cancelled 11/19/24 07:50
PT Cancelled 11/14/24 13:00
INR Cancelled 11/14/24 13:00
APTT Cancelled 11/19/24 08:00
eGFR > 60.00 11/19/24 03:35
Physical Exam
Cardiology: S1 and S2
Pulmonary: Clear
GI: Soft
[2024-11-19] MEDS: DILAUDID 0.5 MG IV (08:13)
[2024-11-19] MEDS: PROTONIX IV 40 MG IV (08:14)
[2024-11-19] MEDS: SOLU-CORTEF 50 MG IV (08:14)
[2024-11-19] MEDS: NSS (PRESERVATIVE FREE) 10 ML IV (08:14)
[2024-11-19] MEDS: ZOFRAN 4 MG IV ×2 (08:25→14:39)
[2024-11-19 08:49] LABS: Mean Corp Hgb Conc. 32.9 g/dL (33.0-37.0); Mean Corpuscular Volume 85.6 fL (80.0-94.0); Nucleated Red Blood Cells % 0.9 % (-); Platelet Count 198 10^3/uL (130-400); Red Cell Dist. Width 15.7 % (11.5-14.5)
--- NOTE | 2024-11-19 09:15 | PN.CDI ---
CDI
- -
CDI:
Physician Documentation Request
Admit Date: 11/13/24 19:34
Dear Doctor Kenyon/Resident,
Please review the following and provide your response in the progress notes.
Clinical Indicators:
Pt admitted with Sepsis 2/2 Enteritis /Acute mesenteric ischemia SMA thrombosis /rectal bleeding
Progress notes 11/17 &11/18 ,' # Sepsis with severe enteritis involving long segment of ileum with rectal bleeding and cellulitis ..IV Zosyn..'
Please clarify the location of the documented cellulitis :
Use of terms such as suspected, likely, concern for, or probable (associated with a specific diagnosis that is being evaluated, monitored, or treated as if it exists) are acceptable and can be coded in the inpatient setting, when documented at the
time of discharge.
Thank you,
Veena Shoemaker RN
CDI Specialist
[facility]
Please use your independent medical judgment in providing your response.
--- NOTE | 2024-11-19 09:19 | PN.CDI ---
CDI
- -
CDI:
Physician Documentation Request
Admit Date: 11/13/24 19:34
Dear Doctor Kenyon/ Resident ,
Please review the following and provide your response in the progress notes.
Clinical Indicators:
Pt admitted with Sepsis 2/2 Enteritis /Acute mesenteric ischemia SMA thrombosis /rectal bleeding
Progress note 11/18, ' Sepsis with severe enteritis involving long segment of ileum with ABLA and cellulitis ...- Eliquis on holdcont hep gtt- high risk for clot (hypercoag state) ...'
Update note 11/19 , ' -Mod-large red burgundy bm at midnight..... Will hold heparin drip and check h&h. hgb is dropping gradually 8.3 --> 7.7---> 7.4 .At 0545 am Another red liquid bm around 200cc, vital signs still within baseline. Will order one
unit of blood ordered and will continue monitoring h&h q 6hrs....'
Please clarify the relationship between these conditions:
Yes, ABLA ___ is related to/associated with/exacerbated by Heparin gtt ___.
No, _ABLA __ is not related to/associated with/exacerbated by heparin gtt __ but it is due to ___. (Please specify)
Other ( please specify)
Use of terms such as suspected, likely, concern for, or probable (associated with a specific diagnosis that is being evaluated, monitored, or treated as if it exists) are acceptable and can be coded in the inpatient setting, when documented at the
time of discharge.
Thank you,
Veena Shoemaker RN
CDI Specialist
[place] [facility]
Please use your independent medical judgment in providing your response.
[2024-11-19] MEDS: ZOVIRAX INJECTION 108 MG IV (09:30)
[2024-11-19 09:38] LABS: Magnesium 1.8 mg/dl (1.6-2.3)
[2024-11-19] MEDS: DILAUDID 1 MG IV ×3 (11:25→17:32)
--- NOTE | 2024-11-19 11:44 | W.PN.GS2 ---
Today's Communication / Plan
-
TPN
NGT
serial H&H
hold A/C
Assessment / Plan
-
44 yo male with history of hypereosinophilic syndrome with known clotting disorder and chronic portal vein thrombus on Eliquis with AC held in anticipation of a colonoscopy this week who developed nausea, vomiting and intense abdominal pain followed
by rectal bleeding during his prep. CT with findings concerning for mesenteric ischemia, portal vein thrombus and SMV thrombus noted and taken to the OR for mesenteric ischemia.
POD #5 ex lap with SBR (18cm necrotic bowel), left in discontinuity given ?viability of proximal bowel
POD #3 RTOR for small bowel anastomosis, no further resection needed
AFVSS
NGT with low volume light bilious output
Acute blood loss anemia present with BRBPR overnight while on hep gtt
Leukopenia
1uPRBC transfusing
Expect GI bleed may prolong ileus. Cont NGT, can remain clamped if not nauseous. Continue to monitor anemia, hold hep gtt.
Plan:
-- NGT clamp trial to cont
-- Pain control: IV Tylenol and Dilaudid
-- Hold PO meds,IV steroids and abx, and antivirals as per primary team
-- TPN reordered, nutrition consult appreciated
-- Insulin SS while on TPN
-- Replace phos, K, Mag, trend labs
-- DVT: PO AC on hold until dietary advancement, Hep gtt on hold since overnight GI bleed, serial Hb today, may require further transfusion
Subjective Data
-
Date of Service: November 19, 2024
Melena overnight and Hb trending down while on A/C, HD stable, afebrile, pain controlled, OOBTC yesterday
Objective Data
-
Intake and Output
11/18/24 11/19/24 11/20/24
06:59 06:59 06:59
Intake Total 1835 / 1835 3108 / 3108 250 / 250
Output Total 3125 / 3125 1974 75 / 75
Balance -1290 / -1290 1133 / 1133 175 / 175
Intake:
Oral fluids 100 / 100
IV fluids (Total) 800 / 800 700 / 700
IV piggybacks 855 / 855 768 / 768
TPN/PPN 1580 / 1580
Amount instilled into GI Tube ( 80 / 80 60 / 60
Total)
Alcova Sump 80 / 80 60 / 60
Blood Product Amount Infused ( 250 / 250
mL)
Packed Rbc Leukoreduced Unit 250 / 250
[id number]
Output:
Liquid stool amount 200 / 200 75 / 75
Rectum 200 / 200 75 / 75
Gastrointestinal tube output ( 1100 / 1100 500 / 500
Total)
Alcova Sump 1100 / 1100 500 / 500
Urine, Voided 2024 1275 / 1275
Vital Signs
Temp Pulse Resp BP Pulse Ox
97.8 F 76 16 150/78 97
11/19/24 10:16 11/19/24 10:16 11/19/24 10:16 11/19/24 10:16 11/19/24 10:00
Lab Results
11/19/24 03:35
Calcium 7.9 mg/dl (8.4-10.2) L 11/19/24 03:35
Phosphorus 2.4 mg/dl (2.5-4.5) L 11/19/24 03:35
Magnesium 1.8 mg/dl (1.6-2.3) 11/19/24 03:35
Total Bilirubin 0.4 mg/dl (0.2-1.3) 11/18/24 04:03
Direct Bilirubin 0.3 mg/dl (0.0-0.4) 11/18/24 04:03
AST 37 U/L (17-59) 11/18/24 04:03
ALT 44 U/L (0-50) 11/18/24 04:03
Alkaline Phosphatase 84 U/L (38-126) 11/18/24 04:03
Total Protein 5.2 g/dl (6.3-8.2) L 11/18/24 04:03
Albumin 2.9 g/dl (3.5-5.0) L 11/18/24 04:03
Physical Exam
-
Gen: Pallor
Abd: soft, approp ttp, incision cdi with jayjay
Patient has a vogel catheter: No
Patient has a central line: Yes (PICC)
[2024-11-19 12:17] LABS: Glucose - Point of Care 285 mg/dl (70-99)
[2024-11-19 13:33] LABS: Hematocrit 27.3 % (39.0-52.0); Hemoglobin 9.3 g/dL (13.0-18.0)
[2024-11-19] MEDS: SODIUM PHOSPHATE 265 MEQ IV (13:50)
--- NOTE | 2024-11-19 15:54 | CM ---
chart reviewed. Case Management will continue to monitor and support discharge plan to Home; No skilled PT recommended
--- NOTE | 2024-11-19 16:29 | PTCARENOTE ---
Received this am- PRBC given as ordered. Post H/H drawn and resulted 9.4. AAOx3, RA, SR/ST 80-90s. BP 160s/90s. removed aquacell dressing- jayjay CDI TYREL. No drainage noted. NGT to LIS c/o heartburn resolved with slightly increased
suction, also given zofran and protonix iv. Ausculated placement of ngt, flushed as needed. Pain 3/10 this am 04/04 after 0.5mg IV Dilaudid.
This pm complaining of increased pain 7-810 abdomen slightly distended. Has had 3 50ml burgandy stools this shift. D/w Dr. Sue- ok to ambulate, get oob etc... HR up 150s when started to walk so went to bathroom instead washed up and after 1/2
hour more lightheaded BP now 120s/80s. Back to bed BP 134/92. Still has increased pain Dilaudid 1mg given x2 during these episodes - requesting another dose .
[2024-11-19] MEDS: KCL 100 IV (16:47)
[2024-11-19 17:56] LABS: Hematocrit 27.9 % (39.0-52.0); Hemoglobin 9.6 g/dL (13.0-18.0)
[2024-11-19] MEDS: NOVOLOG FLEXPEN 9 UNITS SC (17:58)
[2024-11-19 18:00] LABS: Glucose - Point of Care 287 mg/dl (70-99)
[2024-11-19 18:23] LABS: APTT 22.6 Sec (23.4-35.0)
--- NOTE | 2024-11-19 19:27 | PTCARENOTE ---
Pt continued to have 40-50ml burgandy thick liquid stools every 20-30min, pain increased to 9/10 IV Dilaudid again administered without relief. Discussed with Dr. Sue on phone- labs ordered drawn/ sent and escorted to CT scan by RN. Labs
relayed to provider. Awaiting CT scan results.
[2024-11-19 20:17] LABS: Hematocrit 30.1 % (39.0-52.0); Hemoglobin 10.3 g/dL (13.0-18.0)
--- NOTE | 2024-11-19 20:52 | PTCARENOTE ---
At start of shift pt was experiencing 10/10 abdominal pain, pale, weakness, nausea, lightheadedness at times. Abdomen distended, pt stated pain was throughout, tender on palpitation. NGT to suction. BP stable. ST 110-120's. Was in contact with
general surgery awaiting CT results. was at bedside. TPN running, IVF running, & K rider was finishing. TT overnight EXCELLENCE COACH about pt condition and more pain meds. Pt starting to have frequent bloody BM's, redrew another H&H. CT resulted & orders
for emergent surgery. Pt prepped and report given to PACU nurse. Pt taken to OR. updated. Family updated and in waiting room.
[2024-11-19 21:26] LABS: B.E. - POC 2.4 mmol/L; Glucose - POC 212 mg/dl (70-99); HCO3 - POC 26 mmol/L (21-28); Hematocrit - POC 29 % PCV (42-52); Hemodilution- POC Yes; Hemoglobin Calculated - POC 9.8; Ionized Calcium - POC 1.02 mmol/L (1.15-1.33); Lactate - POC 1.58 mmol/L (0.36-0.75); O2 Saturation %Calculated-POC 100.0 % (94-98); PCO2 - POC 36 mmHg (35-48); PO2 - POC 409 mmHg (83-108); Potassium - POC 2.8 mmol/L (3.5-5.1); Sodium - POC 142 mmol/L (136-145); Specimen Type - POC Arterial; pH - POC 7.47 (7.35-7.45)
--- NOTE | 2024-11-19 22:15 | W.IMMPOSTOP ---
Surgical Immed Post Op Note
-
Primary Surgeon: Vikram
Pre-op Diagnosis: Ischemic bowel
Post-op Diagnosis: Same
Procedure Performed: Exploratory laparotomy, small bowel resection
Anesthesia Type: GETA
Specimen / Cultures: Small bowel
Estimated Blood Loss: 5cc
Complications: None immediate
Operative Findings: 25cm frankly necrotic small bowel, proximal to this another 20cm approximately of dusky bowel, this was resected en bloc; anastomosis intact; proximal limb of anastomosis with mild early patchy ischemia extending from there to
the distal staple line, this was left in situ; mesentery taken with voyant; staple lines and cut edge of mesentery oversewn with 2-0 silk and surgiflo applied; abthera closure; tentatively for second look in 48 hrs and ileostomy creation to enable
rapid return to anticoagulation, pt to remain vented until then; and family updated
[2024-11-19] MEDS: SUBLIMAZE 100 IV (22:32)
[2024-11-19] MEDS: SUBLIMAZE 50 MCG IV ×3 (22:33→23:55)
[2024-11-19] MEDS: HEPARIN 9200 UNITS IV (22:44)
[2024-11-19] MEDS: HEPARIN 25000 UNITS/250 ML IV (22:46)
[2024-11-19 22:59] LABS: APTT 23.4 Sec (23.4-35.0); INR 0.96; PT 13.2 Sec (11.4-14.6)
[2024-11-19 23:04] LABS: Hematocrit 26.8 % (39.0-52.0); Hemoglobin 9.6 g/dL (13.0-18.0); Mean Corp Hgb Conc. 35.8 g/dL (33.0-37.0); Mean Corpuscular Volume 84.0 fL (80.0-94.0); Platelet Count 198 10^3/uL (130-400); Red Cell Dist. Width 15.9 % (11.5-14.5)
[2024-11-19 23:09] LABS: ALT (SGPT) 134 U/L (0-50); AST (SGOT) 85 U/L (17-59); Albumin 2.6 g/dl (3.5-5.0); Alkaline Phosphatase 149 U/L (38-126); Blood Urea Nitrogen 7 mg/dl (9-20); Calcium 7.9 mg/dl (8.4-10.2); Carbon Dioxide 25 mmol/L (22-30); Chloride 110 mmol/L (98-107); Estimated Creatinine Clearance > 125 ml/min; Glucose 189 mg/dl (70-99); Magnesium 1.7 mg/dl (1.6-2.3); Potassium 3.6 mmol/L (3.5-5.1); Sodium 138 mmol/L (135-145); Total Protein 4.9 g/dl (6.3-8.2); eGFR > 60.00
[2024-11-19 23:42] LABS: B.E. 0.7 mmol/L; HCO3 23.4 mmol/L (21-28); O2 Saturation % 100.0 % (94-98); PCO2 30 mmHg (35-48); PO2 195 mmHg (83-108)
[2024-11-19] MEDS: MAGNESIUM SULFATE 102 GRAMS IV (23:44)
[2024-11-19 23:45] LABS: O2 Therapy VENT
[2024-11-19] MEDS: ZOSYN IV (23:51)
[2024-11-20] VITALS (7 sets, daily range): BP systolic 91–145; BP diastolic 52–71; BMI 32.8
--- NOTE | 2024-11-20 | PTCARENOTE ---
Pt received from OR ~2219. Intubated. Dex and levo gtts. Wound vac to abdominal incision - sanguineous drainage. A-line zeroed. Labs drawn and sent. Heparin bolused as ordered and then gtt initiated at ordered dose. Fent gtt initiated. PRN fent
boluses - see MAY. Pt RASS ranging from 0 to -1. Opens eyes to voice, follows commands.
CXR - EXCAVATOR OPERATOR and RT at bedside. ETT advanced 1cm.
IV Mg and K repletion - see MAY.
[2024-11-20] MEDS: LR 1000 IV (00:06)
[2024-11-20] MEDS: KCL 160 MEQ IV (00:07)
[2024-11-20] MEDS: SUBLIMAZE 50 MCG IV ×9 (00:28→20:45)
[2024-11-20] MEDS: PRECEDEX 100 IV ×3 (00:55→05:34)
[2024-11-20] MEDS: SOLU-CORTEF 25 MG IV ×5 (00:56→23:04)
[2024-11-20] MEDS: NSS (PRESERVATIVE FREE) IV (00:59)
[2024-11-20] MEDS: PROTONIX IV IV (00:59)
[2024-11-20] MEDS: ZOVIRAX INJECTION 108 MG IV ×3 (01:30→19:18)
[2024-11-20] MEDS: Parenteral Nutrition, Central 1630 IV (01:39)
[2024-11-20 01:49] LABS: Glucose - Point of Care 236 mg/dl (70-99)
[2024-11-20] MEDS: NOVOLOG FLEXPEN-MODERATE RESISTANCE 3 UNITS SC (01:50)
[2024-11-20] MEDS: NOVOLOG FLEXPEN 9 UNITS SC ×2 (01:50→05:39)
[2024-11-20] MEDS: ZOSYN 50 IV ×4 (03:30→22:06)
[2024-11-20 04:10] LABS: Hematocrit 24.7 % (39.0-52.0); Hemoglobin 8.9 g/dL (13.0-18.0); Mean Corp Hgb Conc. 36.0 g/dL (33.0-37.0); Mean Corpuscular Volume 85.5 fL (80.0-94.0); Platelet Count 192 10^3/uL (130-400); Red Cell Dist. Width 16.0 % (11.5-14.5)
[2024-11-20] MEDS: SUBLIMAZE 100 IV ×5 (04:44→22:21)
[2024-11-20 04:52] LABS: B.E. 0.5 mmol/L; HCO3 24.5 mmol/L (21-28); O2 Saturation % 99.9 % (94-98); PCO2 36 mmHg (35-48); PO2 160 mmHg (83-108)
[2024-11-20 04:54] LABS: O2 Therapy VENT
[2024-11-20 04:54] LABS: ALT (SGPT) 125 U/L (0-50); AST (SGOT) 63 U/L (17-59); Albumin 2.6 g/dl (3.5-5.0); Alkaline Phosphatase 139 U/L (38-126); Blood Urea Nitrogen 8 mg/dl (9-20); Calcium 7.3 mg/dl (8.4-10.2); Carbon Dioxide 24 mmol/L (22-30); Chloride 113 mmol/L (98-107); Estimated Creatinine Clearance > 125 ml/min; Glucose 299 mg/dl (70-99); Magnesium 2.0 mg/dl (1.6-2.3); Potassium 4.5 mmol/L (3.5-5.1); Sodium 139 mmol/L (135-145); Total Protein 4.6 g/dl (6.3-8.2); eGFR > 60.00
[2024-11-20 05:01] LABS: APTT 94.0 Sec (23.4-35.0)
[2024-11-20] MEDS: NOVOLOG FLEXPEN-MODERATE RESISTANCE 7 UNITS SC (05:39)
[2024-11-20 05:49] LABS: Glucose - Point of Care 344 mg/dl (70-99)
--- NOTE | 2024-11-20 06:19 | PTCARENOTE ---
#7 ETT 24cm @ lip. Vent settings AC 550/16/+5/30%, tolerating. Pt able to make pain known when RN in room - PRN fent boluses (see MAR). Serosanguineous drainage out wound vac. Yellow urine draining from vogel. NGT to LIS. SR on telemetry. AM labs
drawn and sent - REGISTRATION OFFICER aware of values.
--- NOTE | 2024-11-20 07:07 | CON.INTV ---
Consultation
Consultation Request
Date/Time Consultation Requested: 11/19/2024
Date/Time Consultation Performed: 11/20/2024
Medical History
-
Chief Complaint: Blood per rectum
History of Present Illness:
Patient is a 44-year-old male with history of hypereosinophilic syndrome along with hypercoagulable state chronically on steroids, Eliquis, Jakafi and Pegasys who was receiving GI prep for a scheduled EGD and colonoscopy as outpatient and his
Eliquis had been on hold. He presented to [facility] with abdominal discomfort and bloody diarrhea. CT scan was suggestive of enteritis and initially patient was admitted to the hospital on IV fluids, antibiotics for concern for enteritis.
Patient was evaluated by GI and surgery service and on 11/14 was taken to the OR and had a segment of small bowel resected for mesenteric ischemia. Patient had another trip to OR on 11/17 for reanastomosis without needing additional resection. On
11/19 patient had worsening clinical status and repeat imaging was suggestive again of acute mesenteric ischemia requiring emergent laparotomy additional small bowel resection and postprocedure patient was brought to ICU intubated, mechanically
ventilated. Car Sander consult was requested for further input.
Past Medical History
Past Medical History: Reports Other
Additional Past Medical History:
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
active smoker
DM2 steroid-induced
neuropathy
depression
portal vein thrombosis
class I obesity
Past Surgical History: Reports None
Social History
Tobacco: Smoker
Alcohol: None
Drug: None
Personal:
Living: With Family
Family History
Family History: Not pertinent
Allergies / Home Medications
Allergies / Home Medications
Allergies
Allergy/AdvReac Type Severity Reaction Status Date / Time
vancomycin Allergy Rash Verified 05/25/22 15:00
Home Medications
�Medication �Instructions �Recorded �Confirmed �Last Taken �Type
gabapentin 100 mg capsule 300 mg PO HS PRN Neuropathy 06/30/22 11/13/24 11/09/24 22:00 History
Prilosec OTC 20 mg PO DAILY 11/13/24 11/13/24 11/13/24 09:00 History
acyclovir 400 mg tablet 400 mg PO BID 11/13/24 11/13/24 11/13/24 09:00 History
apixaban 5 mg tablet (Eliquis) 5 mg PO BID 11/13/24 11/13/24 11/08/24 20:00 History
clobetasol 0.05 % topical cream 1 applic topical DAILY PRN rash 11/13/24 11/13/24 10/14/24 History
1
peginterferon shan-2a 180 mcg/mL 144 mcg SC 11/13/24 11/10/24 09:00 History
subcutaneous solution (Pegasys)
prednisone 15 mg PO ONCE 11/13/24 11/13/24 11/13/24 09:00 History
prednisone 21 mg PO DAILY 11/13/24 11/13/24 11/11/24 09:00 History
ruxolitinib 5 mg tablet (Jakafi) 20 mg PO BID 11/13/24 11/13/24 11/13/24 09:00 History
sertraline 50 mg tablet 50 mg PO HS 11/13/24 11/13/24 11/12/24 22:00 History
sulfamethoxazole 800 1 tab PO MOWEFR 11/13/24 11/13/24 11/12/24 09:00 History
mg-trimethoprim 160 mg tablet
Review of Systems
-
Unable to Obtain full review of systems at this time due to: Patient Intubation
Vitals / Labs / Diagnostic Testing
Vital Signs
Temp Pulse Resp BP Pulse Ox
98.7 F 93 16 118/71 99
11/20/24 03:00 11/20/24 06:00 11/20/24 06:00 11/20/24 05:07 11/20/24 06:31
Lab Data
11/20/24 03:54
11/20/24 03:54
Laboratory Results
11/19/24 11/19/24 11/19/24
08:00 17:43 22:40
PT 13.2
INR 0.96
APTT Cancelled 22.6 L 23.4
pH
pCO2
pO2
HCO3
O2 Delivery Level
11/19/24 11/20/24 11/20/24
23:20 03:54 04:30
PT
INR
APTT 94.0 H
pH 7.50 H Cancelled 7.44
pCO2 30 L Cancelled 36
pO2 195 H Cancelled 160 H
HCO3 23.4 Cancelled 24.5
O2 Delivery Level Vent Cancelled Vent
Microbiology
11/13/24 16:01 Blood/Venous Blood Culture - Final
No Growth - Final Report
11/13/24 16:01 Blood/Venous Blood Culture - Final
No Growth - Final Report
Diagnostic Testing:
Physical Exam
-
HEENT: Normocephalic
Cardiovascular: S1/S2
Respiratory: Clear and Non-Labored Respirations
GI: Other (No bowel sounds, mild distention,)
Neurology: Other (Sedated however wakes up with little stimulation)
Skin: Warm
General: Comfortable
Assessment
-
11/20 overview: Patient currently intubated, mechanically ventilated and sedated. Current infusions Levophed infusing at 5, TPN, heparin infusion. Propofol infusing at 20, fentanyl infusing at 225. ABG 7.40 4/36/160, vent settings 550/16/30%/5.
#1. Acute venoocclusive mesenteric ischemia.
- In the setting of persistent SMV thrombus extending into the tributaries inferiorly
- Patient is status post emergent laparotomy, small bowel resection and reanastomosis (11/19)
- General Surgery on case, tentative plan for a second look in 48 hours and possible ileostomy creation
- Patient is s/p ex lap and small bowel resection on 11/14, laparotomy for small bowel anastomosis 11/16
- Also concern for antiphospholipid antibody syndrome, oncology service on case, workup currently in process
#2. Shock, suspect septic in the setting of severe enteritis
- Continue IV Zosyn, IV fluid resuscitation and pressor support as needed to keep MAP above 65
- Considering patient is chronically steroid-dependent, will continue stress dose steroids
#3. Acute respiratory failure, in the setting of emergent laparotomy
- Currently intubated, mechanically ventilated and sedated
- In anticipation of repeat laparotomy in 48 hours, will continue mechanical ventilation
- Chest x-ray reviewed, ET tube in appropriate position
- Start propofol infusion, continue fentanyl drip, discontinue Precedex
#4. Hypereosinophilic syndrome with known hypercoagulable state
- H/o portal vein thrombosis, chronically on Eliquis, which was temporarily on hold for scheduled EGD and colonoscopy prior to this hospitalization
- Has chronically been on steroid, Pegasys and Jakafi for hypereosinophilic syndrome and follows up at [facility].
- Hematology oncology service on case
#5. Chronically steroid dependent.
- Hydrocortisone 25 mg IV q 6 hrs, stress dosing
#6. DM, with hyperglycemia
- TPN and steroids exacerbating hyperglycemia
- Initiate insulin infusion
Other medical diagnoses:
- Chronic neuropathy
- Depression
- Obesity, BMI 33
DVT prophylaxis, currently on IV heparin
GI prophylaxis, IV Protonix
Critical Care time 60 mins -- The patient is admitted for acute critical illness for the treatment of vital organ failure and/or prevention of further life-threatening conditions. Total care includes time spent in review of history, physical exam,
medications, hemodynamic/ventilator parameters, laboratory data, imaging and discussion with house staff, pharmacy, respiratory therapy, messaging architect, and nursing.
Data:
CXR 10/2024: Endotracheal tube with tip 3.6 cm above the clair.
Mild elevation right hemidiaphragm. Linear atelectasis in the right lower lung.
CT Abd/Pel 10/2024: There is persistent thrombus within the SMV and extending into the tributaries of the SMV inferiorly. There is a small amount of nonocclusive thrombus in the anterior aspect of the main portal vein.
There is an approximately 20 cm long segment of significant bowel wall thickening and adjacent edema, in the region of the proximal to mid ileum, which appears to be new from previous CT of November 13, 2024. Findings would suggest venoocclusive
mesenteric ischemia.
There is also to a lesser degree wall thickening and adjacent mesenteric edema involving the distal ileum, although less severe than the proximal to mid ileal involvement.
Small to moderate amount of free fluid as described.
No evidence of free intraperitoneal air.
--- NOTE | 2024-11-20 07:21 | W.PN.ANS.POP ---
Anesthesia Post Operative
- Anesthesia Post Op Note
Vital Signs Stable-See Nursing Note: Yes (Patient on vasopressor support)
Airway Patent: Yes (Intubated )
Adequate Pain Control: No (Patient on fentanyl infusion; per RN, patient requiring breakthrough)
Change in Mental Status: No
Current Postoperative Nausea & Vomiting: No
Anesthesia Complications: No
General Anesthetic Recall: No
Unplanned Admission: No
Post Op Hydration Adequate: Yes
--- NOTE | 2024-11-20 07:39 | W.PN.HOSP.TC ---
Addendum entered and electronically signed by Rudi Prescott MD 11/20/24 21:12:
Attending Addendum-
I saw and evaluated the patient. I reviewed the resident�s note and agree with findings and plan as documented in the resident�s note. Sub: taken to OR emergently yesterday secondary to worsening mesenteric ischemia. Patient seen with present.
no further bloody BM's per nursing. Patinet is intubated and sedated but able to answer questions and write. Denies pain SOB. Very appreciative and pleasant. Full 12 point ROS reviewed and negative except as documented Exam: Vitals reviewed in
chart GEN-NAD HEENT- intubated, NG tube in place draining bilious material non bloody, heart RRR lungs clear Abd soft NT ND pos BS no rebound guarding- wound vac in place draining sero sang fluid, LE 1+ pitting edema B/L RUE picc in place
vogel in place with clear yellow urine
Plan:
# Severe Sepsis with enteritis involving long segment of ileum with ABLA likely exacerbated mesenteric ischemia
# Acute worsening mesenteric ischemia
- transferred to ICU on 11/19 post op- intubated and sedated
- wean levophed for MAP > 65 cont IVF
- 11/14- POD#5- SB resection- 18cm necrotic ileum
- 11/16- POD#3-SB anastomosis
- 11/19- POD#1- emergently taken to OR for new SB ischemia with resection of 25cm frankly necrotic small bowel, proximal to this another 20cm approximately of dusky bowel
- likely due to holding of hep gtt with acute GI bleed
- RTOR 11/20 for ostomy creation with ab wall closure
- serial h and h
- cont NPO cont TPN
- NG
- increase stress dose steroids- SECRETARY BOOKKEEPER has been at 21 mg for the past few weeks
- cont Zosyn #8
- Blood cultures NGTD
#History of Hypereosinophilic syndrome
-follows at [facility]
-on chronic steroid 21 mg last dose was 11/11/2024 has slowly been tapering from 30 mg down by 1 mg has been at 21 mg for the past few weeks
-hold Jakafi
-Pegasys infusion once a week as OP
-Continue pantoprazole
-cont acyclovir
-hold Bactrim DS Sunday
-heme/onc input appreciated
-restart stress dose steroid
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
- Eliquis on hold
- cont hep gtt - minimize time off hep gtt- high risk propagation of clots
- appreciate heme onc input
#DM 2
- A1c-7.9
- uncontrolled
- transition to insulin gtt
- SECRETARY BOOKKEEPER Ozempic 1 mg once a week last dose was 11/08
#Chronic neuropathy-gabapentin 300 mg at bedtime as needed
#Depression-Zoloft q hs-held
#Urinary Retention- successful TOV-11/18, vogel reinserted post op to monitor U/O
#Class I obesity�BMI 33
DVT prophylaxis-hep gtt
Full code
CC Note
Due to a high probability of clinically significant, life-threatening deterioration, the patient required a high level of preparedness to intervene emergently. I personally spent this critical care time directly and personally managing the patient.
This critical care time included obtaining a history; examining the patient; ordering and review of studies and STAT labs; arranging urgent treatment with development of a management plan; evaluation of patient's response to treatment; reassessment;
and, discussions with other providers.
This critical care time was performed to assess and manage the high probability of imminent, life-threatening deterioration that could result in multi-organ failure. It was exclusive of separately billable procedures and treating other patients and
teaching time.
Total critical care time: Approximately 32 minutes
Original Note:
Today's Communication/Plan
-
increase Aspart 12U Q6hrs- monitor glucose
Hydrocortisone 50mg IV Q12h
Monitor Aptt Q6h
Monitor H&H
Assessment / Plan
Assessment / Plan
This is a 44-year-old male with past medical history of hypereosinophilic syndrome with skin involvement, diabetes, smoker, neuropathy, depression, portal vein thrombus on Eliquis, obesity presented with abdominal pain, nausea and vomiting, bright
red blood in the stools after taking Dulcolax and MiraLAX for EGD and colonoscopy. Post-op #D3 he started having continuous bloody bowel movements. Patient had another surgery for ischemic bowel. Post-op #D1
# Sepsis with severe enteritis involving long segment of ileum with rectal bleeding post colonoscopy and upper GI series prep
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 s/p resection 18cm necrotic ileum 11/14 and SB left in discontinuity ; plan to repeat procedure today
- Leukocytosis resolved
- Hemoglobin 8.9 (from 9.6, 10.3) after 1 PRBC. Will check H&H
- Lactated Ringer's 125ml/hr Q8h
-NPO+TPN
- Hydrocortisone 100 mg given in ER-patient is on chronic steroid 21 mg last dose was 11/11/2024 has slowly been tapering from 30 mg down by 1 mg has been at 21 mg for the past few weeks
- 11/20/2024 Continue IV Zosyn #D 8
- IV Tylenol
- IV Dilaudid as needed pain, Zofran nausea
- Blood cultures NGTD 11/13/2024
-Surgery- CTA scan of abdomen/pelvis was not recommended.
-11/20 Post op D#1 - ischemic bowel--laparatomy, small bowel resection--tentanively for 2nd look in 48hr+ileostomy. Pt vented until then.
#Acute blood loss anemia
-Hb 8.9 declining ( from 9.6, 10.3 )
-Heparin restarted. APTT 94 (from 23.4)
-APTT in 6 hours
#History of Hypereosinophilic syndrome with typical skin rash follows at [facility] on chronic steroids
on chronic steroid 21 mg last dose was 11/11/2024 has slowly been tapering from 30 mg down by 1 mg has been at 21 mg for the past few weeks
-3rd post op #D1 will increase Hydrocortisone from 25mg IV Q12h to 50mg IV Q12h. Once stable goal is to taper stress dose hydrocortisone to his baseline 21mg
-discontinued Jakafi 20 mg BID
-Patient receives Pegasys infusion once a week- held by
-Continue IV pantoprozole 40mg BID
-Holding Acyclovir
#Hyponatremia
-resolved 139
#Electrolyte abnormalities
- Phosphorus 2.4- discussed with pharmacist maxed out his TPN for Phosporus, given curve is at -- monitor BMP, Phos, Mg, K--11/20 P 2.8
- Potassium 3.2 - 40 Meq KCL IV--- 11/20 K 4.5
.
#History of portal vein thrombosis years ago
Has not taken Eliquis 5 mg twice daily in 6 days due to upper GI and colonoscopy plan; now on hep gtt APTT 156.3 H (from 45.8)- on hold because of ongoing bleeding started 11/18/24 D#2
-11/20 Heparin restarted- will check aPTT in 6 hours
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
A1c is 7.9
- Patient is using Ozempic 1 mg once a week last dose was 11/08/2024
- Hyperglycemia 209 (from 191) - TPN dose changed 11/17/2024 (from44 dose 66)-- increased insulin Aspart 12 Units SC Q6h
- 11/20 Glucose 299H-- monitor glucose
#Chronic neuropathy
Patient takes gabapentin 300 mg at bedtime as needed
#Depression
Zoloft 50 mg at bedtime, npo and on hold for now
#Class I obesity�BMI 33
Patient currently on Ozempic
DVT prophylaxis- heparin
Full code
Anticipated Discharge: > 48 hours
Subjective/Interval History
-
Date of Service: November 20, 2024
Patient was moved to ICU from IMU. He is intubated. I was not able to talk to his in details she was not there. Per records he RTOR for new small bowel ischemia, small bowel resection.
Objective Data
-
Labs:
Laboratory Results
11/19/24 11/19/24 11/19/24
15:30 20:00 22:40
WBC 6.4
Hgb Cancelled 10.3 L
Hct Cancelled 30.1 L
Plt Count
PT
INR
APTT
HCO3
Sodium
Potassium
Chloride
Carbon Dioxide
BUN
Creatinine
Glucose
Calcium
Total Bilirubin
AST
ALT
Alkaline Phosphatase
11/19/24 11/19/24 11/19/24
22:40 22:40 22:40
WBC Cancelled
Hgb 9.6 L Cancelled
Hct 26.8 L Cancelled
Plt Count 198
PT
INR
APTT
HCO3
Sodium
Potassium
Chloride
Carbon Dioxide
BUN
Creatinine
Glucose
Calcium
Total Bilirubin
AST
ALT
Alkaline Phosphatase
11/19/24 11/19/24 11/20/24
22:40 23:20 03:54
WBC 5.5
Hgb 8.9 L
Hct 24.7 L
Plt Count Cancelled 192
PT 13.2
INR 0.96
APTT 23.4
HCO3 23.4 Cancelled
Sodium 138 139
Potassium 3.6 4.5
Chloride 110 H 113 H
Carbon Dioxide 25 24
BUN 7 L 8 L
Creatinine 0.4 L 0.4 L
Glucose 189 H 299 H
Calcium 7.9 L 7.3 L
Total Bilirubin 1.0 0.7
AST 85 H 63 H
ALT 134 H 125 H
Alkaline Phosphatase 149 H 139 H
11/20/24 11/20/24
04:30 10:30
WBC
Hgb
Hct
Plt Count
PT
INR
APTT 94.0 H Pending
HCO3 24.5
Sodium
Potassium
Chloride
Carbon Dioxide
BUN
Creatinine
Glucose
Calcium
Total Bilirubin
AST
ALT
Alkaline Phosphatase
Vital Signs:
Vital Signs
Temp Pulse Resp BP Pulse Ox
98.7 F 93 16 118/71 99
11/20/24 03:00 11/20/24 06:00 11/20/24 06:00 11/20/24 05:07 11/20/24 06:31
I&O
11/19/24 11/20/24 11/21/24
06:59 06:59 06:59
Intake Total 3108 / 3108 3764.4 / 3764.4
Output Total 1974 3525 / 3525
Balance 1133 / 1133 239.4 / 239.4
Review of Systems
-
Unable to obtain full review of systems at this time due to: Patient Intubation
Physical Exam
-
General: Appears Chronically Ill
HEENT: Normocephalic, Atraumatic, Oxygen and Other (NG tube)
Respiratory: Clear to Auscultation
Cardiac: Regular Rhythm
Breast: Deferred by me
GI: Soft, Nontender and Nondistended
Rectal: Deferred by Provider
Genito-urinary: Vogel
Musculoskeletal: No Edema
Skin: Warm
Neuro: Sedated
[2024-11-20] MEDS: NSS (PRESERVATIVE FREE) 10 ML IV ×2 (08:05→19:19)
[2024-11-20] MEDS: PROTONIX IV 40 MG IV ×2 (08:05→19:19)
[2024-11-20] MEDS: DIPRIVAN 100 IV ×5 (08:17→23:38)
--- NOTE | 2024-11-20 08:30 | PTCARENOTE ---
Received pt @ change of shift intubated/sedated/restrained in b/l soft limb and 4 rails- see flow sheet. Pt. awake; follows commands/ nod head 'yes'/'no' approp and communicates via writing/texting. CPOT 4- admin prn fent bolus and gtt increased.
RASS also increased; Dr. Cummings to bedside and orders received to d/c precedex gtt and initiate propofol gtt-see flow sheets. SR on monitor. SPo2 100% on vent settings AC16/550/.30/+5; ett #7.0/24 @ lip in center. Auscultated dim breath sounds
throughout. No secretions from ett. Hypoactive BS, abd round/obese/tender. Midline wound vac in place, dressing c/d/i; lg amt output in vac canister ser/sang. L NGT tube secured @ 60cm to LIS; no output. Therm vogel in place draining
jesica/yellow urine. R DL PICC w TPN, prop, fent, levo, and heparin- see flow sheets. R rad A-line transduced, calibrated, and monitored; all ports patent and secured. Pt. @ bedside. Emotional support given and safe environment maintained.
[2024-11-20 09:09] LABS: Triglycerides 217 mg/dl (10-149)
[2024-11-20] MEDS: LR IV (10:21)
--- NOTE | 2024-11-20 10:30 | W.PN.ONC2 ---
Today's Communication / Plan
-
IV heparin to maintain therapeutic aPTT with severe hypercoagulability.
PRBC for HgB < 7.5 as active GI bleeding.
eventual OAC when no further procedures plannedd
Impression
Impression
44-year-old M a/w sepsis and severe enteritis.
Hx of SMV thrombosis, FVL, GI bleed, hyper eosinophilic syndrome
s/p exploratory laparotomy and small bowel resection 11/14. Repeat exploratory laparotomy on 11/16 with small bowel anastomosis. OR 11/19 for additional bowel resection
Rectal bleed
Hypereosinophilic syndrome with steroid dependence, now managed by Dr.s Donovan and Leisa at [facility]
Chronic portal vein thrombosis (last dose eliquis 11/08)
Hypercoagulable state
DMII
Neuropathy
Plan
Plan
1. Hypercoagulable state - in setting of hypereosinophilic syndrome, FVL w/ h/o portal vein thrombosis
-presented with bowel ischemia w/ SMV thrombosis in setting of holding eliquis since 11/08 for elective colonoscopy.
-s/p exploratory laparoscopy 11/14 with removal of 18 cm of more distal SB, followed by anastomosis 11/16, and additional bowel resection 11/19
- prior thrombophilia testing was notable for elevated AcL IgM 46, B2G IgM 96 however due to other underlying hypercoagulable conditions (HES, FVL) diagnosis of APLAS and need to switch to coumadin felt appropriately un-necessary.
- 11/15/24 APL labs repeated -- [id number] Igm = 40, ACLA IgM 25. Unclear how accurate these results are in the setting of sepsis/surgery; he should have these repeated in 12 weeks.
- I would NOT consider this to be DOAC failure and, up to now, no recurrent VTE events on DOAC. therefore, reasonable to resume this on discharge pending further APLA testing. However, reviewed that DOACs are predominately absorbed in SB and SB
resections can impact efficacy due to impaired absorption. Eliquis is less affected by this however decreased concentrations can be seen after significant resection of the proximal small bowel. From op report it appears majority of bowel was taken
more distally however if additional resection of more proximal bowel required on repeat laproscopy would favor switching to coumadin to ensure AC remains therapeutic in this high VTE risk pt.
Subjective/Objective
Subjective
Tmax 101F, VDRF
Vital Signs:
Vital Signs
Temp Pulse Resp BP Pulse Ox
101.0 F H 93 16 118/71 99
11/20/24 08:00 11/20/24 06:00 11/20/24 06:00 11/20/24 05:07 11/20/24 08:16
Lab Results:
Laboratory Data
WBC 5.5 10^3/uL (4.8-10.8) 11/20/24 03:54
Hgb 8.9 g/dL (13.0-18.0) L 11/20/24 03:54
Plt Count 192 10^3/uL (130-400) 11/20/24 03:54
PT 13.2 Sec (11.4-14.6) 11/19/24 22:40
INR 0.96 11/19/24 22:40
APTT 94.0 Sec (23.4-35.0) H 11/20/24 04:30
eGFR > 60.00 11/20/24 03:54
[2024-11-20] MEDS: HEPARIN 25000 UNITS/250 ML IV (10:39)
[2024-11-20] MEDS: NOVOLIN R 100 UNITS IV (10:44)
[2024-11-20] MEDS: NOVOLIN R INSULIN INFUSION 100 IV ×2 (10:44→20:29)
[2024-11-20 10:46] LABS: Glucose - Point of Care 287 mg/dl (70-99)
[2024-11-20 11:02] LABS: APTT 84.3 Sec (23.4-35.0)
--- NOTE | 2024-11-20 11:39 | W.PN.GS2 ---
Today's Communication / Plan
-
TPN
Hep gtt
RTOR tomorrow, will time hep gtt hiatus with OR schedule with goal maximum 4 hrs off
Assessment / Plan
-
44 yo male with history of hypereosinophilic syndrome with known clotting disorder and chronic portal vein thrombus on Eliquis with AC held in anticipation of a colonoscopy this week who developed nausea, vomiting and intense abdominal pain followed
by rectal bleeding during his prep. CT with findings concerning for mesenteric ischemia, portal vein thrombus and SMV thrombus noted and taken to the OR for mesenteric ischemia.
POD #6 ex lap with SBR (18cm necrotic bowel), left in discontinuity given ?viability of proximal bowel
POD #4 RTOR for small bowel anastomosis, no further resection needed
POD #1 RTOR for new small bowel ischemia, small bowel resection, discontinuity
1mcg levo, no overt signs of bleeding on full dose AC
Melena yesterday at 11am, no further episodes since then
Hb stable
Suspect propagation of SMV thrombus while hep gtt held for acute GI bleed. Would not stop hep gtt, in the event of bleeding, plan to transfuse
Plan:
-- Vent, sedation
-- Pain control: fentanyl gtt
-- Hold PO meds, cont IV steroids and abx, and antivirals as per primary team
-- TPN reordered, nutrition consult appreciated
-- Insulin SS while on TPN
-- Mag improved, mild hypophos, K trending up but remains WNL, TPN adjusted
-- DVT: PO AC on hold until dietary advancement, Hep gtt to continue without interruption
-- Plan for RTOR tomorrow for ostomy creation and ab wall closure
Subjective Data
-
Date of Service: November 20, 2024
Stable on 1mcg levo, pain improved but not resolved, vented
Objective Data
-
Intake and Output
11/19/24 11/20/24 11/21/24
06:59 06:59 06:59
Intake Total 3108 / 3108 3764.4 / 3764.4
Output Total 1974 / 1974 3525 / 3525
Balance 1133 / 1133 239.4 / 239.4
Intake:
Oral fluids 100 / 100
IV fluids (Total) 700 / 700 1519.4 / 1519.4
Dex 346.8 / 346.8
Fent 145.0 / 145.0
Heparin 150 / 150
Levo 127.6 / 127.6
Lr 1,000 ml @ 125 mls/hr IV . 750 / 750
Q8H ERIN Rx#:[id number]
IV piggybacks 768 / 768 735 / 735
TPN/PPN 1580 / 1580 1110 / 1110
Amount instilled into GI Tube ( 60 / 60 50 / 50
Total)
[place] Sump 60 / 60 50 / 50
Blood Product Amount Infused ( 250 / 250
mL)
Packed Rbc Leukoreduced Unit 250 / 250
[id number]
Output:
Liquid stool amount 200 / 200 175 / 175
Rectum 200 / 200 175 / 175
Drain Output (Total) 900 / 900
Abdomen Wound Vac 900 / 900
Gastrointestinal tube output ( 500 / 500 200 / 200
Total)
[place] Sump 500 / 500 200 / 200
Urine, Vogel 1100 / 1100
Urine, Voided 1275 / 1275 1150 / 1150
Vital Signs
Temp Pulse Resp BP Pulse Ox
101.0 F H 93 16 118/71 99
11/20/24 08:00 11/20/24 06:00 11/20/24 06:00 11/20/24 05:07 11/20/24 11:32
Lab Results
11/20/24 03:54
11/20/24 03:54
Calcium 7.3 mg/dl (8.4-10.2) L 11/20/24 03:54
Phosphorus 2.8 mg/dl (2.5-4.5) 11/20/24 03:54
Magnesium 2.0 mg/dl (1.6-2.3) 11/20/24 03:54
Total Bilirubin 0.7 mg/dl (0.2-1.3) 11/20/24 03:54
Direct Bilirubin 0.3 mg/dl (0.0-0.4) 11/20/24 03:54
AST 63 U/L (17-59) H 11/20/24 03:54
ALT 125 U/L (0-50) H 11/20/24 03:54
Alkaline Phosphatase 139 U/L (38-126) H 11/20/24 03:54
Total Protein 4.6 g/dl (6.3-8.2) L 11/20/24 03:54
Albumin 2.6 g/dl (3.5-5.0) L 11/20/24 03:54
Physical Exam
-
Gen: vented
Abd: soft, approp ttp, vac in place and functioning with serous fluid, no signs of bleeding
Patient has a vogel catheter: Yes
Patient has a central line: Yes (PICC)
--- NOTE | 2024-11-20 11:49 | PN.DE.MGMTRT ---
Insulin Management
- -
11/20/2024 Diabetes Management Consult
Patient admitted 11/13 with abdominal pain, N & V, weakness, bright red rectal bleeding. Consult for diabetes Management 11/20. PMH Hypereosinophilic syndrome, neuropathy, diabetes, current smoker, obesity, portal vein thrombosis. Prior to
admission no diabetes medications listed, A1C 7.9% on admission, cr .4 eGFR > 60.
Patient is intubated on ventilator, critically ill, he is able to nod head appropriately, no family at bedside.
Patient has had CT scan - type IV mesenteric ischemia, small bowel resection 11/14, small bowel anastomosis 11/16, for possible or tomorrow.
Patient glucose has trended up to 344, critical care glycemic protocol has been started. @ 10>34. Will continue glycemic protocol till after surgery and assess for readiness to transition off.
Discussed with nurse.
Will follow.
Diabetes History
- -
Type of Diabetes: 2
Pre-Admission Diabetes Regimen
11/19/24 11/20/24
22:40 03:54
Creatinine 0.4 L 0.4 L
Lab Results
Hemoglobin A1c 7.9 % (4.0-5.6) H 11/14/24 07:22
Insulin Pump Settings
IP Diabetes Regimen
11/19/24 11/19/24 11/19/24
12:06 17:45 22:40
Glucose 189 H
POC Glucose 285 H 287 H
11/20/24 11/20/24 11/20/24
01:37 03:54 05:38
Glucose 299 H
POC Glucose 236 H 344 H
11/20/24
10:34
Glucose
POC Glucose 287 H
Patient Education
--- NOTE | 2024-11-20 12:00 | PTCARENOTE ---
pt. remains on prop, fent, levo, heparin gtts and initiated insulin gtt for critical care glycemic protocol per orders- see flow sheet. Dr. Sue to bedside this AM. Plan to take pt. back to OR tomorrow and will stay intubated today. Admin prn
fent bolus' and increased fent/prop gtts for increased CPOT/RASS- see flow sheets. Pt. assisted w active repositioning in bed. remains @ bedside. Pt. and updated on plan of care. Safe environment maintained.
[2024-11-20] MEDS: LEVOPHED 250 IV ×2 (12:24→12:27)
[2024-11-20] MEDS: NOVOLOG FLEXPEN 4 UNITS SC (12:27)
[2024-11-20 12:33] LABS: Glucose - Point of Care 252 mg/dl (70-99)
[2024-11-20 13:57] LABS: Glucose - Point of Care 215 mg/dl (70-99)
--- NOTE | 2024-11-20 14:19 | CM ---
POD #6 ex lap with SBR (18cm necrotic bowel); POD #4 OR for small bowel anastomosis; POD #1 OR for new small bowel ischemia, small bowel resection.
For return to OR on 11/21/24 for ostomy creation and abd walll closure. NPO, NGT, TPN, Vent. Discharge POC: TBD. Anticipate HH RN at the least.
[2024-11-20 14:51] LABS: Glucose - Point of Care 232 mg/dl (70-99)
[2024-11-20 15:47] LABS: Glucose - Point of Care 190 mg/dl (70-99)
--- NOTE | 2024-11-20 16:34 | WOUNDNOTE ---
[facility] RN NOTE: Patient visited for ileostomy stoma siting. Patient is vented and painful when moved, abdomen distended with midline wound vac intact from previous surgery on 11/19. Patient marked on upper and lower quadrants of right side of abdomen.
Spoke to and Dr. Sue about limitations of siting due to position, abdominal distension and body habitus. understands. Will add wound vac to [employer] website for start of rental 11/19. Will follow up with patient after surgery.
[2024-11-20 16:48] LABS: Glucose - Point of Care 175 mg/dl (70-99)
[2024-11-20 17:31] LABS: Glucose - Point of Care 188 mg/dl (70-99)
[2024-11-20] MEDS: BENADRYL 25 MG IV (18:25)
[2024-11-20 18:50] LABS: Glucose - Point of Care 148 mg/dl (70-99)
[2024-11-20 19:00] LABS: APTT 90.6 Sec (23.4-35.0)
--- NOTE | 2024-11-20 19:05 | PTCARENOTE ---
Plan remains for OR in AM and for heparin gtt to remain up to OR time per Dr. Sue. assembler 1st shift updated.
[2024-11-20 19:43] LABS: Glucose - Point of Care 163 mg/dl (70-99)
[2024-11-20 20:47] LABS: Glucose - Point of Care 139 mg/dl (70-99)
[2024-11-20] MEDS: Parenteral Nutrition, Central 1710 IV (21:52)
--- NOTE | 2024-11-20 22:00 | PTCARENOTE ---
Received pt at change of shift intubated/sedated/restrained in b/l soft limb and 4 rails- see flow sheet. Pt. awake; follows commands/ nod head 'yes'/'no' appropriately. Communicates via writing/texting. SR/SB on monitor. POX 100% on vent settings
AC16/550/.30/+5; ett #7.0/24 at lip. Hypoactive BS. Midline wound vac in place, dressing c/d/i; output serous. NGT tube secured @ 60cm to LIS; no output. Bowen in place draining jesica/yellow urine. R DL PICC w TPN, prop, fent, levo, and heparin-
see flow sheets. Insulin gtt infusing per glycemic protocol. R rad A-line zeroed
[2024-11-20 23:14] LABS: Glucose - Point of Care 148 mg/dl (70-99)
[2024-11-21] VITALS (21 sets, daily range): BP systolic 104–158; BP diastolic 53–96; BMI 33.7
[2024-11-21] MEDS: HEPARIN 25000 UNITS/250 ML IV ×2 (00:12→12:52)
[2024-11-21] MEDS: SUBLIMAZE 50 MCG IV ×2 (00:52→04:29)
[2024-11-21 01:10] LABS: Glucose - Point of Care 162 mg/dl (70-99)
--- NOTE | 2024-11-21 01:20 | PTCARENOTE ---
PRN fent bolus - see MAY. Prop titrated up for increased RASS. Pt continuing to tolerate vent settings as previously documented. Repositioning q2h and as needed. at bedside. Reinforced plan of care for AM. Both pt and agreeable, no further
questions at this time.
[2024-11-21] MEDS: SUBLIMAZE 100 IV ×2 (02:21→06:04)
[2024-11-21] MEDS: DIPRIVAN 100 IV ×2 (02:48→06:05)
[2024-11-21] MEDS: ZOSYN 50 IV ×4 (03:06→21:44)
[2024-11-21 03:26] LABS: Glucose - Point of Care 154 mg/dl (70-99)
[2024-11-21 04:29] LABS: B.E. 2.4 mmol/L; HCO3 26.2 mmol/L (21-28); O2 Saturation % 99.2 % (94-98); PCO2 36 mmHg (35-48); PO2 166 mmHg (83-108)
[2024-11-21 04:30] LABS: O2 Therapy 60
[2024-11-21 04:38] LABS: Hematocrit 19.5 % (39.0-52.0); Hemoglobin 6.8 g/dL (13.0-18.0); Mean Corp Hgb Conc. 34.9 g/dL (33.0-37.0); Mean Corpuscular Volume 85.9 fL (80.0-94.0); Platelet Count 134 10^3/uL (130-400); Red Cell Dist. Width 16.3 % (11.5-14.5)
[2024-11-21 04:39] LABS: APTT 97.7 Sec (23.4-35.0)
[2024-11-21] MEDS: SOLU-CORTEF 25 MG IV ×2 (04:59→17:08)
[2024-11-21 05:05] LABS: Hematocrit 19.1 % (39.0-52.0); Hemoglobin 6.9 g/dL (13.0-18.0)
[2024-11-21 05:16] LABS: Blood Urea Nitrogen 11 mg/dl (9-20); Calcium 8.2 mg/dl (8.4-10.2); Carbon Dioxide 26 mmol/L (22-30); Chloride 108 mmol/L (98-107); Estimated Creatinine Clearance > 125 ml/min; Glucose 163 mg/dl (70-99); Magnesium 1.9 mg/dl (1.6-2.3); Potassium 3.6 mmol/L (3.5-5.1); Sodium 136 mmol/L (135-145); eGFR > 60.00
[2024-11-21 05:18] LABS: Glucose - Point of Care 133 mg/dl (70-99)
--- NOTE | 2024-11-21 05:48 | PTCARENOTE ---
Levo weaning as tolerated. PRN fent bolus - see MAR. Pt becoming intensely itchy. Pt communicates that this is the same kind of itch he would usually get at home and why he started prednisone.
Am labs drawn and sent. Hgb low- ECONOMIC RESEARCH ANALYST aware. Repeat H+H and the 1u PRBC ordered and transfusing.
[2024-11-21 06:45] LABS: Glucose - Point of Care 137 mg/dl (70-99)
--- NOTE | 2024-11-21 07:10 | W.PN.INTV ---
Today's Communication / Plan
Recommendations
Return to OR today for closure, extubated in PACU
Pain control, add SENIOR DRUPAL DEVELOPER
Bleeding noted, surgery aware, repeat H&H--transfuse further if needed
Resumed on IV heparin
Wean IV steroids
Continue IV abx
Observation 24 hours
Assessment
-
Patient is a 44-year-old male with history of hypereosinophilic syndrome along with hypercoagulable state chronically on steroids, Eliquis, Jakafi and Pegasys who was receiving GI prep for a scheduled EGD and colonoscopy as outpatient and his
Eliquis had been on hold. He presented to [facility] with abdominal discomfort and bloody diarrhea. CT scan was suggestive of enteritis and initially patient was admitted to the hospital on IV fluids, antibiotics for concern for enteritis.
Patient was evaluated by GI and surgery service and on 11/14 was taken to the OR and had a segment of small bowel resected for mesenteric ischemia. Patient had another trip to OR on 11/17 for reanastomosis without needing additional resection. On
11/19 patient had worsening clinical status and repeat imaging was suggestive again of acute mesenteric ischemia requiring emergent laparotomy additional small bowel resection and postprocedure patient was brought to ICU intubated, mechanically
ventilated. Glove Brusher consult was requested for further input.
Acute venoocclusive mesenteric ischemia s/p Exploratory laparotomy/Small bowel resection 11/14/24
Diagnostic laparoscopy converted to an exploratory laparotomy/ Small bowel anastomosis 11/16/24
Status post emergent laparotomy, small bowel resection 11/19/24
S/p Planned diagnostic laparoscopy converted to exploratory laparotomy/Small bowel anastomosis 11/21/24
Shock, suspect septic in the setting of severe enteritis
Acute respiratory failure, in the setting of emergent laparotomy, extubated 11/21
Acute blood loss anemia
Leukopenia
Hyperglycemia
Hypocalcemia
Transaminitis
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
DM, with hyperglycemia/neuropathy
Current smoker
depression
portal vein thrombosis on eliquis as OP
class I obesity
Plan
Sedation now off, previously infusing Propofol at 20, fentanyl infusing at 225.
Pain control, add dilaudid SENIOR DRUPAL DEVELOPER
Breakthrough pain PRN
Rass goal 0
Not on pressors, weaned to off
Heparin infusion continued, eventual bridge back to eliquis when no further OR planned
Add IV lopressor PRN for SBP >160
Remains on tele monitor
ABG 7.40 4/36/160, vent settings 550/16/30%/5.
Previously intubated, mechanically ventilated and sedated for procedures
Extubated in PACU 11/21
Chest x-ray reviewed, ET tube in appropriate position
Repeat imaging as needed
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
Patient is status post s/p Exploratory laparotomy/Small bowel resection 11/14/24
Diagnostic laparoscopy converted to an exploratory laparotomy/ Small bowel anastomosis 11/16/24
Status post emergent laparotomy, small bowel resection 11/19/24
S/p Planned diagnostic laparoscopy converted to exploratory laparotomy/Small bowel anastomosis 11/21/24
General Surgery on case, following
Follow H&H
NPO status, diet advancement per team
Continue IV Zosyn, 11/13-11/21
Can likely stop following full course 10-14 days
Considering patient is chronically steroid-dependent, will continue stress dose steroids
Start weaning IV dose to q8, resume q12 in 24 hours
H/o portal vein thrombosis, chronically on Eliquis, which was temporarily on hold for scheduled EGD and colonoscopy prior to this hospitalization
Has chronically been on steroid, Pegasys and Jakafi for hypereosinophilic syndrome and follows up at [facility].
Hematology oncology service on case
Follow H&H for further transfusion as indicated
DM, with hyperglycemia
TPN and steroids exacerbating hyperglycemia
Initiate insulin infusion
Can transition back to SQ when PO access approved
DVT prophylaxis, currently on IV heparin
GI prophylaxis, IV Protonix
Data:
CXR 10/2024: Endotracheal tube with tip 3.6 cm above the clair. Mild elevation right hemidiaphragm. Linear atelectasis in the right lower lung.
CT Abd/Pel 10/2024: There is persistent thrombus within the SMV and extending into the tributaries of the SMV inferiorly. There is a small amount of nonocclusive thrombus in the anterior aspect of the main portal vein. There is an approximately 20
cm long segment of significant bowel wall thickening and adjacent edema, in the region of the proximal to mid ileum, which appears to be new from previous CT of November 13, 2024. Findings would suggest venoocclusive mesenteric ischemia. There is also
to a lesser degree wall thickening and adjacent mesenteric edema involving the distal ileum, although less severe than the proximal to mid ileal involvement. Small to moderate amount of free fluid as described. No evidence of free intraperitoneal
air.
ECHO 06/21/22- 1. Normal left ventricular size, wall thickness and systolic function without regional wall motion abnormalities. Estimated LV ejection fraction is 60 to 65% by visual estimation and by Luciano's method. Global longitudinal strain is
normal at -18.4%
2. Normal right ventricular size and function.
3. No significant valvular abnormalities.
4. No pericardial effusion.
5. No prior echocardiogram available for comparison.
-----
Critical Care time 45 mins -- The patient is admitted for acute critical illness for the treatment of vital organ failure and/or prevention of further life-threatening conditions. Total care includes time spent in review of history, physical exam,
medications, hemodynamic/ventilator parameters, laboratory data, imaging and discussion with house staff, pharmacy, respiratory therapy, plate furnace operator, and nursing.
Subjective Dataa
Subjective Data
Date of Service:
Date of Service: November 21, 2024
Chief Complaint: Glove Brusher Follow Up
Subjective:
s/p OR today, pain noted
Objective Data
Data Reviewed
Vital Signs / I&O / Oxygen:
Vital Signs
Temp Pulse Resp BP Pulse Ox
97.7 F 68 16 150/70 100
11/21/24 07:07 11/21/24 07:07 11/21/24 07:07 11/21/24 07:07 11/21/24 06:00
Intake and Output
11/20/24 11/21/24 11/22/24
06:59 06:59 06:59
Intake Total 3764.4 / 4050.2 3976.7 / 4134.0 407.3 / 407.3
Output Total 3525 / 3625 1725 / 2275 550 / 550
Balance 239.4 / 425.2 2251.7 / 1859.0 -142.7 / -142.7
SaO2 [A/C] 100
SaO2 100
Nasal Cannula flow liters per 2
minute
Physical Exam
General: Comfortable, Pain and Other (NAD, chronically ill appearing)
HEENT: Normocephalic, Anicteric and Moist Mucous Membranes
Cardiovascular: S1-S2 and Regular Rhythm
Respiratory: Clear and Non-Labored Respirations
GI: Soft, Distended, Tender, NG Tube and Other (incisions/drains noted, bleeding at site of drain)
Neurology: Awake, Alert, Oriented and No Motor Deficits
Skin: Warm, Dry and Good Color
Labs/Micro/Reports
Lab Data
11/21/24 04:43
11/21/24 04:13
Laboratory Results
11/20/24 11/20/24 11/21/24
10:35 18:40 04:13
APTT 84.3 H 90.6 H 97.7 H
pH 7.47 H
pCO2 36
pO2 166 H
HCO3 26.2
O2 Delivery Level 60
Microbiology
11/13/24 16:01 Blood/Venous Blood Culture - Final
No Growth - Final Report
11/13/24 16:01 Blood/Venous Blood Culture - Final
No Growth - Final Report
--- NOTE | 2024-11-21 07:44 | PN.DE.MGMTRT ---
Insulin Management
- -
11/21/2024: Diabetes Management Follow up
Patient admitted 11/13 with abdominal pain, N & V, weakness, bright red rectal bleeding. Consult for diabetes Management 11/20. PMH Hypereosinophilic syndrome, neuropathy, diabetes, current smoker, obesity, portal vein thrombosis. Prior to
admission no diabetes medications listed, A1C 7.9% on admission, Cr 0.4 eGFR > 60. CT scan--> Type IV mesenteric ischemia, small bowel resection 11/14, small bowel anastomosis 11/16.
Pt to OR early this AM for Exploratory laparotomy, small bowel anastomosis.
Patient returned to the ICU extubated. Awake, alert, oriented, answering questions and able to discuss diabetes care plan
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 at bedside, very supportive, was ab;e to collaborate OP meds.
Glucose trended down to 70 intra-op and critical care glycemic protocol was discontinued by anesthesia.
Glucose range was 133 to 162, requiring 6 to 8 units of insulin /hour prior to OR and drip getting discontinued.
Will give Lantus 20 units @ Noon and daily in AM. Start Q6H NovoLog 6 units and moderate corrective insulin Q6H
Anticipate higher insulin requirements wile on TPN and need to restart Critical Care glycemic protocol
Discussed with nurse. Will cont to follow.
Diabetes History
- -
Type of Diabetes: 2 requiring insulin
Pre-Admission Diabetes Regimen
11/21/24
04:13
Creatinine 0.4 L
Lab Results
Hemoglobin A1c 7.9 % (4.0-5.6) H 11/14/24 07:22
Insulin Pump Settings
IP Diabetes Regimen
11/20/24 11/20/24 11/20/24
10:34 12:19 13:45
Glucose
POC Glucose 287 H 252 H 215 H
11/20/24 11/20/24 11/20/24
14:40 15:36 16:36
Glucose
POC Glucose 232 H 190 H 175 H
11/20/24 11/20/24 11/20/24
17:20 18:38 19:31
Glucose
POC Glucose 188 H 148 H 163 H
11/20/24 11/20/24 11/21/24
20:35 23:03 00:58
Glucose
POC Glucose 139 H 148 H 162 H
11/21/24 11/21/24 11/21/24
03:15 04:13 05:06
Glucose 163 H
POC Glucose 154 H 133 H
11/21/24
06:33
Glucose
POC Glucose 137 H
Patient Education
--- NOTE | 2024-11-21 08:02 | W.PN.HOSP.TC ---
Addendum entered and electronically signed by Rudi Prescott MD 11/21/24 20:37:
Attending Addendum-
I saw and evaluated the patient. I reviewed the resident�s note and agree with findings and plan as documented in the resident�s note. Sub: seem post OP. Extubated in PACU. very pleasant apprecaitive and alert. Compains of abd pain but well
controlled. No fevers chills blood in stools. Full 12 point ROS reviewed and negative except as documented Exam: Vitals reviewed in chart GEN-NAD HEENT-NG tube in place draining bilious material non bloody, heart RRR lungs clear Abd soft NT ND pos
BS no rebound guarding- REE drain in place LE 1+ pitting edema B/L RUE picc in place vogel in place with clear yellow urine
Plan:
# Severe Sepsis with enteritis involving long segment of ileum with ABLA likely exacerbated by hep gtt
# Acute worsening mesenteric ischemia
- transferred to ICU on 11/19 post op- intubated and sedated
- extubated in PACU- 11/21
- weaned off sedation
- weaned off levophed
- 11/14- POD#5- SB resection- 18cm necrotic ileum
- 11/16- POD#3-SB anastomosis
- 11/19- POD#1- emergently taken to OR for new SB ischemia with resection of 25cm frankly necrotic small bowel, proximal to this another 20cm approximately of dusky bowel
- likely due to holding of hep gtt during acute GI bleed
- 11/21- Exploratory laparotomy, small bowel anastomosis-operation performed without stopping IV heparin!
- serial h and h
- NPO cont TPN
- cont NG
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
- cont Zosyn #9 would DC soon
- Blood cultures NGTD
- start HOSE TUBING BACKER for pain control
#History of Hypereosinophilic syndrome
-follows at [facility]
-on chronic steroid 21 mg last dose was 11/11/2024 has slowly been tapering from 30 mg down by 1 mg has been at 21 mg for the past few weeks
-hold Jakafi
-Pegasys infusion once a week as OP
-Continue pantoprazole
-cont acyclovir
-hold Bactrim DS Sunday
-heme/onc input appreciated
-wean stress dose steroid
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
- Eliquis on hold
- cont hep gtt - minimize time off hep gtt- high risk propagation of clot
- appreciate heme onc input on timing for transition hep gtt to eliquis
#DM 2
- A1c-7.9
- transition insulin gtt->BB and mealtime
- DESIGN ENGINE[employer] Ozempic 1 mg once a week last dose was 11/08
#Chronic neuropathy-gabapentin
#Depression-Zoloft q hs-held
#Urinary Retention- successful TOV-11/18, vogel reinserted post op to monitor U/O
#Class I obesity�BMI 33
DVT prophylaxis-hep gtt
Full code
CC Note
Due to a high probability of clinically significant, life-threatening deterioration, the patient required a high level of preparedness to intervene emergently. I personally spent this critical care time directly and personally managing the patient.
This critical care time included obtaining a history; examining the patient; ordering and review of studies and STAT labs; arranging urgent treatment with development of a management plan; evaluation of patient's response to treatment; reassessment;
discussions with other providers and family.
This critical care time was performed to assess and manage the high probability of imminent, life-threatening deterioration that could result in multi-organ failure. It was exclusive of separately billable procedures and treating other patients and
teaching time.
Total critical care time: Approximately 34 minutes
Original Note:
Today's Communication/Plan
-
F/u post surgery
Assessment / Plan
Assessment / Plan
This is a 44-year-old male with past medical history of hypereosinophilic syndrome with skin involvement, diabetes, smoker, neuropathy, depression, portal vein thrombus on Eliquis, obesity presented with abdominal pain, nausea and vomiting, bright
red blood in the stools after taking Dulcolax and MiraLAX for EGD and colonoscopy. Post-op #D3 he started having continuous bloody bowel movements. Patient had another surgery for ischemic bowel. Post-op #D1
# Sepsis with severe enteritis involving long segment of ileum with rectal bleeding post colonoscopy and upper GI series prep
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 s/p resection 18cm necrotic ileum 11/14 and SB left in discontinuity ; plan to repeat procedure today
- Leukocytosis resolved
- Lactated Ringer's 125ml/hr Q8h
-NPO+TPN
- Hydrocortisone 100 mg given in ER-patient is on chronic steroid 21 mg last dose was 11/11/2024 has slowly been tapering from 30 mg down by 1 mg has been at 21 mg for the past few weeks
- 11/12/2024 Continue IV Zosyn #D9
- IV Tylenol
- IV Dilaudid as needed pain, Zofran nausea
- Blood cultures NGTD 11/13/2024
-Surgery- CTA scan of abdomen/pelvis was not recommended.
-11/20 Post op D#2 - ischemic bowel--laparatomy, small bowel resection--tentanively for 2nd look in 48hr+ileostomy. Pt vented until then.
#Acute blood loss anemia
-Hemoglobin improving after 1 PRBC. H&H trending
-Heparin restarted. APTT trending Q6h
#History of Hypereosinophilic syndrome with typical skin rash follows at [facility] on chronic steroids
on chronic steroid 21 mg last dose was 11/11/2024 has slowly been tapering from 30 mg down by 1 mg has been at 21 mg for the past few weeks
-3rd post op #D2 will increase Hydrocortisone from 25mg IV Q12h to 50mg IV Q12h. Once stable goal is to taper stress dose hydrocortisone to his baseline 21mg
-discontinued Jakafi 20 mg BID
-Patient receives Pegasys infusion once a week- held by
-Continue IV pantoprozole 40mg BID
-Holding Acyclovir
#Hyponatremia
-resolved
#Electrolyte abnormalities
- Phosphorus 2.4- discussed with pharmacist maxed out his TPN for Phosporus, given curve is at -- monitor BMP, Phos, Mg, K
- Potassium 40 Meq KCL IV--3.6
.
#History of portal vein thrombosis years ago
Has not taken Eliquis 5 mg twice daily in 6 days due to upper GI and colonoscopy plan; now on hep gtt APTT 156.3 H (from 45.8)- on hold because of ongoing bleeding started 11/18/24 D#2
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
A1c is 7.9
- Patient is using Ozempic 1 mg once a week last dose was 11/08/2024
- Hyperglycemia- TPN dose changed 11/17/2024 (from44 dose 66)-- Insulin drip per protocol
#Chronic neuropathy
Patient takes gabapentin 300 mg at bedtime as needed
#Depression
Zoloft 50 mg at bedtime, npo and on hold for now
#Class I obesity�BMI 33
Patient currently on Ozempic
DVT prophylaxis- heparin
Full code
Anticipated Discharge: > 48 hours
Subjective/Interval History
-
Date of Service: November 21, 2024
He is intubated and able to communicate through typing. He did not have any complaints overnight. He received 1U PRBC. He is going to have exploratory laparatomy/ small bowel anastamosis
Objective Data
-
Labs:
Laboratory Results
11/21/24 11/21/24
04:13 04:43
WBC 4.0 L
Hgb 6.8 L* D 6.9 L*
Hct 19.5 L* 19.1 L*
Plt Count 134 D
APTT 97.7 H
HCO3 26.2
Sodium 136
Potassium 3.6
Chloride 108 H
Carbon Dioxide 26
BUN 11
Creatinine 0.4 L
Glucose 163 H
Calcium 8.2 L
Vital Signs:
Vital Signs
Temp Pulse Resp BP Pulse Ox
97.7 F 68 16 150/70 98
11/21/24 07:07 11/21/24 07:07 11/21/24 07:07 11/21/24 07:07 11/21/24 07:25
I&O
11/20/24 11/21/24 11/22/24
06:59 06:59 06:59
Intake Total 3764.4 / 4050.2 3976.7 / 4134.0 407.3 / 407.3
Output Total 3525 / 3625 1725 / 2275 550 / 550
Balance 239.4 / 425.2 2251.7 / 1859.0 -142.7 / -142.7
Review of Systems
-
Unable to obtain full review of systems at this time due to: Patient Intubation
Physical Exam
-
General: Well Developed, Well Nourished and Intubated
HEENT: Normocephalic and Atraumatic
Respiratory: Clear to Auscultation
Cardiac: Regular Rhythm and S1/S2
Breast: Deferred by me
GI: Soft and Nondistended
Rectal: Deferred by Provider
Genito-urinary: Vogel
Musculoskeletal: No Cyanosis and No Edema
Skin: Warm
Neuro: Sedated
Psych: Calm
--- NOTE | 2024-11-21 08:11 | PTCARENOTE ---
report received from shift supervisor melting. rounds done. pt on fent,insulin,heparin,dipivan,tpn gtts. ac mode on vent. pt then taken to OR by OR team. pt at bedside reviewed plan of care and gave emotional support.
[2024-11-21 08:53] LABS: B.E. - POC 2.2 mmol/L; Glucose - POC 180 mg/dl (70-99); HCO3 - POC 26 mmol/L (21-28); Hematocrit - POC 25 % PCV (42-52); Hemodilution- POC Yes; Hemoglobin Calculated - POC 8.6; Ionized Calcium - POC 1.10 mmol/L (1.15-1.33); Lactate - POC 0.97 mmol/L (0.36-0.75); O2 Saturation %Calculated-POC 99.9 % (94-98); PCO2 - POC 37 mmHg (35-48); PO2 - POC 253 mmHg (83-108); Potassium - POC 3.7 mmol/L (3.5-5.1); Sodium - POC 143 mmol/L (136-145); Specimen Type - POC Arterial; pH - POC 7.46 (7.35-7.45)
--- NOTE | 2024-11-21 08:54 | WOUNDNOTE ---
WO RN note: Heidi Elliott from the OR stated patient's vac was removed and is no longer needed. Heidi to send the rental vac ulta pump to [facility] for apple picker. Notified [employer] on stop bill date as of 11/21/24 and apple picker in [facility] (Diane's desk) (work
order #[id number]).
[2024-11-21 09:24] LABS: INR 1.07; PT 14.2 Sec (11.4-14.6)
[2024-11-21 09:27] LABS: APTT 61.7 Sec (23.4-35.0)
--- NOTE | 2024-11-21 09:32 | W.PN.ONC2 ---
Today's Communication / Plan
-
Would defer to the surgeon with acute post operative bleeding if IV heparin to maintain therapeutic aPTT with severe hypercoagulability can be continued
agree with PRBC for HgB < 7.5 as active GI bleeding.
eventual OAC when no further procedures planned and bleeding is stable
Impression
Impression
44-year-old M a/w sepsis and severe enteritis.
Hx of SMV thrombosis, FVL, GI bleed, hyper eosinophilic syndrome
s/p exploratory laparotomy and small bowel resection 11/14. Repeat exploratory laparotomy on 11/16 with small bowel anastomosis. OR 11/19 for additional bowel resection
Rectal bleed
Hypereosinophilic syndrome with steroid dependence, now managed by Dr.s Donovan and Leisa at [facility]
Chronic portal vein thrombosis (last dose eliquis 11/08)
Hypercoagulable state
DMII
Neuropathy
ABLA -post operative abdominal bleeding 11/21
Plan
Plan
1. Hypercoagulable state - in setting of hypereosinophilic syndrome, FVL w/ h/o portal vein thrombosis
-presented with bowel ischemia w/ SMV thrombosis in setting of holding eliquis since 11/08 for elective colonoscopy.
-s/p exploratory laparoscopy 11/14 with removal of 18 cm of more distal SB, followed by anastomosis 11/16, and additional bowel resection 11/19
- prior thrombophilia testing was notable for elevated AcL IgM 46, B2G IgM 96 however due to other underlying hypercoagulable conditions (HES, FVL) diagnosis of APLAS and need to switch to coumadin felt appropriately un-necessary.
- 11/15/24 APL labs repeated -- B2GP1 Igm = 40, ACLA IgM 25. Unclear how accurate these results are in the setting of sepsis/surgery; he should have these repeated in 12 weeks.
- I would NOT consider this to be DOAC failure and, up to now, no recurrent VTE events on DOAC. therefore, reasonable to resume this on discharge pending further APLA testing. However, reviewed that DOACs are predominately absorbed in SB and SB
resections can impact efficacy due to impaired absorption. Eliquis is less affected by this however decreased concentrations can be seen after significant resection of the proximal small bowel. From op report it appears majority of bowel was taken
more distally however if additional resection of more proximal bowel required on repeat laproscopy would favor switching to coumadin to ensure AC remains therapeutic in this high VTE risk pt.
Subjective/Objective
Subjective
afebrile, VDRF
melena noted 11/19
post operative bleeding overnight
Vital Signs:
Vital Signs
Temp Pulse Resp BP Pulse Ox
97.7 F 68 16 150/70 98
11/21/24 07:07 11/21/24 07:07 11/21/24 07:07 11/21/24 07:07 11/21/24 07:25
Lab Results:
Laboratory Data
WBC 4.0 10^3/uL (4.8-10.8) L 11/21/24 04:13
Hgb 6.9 g/dL (13.0-18.0) L* 11/21/24 04:43
Plt Count 134 10^3/uL (130-400) D 11/21/24 04:13
PT 14.2 Sec (11.4-14.6) 11/21/24 09:07
INR 1.07 11/21/24 09:07
APTT 61.7 Sec (23.4-35.0) H 11/21/24 09:07
eGFR > 60.00 11/21/24 04:13
Physical Exam
HEENT: Moist Mucous Membranes; No Jaundice
Pulmonary: Other (unlaboredd)
GI: Other (sawyer bleeding from abdominal surgical site. REE drain with serosang drainage)
Extremities: Pulses Present
--- NOTE | 2024-11-21 10:00 | W.IMMPOSTOP ---
Surgical Immed Post Op Note
-
Primary Surgeon: Vikram
Assisting Surgeon: Rony
Pre-op Diagnosis: Ischemic bowel
Post-op Diagnosis: Same
Procedure Performed: Exploratory laparotomy, small bowel anastomosis
Anesthesia Type: GETA
Specimen / Cultures: None
Estimated Blood Loss: 11cc
Complications: None immediate
Operative Findings: Operation performed without stopping IV heparin. All bowel viable, prior anastomosis intact but edematous, prior questionable bowel with improved and clearly viable appearance; new anastomosis created in side to side
antiperistaltic fashion with stapled common channel using POONAM abernathy load 60mm stapler, enterotomy closed with 2 layers of interrupted silk suture; 19 fr law drain
Expect prolonged ileus
updated by phone
[2024-11-21] MEDS: DILAUDID 1 MG IV ×2 (10:05→11:29)
[2024-11-21] MEDS: NSS (PRESERVATIVE FREE) 10 ML IV ×2 (10:17→19:28)
[2024-11-21] MEDS: ZOVIRAX INJECTION 108 MG IV ×2 (10:17→19:28)
[2024-11-21] MEDS: PROTONIX IV 40 MG IV ×2 (10:17→19:28)
[2024-11-21] MEDS: HEPARIN 9200 UNITS IV (10:29)
--- NOTE | 2024-11-21 10:42 | PTCARENOTE ---
pt received from the OR. pt aaox3. states 11/[address] Cronin notified orders given. ngt placement checked and set to liws. right terra drain in place. draining serosanguineous. dressing leaking bloody. heparin gtt running titrated and bolus
given based on last ptt. tpn running. pt family at bedside
[2024-11-21 11:27] LABS: Glucose - Point of Care 190 mg/dl (70-99)
--- NOTE | 2024-11-21 11:27 | W.PN.UPDATE ---
Addendum entered and electronically signed by Omid Sue MD 11/21/24 11:56:
Pulsatile bleeding at lateral skin edge. Hemostasis achieved with 2 2-0 nylon figure of eight sutures to the skin. Drain tube + pressure dressing lateral to skin incision.
Original Note:
Update Note
Progress Note Update
Called to bedside for bleeding from skin at drain site. Laterally there is a small pulsatile bleed. The bulb is light ss fluid. Plan for suture hemostasis at bedside.
[2024-11-21] MEDS: XYLOCAINE 1% WITH EPINEPHRINE 20 ML INFIL (11:35)
[2024-11-21] MEDS: NOVOLOG FLEXPEN 6 UNITS SC ×2 (11:39→18:30)
[2024-11-21] MEDS: NOVOLOG FLEXPEN-MODERATE RESISTANCE 1 UNITS SC (11:39)
--- NOTE | 2024-11-21 11:47 | OR.RPT ---
Operative Report
Operative Report
Patient Name: Magen Dave
: 1980
Date of Operation: 11/16/2024
Preoperative Diagnosis: Acute mesenteric ischemia, bowel discontinuity
Postoperative Diagnosis: Same
Procedure(s):
1. Planned diagnostic laparoscopy converted to exploratory laparotomy
2. Small bowel anastomosis
Surgeon(s):
Dr. Jeff Uribe
Skiing Instructor(s):
Dr. Omid Sue
Anesthesia: General
Estimated Blood Loss: 11 cc
Urine Output: See anesthesia records
Drains/Lines/Implants: None
Specimens: None
Indication for surgery:
This is a 44-year-old male presented with abdominal pain found to have an SMV thrombus and type IV mesenteric ischemia was taken to the OR emergently on 11/14/2024 for exploratory laparotomy and bowel resection. Due to the etiology of his condition
he was started on a heparin drip postoperatively. Over the next 48 hours he continued to remain stable and so the decision was made to take him back as a planned reexploration and perform a possible small bowel anastomosis to return the bowel in
continuity. Risk benefits and alternatives were reviewed with the family and patient who consented to surgery.
Operative Findings: His previous ends of the small bowel were noted to be healthy and viable as was the remainder of the bowel. We then converted to perform our extracorporeal small bowel anastomosis. Due to the somewhat shortened limb of the
distal bowel we elected to do a side to side functional end-to-end isoperistaltic handsewn small bowel anastomosis using 2 layers (3-0 PDS inner, 3-0 silk outer). The fascia was then closed with 0 PDS sutures anchored at each apex and run towards
the middle and tied together. The skin was closed with skin jayjay.
Details of the operation:
The patient was brought to the operating room and positioned supine on the operating table. General anesthesia was induced, followed by successful endotracheal intubation. The abdomen was prepped and draped in usual fashion. His previous midline
incision was opened and his fascial sutures cut to reestablish access to the abdomen. A medium size Matheus wound retractor was placed with And pneumoperitoneum was established through to 5 ports placed through the retractor we performed a
diagnostic laparoscopy no the space was somewhat limited all bowel looked completely viable including the cecum and transverse colon. Pneumoperitoneum was evacuated and we extracorporealized the bowel. Proximally the bowel all looked healthy and
pulses could be appreciated in the mesentery. Distally the terminal ileum ran about 12 to 15 cm so some of the adhesions around the cecum were lysed to bring this up into the field. The stapled ends of the small bowel were oversewn and a 5 cm
[id number] isoperistaltic handsewn anastomosis was performed in 2 layers using 3-0 PDS (inner) and 3-0 silk (outer). Satisfied with our anastomosis the abdomen was briefly washed out with some warm irrigation and suctioned out. The fascia was
then closed with 0 PDS sutures anchored at each apex and run towards the middle and tied together. The skin was closed with skin jayjay. A dressing in the form of Aquacel was applied. All counts were correct at the end of procedure. The patient
tolerated the procedure well. They were extubated and taken to the recovery area hemodynamically stable with plans to be admitted to the ICU for hemodynamic monitoring.
I was the attending physician and performed the procedure with assistance from Dr. Sue who assisted with providing tension and counter tension as well as performing part of the small bowel anastomosis and fascial closures. I was present for all
portions of the case.
Jeff Uribe MD
[2024-11-21] MEDS: LANTUS 0.2 UNITS SC (11:52)
[2024-11-21 11:58] LABS: Hematocrit 26.9 % (39.0-52.0); Hemoglobin 9.1 g/dL (13.0-18.0)
[2024-11-21] MEDS: DILAUDID PCA 30 IV (12:17)
--- NOTE | 2024-11-21 12:36 | PTCARENOTE ---
pt having bleeding from terra site dr Sue notified. at bedside with SEWAGE RETICULATION DRAFTING OFFICER to place stitch. pt has had no bleeding since. terra continues to drain ss fluid. judge clerk pain pump started as ordered. pt instructed and demonstrated pain pump usage. bed bath
done.
--- NOTE | 2024-11-21 14:55 | CM ---
OR today: Acute mesenteric ischemia, diagnostic and exploratory laparoscopy, Small bowel anastomosis. Discharge POC: 11/18/24 therapy note, likely no needs. Will assess closer to discharge and for HH RN.
[2024-11-21 16:50] LABS: Hematocrit 27.2 % (39.0-52.0); Hemoglobin 9.4 g/dL (13.0-18.0)
[2024-11-21 16:58] LABS: APTT 140.5 Sec (23.4-35.0)
[2024-11-21] MEDS: NOVOLOG FLEXPEN-MODERATE RESISTANCE 3 UNITS SC (18:29)
[2024-11-21 18:42] LABS: Glucose - Point of Care 244 mg/dl (70-99)
--- NOTE | 2024-11-21 19:40 | PTCARENOTE ---
Assumed care of patient. PT AOx3, VSS, resting comfortably in bed. BRINE SUPERVISOR pump on. Heparin gtt and TPN infusing as ordered. See flow sheets for vitals and full assessment. Call reese within reach. Will continue to monitor.
[2024-11-21] MEDS: Parenteral Nutrition, Central 1820 IV (21:38)
[2024-11-21 23:30] LABS: APTT 74.6 Sec (23.4-35.0)
[2024-11-22] VITALS (23 sets, daily range): BP systolic 106–160; BP diastolic 62–97; BMI 33.4
[2024-11-22] MEDS: DILAUDID 1 MG IV ×3 (00:08→21:40)
[2024-11-22 00:09] LABS: Glucose - Point of Care 248 mg/dl (70-99)
[2024-11-22] MEDS: SOLU-CORTEF 25 MG IV ×3 (00:09→20:11)
[2024-11-22] MEDS: NOVOLOG FLEXPEN-MODERATE RESISTANCE 3 UNITS SC (00:09)
[2024-11-22] MEDS: NOVOLOG FLEXPEN 8 UNITS SC (00:09)
[2024-11-22] MEDS: HEPARIN 25000 UNITS/250 ML IV ×3 (00:20→21:57)
[2024-11-22] MEDS: VALIUM INJECTION 5 MG IV (02:06)
[2024-11-22 03:15] LABS: Glucose - Point of Care 251 mg/dl (70-99)
[2024-11-22] MEDS: NOVOLIN R INSULIN INFUSION 100 IV ×2 (03:47→21:52)
[2024-11-22] MEDS: ZOSYN 50 IV ×4 (03:53→22:10)
--- NOTE | 2024-11-22 03:59 | PTCARENOTE ---
Pts blood sugar 248 at 0000. Per WORKERS COMPENSATION CLAIMS ANALYST, give standing and coverage as ordered and recheck in 3 hours. If no improvement, will restart insulin gtt per diabetic educators recommendation.
At 0300, sugar 251. restarting hyperglycemic protocol. Starting at 4 units/hr per protocol, NO bolus.
Patient inadvertently removed right radial kizzy. Notified WORKERS COMPENSATION CLAIMS ANALYST. Applied pressure and dressing to radial site.
[2024-11-22 05:12] LABS: Glucose - Point of Care 239 mg/dl (70-99)
[2024-11-22 05:27] LABS: Hematocrit 25.7 % (39.0-52.0); Hemoglobin 8.9 g/dL (13.0-18.0); Mean Corp Hgb Conc. 34.6 g/dL (33.0-37.0); Mean Corpuscular Volume 87.4 fL (80.0-94.0); Platelet Count 187 10^3/uL (130-400); Red Cell Dist. Width 16.7 % (11.5-14.5)
[2024-11-22 05:36] LABS: APTT 90.2 Sec (23.4-35.0)
[2024-11-22 05:46] LABS: Blood Urea Nitrogen 17 mg/dl (9-20); Calcium 8.0 mg/dl (8.4-10.2); Carbon Dioxide 31 mmol/L (22-30); Chloride 103 mmol/L (98-107); Estimated Creatinine Clearance > 125 ml/min; Glucose 221 mg/dl (70-99); Potassium 3.8 mmol/L (3.5-5.1); Sodium 135 mmol/L (135-145); Triglycerides 238 mg/dl (10-149); eGFR > 60.00
[2024-11-22] MEDS: DILAUDID PCA 30 IV (05:53)
[2024-11-22] MEDS: KCL 50 IV (06:17)
[2024-11-22 06:21] LABS: Glucose - Point of Care 220 mg/dl (70-99)
--- NOTE | 2024-11-22 06:51 | W.PN.HOSP.TC ---
Addendum entered and electronically signed by Rose Marie Clinton MD 11/22/24 16:17:
I saw and evaluated the patient independently. I reviewed the resident�s note and agree with findings and plan as documented by Dr. De Paz.
GENERAL: well developed, well nourished, male scared, tearful, crying
HEENT: NC/AT--NGT in place
HEART: regular rate and rhythm, +S1, +S2
LUNGS : clear to auscultation bilaterally
ABDOM: soft, nontender, nondistended, + bowel sounds--recent surgical sites c/d/i
EXT: no cyanosis, clubbing, or edema
NEUROLOGIC: grossly intact
SKIN: no rashes noted
Sepsis with severe enteritis involving long segment of ileum with rectal bleeding post colonoscopy and upper GI series prep complicated by Acute mesenteric ischemia due to SMV thrombosis. s/p resection 18cm necrotic ileum 11/14 and SB left in
discontinuity--apprec gen surgery--cont TPN and keep K > 4 and mag > 2--WBC normal--on stress dose steroids -- zosyn day 10 of 14 --pain control--cultures neg
surgeries as per surgery:
POD #6 ex lap with SBR (18cm necrotic bowel), left in discontinuity given ?viability of proximal bowel
POD #6 RTOR for small bowel anastomosis, no further resection needed
POD #3 RTOR for new small bowel ischemia, small bowel resection, discontinuity
POD #1 RTOR for SB anastomosis, abdominal closure
Acute blood loss anemia--Has received 2 units pRBC to date--follow H&H while on heparin drip--
Depressed, anxious--appropriate response--Consult Psychiatry
History of Hypereosinophilic syndrome with typical skin rash follows at [facility] on chronic steroids--has been on 21 mg for the past few weeks --His baseline Steroid 21mg PO Prednisone = 84mg Hydrocortisone= keep it Hydrocortisone 25mg Q8h until able
to resume ORAL intake and taper to outpt doses--discontinued Jakafi 20 mg BID--Patient receives Pegasys infusion once a week- held by -Continue IV pantoprazole 40mg BID--on IV acyclovir
Hyponatremia--resolved
Electrolyte abnormalities-- Phosphorus 2.4- discussed with pharmacist maxed out his TPN for Phosporus, given curve is at -- monitor BMP, Phos, Mg, K-- 11/22--replete via TPN
History of portal vein thrombosis years ago--Has not taken Eliquis 5 mg twice daily in 6 days due to upper GI and colonoscopy plan; on hep gtt APTT
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
Chronic neuropathy--Patient takes gabapentin 300 mg at bedtime as needed
Depression--Zoloft 50 mg at bedtime, npo and on hold for now
Class I obesity�BMI 33--Hold Ozempic
DVT prophylaxis- heparin
Full code
Original Note:
Today's Communication/Plan
-
Psych consult
Monitor electrolytes
continue ab
Assessment / Plan
Assessment / Plan
This is a 44-year-old male with past medical history of hypereosinophilic syndrome with skin involvement, diabetes, smoker, neuropathy, depression, portal vein thrombus on Eliquis, obesity presented with abdominal pain, nausea and vomiting, bright
red blood in the stools after taking Dulcolax and MiraLAX for EGD and colonoscopy. Post-op #D3 he started having continuous bloody bowel movements. Patient had another surgery for ischemic bowel. Post-op #D1
# Sepsis with severe enteritis involving long segment of ileum with rectal bleeding post colonoscopy and upper GI series prep
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 s/p resection 18cm necrotic ileum 11/14 and SB left in discontinuity ; plan to repeat procedure today
- Leukocytosis resolved
- Lactated Ringer's 125ml/hr Q8h
- Hydrocortisone 100 mg given in ER-patient is on chronic steroid 21 mg last dose was 11/11/2024 has slowly been tapering from 30 mg down by 1 mg has been at 21 mg for the past few weeks
- 11/12/2024 Continue IV Zosyn #D10/14
- IV Tylenol
- IV Dilaudid as needed pain, Zofran nausea
- Blood cultures NGTD 11/13/2024
-Surgery- CTA scan of abdomen/pelvis was not recommended.
-11/20 Post op D#3 - ischemic bowel--laparatomy, small bowel resection--tentanively for 2nd look in 48hr+ileostomy. Pt vented until then
-Oncology-PRBC for HgB < 7.5 as active GI bleeding.
-11/21 Post op D#2 -Exploratory laparotomy, small bowel anastomosis- Operation performed without stopping IV heparin- extubated
-Continue Heparin ggt
-11/21 Post op Pulsatile bleeding at lateral skin edge. Suture Hemostasis- achieved by surgeon at bedside
-NPO+TPN
-NG tube
-Bowen reinserted monitor u/o
-His baseline Steroid 21mg PO Prednisone = 84mg Hydrocortisone= keep it Hydrocortisone 25mg Q8h
#Acute blood loss anemia
-Hemoglobin improving after 1 PRBC. H&H trending
-Heparin restarted. APTT trending Q6h (goal 73-111)
-Move IMU 11/23
#Depressed, anxious
-Consult Psychiatry
#History of Hypereosinophilic syndrome with typical skin rash follows at [facility] on chronic steroids
on chronic steroid 21 mg last dose was 11/11/2024 has slowly been tapering from 30 mg down by 1 mg has been at 21 mg for the past few weeks
-discontinued Jakafi 20 mg BID
-Patient receives Pegasys infusion once a week- held by
-Continue IV pantoprozole 40mg BID
-Holding Acyclovir
-3rd post op #D2 will increase Hydrocortisone from 25mg IV Q12h to 25mg IV Q6h. Once stable goal is to taper stress dose hydrocortisone to his baseline 21mg
#Hyponatremia
-resolved
#Electrolyte abnormalities
- Phosphorus 2.4- discussed with pharmacist maxed out his TPN for Phosporus, given curve is at -- monitor BMP, Phos, Mg, K
- 11/22 Potassium 20Meq IV (goal>4)
.
#History of portal vein thrombosis years ago
-Has not taken Eliquis 5 mg twice daily in 6 days due to upper GI and colonoscopy plan; on hep gtt APTT - on hold because of ongoing bleeding started 11/18/24 D#2
-Heparin ggt- Aptt trending
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
A1c is 7.9
- Patient is using Ozempic 1 mg once a week last dose was 11/08/2024
- Hyperglycemia- TPN dose changed 11/17/2024 (from44 dose 66)-- Insulin drip per protocol
-11/22 Insulin Glargine 30U
#Chronic neuropathy
Patient takes gabapentin 300 mg at bedtime as needed
#Depression
Zoloft 50 mg at bedtime, npo and on hold for now
#Class I obesity�BMI 33
Patient currently on Ozempic
DVT prophylaxis- heparin
Full code
Anticipated Discharge: > 48 hours
Subjective/Interval History
-
Date of Service: November 22, 2024
Patient was lying in the bed. He is emotional and worried about his situation. He could not sleep all night. He received small dose of Valium at night felt less anxious. He was able to pass gas once, scared of bleeding again. He is still
complaining about abdominal pain.
Objective Data
-
Labs:
Laboratory Results
11/21/24 11/22/24
23:08 05:07
WBC 8.8
Hgb 8.9 L
Hct 25.7 L
Plt Count 187 D
APTT 74.6 H 90.2 H
Sodium 135
Potassium 3.8
Chloride 103
Carbon Dioxide 31 H
BUN 17
Creatinine 0.5 L
Glucose 221 H
Calcium 8.0 L
Vital Signs:
Vital Signs
Temp Pulse Resp BP Pulse Ox
98.5 F 127 13 106/62 99
11/22/24 04:00 11/22/24 06:00 11/22/24 06:00 11/22/24 06:00 11/22/24 05:00
I&O
11/20/24 11/21/24 11/22/24
06:59 06:59 06:59
Intake Total 3764.4 / 4050.2 3976.7 / 4134.0 2896.3 / 2896.3
Output Total 3525 / 3625 1725 / 2275 3415 / 3415
Balance 239.4 / 425.2 2251.7 / 1859.0 -518.7 / -518.7
Review of Systems
-
History Source: Patient
Constitutional: Reports Sleep Disturbance
EENT: Reports No Symptoms Reported
Respiratory: Reports No Symptoms
Cardiac: Reports No Symptoms
Abdomen/GI: Reports Abdominal Pain
Breast: Reports No Symptoms
Genitourinary: Reports No Symptoms
Musculoskeletal: Reports No Symptoms
Skin: Reports Rash (little red new rash like HES )
Neuro: Reports No Symptoms
Endocrine: Reports No Symptoms
Hematologic / Lymphatic: Reports No Symptoms
Allergy / Immunology: Reports No Symptoms
Psych: Reports Depressed, Sad and Anxious
Physical Exam
-
General: Well Developed and Well Nourished
HEENT: Normocephalic and Atraumatic
Respiratory: Clear to Auscultation
Cardiac: Regular Rhythm and S1/S2
Breast: Deferred by me
GI: Soft, Nontender and Nondistended
Rectal: Deferred by Provider
Genito-urinary: Bowen
Musculoskeletal: No Cyanosis and No Edema
Skin: Warm
Neuro: AO x 3
Psych: Depressed and Anxious
--- NOTE | 2024-11-22 07:08 | W.PN.INTV ---
Today's Communication / Plan
Recommendations
Doing well, off pressors
Wean IV steroids
Transition IV insulin to SQ
Can likely transfer to IMU today, will await insulin bridge
Assessment
-
Patient is a 44-year-old male with history of hypereosinophilic syndrome along with hypercoagulable state chronically on steroids, Eliquis, Jakafi and Pegasys who was receiving GI prep for a scheduled EGD and colonoscopy as outpatient and his
Eliquis had been on hold. He presented to [facility] with abdominal discomfort and bloody diarrhea. CT scan was suggestive of enteritis and initially patient was admitted to the hospital on IV fluids, antibiotics for concern for enteritis.
Patient was evaluated by GI and surgery service and on 11/14 was taken to the OR and had a segment of small bowel resected for mesenteric ischemia. Patient had another trip to OR on 11/17 for reanastomosis without needing additional resection. On
11/19 patient had worsening clinical status and repeat imaging was suggestive again of acute mesenteric ischemia requiring emergent laparotomy additional small bowel resection and postprocedure patient was brought to ICU intubated, mechanically
ventilated. Security Sales Manager consult was requested for further input.
Acute venoocclusive mesenteric ischemia s/p Exploratory laparotomy/Small bowel resection 11/14/24
Diagnostic laparoscopy converted to an exploratory laparotomy/ Small bowel anastomosis 11/16/24
Status post emergent laparotomy, small bowel resection 11/19/24
S/p Planned diagnostic laparoscopy converted to exploratory laparotomy/Small bowel anastomosis 11/21/24
Shock, suspect septic in the setting of severe enteritis
Acute respiratory failure, in the setting of emergent laparotomy, extubated 11/21
Acute blood loss anemia
Leukopenia
Hyperglycemia
Hypocalcemia
Transaminitis
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
DM, with hyperglycemia/neuropathy
Current smoker
depression
portal vein thrombosis on eliquis as OP
class I obesity
Plan
Pain control, doing well with dilaudid TRIMMER OPERATOR THREE KNIFE
Breakthrough pain PRN
Rass goal 0
Not on pressors > 24 hours
Heparin infusion continued, eventual bridge back to eliquis when no further OR planned
Add IV lopressor PRN for SBP >160
Remains on tele monitor
ABG 7.40 4/36/160, vent settings 550/16/30%/5.
Previously intubated, mechanically ventilated and sedated for procedures
Extubated in PACU 11/21
Chest x-ray reviewed, ET tube in appropriate position
Repeat imaging as needed
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
Patient is status post s/p Exploratory laparotomy/Small bowel resection 11/14/24
Diagnostic laparoscopy converted to an exploratory laparotomy/ Small bowel anastomosis 11/16/24
Status post emergent laparotomy, small bowel resection 11/19/24
S/p Planned diagnostic laparoscopy converted to exploratory laparotomy/Small bowel anastomosis 11/21/24
General Surgery on case, following
Follow H&H
NPO status, diet advancement per team
Continue IV Zosyn, 11/13-11/21
Can likely stop following full course 10-14 days
Considering patient is chronically steroid-dependent, will continue stress dose steroids
Start weaning IV dose to q8, resume q12 in 24 hours
H/o portal vein thrombosis, chronically on Eliquis, which was temporarily on hold for scheduled EGD and colonoscopy prior to this hospitalization
Has chronically been on steroid, Pegasys and Jakafi for hypereosinophilic syndrome and follows up at [facility].
Hematology oncology service on case
Follow H&H for further transfusion as indicated
DM, with hyperglycemia
TPN and steroids exacerbating hyperglycemia
Initiate insulin infusion
Can transition back to SQ when PO access approved
DVT prophylaxis, currently on IV heparin
GI prophylaxis, IV Protonix
Data:
CXR 10/2024: Endotracheal tube with tip 3.6 cm above the clair. Mild elevation right hemidiaphragm. Linear atelectasis in the right lower lung.
CT Abd/Pel 10/2024: There is persistent thrombus within the SMV and extending into the tributaries of the SMV inferiorly. There is a small amount of nonocclusive thrombus in the anterior aspect of the main portal vein. There is an approximately 20
cm long segment of significant bowel wall thickening and adjacent edema, in the region of the proximal to mid ileum, which appears to be new from previous CT of November 13, 2024. Findings would suggest venoocclusive mesenteric ischemia. There is also
to a lesser degree wall thickening and adjacent mesenteric edema involving the distal ileum, although less severe than the proximal to mid ileal involvement. Small to moderate amount of free fluid as described. No evidence of free intraperitoneal
air.
ECHO 06/21/22- 1. Normal left ventricular size, wall thickness and systolic function without regional wall motion abnormalities. Estimated LV ejection fraction is 60 to 65% by visual estimation and by Luciano's method. Global longitudinal strain is
normal at -18.4%
2. Normal right ventricular size and function.
3. No significant valvular abnormalities.
4. No pericardial effusion.
5. No prior echocardiogram available for comparison.
-----
Critical Care time 35 mins -- The patient is admitted for acute critical illness for the treatment of vital organ failure and/or prevention of further life-threatening conditions. Total care includes time spent in review of history, physical exam,
medications, hemodynamic/ventilator parameters, laboratory data, imaging and discussion with house staff, pharmacy, respiratory therapy, program management specialist, and nursing.
Subjective Dataa
Subjective Data
Date of Service:
Date of Service: November 22, 2024
Chief Complaint: Security Sales Manager Follow Up
Subjective:
Doing well, off pressors
Tolerating pain better with TRIMMER OPERATOR THREE KNIFE
Objective Data
Data Reviewed
Vital Signs / I&O / Oxygen:
Vital Signs
Temp Pulse Resp BP Pulse Ox
98.5 F 127 13 106/62 99
11/22/24 04:00 11/22/24 06:00 11/22/24 06:00 11/22/24 06:00 11/22/24 05:00
Intake and Output
11/21/24 11/22/24 11/23/24
06:59 06:59 06:59
Intake Total 3976.7 / 4134.0 2896.3 / 2896.3
Output Total 1725 / 2275 3415 / 3415
Balance 2251.7 / 1859.0 -518.7 / -518.7
SaO2 [A/C] 100
SaO2 99
Nasal Cannula flow liters per 2
minute
Physical Exam
General: Comfortable, Pain and Other (NAD, chronically ill appearing)
HEENT: Normocephalic, Anicteric and Moist Mucous Membranes
Cardiovascular: S1-S2 and Regular Rhythm
Respiratory: Clear and Non-Labored Respirations
GI: Soft, Distended, Tender, NG Tube and Other (incisions/drains noted, bleeding at site of drain)
Neurology: Awake, Alert, Oriented and No Motor Deficits
Skin: Warm, Dry and Good Color
Labs/Micro/Reports
Lab Data
11/22/24 05:07
11/22/24 05:07
Laboratory Results
11/21/24 11/21/24 11/21/24
08: 09:04 09:07
PT Cancelled 14.2
INR Cancelled 1.07
APTT Cancelled Cancelled 61.7 H
11/21/24 11/21/24 11/22/24
16:33 23:08 05:07
PT
INR
APTT 140.5 H 74.6 H 90.2 H
[2024-11-22 07:14] LABS: Glucose - Point of Care 198 mg/dl (70-99)
--- NOTE | 2024-11-22 08:00 | PTCARENOTE ---
Received patient from shift superintendent. patient is AAOx4, pleasant cooperative, seems a bit/appropriately anxious about situation. He is on 2L nasal cannula, lungs clear, sinus tach on monitor. SCDs on. patient has NGT to NICKI, has midline incision,
with right lower quadrant REE drain, serosanguineous drainage. Bowen without urometer draining jesica urine. generalized anasarca. right double lumen picc with heparin and TPN infusing. insulin gtt infusing into left arm peripheral. left arm STAFF VETERINARIAN
handoff reviewed. will review orders, able to make needs known.
[2024-11-22 08:37] LABS: Glucose - Point of Care 154 mg/dl (70-99)
[2024-11-22] MEDS: PROTONIX IV 40 MG IV ×2 (09:26→20:11)
[2024-11-22] MEDS: NSS (PRESERVATIVE FREE) 10 ML IV ×2 (09:26→20:11)
[2024-11-22] MEDS: OFIRMEV 100 IV ×3 (09:37→21:40)
[2024-11-22 09:44] LABS: Glucose - Point of Care 148 mg/dl (70-99)
[2024-11-22] MEDS: ZOVIRAX INJECTION 108 MG IV ×2 (09:58→20:10)
[2024-11-22 10:57] LABS: Glucose - Point of Care 144 mg/dl (70-99)
--- NOTE | 2024-11-22 11:24 | PTCARENOTE ---
No change in patient's assessment. patient is able to shift weight back and forth, is pleasant, conversant. pain seems to be more controlled with ofirmev
[2024-11-22 11:43] LABS: Glucose - Point of Care 139 mg/dl (70-99)
--- NOTE | 2024-11-22 13:34 | W.PN.GS2 ---
Addendum entered and electronically signed by Leighton Kirby MD 11/22/24 13:53:
Patient seen and examined.
Pain persists but improved with passage of flatus. No nausea or vomiting. No fevers. No bowel movements. No dizziness or lightheadedness.
Gen: NAD
HEENT: light bilious
Abd: soft, moderate tender diffusely, mild distension, obese, non-peritoneal, midline incision c/d/i, REE serosang
44 yo male with history of hypereosinophilic syndrome with known clotting disorder and chronic portal vein thrombus on Eliquis with AC held in anticipation of a colonoscopy this week who developed nausea, vomiting and intense abdominal pain followed
by rectal bleeding during his prep. CT with findings concerning for mesenteric ischemia, portal vein thrombus and SMV thrombus noted and taken to the OR
POD #6 ex lap with SBR (18cm necrotic bowel), left in discontinuity given ?viability of proximal bowel
POD #6 RTOR for small bowel anastomosis, no further resection needed
POD #3 RTOR for new small bowel ischemia, small bowel resection, discontinuity
POD #1 RTOR for SB anastomosis, abdominal closure
Tachycardia, BP stable. Afebrile
Slight drift in hemoglobin, but relatively stable on AC
Pain well controlled on METAL SPRAYER
Plan:
-- NPO with NGT to LIWS
-- Pain control with METAL SPRAYER, will add ATC ofirmev to minimize narcotic usage
-- Continue TPN
-- Insulin SS while on TPN
-- Continue heparin gtt
-- On chronic steroids, IV dosing as per primary team
Original Note:
Today's Communication / Plan
-
NPO/NGT/TPN
Assessment / Plan
-
44 yo male with history of hypereosinophilic syndrome with known clotting disorder and chronic portal vein thrombus on Eliquis with AC held in anticipation of a colonoscopy this week who developed nausea, vomiting and intense abdominal pain followed
by rectal bleeding during his prep. CT with findings concerning for mesenteric ischemia, portal vein thrombus and SMV thrombus noted and taken to the OR
POD #6 ex lap with SBR (18cm necrotic bowel), left in discontinuity given ?viability of proximal bowel
POD #6 RTOR for small bowel anastomosis, no further resection needed
POD #3 RTOR for new small bowel ischemia, small bowel resection, discontinuity
POD #1 RTOR for SB anastomosis, abdominal closure
Tachycardia, BP stable. Afebrile
Slight drift in hemoglobin, but relatively stable on AC
Pain well controlled on METAL SPRAYER
Plan:
-- NPO with NGT to LIWS
-- Pain control with METAL SPRAYER, will add ATC ofirmev to minimize narcotic usage
-- Continue TPN
-- Insulin SS while on TPN
-- Continue heparin gtt
-- On chronic steroids, IV dosing as per primary team
Subjective Data
-
Date of Service: November 22, 2024
Pt seen and examined at bedside with Dr. Kirby. Denies n/v. Passing a little gas. Comfortable currently, pain overnight which improved with passage of flatus.
Objective Data
-
Intake and Output
25 11/22/24 11/23/24
06:59 06:59 06:59
Intake Total 3976.7 / 4134.0 2896.3 / 2957.3 972 / 972
Output Total 1725 / 2275 3415 / 3415 490 / 490
Balance 2251.7 / 1859.0 -518.7 / -457.7 482 / 482
Intake:
IV fluids (Total) 2157.7 / 2244.0 499.3 / 560.3 387 / 387
D5/0.45%NaCl 1,000 ml @ 40 mls/ 240 / 240
hr IV .Q24H PRN Rx#:[id number]
Dex 42.8 / 42.8
Fent 630.0 / 657.5 27.5 / 27.5
Heparin 480 / 500 433 / 454 147 / 147
Levo 292.7 / 300.2 7.5 / 7.5
Lr 1,000 ml @ 125 mls/hr IV . 125 / 125
Q8H ERIN Rx#:[id number]
prop 587.2 / 618.5 31.3 / 31.3
IV piggybacks 305 / 305 540 / 540 205 / 205
TPN/PPN 1514 / 1585 1607 / 1607 380 / 380
Amount instilled into GI Tube ( 0 / 0
Total)
[place] Sump 0 / 0
Blood Product Amount Infused ( 0 / 0 250 / 250
mL)
Packed Rbc Leukoreduced Unit 0 / 0 250 / 250
[id number]
Output:
Drain Output (Total) 500 / 500 1480 / 1480 240 / 240
Abdomen Wound Vac 500 / 500
Right Abdomen Thiago-Daniel 1480 / 1480 240 / 240
Gastrointestinal tube output ( 0 / 0 50 / 50
Total)
[place] Sump 0 / 0 50 / 50
Urine, Vogel 1225 / 1775 1885 / 1885 250 / 250
Vital Signs
Temp Pulse Resp BP Pulse Ox
97.7 F 108 16 134/78 97
11/22/24 11:12 11/22/24 12:00 11/22/24 12:00 11/22/24 12:00 11/22/24 12:00
Lab Results
11/22/24 05:07
11/22/24 05:07
Calcium 8.0 mg/dl (8.4-10.2) L 11/22/24 05:07
Phosphorus 2.8 mg/dl (2.5-4.5) 11/20/24 03:54
Magnesium 1.9 mg/dl (1.6-2.3) 11/21/24 04:13
Total Bilirubin 0.7 mg/dl (0.2-1.3) 11/20/24 03:54
Direct Bilirubin 0.3 mg/dl (0.0-0.4) 11/20/24 03:54
AST 63 U/L (17-59) H 11/20/24 03:54
ALT 125 U/L (0-50) H 11/20/24 03:54
Alkaline Phosphatase 139 U/L (38-126) H 11/20/24 03:54
Total Protein 4.6 g/dl (6.3-8.2) L 11/20/24 03:54
Albumin 2.6 g/dl (3.5-5.0) L 11/20/24 03:54
Physical Exam
-
Gen: vented
Abd: soft, approp ttp, dressing to incision intact
REE with light SSF
Patient has a vogel catheter: Yes
Patient has a central line: Yes (PICC)
[2024-11-22 13:45] LABS: Glucose - Point of Care 141 mg/dl (70-99)
[2024-11-22 14:07] LABS: Glucose - Point of Care 143 mg/dl (70-99)
[2024-11-22 14:40] LABS: Glucose - Point of Care 143 mg/dl (70-99)
--- NOTE | 2024-11-22 14:43 | W.PN.UPDATE ---
Update Note
Progress Note Update
Attempted to see patient for depression psychiatry consultation on 11/22/2024 at 2:40pm. Patient has visitors and is requesting I come see him tomorrow. Primary team informed.
[2024-11-22] MEDS: D5/0.45%NACL 1000 IV (15:09)
[2024-11-22 15:56] LABS: Glucose - Point of Care 141 mg/dl (70-99)
[2024-11-22 16:38] LABS: Glucose - Point of Care 119 mg/dl (70-99)
[2024-11-22 17:41] LABS: Glucose - Point of Care 125 mg/dl (70-99)
--- NOTE | 2024-11-22 18:12 | PTCARENOTE ---
full bed bath and face wash completed. patient states pain is more under control with ofirmev. pain rated 3:10. will plan to get patient OOB tomorrow AM.
[2024-11-22 19:49] LABS: Glucose - Point of Care 113 mg/dl (70-99)
--- NOTE | 2024-11-22 20:00 | PTCARENOTE ---
Assumed care of patient, Pt AOx3 in bed. Pt assessed, see flowsheets. Pt has right double lumen PICC, TPN, heparin gtt, insulin gtt, dilaudid COMMERCIAL SPECIALIST all infusing as ordered. Vital signs stable. Call reese within reach. Bowen and right sided REE drain
still in place and draining. NGT in place as well. Pt has no questions at this time. Will continue to monitor.
[2024-11-22] MEDS: Parenteral Nutrition, Central 1820 IV (21:38)
[2024-11-22 21:42] LABS: Glucose - Point of Care 135 mg/dl (70-99)
[2024-11-22 23:49] LABS: Glucose - Point of Care 158 mg/dl (70-99)
[2024-11-23] VITALS (34 sets, daily range): BP systolic 102–154; BP diastolic 69–110; BMI 33.7
[2024-11-23 01:45] LABS: Glucose - Point of Care 183 mg/dl (70-99)
[2024-11-23 02:47] LABS: Glucose - Point of Care 166 mg/dl (70-99)
[2024-11-23] MEDS: OFIRMEV 100 IV ×4 (02:53→21:14)
[2024-11-23] MEDS: ZOSYN 50 IV ×4 (04:33→22:34)
[2024-11-23 04:38] LABS: Glucose - Point of Care 153 mg/dl (70-99)
[2024-11-23 05:02] LABS: Hematocrit 20.5 % (39.0-52.0); Hemoglobin 7.1 g/dL (13.0-18.0); Mean Corp Hgb Conc. 34.6 g/dL (33.0-37.0); Mean Corpuscular Volume 88.0 fL (80.0-94.0); Platelet Count 130 10^3/uL (130-400); Red Cell Dist. Width 16.0 % (11.5-14.5)
[2024-11-23 05:04] LABS: APTT 123.0 Sec (23.4-35.0)
[2024-11-23 05:10] LABS: Blood Urea Nitrogen 15 mg/dl (9-20); Calcium 7.8 mg/dl (8.4-10.2); Carbon Dioxide 33 mmol/L (22-30); Chloride 102 mmol/L (98-107); Estimated Creatinine Clearance > 125 ml/min; Glucose 145 mg/dl (70-99); Potassium 3.0 mmol/L (3.5-5.1); Sodium 133 mmol/L (135-145); Triglycerides 218 mg/dl (10-149); eGFR > 60.00
[2024-11-23] MEDS: DILAUDID PCA 30 IV (05:34)
[2024-11-23] MEDS: KCL 100 IV ×2 (05:49→18:39)
[2024-11-23 06:41] LABS: Glucose - Point of Care 129 mg/dl (70-99)
--- NOTE | 2024-11-23 07:12 | W.PN.HOSP.TC ---
Addendum entered and electronically signed by Rose Marie Clinton MD 11/23/24 15:38:
I saw and evaluated the patient independently. I reviewed the resident�s note and agree with findings and plan as documented by Dr. De Paz.
GENERAL: well developed, well nourished, male in no apparent distress
HEENT: NC/AT--NGT in place
HEART: regular rate and rhythm, +S1, +S2
LUNGS : clear to auscultation bilaterally
ABDOM: soft, nontender, nondistended, + bowel sounds--recent surgical sites c/d/i
EXT: no cyanosis, clubbing, or edema
NEUROLOGIC: grossly intact
SKIN: no rashes noted
Sepsis with severe enteritis involving long segment of ileum with rectal bleeding post colonoscopy and upper GI series prep complicated by Acute mesenteric ischemia due to SMV thrombosis. s/p resection 18cm necrotic ileum 11/14 and SB left in
discontinuity--apprec gen surgery--cont TPN and keep K > 4 and mag > 2--WBC normal--on stress dose steroids -- zosyn day 11 of 14 --pain control--cultures neg
surgeries as per surgery:
POD #7 ex lap with SBR (18cm necrotic bowel), left in discontinuity given ?viability of proximal bowel
POD #7 RTOR for small bowel anastomosis, no further resection needed
POD #4 RTOR for new small bowel ischemia, small bowel resection, discontinuity
POD #2 RTOR for SB anastomosis, abdominal closure
Acute blood loss anemia--Has received 2 units pRBC to date--follow H&H while on heparin drip--transfusing 2 more today
Depressed, anxious--appropriate response--Consult Psychiatry
History of Hypereosinophilic syndrome with typical skin rash follows at [facility] on chronic steroids--has been on 21 mg for the past few weeks --His baseline Steroid 21mg PO Prednisone = 84mg Hydrocortisone= keep IV Hydrocortisone 25mg Q8h until able
to resume ORAL intake and taper to outpt doses--discontinued Jakafi 20 mg BID--Patient receives Pegasys infusion once a week- held by Dr. Ronquillo-Continue IV pantoprazole 40mg BID--on IV acyclovir
Hyponatremia--resolved
Electrolyte abnormalities-- monitor BMP, Phos, Mg, K-- 11/22--replete via TPN
History of portal vein thrombosis years ago--Has not taken Eliquis 5 mg twice daily in 6 days due to upper GI and colonoscopy plan; on hep gtt APTT
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
Chronic neuropathy--Patient takes gabapentin 300 mg at bedtime as needed--unable to take given NPO status
Depression--Zoloft 50 mg at bedtime, npo and on hold for now
Class I obesity�BMI 33--Hold Ozempic
DVT prophylaxis- heparin
Full code
Original Note:
Today's Communication/Plan
-
2 PRBC- H&H trending
Heparin restarted- aPTT trending
Stay ICU- ISS
K replete
PT/OT
Assessment / Plan
Assessment / Plan
This is a 44-year-old male with past medical history of hypereosinophilic syndrome with skin involvement, diabetes, smoker, neuropathy, depression, portal vein thrombus on Eliquis, obesity presented with abdominal pain, nausea and vomiting, bright
red blood in the stools after taking Dulcolax and MiraLAX for EGD and colonoscopy. Post-op #D3 he started having continuous bloody bowel movements. Patient had another surgery for ischemic bowel. Post-op #D1
# Sepsis with severe enteritis involving long segment of ileum with rectal bleeding post colonoscopy and upper GI series prep
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 s/p resection 18cm necrotic ileum 11/14 and SB left in discontinuity ; plan to repeat procedure today
- Leukocytosis resolved
- Lactated Ringer's 125ml/hr Q8h
- Hydrocortisone 100 mg given in ER-patient is on chronic steroid 21 mg last dose was 11/11/2024 has slowly been tapering from 30 mg down by 1 mg has been at 21 mg for the past few weeks
- 11/12/2024 Continue IV Zosyn #D11/14
- IV Tylenol
- IV Dilaudid as needed pain, Zofran nausea
- Blood cultures NGTD 11/13/2024
-Surgery- CTA scan of abdomen/pelvis was not recommended.
-11/20 Post op D#3 - ischemic bowel--laparatomy, small bowel resection--tentanively for 2nd look in 48hr+ileostomy. Pt vented until then
-Oncology-PRBC for HgB < 7.5 as active GI bleeding.
-11/21 Post op D#2 -Exploratory laparotomy, small bowel anastomosis- Operation performed without stopping IV heparin- extubated
-Continue Heparin ggt
-11/21 Post op Pulsatile bleeding at lateral skin edge. Suture Hemostasis- achieved by surgeon at bedside
-Bowen reinserted monitor u/o
-His baseline Steroid 21mg PO Prednisone = 84mg Hydrocortisone= keep it Hydrocortisone 25mg Q8h
-NPO with NGT to NICKI
-Trade Promotion Analyst: Pain control with PROVIDER RELATIONS CONSULTANT, added ATC ofirmev
-PT/OT
#Acute blood loss anemia
-2 previously+ 2U PRBC started
-H&H trending
- APTT trending Q6h (goal 73-111)- Heparin restarted.
#Depressed, anxious
-Consulted Psychiatry
#History of Hypereosinophilic syndrome with typical skin rash follows at [facility] on chronic steroids
on chronic steroid 21 mg last dose was 11/11/2024 has slowly been tapering from 30 mg down by 1 mg has been at 21 mg for the past few weeks
-discontinued Jakafi 20 mg BID
-Patient receives Pegasys infusion once a week- held by
-Continue IV pantoprozole 40mg BID
-Holding Acyclovir
-3rd post op #D2 will increase Hydrocortisone from 25mg IV Q12h to 25mg IV Q6h. Once stable goal is to taper stress dose hydrocortisone to his baseline 21mg
#Hyponatremia
-resolved
#Electrolyte abnormalities
- Phosphorus 2.4- discussed with pharmacist maxed out his TPN for Phosporus, given curve is at -- monitor BMP, Phos, Mg, K
- Replete K(goal>4)
#History of portal vein thrombosis years ago
-Has not taken Eliquis 5 mg twice daily in 6 days due to upper GI and colonoscopy plan; on hep gtt APTT - on hold because of ongoing bleeding started 11/18/24 D#2
-Heparin ggt- Aptt trending
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
A1c is 7.9
- Patient is using Ozempic 1 mg once a week last dose was 11/08/2024
- Hyperglycemia- TPN dose changed 11/17/2024 (from44 dose 66)-- Insulin drip per protocol
-11/22 Insulin Glargine 30U-hold
#Chronic neuropathy
Patient takes gabapentin 300 mg at bedtime as needed
#Depression
Zoloft 50 mg at bedtime, npo and on hold for now
#Class I obesity�BMI 33
Patient currently on Ozempic
DVT prophylaxis- heparin
Full code
Anticipated Discharge: > 48 hours
Subjective/Interval History
-
Date of Service: November 23, 2024
He was able to sleep good last night. He passed gas twice and feels better overall. Denies any pain currently. No bowel movement yet.
Objective Data
-
Labs:
Laboratory Results
11/23/24 11/23/24 11/23/24
04:32 11:30 12:00
WBC 5.1
Hgb 7.1 L D Pending
Hct 20.5 L* Pending
Plt Count 130 D
APTT 123.0 H Pending
Sodium 133 L
Potassium 3.0 L
Chloride 102
Carbon Dioxide 33 H
BUN 15
Creatinine 0.4 L
Glucose 145 H
Calcium 7.8 L
Vital Signs:
Vital Signs
Temp Pulse Resp BP Pulse Ox
98.1 F 88 14 139/87 99
11/23/24 02:53 11/23/24 03:00 11/23/24 05:41 11/23/24 03:00 11/23/24 00:00
I&O
11/22/24 11/23/24 11/24/24
06:59 06:59 06:59
Intake Total 2896.3 / 2957.3 3436 / 3436
Output Total 3415 / 3415 1999 / 1999
Balance -518.7 / -457.7 1436 / 1436
Review of Systems
-
History Source: Patient
Constitutional: Reports No Symptoms
EENT: Reports No Symptoms Reported
Respiratory: Reports No Symptoms
Cardiac: Reports No Symptoms
Abdomen/GI: Reports No Symptoms
Breast: Reports No Symptoms
Genitourinary: Reports No Symptoms
Musculoskeletal: Reports No Symptoms
Skin: Reports No Symptoms and Rash (little red new rash like HES )
Neuro: Reports No Symptoms
Endocrine: Reports No Symptoms
Hematologic / Lymphatic: Reports No Symptoms
Allergy / Immunology: Reports No Symptoms
Physical Exam
-
General: Well Developed
HEENT: Normocephalic and Atraumatic
Respiratory: Clear to Auscultation
Cardiac: Regular Rhythm and S1/S2
Breast: Deferred by me
GI: Soft, Nontender and Nondistended
Rectal: Deferred by Provider
Genito-urinary: Bowen
Musculoskeletal: No Cyanosis and No Edema
Skin: Warm
Neuro: AO x 3
Psych: Calm
--- NOTE | 2024-11-23 07:16 | W.PN.INTV ---
Today's Communication / Plan
Recommendations
off pressors >48 hours
Pain control via copyright manager
tpn w/ need for insulin gtt, await PO access per surgery team
Assessment
-
Patient is a 44-year-old male with history of hypereosinophilic syndrome along with hypercoagulable state chronically on steroids, Eliquis, Jakafi and Pegasys who was receiving GI prep for a scheduled EGD and colonoscopy as outpatient and his
Eliquis had been on hold. He presented to [facility] with abdominal discomfort and bloody diarrhea. CT scan was suggestive of enteritis and initially patient was admitted to the hospital on IV fluids, antibiotics for concern for enteritis.
Patient was evaluated by GI and surgery service and on 11/14 was taken to the OR and had a segment of small bowel resected for mesenteric ischemia. Patient had another trip to OR on 11/17 for reanastomosis without needing additional resection. On
11/19 patient had worsening clinical status and repeat imaging was suggestive again of acute mesenteric ischemia requiring emergent laparotomy additional small bowel resection and postprocedure patient was brought to ICU intubated, mechanically
ventilated. Power Station Operator consult was requested for further input.
Acute venoocclusive mesenteric ischemia s/p Exploratory laparotomy/Small bowel resection 11/14/24
Diagnostic laparoscopy converted to an exploratory laparotomy/ Small bowel anastomosis 11/16/24
Status post emergent laparotomy, small bowel resection 11/19/24
S/p Planned diagnostic laparoscopy converted to exploratory laparotomy/Small bowel anastomosis 11/21/24
Shock, suspect septic in the setting of severe enteritis
Acute respiratory failure, in the setting of emergent laparotomy, extubated 11/21
Acute blood loss anemia
Leukopenia
Hyperglycemia
Hypocalcemia
Transaminitis
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
DM, with hyperglycemia/neuropathy
Current smoker
depression
portal vein thrombosis on eliquis as OP
class I obesity
Plan
Pain control, doing well with dilaudid RIVERS AND LAKES LEVERMAN
Breakthrough pain PRN
Rass goal 0
Not on pressors > 48 hours
Heparin infusion continued, eventual bridge back to eliquis when no further OR planned
IV lopressor PRN for SBP >160
Remains on tele monitor
ABG 7.40 4/36/160, vent settings 550/16/30%/5.
Previously intubated, mechanically ventilated and sedated for procedures
Extubated in PACU 11/21
Chest x-ray reviewed, ET tube in appropriate position
Repeat imaging as needed
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
Patient is status post s/p Exploratory laparotomy/Small bowel resection 11/14/24
Diagnostic laparoscopy converted to an exploratory laparotomy/ Small bowel anastomosis 11/16/24
Status post emergent laparotomy, small bowel resection 11/19/24
S/p Planned diagnostic laparoscopy converted to exploratory laparotomy/Small bowel anastomosis 11/21/24
General Surgery on case, following
Follow H&H
NPO status, diet advancement per team
TPN now and on insulin gtt
Continue IV Zosyn, 11/13-11/21
Can likely stop following full course 10-14 days
Considering patient is chronically steroid-dependent, will continue stress dose steroids
Start weaning IV dose to q8, resume q12 in 24 hours
H/o portal vein thrombosis, chronically on Eliquis, which was temporarily on hold for scheduled EGD and colonoscopy prior to this hospitalization
Has chronically been on steroid, Pegasys and Jakafi for hypereosinophilic syndrome and follows up at [facility].
Hematology oncology service on case
Follow H&H for further transfusion as indicated
DM, with hyperglycemia
TPN and steroids exacerbating hyperglycemia
Insulin infusion
Can transition back to SQ when PO access approved
DVT prophylaxis, currently on IV heparin
GI prophylaxis, IV Protonix
Data:
CXR 10/2024: Endotracheal tube with tip 3.6 cm above the clair. Mild elevation right hemidiaphragm. Linear atelectasis in the right lower lung.
CT Abd/Pel 10/2024: There is persistent thrombus within the SMV and extending into the tributaries of the SMV inferiorly. There is a small amount of nonocclusive thrombus in the anterior aspect of the main portal vein. There is an approximately 20
cm long segment of significant bowel wall thickening and adjacent edema, in the region of the proximal to mid ileum, which appears to be new from previous CT of November 13, 2024. Findings would suggest venoocclusive mesenteric ischemia. There is also
to a lesser degree wall thickening and adjacent mesenteric edema involving the distal ileum, although less severe than the proximal to mid ileal involvement. Small to moderate amount of free fluid as described. No evidence of free intraperitoneal
air.
ECHO 06/21/22- 1. Normal left ventricular size, wall thickness and systolic function without regional wall motion abnormalities. Estimated LV ejection fraction is 60 to 65% by visual estimation and by Luciano's method. Global longitudinal strain is
normal at -18.4%
2. Normal right ventricular size and function.
3. No significant valvular abnormalities.
4. No pericardial effusion.
5. No prior echocardiogram available for comparison.
-----
Critical Care time 31 mins -- The patient is admitted for acute critical illness for the treatment of vital organ failure and/or prevention of further life-threatening conditions. Total care includes time spent in review of history, physical exam,
medications, hemodynamic/ventilator parameters, laboratory data, imaging and discussion with house staff, pharmacy, respiratory therapy, doughnut maker, and nursing.
Subjective Dataa
Subjective Data
Date of Service:
Date of Service: November 23, 2024
Chief Complaint: Power Station Operator Follow Up
Subjective:
no new complaints
not on pressors
Objective Data
Data Reviewed
Vital Signs / I&O / Oxygen:
Vital Signs
Temp Pulse Resp BP Pulse Ox
98.1 F 88 14 139/87 99
11/23/24 02:53 11/23/24 03:00 11/23/24 05:41 11/23/24 03:00 11/23/24 00:00
Intake and Output
11/22/24 11/23/24 11/24/24
06:59 06:59 06:59
Intake Total 2896.3 / 2957.3 3436 / 3436
Output Total 3415 / 3415 1999
Balance -518.7 / -457.7 1436 / 1436
SaO2 [A/C] 100
SaO2 99
Nasal Cannula flow liters per 99
minute
Physical Exam
General: Comfortable, Pain and Other (NAD, chronically ill appearing)
HEENT: Normocephalic, Anicteric and Moist Mucous Membranes
Cardiovascular: S1-S2 and Regular Rhythm
Respiratory: Clear and Non-Labored Respirations
GI: Soft, Distended, Tender, NG Tube and Other (incisions/drains noted, bleeding at site of drain)
Neurology: Awake, Alert, Oriented and No Motor Deficits
Skin: Warm, Dry and Good Color
Labs/Micro/Reports
Lab Data
11/23/24 04:32
Laboratory Results
11/23/24
04:32
APTT 123.0 H
--- NOTE | 2024-11-23 07:45 | PTCARENOTE ---
received patient from shift leader. see focused shift assessment. no changes since prior shift. resent lab work due to possible dilution. will review orders, call reese within reach.
[2024-11-23 08:17] LABS: Hematocrit 23.0 % (39.0-52.0); Hemoglobin 7.6 g/dL (13.0-18.0); Mean Corp Hgb Conc. 33.0 g/dL (33.0-37.0); Mean Corpuscular Volume 88.1 fL (80.0-94.0); Platelet Count 143 10^3/uL (130-400); Red Cell Dist. Width 16.0 % (11.5-14.5)
[2024-11-23] MEDS: PROTONIX IV 40 MG IV ×2 (08:17→20:32)
[2024-11-23] MEDS: NSS (PRESERVATIVE FREE) 10 ML IV ×2 (08:17→20:35)
[2024-11-23] MEDS: ZOVIRAX INJECTION 108 MG IV ×2 (08:18→20:37)
[2024-11-23] MEDS: SOLU-CORTEF 25 MG IV ×2 (08:22→15:39)
[2024-11-23 08:43] LABS: Glucose - Point of Care 140 mg/dl (70-99)
[2024-11-23 08:47] LABS: Blood Urea Nitrogen 15 mg/dl (9-20); Calcium 8.4 mg/dl (8.4-10.2); Carbon Dioxide 33 mmol/L (22-30); Chloride 101 mmol/L (98-107); Estimated Creatinine Clearance > 125 ml/min; Glucose 152 mg/dl (70-99); Potassium 3.4 mmol/L (3.5-5.1); Sodium 134 mmol/L (135-145); eGFR > 60.00
[2024-11-23] MEDS: HEPARIN 25000 UNITS/250 ML IV ×2 (09:04→21:07)
[2024-11-23 10:40] LABS: Glucose - Point of Care 167 mg/dl (70-99)
[2024-11-23 11:59] LABS: APTT 94.3 Sec (23.4-35.0)
--- NOTE | 2024-11-23 12:00 | PTCARENOTE ---
No change in patient's assessment, awaiting blood from blood bank.
--- NOTE | 2024-11-23 12:14 | CS.PSYCHR ---
Consult Summary - Psychiatry
-
Patient seen by me on 11/23/2024 from 11:52am-12:12pm
Psychiatry consult for depression/anxiety. Chart reviewed. 44 yo male with history of depression and anxiety as well as medical history noted below admitted on 11/13/2024 with abdominal pain, nausea and vomiting, bright red blood in the stools after
taking Dulcolax and MiraLAX for EGD and colonoscopy. Patient admits to history of depression and anxiety which has worsened with ongoing medical issues. He denies active SI. He denies manic or psychotic history. He states PCP had started him on
zoloft 50mg daily 2 months ago and he responded well to it. He was feeling like himself again and seeing the positives in his life. Unfortunately since NPO, his zoloft has been on hold and he is concerned he could decompensate. We discussed close
monitoring of mood as well as option for PRN Valium while in the hospital to help manage anxiety/sleep issues until we are able to resume zoloft. He is agreeable.
MSE- good eye contact. spontaneous fluent speech. depressed/anxious mood. normal range of affect. logical and goal directed. denies active SI. Denies HI/AVH. no delusions. fully oriented. I/J intact.
PMH- hypereosinophilic syndrome with skin involvement, diabetes, smoker, neuropathy, portal vein thrombus on Eliquis
Past psych- history of depression and anxiety since chronic medical issues started. Prescribed zoloft 50mg daily by PCP as noted above. no history of psychiatric hospitalizations
Family psych history- uncle with unspecified mental health history
Social- . Lives with . 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 no children
D&A- denies
A/P- 44 yo male with unspecified depression and anxiety, now exacerbated given significant health stressors and hold of zoloft. Resume PO zoloft 50mg daily once able. In the short-term while in the hospital, will order IV Valiurm 5mg q6h PRN
anxiety/insomnia (max 3 doses/24 hours). Will follow up with patient tomorrow.
[2024-11-23 12:43] LABS: Glucose - Point of Care 164 mg/dl (70-99)
[2024-11-23] MEDS: VALIUM INJECTION 5 MG IV ×2 (12:45→21:13)
--- NOTE | 2024-11-23 13:13 | VATNOTE ---
Offered to change IV tubing on heparin infusion, PCN declined, states she will change the IV tubing.
--- NOTE | 2024-11-23 13:16 | W.PN.GS2 ---
Addendum entered and electronically signed by Leighton Kirby MD 11/23/24 13:34:
Patient seen and examined.
Denies worsening abdominal pain. No nausea or vomiting. Continues to pass flatus, no BMs. No fevers.
Gen: NAD
HEENT: minimal light bilious
Abd: soft, stable tenderness diffusely, midline KERA c/d/i, non-peritoneal
44 yo male with history of hypereosinophilic syndrome with known clotting disorder and chronic portal vein thrombus on Eliquis with AC held in anticipation of a colonoscopy this week who developed nausea, vomiting and intense abdominal pain followed
by rectal bleeding during his prep. CT with findings concerning for mesenteric ischemia, portal vein thrombus and SMV thrombus noted and taken to the OR
POD #9 ex lap with SBR (18cm necrotic bowel), left in discontinuity given ?viability of proximal bowel
POD #7 RTOR for small bowel anastomosis, no further resection needed
POD #4 RTOR for new small bowel ischemia, small bowel resection, discontinuity
POD #2 RTOR for SB anastomosis, abdominal closure
Tachycardia resolved, BP stable. Afebrile
H/H drifting down
Pain well controlled on HEALTHCARE ANALYST
Plan:
-- NPO with NGT to LIWS
-- Pain control with HEALTHCARE ANALYST, Continue ATC Ofirmev to minimize narcotic usage
-- Continue TPN
-- Insulin SS while on TPN
-- Transfuse 2 units pRBCs today
-- Continue Heparin gtt
-- On chronic steroids, IV dosing as per primary team
-- OOB as tolerated
Original Note:
Today's Communication / Plan
-
continue ngt
transfuse 2 units prbcs
tpn
Assessment / Plan
-
44 yo male with history of hypereosinophilic syndrome with known clotting disorder and chronic portal vein thrombus on Eliquis with AC held in anticipation of a colonoscopy this week who developed nausea, vomiting and intense abdominal pain followed
by rectal bleeding during his prep. CT with findings concerning for mesenteric ischemia, portal vein thrombus and SMV thrombus noted and taken to the OR
POD #9 ex lap with SBR (18cm necrotic bowel), left in discontinuity given ?viability of proximal bowel
POD #7 RTOR for small bowel anastomosis, no further resection needed
POD #4 RTOR for new small bowel ischemia, small bowel resection, discontinuity
POD #2 RTOR for SB anastomosis, abdominal closure
Tachycardia resolved, BP stable. Afebrile
H/H drifting down
Pain well controlled on HEALTHCARE ANALYST
Plan:
-- NPO with NGT to LIWS
-- Pain control with HEALTHCARE ANALYST, Continue ATC ofirmev to minimize narcotic usage
-- Continue TPN
-- Insulin SS while on TPN
-- Transfuse 2 units pRBCs today
-- Continue heparin gtt
-- On chronic steroids, IV dosing as per primary team
-- OOB as tolerated
Subjective Data
-
Date of Service: November 23, 2024
PT seen and examined at bedside with Dr Kirby. Spouse present, questions addressed. Denies n/v. Passing a little flatus, no stools as of yet. Pain has not worsened, some improvement.
Objective Data
-
Intake and Output
11/22/24 11/23/24 11/24/24
06:59 06:59 06:59
Intake Total 2896.3 / 2957.3 3436 / 3571 810 / 810
Output Total 3415 / 3415 1999 / 1999 80 / 80
Balance -518.7 / -457.7 1436 / 1571 730 / 730
Intake:
IV fluids (Total) 499.3 / 560.3 1483 / 1542 354 / 354
D5/0.45%NaCl 1,000 ml @ 40 mls/ 960 / 1000 240 / 240
hr IV .Q24H PRN Rx#:[id number]
Fent 27.5 / 27.5
Heparin 433 / 454 523 / 542 114 / 114
Levo 7.5 / 7.5
prop 31.3 / 31.3
IV piggybacks 540 / 540 205 / 205
TPN/PPN 1607 / 1607 1748 / 1824 456 / 456
Blood Product Amount Infused ( 250 / 250
mL)
Packed Rbc Leukoreduced Unit 250 / 250
[id number]
Output:
Drain Output (Total) 1480 / 1480 625 / 625 80 / 80
Right Abdomen Thiago-Daniel 1480 / 1480 625 / 625 80 / 80
Gastrointestinal tube output ( 50 / 50
Total)
[place] Sump 50 / 50
Urine, Vogel 1885 / 1885 1375 / 1375
Vital Signs
Temp Pulse Resp BP Pulse Ox
97.9 F 88 19 146/84 97
11/23/24 11:17 11/23/24 11:00 11/23/24 11:00 11/23/24 11:00 11/23/24 12:00
Lab Results
11/23/24 12:00
11/23/24 08:05
Calcium 8.4 mg/dl (8.4-10.2) 11/23/24 08:05
Phosphorus 2.8 mg/dl (2.5-4.5) 11/20/24 03:54
Magnesium 1.9 mg/dl (1.6-2.3) 11/21/24 04:13
Total Bilirubin 0.7 mg/dl (0.2-1.3) 11/20/24 03:54
Direct Bilirubin 0.3 mg/dl (0.0-0.4) 11/20/24 03:54
AST 63 U/L (17-59) H 11/20/24 03:54
ALT 125 U/L (0-50) H 11/20/24 03:54
Alkaline Phosphatase 139 U/L (38-126) H 11/20/24 03:54
Total Protein 4.6 g/dl (6.3-8.2) L 11/20/24 03:54
Albumin 2.6 g/dl (3.5-5.0) L 11/20/24 03:54
Physical Exam
-
Gen: vented
Abd: soft, approp ttp, dressing to incision intact
REE with light SSF
Patient has a vogel catheter: Yes
Patient has a central line: Yes (PICC)
[2024-11-23 14:51] LABS: Glucose - Point of Care 129 mg/dl (70-99)
[2024-11-23] MEDS: NOVOLIN R INSULIN INFUSION 100 IV (16:04)
[2024-11-23] MEDS: D5/0.45%NACL 1000 IV (16:13)
[2024-11-23 16:44] LABS: Glucose - Point of Care 116 mg/dl (70-99)
--- NOTE | 2024-11-23 17:08 | PTCARENOTE ---
Patient OOB to chair, standby assist. BP stable. second unit of blood started. no signs of bleeding, minimal pain.
[2024-11-23 18:12] LABS: APTT 77.2 Sec (23.4-35.0)
[2024-11-23 18:23] LABS: Blood Urea Nitrogen 13 mg/dl (9-20); Calcium 7.9 mg/dl (8.4-10.2); Carbon Dioxide 29 mmol/L (22-30); Chloride 100 mmol/L (98-107); Estimated Creatinine Clearance > 125 ml/min; Glucose 191 mg/dl (70-99); Potassium 3.6 mmol/L (3.5-5.1); Sodium 132 mmol/L (135-145); eGFR > 60.00
[2024-11-23 18:46] LABS: Glucose - Point of Care 186 mg/dl (70-99)
[2024-11-23 19:50] LABS: Glucose - Point of Care 184 mg/dl (70-99)
[2024-11-23 20:44] LABS: Glucose - Point of Care 173 mg/dl (70-99)
[2024-11-23] MEDS: Parenteral Nutrition, Central 1830 IV (20:54)
--- NOTE | 2024-11-23 21:53 | PTCARENOTE ---
on assessment pt AAOX3, at bedside, JOHANA, SR on the monitor, RA 98%, L nare NGT, vogel per urology, R Sherif and midline incision, RUE PICC, pt on TPN, hep, insulin and Dilaudid, PRN meds given see MAR, no complaints at this time call reese in reach
[2024-11-23 21:56] LABS: Hematocrit 27.8 % (39.0-52.0); Hemoglobin 9.4 g/dL (13.0-18.0)
[2024-11-23] MEDS: DILAUDID 1 MG IV (22:35)
[2024-11-23 22:42] LABS: Glucose - Point of Care 162 mg/dl (70-99)
[2024-11-24] VITALS (28 sets, daily range): BP systolic 125–167; BP diastolic 57–112; PULSE 98–101; O2SAT 97–99; BMI 34.0
[2024-11-24] MEDS: SOLU-CORTEF 25 MG IV ×4 (00:20→23:20)
--- NOTE | 2024-11-24 00:28 | PTCARENOTE ---
pt appears to be resting comfortably in bed, no complaints at this time, call reese in reach
[2024-11-24 00:35] LABS: Glucose - Point of Care 100 mg/dl (70-99)
[2024-11-24 01:43] LABS: Glucose - Point of Care 130 mg/dl (70-99)
[2024-11-24] MEDS: OFIRMEV 100 IV ×4 (02:19→21:03)
[2024-11-24 02:41] LABS: Glucose - Point of Care 190 mg/dl (70-99)
[2024-11-24] MEDS: ZOSYN 50 IV ×2 (03:07→09:33)
[2024-11-24] MEDS: NOVOLIN R INSULIN INFUSION 100 IV ×2 (03:07→19:49)
[2024-11-24 03:32] LABS: Glucose - Point of Care 174 mg/dl (70-99)
[2024-11-24 03:36] LABS: Hematocrit 25.2 % (39.0-52.0); Hemoglobin 8.6 g/dL (13.0-18.0); Mean Corp Hgb Conc. 34.1 g/dL (33.0-37.0); Mean Corpuscular Volume 89.0 fL (80.0-94.0); Platelet Count 127 10^3/uL (130-400); Red Cell Dist. Width 15.5 % (11.5-14.5)
[2024-11-24 03:41] LABS: APTT 83.4 Sec (23.4-35.0)
[2024-11-24 04:22] LABS: ALT (SGPT) 70 U/L (0-50); AST (SGOT) 42 U/L (17-59); Albumin 2.3 g/dl (3.5-5.0); Alkaline Phosphatase 133 U/L (38-126); Blood Urea Nitrogen 12 mg/dl (9-20); Calcium 8.0 mg/dl (8.4-10.2); Carbon Dioxide 31 mmol/L (22-30); Chloride 103 mmol/L (98-107); Estimated Creatinine Clearance > 125 ml/min; Glucose 170 mg/dl (70-99); Magnesium 1.5 mg/dl (1.6-2.3); Potassium 3.7 mmol/L (3.5-5.1); Sodium 135 mmol/L (135-145); Total Protein 4.5 g/dl (6.3-8.2); Triglycerides 191 mg/dl (10-149); eGFR > 60.00
--- NOTE | 2024-11-24 04:27 | PTCARENOTE ---
no changes from prior assessment, call reese in reach
[2024-11-24 04:43] LABS: Glucose - Point of Care 172 mg/dl (70-99)
[2024-11-24] MEDS: MAGNESIUM SULFATE 50 IV (04:58)
[2024-11-24 06:37] LABS: Glucose - Point of Care 180 mg/dl (70-99)
--- NOTE | 2024-11-24 07:20 | W.PN.INTV ---
Today's Communication / Plan
Recommendations
Pain better, using less PHOTOGRAPHIC ARTIST--eventually can transition to PO when access is approved
Remains on insulin gtt due to TPN
PT/OT, OOB today
Abx continued
Assessment
-
Patient is a 44-year-old male with history of hypereosinophilic syndrome along with hypercoagulable state chronically on steroids, Eliquis, Jakafi and Pegasys who was receiving GI prep for a scheduled EGD and colonoscopy as outpatient and his
Eliquis had been on hold. He presented to [place] with abdominal discomfort and bloody diarrhea. CT scan was suggestive of enteritis and initially patient was admitted to the hospital on IV fluids, antibiotics for concern for enteritis.
Patient was evaluated by GI and surgery service and on 11/14 was taken to the OR and had a segment of small bowel resected for mesenteric ischemia. Patient had another trip to OR on 11/17 for reanastomosis without needing additional resection. On
11/19 patient had worsening clinical status and repeat imaging was suggestive again of acute mesenteric ischemia requiring emergent laparotomy additional small bowel resection and postprocedure patient was brought to ICU intubated, mechanically
ventilated. Recycling Assistant consult was requested for further input.
Acute venoocclusive mesenteric ischemia s/p Exploratory laparotomy/Small bowel resection 11/14/24
Diagnostic laparoscopy converted to an exploratory laparotomy/ Small bowel anastomosis 11/16/24
Status post emergent laparotomy, small bowel resection 11/19/24
S/p Planned diagnostic laparoscopy converted to exploratory laparotomy/Small bowel anastomosis 11/21/24
Shock, suspect septic in the setting of severe enteritis
Acute respiratory failure, in the setting of emergent laparotomy, extubated 11/21
Acute blood loss anemia
Leukopenia
Hyperglycemia
Hypocalcemia
Transaminitis
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
DM, with hyperglycemia/neuropathy
Current smoker
depression
portal vein thrombosis on eliquis as OP
class I obesity
Plan
Pain control, doing well with dilaudid PHOTOGRAPHIC ARTIST
Breakthrough pain PRN
Rass goal 0
Not on pressors > 48 hours
Heparin infusion continued, eventual bridge back to eliquis when no further OR planned
IV lopressor PRN for SBP >160
Remains on tele monitor
ABG 7.40 4/36/160, vent settings 550/16/30%/5.
Previously intubated, mechanically ventilated and sedated for procedures
Extubated in PACU 11/21
Prior chest imaging reviewed
Repeat imaging as needed
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
Patient is status post s/p Exploratory laparotomy/Small bowel resection 11/14/24
Diagnostic laparoscopy converted to an exploratory laparotomy/ Small bowel anastomosis 11/16/24
Status post emergent laparotomy, small bowel resection 11/19/24
S/p Planned diagnostic laparoscopy converted to exploratory laparotomy/Small bowel anastomosis 11/21/24
General Surgery on case, following
Follow H&H
NPO status, diet advancement per team
TPN now and on insulin gtt
Continue IV Zosyn, 11/13-11/21
Can likely stop following full course 10-14 days
Considering patient is chronically steroid-dependent, will continue HC IV at equal dose
Can change to PO when able
H/o portal vein thrombosis, chronically on Eliquis, which was temporarily on hold for scheduled EGD and colonoscopy prior to this hospitalization
Has chronically been on steroid, Pegasys and Jakafi for hypereosinophilic syndrome and follows up at [facility].
Hematology oncology service on case
Follow H&H for further transfusion as indicated
DM, with hyperglycemia
TPN and steroids exacerbating hyperglycemia
Insulin infusion
Can transition back to SQ when PO access approved
DVT prophylaxis, currently on IV heparin
GI prophylaxis, IV Protonix
PT/OT
Data:
CXR 10/2024: Endotracheal tube with tip 3.6 cm above the clair. Mild elevation right hemidiaphragm. Linear atelectasis in the right lower lung.
CT Abd/Pel 10/2024: There is persistent thrombus within the SMV and extending into the tributaries of the SMV inferiorly. There is a small amount of nonocclusive thrombus in the anterior aspect of the main portal vein. There is an approximately 20
cm long segment of significant bowel wall thickening and adjacent edema, in the region of the proximal to mid ileum, which appears to be new from previous CT of November 13, 2024. Findings would suggest venoocclusive mesenteric ischemia. There is also
to a lesser degree wall thickening and adjacent mesenteric edema involving the distal ileum, although less severe than the proximal to mid ileal involvement. Small to moderate amount of free fluid as described. No evidence of free intraperitoneal
air.
ECHO 06/21/22- 1. Normal left ventricular size, wall thickness and systolic function without regional wall motion abnormalities. Estimated LV ejection fraction is 60 to 65% by visual estimation and by Luciano's method. Global longitudinal strain is
normal at -18.4%
2. Normal right ventricular size and function.
3. No significant valvular abnormalities.
4. No pericardial effusion.
5. No prior echocardiogram available for comparison.
-----
Critical Care time 31 mins -- The patient is admitted for acute critical illness for the treatment of vital organ failure and/or prevention of further life-threatening conditions. Total care includes time spent in review of history, physical exam,
medications, hemodynamic/ventilator parameters, laboratory data, imaging and discussion with house staff, pharmacy, respiratory therapy, chicken picker, and nursing.
Subjective Dataa
Subjective Data
Date of Service:
Date of Service: November 24, 2024
Chief Complaint: Recycling Assistant Follow Up
Subjective:
remains on insulin gtt
pain is better, using special effects artist less
Objective Data
Data Reviewed
Vital Signs / I&O / Oxygen:
Vital Signs
Temp Pulse Resp BP Pulse Ox
99.0 F 87 13 140/57 97
11/23/24 23:09 11/24/24 06:00 11/24/24 06:00 11/24/24 06:00 11/24/24 06:00
Intake and Output
11/23/24 11/24/24 11/25/24
06:59 06:59 06:59
Intake Total 3436 / 3571 4314 / 4449 135 / 135
Output Total 1999 3120 / 3120
Balance 1436 / 1571 1194 / 1329 135 / 135
SaO2 [A/C] 100
SaO2 97
Nasal Cannula flow liters per 99
minute
Physical Exam
General: Comfortable, Pain and Other (NAD, chronically ill appearing)
HEENT: Normocephalic, Anicteric and Moist Mucous Membranes
Cardiovascular: S1-S2 and Regular Rhythm
Respiratory: Clear and Non-Labored Respirations
GI: Soft, Distended, Tender, NG Tube and Other (incisions/drains noted, bleeding at site of drain)
Neurology: Awake, Alert, Oriented and No Motor Deficits
Skin: Warm, Dry and Good Color
Labs/Micro/Reports
Lab Data
11/24/24 03:18
11/24/24 03:18
Laboratory Results
11/23/24 11/23/24 11/23/24
11:41 17:50 19:00
APTT 94.3 H 77.2 H Cancelled
11/24/24
03:18
APTT 83.4 H
--- NOTE | 2024-11-24 07:30 | W.PN.HOSP.TC ---
Today's Communication/Plan
-
Mg, K replete
H&H trending
Aptt trending
Bowen catheter removed
Assessment / Plan
Assessment / Plan
This is a 44-year-old male with past medical history of hypereosinophilic syndrome with skin involvement, diabetes, smoker, neuropathy, depression, portal vein thrombus on Eliquis, obesity presented with abdominal pain, nausea and vomiting, bright
red blood in the stools after taking Dulcolax and MiraLAX for EGD and colonoscopy. Post-op #D3 he started having continuous bloody bowel movements. Patient had another surgery for ischemic bowel. Post-op #D1
# Sepsis with severe enteritis involving long segment of ileum with rectal bleeding post colonoscopy and upper GI series prep
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 s/p resection 18cm necrotic ileum 11/14 and SB left in discontinuity ; plan to repeat procedure today
- Leukocytosis resolved
- Lactated Ringer's 125ml/hr Q8h
- Hydrocortisone 100 mg given in ER-patient is on chronic steroid 21 mg last dose was 11/11/2024 has slowly been tapering from 30 mg down by 1 mg has been at 21 mg for the past few weeks
- 11/12/2024 Continue IV Zosyn #D12/14
- IV Tylenol
- IV Dilaudid as needed pain, Zofran nausea
- Blood cultures NGTD 11/13/2024
-Surgery- CTA scan of abdomen/pelvis was not recommended.
-11/20 Post op D#3 - ischemic bowel--laparatomy, small bowel resection--tentanively for 2nd look in 48hr+ileostomy. Pt vented until then
-Oncology-PRBC for HgB < 7.5 as active GI bleeding.
-11/21 Post op D#2 -Exploratory laparotomy, small bowel anastomosis- Operation performed without stopping IV heparin- extubated
-Continue Heparin ggt
-11/21 Post op Pulsatile bleeding at lateral skin edge. Suture Hemostasis- achieved by surgeon at bedside
-Bowen removed
-His baseline Steroid 21mg PO Prednisone = 84mg Hydrocortisone= keep it Hydrocortisone 25mg Q8h
-NPO with NGT to LIWS
-Eyeletter: Pain control with LIVING SPECIALIST, added ATC ofirmev
-PT/OT
#Acute blood loss anemia
-2 previously+ 2U PRBC started
-H&H trending
- APTT trending Q6h (goal 73-111)- Heparin restarted.
#Depressed, anxious
-Consulted Psychiatry
#History of Hypereosinophilic syndrome with typical skin rash follows at [facility] on chronic steroids
on chronic steroid 21 mg last dose was 11/11/2024 has slowly been tapering from 30 mg down by 1 mg has been at 21 mg for the past few weeks
-discontinued Jakafi 20 mg BID
-Patient receives Pegasys infusion once a week- held by
-Continue IV pantoprozole 40mg BID
-Holding Acyclovir
-3rd post op #D2 will increase Hydrocortisone from 25mg IV Q12h to 25mg IV Q6h. Once stable goal is to taper stress dose hydrocortisone to his baseline 21mg
#Hyponatremia
-resolved
#Electrolyte abnormalities
- Phosphorus 2.4- discussed with pharmacist maxed out his TPN for Phosporus, given curve is at 29/30-- monitor BMP, Phos, Mg, K
- Replete K(goal>4)
-Replete Mg (goal>2)
#History of portal vein thrombosis years ago
-Has not taken Eliquis 5 mg twice daily in 6 days due to upper GI and colonoscopy plan; on hep gtt APTT - on hold because of ongoing bleeding started 11/18/24 D#2
-Heparin ggt- Aptt trending
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
A1c is 7.9
- Patient is using Ozempic 1 mg once a week last dose was 11/08/2024
- Hyperglycemia- TPN dose changed 11/17/2024 (from44 dose 66)-- Insulin drip per protocol
-11/22 Insulin Glargine 30U-hold
#Chronic neuropathy
Patient takes gabapentin 300 mg at bedtime as needed
#Depression
Zoloft 50 mg at bedtime, npo and on hold for now
#Class I obesity�BMI 33
Patient currently on Ozempic
DVT prophylaxis- heparin
Full code
Anticipated Discharge: > 48 hours
Subjective/Interval History
-
Date of Service: November 24, 2024
Sitting on the chair, states legs feeling a little bit weak. His back is itchy. He passed gas 6 times. He still has a little bit of abdominal pain.
Objective Data
-
Labs:
Laboratory Results
11/23/24 11/24/24
21:29 03:18
WBC 5.1
Hgb 9.4 L D 8.6 L
Hct 27.8 L 25.2 L
Plt Count 127 L
APTT 83.4 H
Sodium 135
Potassium 3.7
Chloride 103
Carbon Dioxide 31 H
BUN 12
Creatinine 0.4 L
Glucose 170 H
Calcium 8.0 L
Total Bilirubin 0.6
AST 42
ALT 70 H
Alkaline Phosphatase 133 H
Vital Signs:
Vital Signs
Temp Pulse Resp BP Pulse Ox
99.0 F 87 13 140/57 97
11/23/24 23:09 11/24/24 06:00 11/24/24 06:00 11/24/24 06:00 11/24/24 06:00
I&O
11/23/24 11/24/24 11/25/24
06:59 06:59 06:59
Intake Total 3436 / 3571 4314 / 4449 135 / 135
Output Total 1999 3120 / 3120
Balance 1436 / 1571 1194 / 1329 135 / 135
Review of Systems
-
History Source: Patient
Constitutional: Reports No Symptoms
EENT: Reports No Symptoms Reported
Respiratory: Reports No Symptoms
Cardiac: Reports No Symptoms
Abdomen/GI: Reports No Symptoms and Abdominal Pain
Breast: Reports No Symptoms
Genitourinary: Reports No Symptoms
Musculoskeletal: Reports Muscle Weakness
Skin: Reports Itching and Rash (little red new rash like HES )
Neuro: Reports No Symptoms
Endocrine: Reports No Symptoms
Hematologic / Lymphatic: Reports No Symptoms
Allergy / Immunology: Reports No Symptoms
Physical Exam
-
General: Well Developed
HEENT: Normocephalic and Atraumatic
Respiratory: Clear to Auscultation
Cardiac: Regular Rhythm and S1/S2
Breast: Deferred by me
Rectal: Deferred by Provider
Genito-urinary: Bowen
Musculoskeletal: No Cyanosis and No Edema
Skin: Warm
Neuro: AO x 3
Psych: Calm
[2024-11-24] MEDS: PROTONIX IV 40 MG IV ×2 (07:48→19:39)
[2024-11-24] MEDS: ZOVIRAX INJECTION 108 MG IV ×2 (07:48→19:39)
[2024-11-24] MEDS: NSS (PRESERVATIVE FREE) 10 ML IV ×2 (07:48→19:39)
--- NOTE | 2024-11-24 08:00 | PTCARENOTE ---
Received pt @ change of shift. Pt. AAOx3, pain controlled w utilization of MINGLER OPERATOR pump- see flow sheet. SR on monitor. Trace LE/hand edema. +PP. SpO2 98% on RA. Auscultated dim breath sounds throughout. P cough w thick yellow/white sputum.
Educated on coughing/deep breathing exercises and IS; demonstrated understanding. +BS, abd round/obese/distended/tender to palp; pt reports passing gas; no BM. L nare NGT secured @ 60cm to LIS w small-mod amt of green output; flushed prn per
orders; NPO status maintained. Bowen in place draining clear yellow urine. Midline abd incision c/d/i. R abd REE drain w ser/sang output. R DL PICC w TPN, heparin, pantry chef, and IVF- see MAR/flow sheet. L FA and L AC patent; dressings replaced. Pt.'s
@ bedside. Pt. instructed on how to report care concerns and call mary ann w in reach.
[2024-11-24 08:45] LABS: Glucose - Point of Care 138 mg/dl (70-99)
--- NOTE | 2024-11-24 10:27 | W.PN.GS2 ---
Today's Communication / Plan
-
DC Vogel
TPN reordered.
Stop antibiotics
Continue heparin drip
Monitor H&H
Assessment / Plan
-
44 yo male with history of hypereosinophilic syndrome with known clotting disorder and chronic portal vein thrombus on Eliquis with AC held in anticipation of a colonoscopy this week who developed nausea, vomiting and intense abdominal pain followed
by rectal bleeding during his prep. CT with findings concerning for mesenteric ischemia, portal vein thrombus and SMV thrombus noted and taken to the OR
POD #10 ex lap with SBR (18cm necrotic bowel), left in discontinuity given ?viability of proximal bowel
POD #11 RTOR for small bowel anastomosis, no further resection needed
POD #5 RTOR for new small bowel ischemia, small bowel resection, discontinuity
POD #3 RTOR for SB anastomosis, abdominal closure
Tachycardia resolved, BP stable. Afebrile
H/H drifting down
Pain well controlled on LINE UP EXAMINER
Plan:
-- NPO with NGT to LIWS. Okay to clamp trial. Flush as needed
-- Pain control with LINE UP EXAMINER, Continue ATC ofirmev to minimize narcotic usage
-- Continue TPN
-- Insulin SS while on TPN
-- Can stop antibiotics
-- Transfuse 2 units pRBCs today
-- Continue heparin gtt
-- On chronic steroids, IV dosing as per primary team
-- OOB as tolerated
-- DC Vogel
Time Spent
Total Time Spent with Patient (in minutes): 20
Subjective Data
-
Date of Service: November 24, 2024
Interval Events:
No acute events overnight. Slept well. Pain Controlled. Denies Nausea/Vomiting, +bowel function. Tolerating diet.
Objective Data
-
Intake and Output
11/23/24 11/24/24 11/25/24
06:59 06:59 06:59
Intake Total 3436 / 3571 4314 / 4449 540 / 540
Output Total 1999 / 1999 3120 / 3200 870 / 870
Balance 1436 / 1571 1194 / 1249 -330 / -330
Intake:
IV fluids (Total) 1483 / 1542 1590 / 1649 236 / 236
D5/0.45%NaCl 1,000 ml @ 40 mls/ 960 / 1000 960 / 1000 160 / 160
hr IV .Q24H PRN Rx#:[id number]
Heparin 523 / 542 630 / 649 76 / 76
IV piggybacks 205 / 205 400 / 400
TPN/PPN 1748 / 1824 1824 / 1900 304 / 304
Blood Product Amount Infused ( 500 / 500
mL)
Packed Rbc Leukoreduced Unit 250 / 250
[id number]
Packed Rbc Leukoreduced Unit 250 / 250
[id number]
Output:
Drain Output (Total) 625 / 625 470 / 550 120 / 120
Right Abdomen Thiago-Daniel 625 / 625 470 / 550 120 / 120
Urine, Vogel 1375 / 1375 2650 / 2650 750 / 750
Vital Signs
Temp Pulse Resp BP Pulse Ox
97.8 F 110 12 136/82 98
11/24/24 08:00 11/24/24 09:00 11/24/24 09:00 11/24/24 09:00 11/24/24 09:59
Lab Results
11/24/24 03:18
11/24/24 03:18
Calcium 8.0 mg/dl (8.4-10.2) L 11/24/24 03:18
Phosphorus 2.9 mg/dl (2.5-4.5) 11/24/24 03:18
Magnesium 1.5 mg/dl (1.6-2.3) L 11/24/24 03:18
Total Bilirubin 0.6 mg/dl (0.2-1.3) 11/24/24 03:18
Direct Bilirubin 0.3 mg/dl (0.0-0.4) 11/20/24 03:54
AST 42 U/L (17-59) 11/24/24 03:18
ALT 70 U/L (0-50) H 11/24/24 03:18
Alkaline Phosphatase 133 U/L (38-126) H 11/24/24 03:18
Total Protein 4.5 g/dl (6.3-8.2) L 11/24/24 03:18
Albumin 2.3 g/dl (3.5-5.0) L 11/24/24 03:18
Physical Exam
-
GENERAL/NEURO: Awake, Alert, no distress
CHEST: Unlabored breathing on RA
ABDOMEN: Soft, obese, distended, appropriately tender to palpation. REE with serosanguineous output. NG tube in place with light bilious output.
Legs slightly mottled bilaterally.
Patient has a vogel catheter: Yes
Patient has a central line: No
[2024-11-24] MEDS: HEPARIN 25000 UNITS/250 ML IV ×2 (10:29→23:19)
[2024-11-24] MEDS: DILAUDID PCA 30 IV (10:31)
[2024-11-24 10:40] LABS: Glucose - Point of Care 180 mg/dl (70-99)
--- NOTE | 2024-11-24 12:00 | PTCARENOTE ---
pt. assisted x2 OOB to chair @ approx 0830. Received further orders for clamping trial for NGT per surg; clamped prior to ambulation; denies n/v. PT/OT to bedside, pt. ambulated around unit w therapy/RN. Assisted back to chair and tolerating
position. Remains on TPN/IVF/heparin/INSURANCE ACCOUNT MANAGER/insulin gtts- see flow sheets. to bedside, updated. Call reese remains w in reach.
[2024-11-24 12:37] LABS: Glucose - Point of Care 240 mg/dl (70-99)
[2024-11-24 13:44] LABS: Glucose - Point of Care 207 mg/dl (70-99)
[2024-11-24 14:45] LABS: Glucose - Point of Care 182 mg/dl (70-99)
[2024-11-24] MEDS: VALIUM INJECTION 5 MG IV ×2 (15:17→21:08)
--- NOTE | 2024-11-24 15:38 | W.PN.UPDATE ---
Addendum entered and electronically signed by Radha Hunter DO 11/24/24 15:46:
Patient seen by me on 11/24/2024 from 2:45pm-3pm
Original Note:
Update Note
Progress Note Update
Psychiatry follow up for depression/anxiety. Chart reviewed. Patient states he has had a good day with medical progress that has resulted in mood improvement. PRN Valium start yesterday did helped relax his nerves.
MSE-good eye contact. fluent spontaneous speech. logical and goal directed. less anxious. brighter affect. denies SI/HI/AVH. no delusions. I/J intact. fully oriented.
A/P- 44 yo male with unspecified depression and anxiety, recently exacerbated given significant health stressors and hold of zoloft due to NPO status, doing better today. Continue PRN anxiety valium while in the hospital. Resume PO zoloft 50mg daily
once able. Psychiatry will sign off. Please contact team with further questions if needed.
[2024-11-24 15:42] LABS: Glucose - Point of Care 111 mg/dl (70-99)
[2024-11-24] MEDS: D5/0.45%NACL 1000 IV (16:36)
[2024-11-24 16:39] LABS: Glucose - Point of Care 108 mg/dl (70-99)
[2024-11-24 16:42] LABS: Hematocrit 26.4 % (39.0-52.0); Hemoglobin 8.9 g/dL (13.0-18.0)
[2024-11-24 17:53] LABS: Glucose - Point of Care 130 mg/dl (70-99)
--- NOTE | 2024-11-24 18:23 | PTCARENOTE ---
Bowen removed @ 1100; pt. voiding adequate amts of yellow urine in urinal throughout day. Assisted back to bed x few hrs and now back out to chair; tolerating activity. NGT clamped from [id number]; reconnected to suction and s/p 1 H approx 25mL of
green output; pt. denied n/v. Dr. Rubin made aware and further orders received to d/c NGT. NGT d/c'd @ 1730, tolerated; cont to deny n/v. remains @ bedside, updated. Ongoing emotional support. Call mary ann yan in reach.
[2024-11-24 18:59] LABS: Glucose - Point of Care 175 mg/dl (70-99)
[2024-11-24] MEDS: Parenteral Nutrition, Central 1830 IV (19:47)
[2024-11-24 20:16] LABS: Glucose - Point of Care 211 mg/dl (70-99)
[2024-11-24 21:06] LABS: Glucose - Point of Care 196 mg/dl (70-99)
--- NOTE | 2024-11-24 21:22 | PTCARENOTE ---
on assessment pt AAOX3, at bedside, VAUGHN, OOB to chair, SR on the monitor, RA 98%, L nare NGT and vogel removed today, R Sherif and midline incision C/D/I, RUE PICC, pt on TPN, hep, insulin and Dilaudid, PRN meds given see MAR, no complaints at this
time call reese in reach
[2024-11-24 22:13] LABS: Glucose - Point of Care 168 mg/dl (70-99)
--- NOTE | 2024-11-24 22:14 | PTCARENOTE ---
pt had a dark loose BM on the commode, FISH BAIT PICKER made aware, at bedside, call reese in reach
[2024-11-24] MEDS: DILAUDID 1 MG IV (23:20)
[2024-11-24 23:57] LABS: Glucose - Point of Care 125 mg/dl (70-99)
[2024-11-25] VITALS (22 sets, daily range): BP systolic 122–161; BP diastolic 62–99; BMI 33.1
[2024-11-25] MEDS: OFIRMEV 100 IV ×4 (01:49→23:20)
[2024-11-25 02:06] LABS: Glucose - Point of Care 132 mg/dl (70-99)
[2024-11-25 02:25] LABS: APTT 67.7 Sec (23.4-35.0)
[2024-11-25 02:31] LABS: Hematocrit 26.0 % (39.0-52.0); Hemoglobin 8.8 g/dL (13.0-18.0); Mean Corp Hgb Conc. 33.8 g/dL (33.0-37.0); Mean Corpuscular Volume 85.8 fL (80.0-94.0); Platelet Count 158 10^3/uL (130-400); Red Cell Dist. Width 15.9 % (11.5-14.5)
[2024-11-25 02:33] LABS: ALT (SGPT) 83 U/L (0-50); AST (SGOT) 61 U/L (17-59); Albumin 2.5 g/dl (3.5-5.0); Alkaline Phosphatase 217 U/L (38-126); Blood Urea Nitrogen 13 mg/dl (9-20); Calcium 8.2 mg/dl (8.4-10.2); Carbon Dioxide 30 mmol/L (22-30); Chloride 105 mmol/L (98-107); Estimated Creatinine Clearance > 125 ml/min; Glucose 134 mg/dl (70-99); Magnesium 1.8 mg/dl (1.6-2.3); Potassium 3.4 mmol/L (3.5-5.1); Sodium 136 mmol/L (135-145); Total Protein 5.1 g/dl (6.3-8.2); eGFR > 60.00
[2024-11-25] MEDS: HEPARIN 4600 UNITS IV (02:39)
[2024-11-25 04:14] LABS: Glucose - Point of Care 159 mg/dl (70-99)
[2024-11-25 06:08] LABS: Glucose - Point of Care 158 mg/dl (70-99)
--- NOTE | 2024-11-25 06:18 | PTCARENOTE ---
pt c/o gas discomfort, HORSE RIDER made aware, no other changes at this time, call reese in reach
[2024-11-25] MEDS: KCL 270 MEQ IV ×2 (06:31→13:36)
--- NOTE | 2024-11-25 07:21 | W.PN.HOSP.TC ---
Today's Communication/Plan
-
Start clears- slowly
Pain control with SENIOR ASIC DESIGN ENGINEER- dose increased
Continue insulin SS while on TPN
Continue Heparin
Replete Mg, K
Assessment / Plan
Assessment / Plan
This is a 44-year-old male with past medical history of hypereosinophilic syndrome with skin involvement, diabetes, smoker, neuropathy, depression, portal vein thrombus on Eliquis, obesity presented with abdominal pain, nausea and vomiting, bright
red blood in the stools after taking Dulcolax and MiraLAX for EGD and colonoscopy. Post-op #D3 he started having continuous bloody bowel movements. Patient had another surgery for ischemic bowel. Post-op #D1
# Sepsis with severe enteritis involving long segment of ileum with rectal bleeding post colonoscopy and upper GI series prep
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 s/p resection 18cm necrotic ileum 11/14 and SB left in discontinuity ; plan to repeat procedure today
- Leukocytosis resolved
- Lactated Ringer's 125ml/hr Q8h
- Hydrocortisone 100 mg given in ER-patient is on chronic steroid 21 mg last dose was 11/11/2024 has slowly been tapering from 30 mg down by 1 mg has been at 21 mg for the past few weeks
- IV Dilaudid as needed pain, Zofran nausea
- Blood cultures NGTD 11/13/2024
-11/20 Post op D#3 - ischemic bowel--laparatomy, small bowel resection--tentanively for 2nd look in 48hr+ileostomy. Pt vented until then
-Oncology-PRBC for HgB < 7.5 as active GI bleeding.
-11/21 Post op D#2 -Exploratory laparotomy, small bowel anastomosis- Operation performed without stopping IV heparin- extubated
-11/21 Post op Pulsatile bleeding at lateral skin edge. Suture Hemostasis- achieved by surgeon at bedside
-His baseline Steroid 21mg PO Prednisone = 84mg Hydrocortisone= keep it Hydrocortisone 25mg Q8h
-PT/OT
-Clear liquids , slowly
-Pain control with SENIOR ASIC DESIGN ENGINEER, demand dose increased; Continue ATC ofirmev to minimize narcotic usage
#Acute blood loss anemia
-2 previously+ 2U PRBC
-H&H trending
-APTT trending Q6h (goal 73-111)- Heparin restarted.
#Depressed, anxious
-Consulted Psychiatry
-Resume PO Zoloft once medically stable
-Continue 5mg Valium PRN
#History of Hypereosinophilic syndrome with typical skin rash follows at [facility] on chronic steroids
on chronic steroid 21 mg last dose was 11/11/2024 has slowly been tapering from 30 mg down by 1 mg has been at 21 mg for the past few weeks
-discontinued Jakafi 20 mg BID
-Patient receives Pegasys infusion once a week- held by
-Continue IV pantoprozole 40mg BID
-Holding Acyclovir
-3rd post op #D2 will increase Hydrocortisone from 25mg IV Q12h to 25mg IV Q6h. Once stable goal is to taper stress dose hydrocortisone to his baseline 21mg
#Hyponatremia
-resolved
#Electrolyte abnormalities
- Phosphorus 2.4- discussed with pharmacist maxed out his TPN for Phosporus, given curve is at -- monitor BMP, Phos, Mg, K
- Replete K(goal>4)
-Replete Mg (goal>2)
#History of portal vein thrombosis years ago
-Has not taken Eliquis 5 mg twice daily in 6 days due to upper GI and colonoscopy plan; on hep gtt APTT - on hold because of ongoing bleeding started 11/18/24 D#2
-Heparin ggt- Aptt trending
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
A1c is 7.9
- Patient is using Ozempic 1 mg once a week last dose was 11/08/2024
- Hyperglycemia- TPN dose changed 11/17/2024 (from44 dose 66)- Insulin drip per protocol
-11/22 Insulin Glargine 30U-hold
--Insulin SS while on TPN
#Chronic neuropathy
Patient takes gabapentin 300 mg at bedtime as needed
#Depression
Zoloft 50 mg at bedtime, npo and on hold for now
#Class I obesity�BMI 33
Patient currently on Ozempic
DVT prophylaxis- heparin
Full code
Anticipated Discharge: > 48 hours
Subjective/Interval History
-
Date of Service: November 25, 2024
Overnight he had 4 bm, dark brown. Denies bright red color on his stool. He has been burping a lot. He was able to sleep good last night. He started moving with PT on the hallway.
Objective Data
-
Labs:
Laboratory Results
11/25/24 11/25/24
02:03 08:30
WBC 6.2
Hgb 8.8 L
Hct 26.0 L
Plt Count 158 D
APTT 67.7 H Pending
Sodium 136
Potassium 3.4 L
Chloride 105
Carbon Dioxide 30
BUN 13
Creatinine 0.4 L
Glucose 134 H
Calcium 8.2 L
Total Bilirubin 0.6
AST 61 H
ALT 83 H
Alkaline Phosphatase 217 H
Vital Signs:
Vital Signs
Temp Pulse Resp BP Pulse Ox
98.4 F 85 17 140/88 98
11/25/24 06:13 11/25/24 06:00 11/25/24 06:00 11/25/24 06:00 11/25/24 06:17
I&O
11/24/24 11/25/24 11/26/24
06:59 06:59 06:59
Intake Total 4314 / 4449 3520 / 3520
Output Total 3120 / 3200 2770 / 2770
Balance 1194 / 1249 750 / 750
Review of Systems
-
History Source: Patient
Constitutional: Reports No Symptoms
EENT: Reports No Symptoms Reported
Respiratory: Reports No Symptoms
Cardiac: Reports No Symptoms
Abdomen/GI: Reports No Symptoms and Abdominal Pain
Breast: Reports No Symptoms
Genitourinary: Reports No Symptoms
Musculoskeletal: Reports No Symptoms
Skin: Reports No Symptoms
Neuro: Reports No Symptoms
Endocrine: Reports No Symptoms
Hematologic / Lymphatic: Reports No Symptoms
Allergy / Immunology: Reports No Symptoms
Physical Exam
-
General: Well Developed
HEENT: Normocephalic and Atraumatic
Respiratory: Clear to Auscultation
Cardiac: Regular Rhythm and S1/S2
Breast: Deferred by me
Rectal: Deferred by Provider
Musculoskeletal: No Cyanosis and No Edema
Skin: Warm
Neuro: AO x 3
Psych: Calm
--- NOTE | 2024-11-25 07:30 | PTCARENOTE ---
Pt rec'd from previous RN, franklin, at bedside, Pt awakens easily AOX3, VAUGHN, OOB to BSC PRN multiple loose dark brown BMs, voiding in urinal PRN. SR/ST on the monitor, RA 98%, R Sherif and midline incision C/D/I, RUE PICC, w/TPN, heparin, insulin
and Dilaudid, pt belching frequently and complaining of some reflux. Pt is anxious and worried, emotional support and reassurance ongoing. Plan discussed with Arabella Michel, and Vikram as well as Diabetic Education team. Safe environment
continues.
--- NOTE | 2024-11-25 07:32 | W.PN.INTV ---
Today's Communication / Plan
Recommendations
TPN and enteral nutrition per surgery
Insulin drip
Increase activity
If able to come off insulin drip then transfer out of ICU-call pulmonary if respiratory issues arise
Assessment
-
Patient is a 44-year-old male with history of hypereosinophilic syndrome along with hypercoagulable state chronically on steroids, Eliquis, Jakafi and Pegasys who was receiving GI prep for a scheduled EGD and colonoscopy as outpatient and his
Eliquis had been on hold. He presented to [facility] with abdominal discomfort and bloody diarrhea. CT scan was suggestive of enteritis and initially patient was admitted to the hospital on IV fluids, antibiotics for concern for enteritis.
Patient was evaluated by GI and surgery service and on 11/14 was taken to the OR and had a segment of small bowel resected for mesenteric ischemia. Patient had another trip to OR on 11/17 for reanastomosis without needing additional resection. On
11/19 patient had worsening clinical status and repeat imaging was suggestive again of acute mesenteric ischemia requiring emergent laparotomy additional small bowel resection and postprocedure patient was brought to ICU intubated, mechanically
ventilated. Stove Bottom Worker consult was requested for further input.
Acute venoocclusive mesenteric ischemia s/p Exploratory laparotomy/Small bowel resection 11/14/24
Diagnostic laparoscopy converted to an exploratory laparotomy/ Small bowel anastomosis 11/16/24
Status post emergent laparotomy, small bowel resection 11/19/24
S/p Planned diagnostic laparoscopy converted to exploratory laparotomy/Small bowel anastomosis 11/21/24
Shock, suspect septic in the setting of severe enteritis
Acute respiratory failure, in the setting of emergent laparotomy, extubated 11/21
Acute blood loss anemia
Leukopenia
Hyperglycemia
Hypocalcemia
Transaminitis
Conditions present RN PALLIATIVE CARE:
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
DM, with hyperglycemia/neuropathy
Current smoker
depression
portal vein thrombosis on eliquis as OP
class I obesity
Plan
Respiratory status stable
Continue supplemental oxygen as needed-attempt to wean
Incentive spirometry
Nebulizers if needed-currently not bronchospastic
Pain control, doing well with dilaudid STEAMING CABINET TENDER
Breakthrough pain PRN
Rass goal 0
Pressors weaned
Surgery following-correspondence reviewed
Heparin drip-eventual bridged back to Eliquis if no further surgery planned
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
Patient is status post s/p Exploratory laparotomy/Small bowel resection 11/14/24
Diagnostic laparoscopy converted to an exploratory laparotomy/ Small bowel anastomosis 11/16/24
Status post emergent laparotomy, small bowel resection 11/19/24
S/p Planned diagnostic laparoscopy converted to exploratory laparotomy/Small bowel anastomosis 11/21/24
Follow hemoglobin
Transfuse as needed
Nutrition-TPN
Enteral nutrition per surgery
Status post IV Zosyn
Observe off antibiotics
H/o portal vein thrombosis, chronically on Eliquis, which was temporarily on hold for scheduled EGD and colonoscopy prior to this hospitalization
Has chronically been on steroid, Pegasys and Jakafi for hypereosinophilic syndrome and follows up at [facility].
Hematology oncology service on case
Monitor blood sugar
TPN and steroids exacerbating hyperglycemia
Insulin infusion continues-continue critical care glycemic protocol while on TPN
Diabetic nurse practitioner following-correspondence reviewed
DVT prophylaxis, currently on IV heparin
GI prophylaxis, IV Protonix
PT/OT
If patient able to be weaned off insulin drip the patient could be transferred out of ICU-call pulmonary if respiratory issues arise
Critical care statement: A total of 50 minutes of critical care time was provided for this patient today. This includes management of unstable vital signs, evaluation of the patient at bedside, reviewing the patient�s pertinent medical records
including radiographs, insulin drip management microbiology, laboratory evaluations, and��discussion with primary team, consultants, pharmacy, nutrition, physical therapy, case management, charge nurse, critical care nursing, and respiratory therapy.
Data:
CXR 10/2024: Endotracheal tube with tip 3.6 cm above the clair. Mild elevation right hemidiaphragm. Linear atelectasis in the right lower lung.
CT Abd/Pel 10/2024: There is persistent thrombus within the SMV and extending into the tributaries of the SMV inferiorly. There is a small amount of nonocclusive thrombus in the anterior aspect of the main portal vein. There is an approximately 20
cm long segment of significant bowel wall thickening and adjacent edema, in the region of the proximal to mid ileum, which appears to be new from previous CT of November 13, 2024. Findings would suggest venoocclusive mesenteric ischemia. There is also
to a lesser degree wall thickening and adjacent mesenteric edema involving the distal ileum, although less severe than the proximal to mid ileal involvement. Small to moderate amount of free fluid as described. No evidence of free intraperitoneal
air.
ECHO 06/21/22- 1. Normal left ventricular size, wall thickness and systolic function without regional wall motion abnormalities. Estimated LV ejection fraction is 60 to 65% by visual estimation and by Luciano's method. Global longitudinal strain is
normal at -18.4%
2. Normal right ventricular size and function.
3. No significant valvular abnormalities.
4. No pericardial effusion.
5. No prior echocardiogram available for comparison.
Subjective Dataa
Subjective Data
Date of Service:
Date of Service: November 25, 2024
Chief Complaint: Stove Bottom Worker Follow Up and Pulmonary Follow Up
Subjective:
Feels better, out of bed yesterday, no complaints of worsening shortness of breath, chest pain or abdominal pain
Review of Systems
General: Other (Per HPI)
Objective Data
Data Reviewed
Vital Signs / I&O / Oxygen:
Vital Signs
Temp Pulse Resp BP Pulse Ox
98.4 F 85 17 140/88 98
11/25/24 06:13 11/25/24 06:00 11/25/24 06:00 11/25/24 06:00 11/25/24 06:17
Intake and Output
11/24/24 11/25/24 11/26/24
06:59 06:59 06:59
Intake Total 4314 / 4449 3520 / 3520
Output Total 3120 / 3200 2770 / 2770
Balance 1194 / 1249 750 / 750
SaO2 [A/C] 100
SaO2 98
Nasal Cannula flow liters per 99
minute
Physical Exam
General: Respiratory Distress (n), Comfortable, Pain and Other (NAD, chronically ill appearing)
HEENT: Normocephalic, Anicteric and Moist Mucous Membranes
Cardiovascular: S1-S2 and Regular Rhythm
Respiratory: Wheeze (n), Crackles (n), Rhonchi (n), Non-Labored Respirations, Accessory Resp Muscle Use (n) and Stridor (n)
GI: Soft, Distended, Tender, NG Tube and Other (incisions/drains noted, bleeding at site of drain)
Neurology: Awake, Alert, Oriented and No Motor Deficits
Skin: Warm, Dry and Good Color
Labs/Micro/Reports
Lab Data
11/25/24 02:03
11/25/24 02:03
Laboratory Results
11/25/24
02:03
APTT 67.7 H
--- NOTE | 2024-11-25 07:58 | PN.DE.MGMTRT ---
Insulin Management
- -
11/25/2024: Diabetes Management Follow up
Patient admitted 11/13 with abdominal pain, N & V, weakness, bright red rectal bleeding. Consult for diabetes Management 11/20. PMH Hypereosinophilic syndrome, neuropathy, diabetes, current smoker, obesity, portal vein thrombosis. Prior to
admission no diabetes medications listed, A1C 7.9% on admission, Cr 0.4 eGFR > 60. CT scan--> Type IV mesenteric ischemia, small bowel resection 11/14, small bowel anastomosis 11/16. 11/19 Small bowel resection.
11/21 Exploratory laparotomy, small bowel anastomosis.
Patient is awake, alert, oriented, answering questions and able to discuss diabetes care plan, at bedside very supportive. Prior to admission was taking Ozempic and before that was taking metformin. Discussed with patient insulin would be best
plan for diabetes management. Both receptive to dietitian consult and diabetes education consult for meter.
Pt reports he was taking Ozempic HUMAN PROJECTILE. at bedside, very supportive, was able to collaborate OP meds.
Glycemic protocol restarted 11/22. Glucose range was 168 to 182 requiring 6 to 12 units of insulin per hour. Continues on TPN, remains NPO.
Will continue critical care glycemic protocol while on TPN.
Discussed with nurse. Will cont to follow.
Diabetes History
- -
Type of Diabetes: 2 requiring insulin
Pre-Admission Diabetes Regimen
11/25/24
02:03
Creatinine 0.4 L
Lab Results
Hemoglobin A1c 7.9 % (4.0-5.6) H 11/14/24 07:22
Insulin Pump Settings
IP Diabetes Regimen
11/24/24 11/24/24 11/24/24
08:34 10:28 12:26
Glucose
POC Glucose 138 H 180 H 240 H
11/24/24 11/24/24 11/24/24
13:33 14:34 15:31
Glucose
POC Glucose 207 H 182 H 111 H
11/24/24 11/24/24 11/24/24
16:28 17:42 18:47
Glucose
POC Glucose 108 H 130 H 175 H
11/24/24 11/24/24 11/24/24
20:05 20:54 22:02
Glucose
POC Glucose 211 H 196 H 168 H
11/24/24 11/25/24 11/25/24
23:45 01:55 02:03
Glucose 134 H
POC Glucose 125 H 132 H
11/25/24 11/25/24
04:02 05:56
Glucose
POC Glucose 159 H 158 H
Patient Education
[2024-11-25 08:13] LABS: Glucose - Point of Care 151 mg/dl (70-99)
[2024-11-25] MEDS: NSS (PRESERVATIVE FREE) 10 ML IV ×2 (09:06→19:52)
[2024-11-25] MEDS: ZOVIRAX INJECTION 108 MG IV ×2 (09:06→20:38)
[2024-11-25] MEDS: PROTONIX IV 40 MG IV ×2 (09:06→19:52)
[2024-11-25] MEDS: SOLU-CORTEF 25 MG IV ×3 (09:07→23:20)
[2024-11-25 09:38] LABS: APTT 79.7 Sec (23.4-35.0)
[2024-11-25 10:17] LABS: Glucose - Point of Care 109 mg/dl (70-99)
--- NOTE | 2024-11-25 11:17 | W.PN.GS2 ---
Today's Communication / Plan
-
TPN
Start CLD
MICA PARTS SPRAYER adjusted
Assessment / Plan
-
44 yo male with history of hypereosinophilic syndrome with known clotting disorder and chronic portal vein thrombus on Eliquis with AC held in anticipation of a colonoscopy this week who developed nausea, vomiting and intense abdominal pain followed
by rectal bleeding during his prep. CT with findings concerning for mesenteric ischemia, portal vein thrombus and SMV thrombus noted and taken to the OR
POD #11 ex lap with SBR (18cm necrotic bowel), left in discontinuity given ?viability of proximal bowel
POD #12 RTOR for small bowel anastomosis, no further resection needed
POD #6 RTOR for new small bowel ischemia, small bowel resection, discontinuity
POD #4 RTOR for SB anastomosis, abdominal closure
Tachycardia mild, BP stable. Afebrile
H/H stable
Pain controlled on MICA PARTS SPRAYER, demand dose less effective today
2 uPRBC transfused 11/23
Plan:
-- Start clears, advised to go very slow
-- Pain control with MICA PARTS SPRAYER, demand dose increased; Continue ATC ofirmev to minimize narcotic usage
-- Continue TPN
-- Insulin SS while on TPN
-- Continue heparin gtt
-- On chronic steroids, IV dosing as per primary team
-- OOB as tolerated
-- DC Vogel
Subjective Data
-
Date of Service: November 25, 2024
AFVSS, passing flatus and stool denies n/v without NGT however c/o reflux/belching/indigestion, voiding
Objective Data
-
Intake and Output
11/24/24 11/25/24 11/26/24
06:59 06:59 06:59
Intake Total 4314 / 4449 3520 / 3724 800 / 800
Output Total 3120 / 3200 2770 / 2770 440 / 440
Balance 1194 / 1249 750 / 954 360 / 360
Intake:
IV fluids (Total) 1590 / 1649 1416 / 1544 572 / 572
D5/0.45%NaCl 1,000 ml @ 40 mls/ 960 / 1000 960 / 1000 120 / 120
hr IV .Q24H PRN Rx#:[id number]
Heparin 630 / 649 456 / 477 84 / 84
Kcl 268 / 268
acyclovir 100 / 100
IV piggybacks 400 / 400 250 / 250
TPN/PPN 1824 / 1900 182 / 1900 228 / 228
Amount instilled into GI Tube ( 30 /
Total)
Fajardo Sump /
Blood Product Amount Infused ( 500 / 500
mL)
Packed Rbc Leukoreduced Unit 250 / 250
[id number]
Packed Rbc Leukoreduced Unit 250 / 250
[id number]
Output:
Drain Output (Total) 470 / 550 295 / 295 90 / 90
Right Abdomen Thiago-Daniel 470 / 550 295 / 295 90 / 90
Gastrointestinal tube output ( 225 / 225
Total)
Fajardo Sump 225 / 225
Urine, Vogel 2650 / 2650 1000 / 1000
Urine, Voided 1250 / 1250 350 / 350
Other:
Number of approximated LARGE 2
amounts of urine
Vital Signs
Temp Pulse Resp BP Pulse Ox
97.7 F 107 21 149/87 100
11/25/24 07:54 11/25/24 10:00 11/25/24 10:00 11/25/24 10:00 11/25/24 08:00
Lab Results
11/25/24 02:03
11/25/24 02:03
Calcium 8.2 mg/dl (8.4-10.2) L 11/25/24 02:03
Phosphorus 2.8 mg/dl (2.5-4.5) 11/25/24 02:03
Magnesium 1.8 mg/dl (1.6-2.3) 11/25/24 02:03
Total Bilirubin 0.6 mg/dl (0.2-1.3) 11/25/24 02:03
Direct Bilirubin 0.3 mg/dl (0.0-0.4) 11/20/24 03:54
AST 61 U/L (17-59) H 11/25/24 02:03
ALT 83 U/L (0-50) H 11/25/24 02:03
Alkaline Phosphatase 217 U/L (38-126) H 11/25/24 02:03
Total Protein 5.1 g/dl (6.3-8.2) L 11/25/24 02:03
Albumin 2.5 g/dl (3.5-5.0) L 11/25/24 02:03
Physical Exam
-
Gen: NAD
Abd: softly distended, approp ttp, drain ss, midline dressing OK
Patient has a vogel catheter: No
Patient has a central line: Yes (PICC)
--- NOTE | 2024-11-25 11:27 | PTCARENOTE ---
Per Dr. Sue, demand dose of Dilaudid BROADLOOM WEAVER increased to 0.4 mg. Pharmacist clarified that he does not want the total hourly dose increased. Pump adjusted, pt and aware.
[2024-11-25 11:28] LABS: Glucose - Point of Care 141 mg/dl (70-99)
--- NOTE | 2024-11-25 11:59 | PTCARENOTE ---
11/25/2024 DIABETES EDUCATION CONSULT
I met with patient to review diabetes management. He was diagnosed in April secondary to oral steroid use.
He had severe GI side effects with Metformin and Ozempic, is currently prescribed insulin while inpatient.
I educated on physiology of T2D, organ damage, managing with medications, monitoring BG, nutrition, activity, sleep and managing stress. I reinforced signs of hyperglycemia, hypoglycemia and hypoglycemia protocol; BS parameters and recommended HbA1c
goals, glucometer and CGM instructions, glucose tracker, medic alert bracelet and outpatient DSME program. Written material provided.
I provided patient with a [email or web address] Gen glucometer sample kit. Discussed long and short acting insulin; onset/peak/duration, I educated and demonstrated on insulin injection technique, timing, and storage. He declined demonstration at this time
as he is not feeling well. Discussed visiting tomorrow for self demonstration of insulin injection and self monitoring glucose.
I encouraged patient to follow up with his PCP for post d/c appointment and to monitor medication and blood glucose levels. Provided list of endocrinologists if desired, to contact insurance company to verify in network status. Patient
verbalized understanding.
[2024-11-25] MEDS: LOPRESSOR 2.5 MG IV (12:30)
[2024-11-25 12:34] LABS: Glucose - Point of Care 172 mg/dl (70-99)
--- NOTE | 2024-11-25 12:45 | PTCARENOTE ---
PRN Lopressor given for SBP >160 per orders. Scheduled Ofirmev reordered and administered as per Dr. Sue. Pt ordered clear tray, looking forward to receiving it, pt reports pain level improved from earlier.
[2024-11-25] MEDS: HEPARIN 25000 UNITS/250 ML IV ×2 (13:13→23:19)
[2024-11-25 13:26] LABS: Glucose - Point of Care 185 mg/dl (70-99)
[2024-11-25] MEDS: MAGNESIUM SULFATE 50 IV (13:32)
[2024-11-25 14:34] LABS: Glucose - Point of Care 166 mg/dl (70-99)
--- NOTE | 2024-11-25 14:34 | PTCARENOTE ---
Pt feeling good after eating water ice. Pain level remains tolerable, pt currently rates it 2/10, confirms that he is not using the CIVIL RIGHTS ATTORNEY as frequently.
--- NOTE | 2024-11-25 15:05 | W.PN.ONC ---
Today's Communication / Plan
-
There remains uncertainty about what to make of the 2 abnormal phospholipid antibody studies. I have ordered a lupus anticoagulant which may shed further light. It is disturbing that he clotted within 3 days of having stopped the Eliquis. We will
confer with [facility], but it might be prudent to consider warfarin for the time being once he comes off heparin.
Impression
Impression
44-year-old M a/w sepsis and severe enteritis.
Hx of SMV thrombosis, FVL, GI bleed, hyper eosinophilic syndrome
s/p exploratory laparotomy and small bowel resection 11/14. Repeat exploratory laparotomy on 11/16 with small bowel anastomosis. OR 11/19 for additional bowel resection
Rectal bleed
Hypereosinophilic syndrome with steroid dependence, now managed by Dr.s Donovan and Leisa at [facility]
Chronic portal vein thrombosis (last dose eliquis 11/08)
Hypercoagulable state
DMII
Neuropathy
ABLA -post operative abdominal bleeding 11/21
Plan
Plan
1. Hypercoagulable state - in setting of hypereosinophilic syndrome, FVL w/ h/o portal vein thrombosis
-presented with bowel ischemia w/ SMV thrombosis in setting of holding eliquis since 11/08 for elective colonoscopy.
-s/p exploratory laparoscopy 11/14 with removal of 18 cm of more distal SB, followed by anastomosis 11/16, and additional bowel resection 11/19
- prior thrombophilia testing was notable for elevated AcL IgM 46, B2G IgM 96 however due to other underlying hypercoagulable conditions (HES, FVL) diagnosis of APLAS and need to switch to coumadin felt appropriately un-necessary.
- 11/15/24 APL labs repeated -- B2GP1 Igm = 40, ACLA IgM 25. Unclear how accurate these results are in the setting of sepsis/surgery; he should have these repeated in 12 weeks.
- I would NOT consider this to be DOAC failure and, up to now, no recurrent VTE events on DOAC. therefore, reasonable to resume this on discharge pending further APLA testing. However, reviewed that DOACs are predominately absorbed in SB and SB
resections can impact efficacy due to impaired absorption. Eliquis is less affected by this however decreased concentrations can be seen after significant resection of the proximal small bowel. From op report it appears majority of bowel was taken
more distally however if additional resection of more proximal bowel required on repeat laproscopy would favor switching to coumadin to ensure AC remains therapeutic in this high VTE risk pt.
Subjective/Objective
Subjective/Objective
He is feeling reasonably well. He reports no new symptoms. Examination is unchanged.
Vital Signs:
Vital Signs
Temp Pulse Resp BP Pulse Ox
98.9 F 105 17 147/73 98
11/25/24 11:30 11/25/24 14:00 11/25/24 14:00 11/25/24 14:00 11/25/24 12:00
Lab Results:
Laboratory Data
WBC 6.2 10^3/uL (4.8-10.8) 11/25/24 02:03
Hgb 8.8 g/dL (13.0-18.0) L 11/25/24 02:03
Plt Count 158 10^3/uL (130-400) D 11/25/24 02:03
PT 14.2 Sec (11.4-14.6) 11/21/24 09:07
INR 1.07 11/21/24 09:07
APTT 79.7 Sec (23.4-35.0) H 11/25/24 09:16
eGFR > 60.00 11/25/24 02:03
Orders
Orders
Orders From Last 24 Hours
11/26/24 06:00
Lupus Anticoagulant Panel Refl [S] IN AM
[2024-11-25] MEDS: VALIUM INJECTION 5 MG IV ×2 (15:29→22:27)
[2024-11-25] MEDS: NOVOLIN R INSULIN INFUSION 100 IV (15:35)
--- NOTE | 2024-11-25 16:04 | CM ---
S/P 4 abdominal surgeries. TPN. IV/Steroids. Discharge POC: HH vs outpatient. Declined therapy today.
[2024-11-25] MEDS: D5/0.45%NACL 1000 IV (16:29)
[2024-11-25 16:36] LABS: Glucose - Point of Care 137 mg/dl (70-99)
--- NOTE | 2024-11-25 17:28 | PTCARENOTE ---
Pt reports continuing to feel well, no abdominal complaints since starting clears, pt's belching and bowel movements have slowed, pain is consistently controlled at 2/10 lower abdomen. Pt used 10.8 mls of Dilaudid ROOM SERVICE FOOD SERVICE ATTENDANT pump this shift. See flowsheet
for documentation. Pt fully washed self with his 's assistance, linens changed. Safe environment continues.
[2024-11-25 18:40] LABS: Glucose - Point of Care 148 mg/dl (70-99)
[2024-11-25] MEDS: Parenteral Nutrition, Central 1960 IV (19:52)
--- NOTE | 2024-11-25 20:00 | PTCARENOTE ---
Received pt resting in bed, AAOx3. VAUGHN, ambulating to [facility]. Reports pain well controlled with dilaudid DEPUTY FIRE MARSHAL at this time. SR/ST on tele, HR 90-100 at rest, will elevate to 120 while ambulating. BP 140s/80s. + pulses. Afebrile. On RA. Lungs dim
bibasilar. Spo2 99%. + bowel sounds. Multiple loose BMs today. TPN continues. Tolerating clear liquids. No N/V. Voiding without issue in urinal. Midline adb. surgical aquacell c/d/i. R abd. REE drain with serosang output. R DL PICC with DEPUTY FIRE MARSHAL, heparin
gtt, and TPN. L FA with insulin gtt for glycemic protocol - see worklist.
[2024-11-25 20:29] LABS: APTT 63.1 Sec (23.4-35.0)
[2024-11-25] MEDS: HEPARIN 9200 UNITS IV (20:38)
[2024-11-25 20:43] LABS: Glucose - Point of Care 184 mg/dl (70-99)
--- NOTE | 2024-11-25 21:04 | PTCARENOTE ---
PTT = 63.1. Per protocol, bolus and increase gtt by 500units/hr. Gtt now at 2600units/hr.
[2024-11-25 21:42] LABS: Glucose - Point of Care 151 mg/dl (70-99)
[2024-11-25 23:42] LABS: Glucose - Point of Care 158 mg/dl (70-99)
[2024-11-26] VITALS (21 sets, daily range): BP systolic 120–158; BP diastolic 69–109; BMI 33.5
--- NOTE | 2024-11-26 | PTCARENOTE ---
Valium given HS for anxiety/insomnia. Otherwise, pt without complaints. Resting calmly, vitals stable.
[2024-11-26 01:43] LABS: Glucose - Point of Care 182 mg/dl (70-99)
[2024-11-26 02:51] LABS: Glucose - Point of Care 155 mg/dl (70-99)
[2024-11-26 03:28] LABS: Hematocrit 24.3 % (39.0-52.0); Hemoglobin 8.3 g/dL (13.0-18.0); Mean Corp Hgb Conc. 34.2 g/dL (33.0-37.0); Mean Corpuscular Volume 91.4 fL (80.0-94.0); Platelet Count 178 10^3/uL (130-400); Red Cell Dist. Width 16.4 % (11.5-14.5)
[2024-11-26 03:54] LABS: APTT 182.8 Sec (23.4-35.0)
--- NOTE | 2024-11-26 04:10 | PTCARENOTE ---
No changes overnight.
PTT 182.8. Hold gtt x1 hour then decrease by 400units/hr.
[2024-11-26 04:17] LABS: Blood Urea Nitrogen 11 mg/dl (9-20); Calcium 8.1 mg/dl (8.4-10.2); Carbon Dioxide 26 mmol/L (22-30); Chloride 109 mmol/L (98-107); Estimated Creatinine Clearance > 125 ml/min; Glucose 148 mg/dl (70-99); Potassium 3.7 mmol/L (3.5-5.1); Sodium 137 mmol/L (135-145); Triglycerides 180 mg/dl (10-149); eGFR > 60.00
[2024-11-26 04:42] LABS: Glucose - Point of Care 183 mg/dl (70-99)
--- NOTE | 2024-11-26 05:37 | PTCARENOTE ---
REE drain was emptied ~0400 with 50ml serosang drainage. Now, 50ml more drained however more sanguinous drainage than prior. PTT was supratherapeutic overnight. OLMAN Heltonherty aware. Vitals stable. Assessment otherwise unchanged. Orders from OLMAN to
monitor closely for now.
[2024-11-26 05:39] LABS: Glucose - Point of Care 178 mg/dl (70-99)
[2024-11-26] MEDS: OFIRMEV 100 IV ×3 (05:57→23:00)
[2024-11-26 07:46] LABS: Glucose - Point of Care 163 mg/dl (70-99)
--- NOTE | 2024-11-26 07:47 | W.PN.INTV ---
Today's Communication / Plan
Recommendations
Continue TPN
Advance diet
Insulin drip
Increase activity
Assessment
-
Patient is a 44-year-old male with history of hypereosinophilic syndrome along with hypercoagulable state chronically on steroids, Eliquis, Jakafi and Pegasys who was receiving GI prep for a scheduled EGD and colonoscopy as outpatient and his
Eliquis had been on hold. He presented to [facility] with abdominal discomfort and bloody diarrhea. CT scan was suggestive of enteritis and initially patient was admitted to the hospital on IV fluids, antibiotics for concern for enteritis.
Patient was evaluated by GI and surgery service and on 11/14 was taken to the OR and had a segment of small bowel resected for mesenteric ischemia. Patient had another trip to OR on 11/17 for reanastomosis without needing additional resection. On
11/19 patient had worsening clinical status and repeat imaging was suggestive again of acute mesenteric ischemia requiring emergent laparotomy additional small bowel resection and postprocedure patient was brought to ICU intubated, mechanically
ventilated. Pulp Drier consult was requested for further input.
Acute venoocclusive mesenteric ischemia s/p Exploratory laparotomy/Small bowel resection 11/14/24
Diagnostic laparoscopy converted to an exploratory laparotomy/ Small bowel anastomosis 11/16/24
Status post emergent laparotomy, small bowel resection 11/19/24
S/p Planned diagnostic laparoscopy converted to exploratory laparotomy/Small bowel anastomosis 11/21/24
Shock, suspect septic in the setting of severe enteritis
Acute respiratory failure, in the setting of emergent laparotomy, extubated 11/21
Acute blood loss anemia
Leukopenia
Hyperglycemia
Hypocalcemia
Transaminitis
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
DM, with hyperglycemia/neuropathy
Current smoker
depression
portal vein thrombosis on eliquis as OP
class I obesity
Plan
Respiratory status stable
Continue supplemental oxygen as needed-attempt to wean-99% on room air
Incentive spirometry
Nebulizers if needed-currently not bronchospastic
Pain control, doing well with dilaudid PAN DUMPER
Breakthrough pain PRN
Rass goal 0
Pressors weaned
Surgery following-correspondence reviewed
Heparin drip-eventual bridged back to Eliquis if no further surgery planned
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
Patient is status post s/p Exploratory laparotomy/Small bowel resection 11/14/24
Diagnostic laparoscopy converted to an exploratory laparotomy/ Small bowel anastomosis 11/16/24
Status post emergent laparotomy, small bowel resection 11/19/24
S/p Planned diagnostic laparoscopy converted to exploratory laparotomy/Small bowel anastomosis 11/21/24
Follow hemoglobin
Transfuse as needed
Nutrition-TPN
Enteral nutrition per surgery-clear liquids initiated
Status post IV Zosyn
Observe off antibiotics
H/o portal vein thrombosis, chronically on Eliquis, which was temporarily on hold for scheduled EGD and colonoscopy prior to this hospitalization
Has chronically been on steroid, Pegasys and Jakafi for hypereosinophilic syndrome and follows up at [facility].
Hematology oncology service on case
Monitor blood sugar
TPN and steroids exacerbating hyperglycemia
Insulin infusion continues-continue critical care glycemic protocol while on TPN
Diabetic nurse practitioner following-correspondence reviewed
DVT prophylaxis, currently on IV heparin
GI prophylaxis, IV Protonix
PT/OT
updated during multidisciplinary rounds 11/25/2024 and 11/26/2024-all questions answered
If patient able to be weaned off insulin drip the patient could be transferred out of ICU-call pulmonary if respiratory issues arise
Critical care statement: A total of 40 minutes of critical care time was provided for this patient today. This includes management of unstable vital signs, evaluation of the patient at bedside, reviewing the patient�s pertinent medical records
including radiographs, insulin drip management microbiology, laboratory evaluations, and��discussion with primary team, consultants, pharmacy, nutrition, physical therapy, case management, charge nurse, critical care nursing, and respiratory therapy.
Data:
CXR 10/2024: Endotracheal tube with tip 3.6 cm above the clair. Mild elevation right hemidiaphragm. Linear atelectasis in the right lower lung.
CT Abd/Pel 10/2024: There is persistent thrombus within the SMV and extending into the tributaries of the SMV inferiorly. There is a small amount of nonocclusive thrombus in the anterior aspect of the main portal vein. There is an approximately 20
cm long segment of significant bowel wall thickening and adjacent edema, in the region of the proximal to mid ileum, which appears to be new from previous CT of November 13, 2024. Findings would suggest venoocclusive mesenteric ischemia. There is also
to a lesser degree wall thickening and adjacent mesenteric edema involving the distal ileum, although less severe than the proximal to mid ileal involvement. Small to moderate amount of free fluid as described. No evidence of free intraperitoneal
air.
ECHO 06/21/22- 1. Normal left ventricular size, wall thickness and systolic function without regional wall motion abnormalities. Estimated LV ejection fraction is 60 to 65% by visual estimation and by Luciano's method. Global longitudinal strain is
normal at -18.4%
2. Normal right ventricular size and function.
3. No significant valvular abnormalities.
4. No pericardial effusion.
5. No prior echocardiogram available for comparison.
Subjective Dataa
Subjective Data
Date of Service:
Date of Service: November 26, 2024
Chief Complaint: Pulp Drier Follow Up and Pulmonary Follow Up
Subjective:
Had multiple bowel movements yesterday, feels better today, no complaints of shortness of breath, chest pain, pain controlled
Review of Systems
General: Other ( per HPI)
Objective Data
Data Reviewed
Vital Signs / I&O / Oxygen:
Vital Signs
Temp Pulse Resp BP Pulse Ox
98.2 F 84 14 140/85 97
11/26/24 07:40 11/26/24 06:00 11/26/24 06:00 11/26/24 06:00 11/26/24 04:00
Intake and Output
11/25/24 11/26/24 11/27/24
06:59 06:59 06:59
Intake Total 3520 / 3724 4362.0 / 4362.0
Output Total 2770 / 2770 1820 / 1820
Balance 750 / 954 2542.0 / 2542.0
SaO2 [A/C] 100
SaO2 97
Nasal Cannula flow liters per 99
minute
Physical Exam
General: Respiratory Distress (n), Comfortable, Pain and Other (NAD, chronically ill appearing)
HEENT: Normocephalic, Anicteric and Moist Mucous Membranes
Cardiovascular: Regular Rhythm
Respiratory: Wheeze (n), Crackles (n), Rhonchi (n), Non-Labored Respirations, Accessory Resp Muscle Use (n) and Stridor (n)
GI: Soft, Distended, Tender, NG Tube and Other (incisions/drains noted, bleeding at site of drain)
Neurology: Awake, Alert, Oriented and No Motor Deficits
Skin: Warm, Dry and Good Color
Labs/Micro/Reports
Lab Data
11/26/24 02:40
11/26/24 02:40
Laboratory Results
11/25/24 11/25/24 11/26/24
09:16 20:11 02:40
APTT 79.7 H 63.1 H 182.8 H*
11/26/24
06:00
APTT Cancelled
--- NOTE | 2024-11-26 08:00 | PTCARENOTE ---
Received patient from shift mechanic, see focused shift assessment. patient is AAOx4, sinus rhythm on monitor. on room air. heparin, tpn, insulin gtt infusing. dilaudid FISHING GAME WARDEN continued. will review orders, call reese within reach.
[2024-11-26] MEDS: ZOVIRAX INJECTION 108 MG IV ×2 (08:04→19:26)
[2024-11-26] MEDS: PROTONIX IV 40 MG IV ×2 (08:06→19:24)
[2024-11-26] MEDS: NSS (PRESERVATIVE FREE) 10 ML IV ×2 (08:07→19:25)
[2024-11-26] MEDS: SOLU-CORTEF 25 MG IV ×3 (08:07→23:00)
--- NOTE | 2024-11-26 08:07 | PN.DE.MGMTRT ---
Insulin Management
- -
11/26/2024: Diabetes Management Follow up
Patient admitted 11/13 with abdominal pain, N & V, weakness, bright red rectal bleeding. Consult for diabetes Management 11/20. PMH Hypereosinophilic syndrome, neuropathy, diabetes, current smoker, obesity, portal vein thrombosis. Prior to
admission no diabetes medications listed, A1C 7.9% on admission, Cr 0.4 eGFR > 60. CT scan--> Type IV mesenteric ischemia, small bowel resection 11/14, small bowel anastomosis 11/16. 11/19 Small bowel resection.
11/21 Exploratory laparotomy, small bowel anastomosis.
Patient is awake, alert, oriented, answering questions and able to discuss diabetes care plan, at bedside very supportive. Prior to admission was taking Ozempic and before that was taking metformin. Discussed with patient insulin would be best
plan for diabetes management. Both receptive to dietitian consult and diabetes education consult for meter.
Glycemic protocol restarted 11/22. Glucose range was 148 to 155 requiring 3.5 units of insulin per hour. Continues on TPN, clear liquids have been started.
Will continue critical care glycemic protocol while on TPN.
Discussed with nurse. Will cont to follow.
Diabetes History
- -
Type of Diabetes: 2
Pre-Admission Diabetes Regimen
11/26/24
02:40
Creatinine 0.4 L
Lab Results
Hemoglobin A1c 7.9 % (4.0-5.6) H 11/14/24 07:22
Insulin Pump Settings
IP Diabetes Regimen
11/25/24 11/25/24 11/25/24
08:02 10:06 11:17
Glucose
POC Glucose 151 H 109 H 141 H
11/25/24 11/25/24 11/25/24
12:23 13:14 14:23
Glucose
POC Glucose 172 H 185 H 166 H
11/25/24 11/25/24 11/25/24
16:25 18:28 20:30
Glucose
POC Glucose 137 H 148 H 184 H
11/25/24 11/25/24 11/26/24
21:30 23:30 01:31
Glucose
POC Glucose 151 H 158 H 182 H
11/26/24 11/26/24 11/26/24
02:40 04:31 05:27
Glucose 148 H
POC Glucose 155 H 183 H 178 H
11/26/24
07:33
Glucose
POC Glucose 163 H
Patient Education
--- NOTE | 2024-11-26 08:22 | W.PN.ONC2 ---
Today's Communication / Plan
-
f/u lupus anticoag
monitor for bleeding
Impression
Impression
44-year-old M a/w sepsis and severe enteritis.
Hx of SMV thrombosis, FVL, GI bleed, hyper eosinophilic syndrome
s/p exploratory laparotomy and small bowel resection 11/14. Repeat exploratory laparotomy on 11/16 with small bowel anastomosis. OR 11/19 for additional bowel resection
Rectal bleed
Hypereosinophilic syndrome with steroid dependence, now managed by Dr.s Donovan and Leisa at [facility]
Chronic portal vein thrombosis (last dose eliquis 11/08)
Hypercoagulable state
DMII
Neuropathy
ABLA -post operative abdominal bleeding 11/21 s/p 4 UPRBC during hospitalzation, last 11/23 -Hgb 8.3g/dL
Plan
Plan
1. Hypercoagulable state - in setting of hypereosinophilic syndrome, FVL w/ h/o portal vein thrombosis
-presented with bowel ischemia w/ SMV thrombosis in setting of holding eliquis since 11/08 for elective colonoscopy.
-s/p exploratory laparoscopy 11/14 with removal of 18 cm of more distal SB, followed by anastomosis 11/16, and additional bowel resection 11/19
- prior thrombophilia testing was notable for elevated AcL IgM 46, B2G IgM 96 however due to other underlying hypercoagulable conditions (HES, FVL) diagnosis of APLAS and need to switch to coumadin felt appropriately un-necessary.
- 11/15/24 APL labs repeated -- B2GP1 Igm = 40, ACLA IgM 25. Unclear how accurate these results are in the setting of sepsis/surgery; he should have these repeated in 12 weeks.
- I would NOT consider this to be DOAC failure and, up to now, no recurrent VTE events on DOAC. therefore, reasonable to resume this on discharge pending further APLA testing. However, reviewed that DOACs are predominately absorbed in SB and SB
resections can impact efficacy due to impaired absorption. Eliquis is less affected by this however decreased concentrations can be seen after significant resection of the proximal small bowel. From op report it appears majority of bowel was taken
more distally however if additional resection of more proximal bowel required on repeat laproscopy would favor switching to coumadin to ensure AC remains therapeutic in this high VTE risk pt.
Subjective/Objective
Subjective
Afebrile, no hypoxia or hypotension
pain controlled
denies bleeding
OOB, ambulating
Vital Signs:
Vital Signs
Temp Pulse Resp BP Pulse Ox
98.2 F 84 13 140/85 98
11/26/24 07:40 11/26/24 06:00 11/26/24 08:00 11/26/24 06:00 11/26/24 08:00
Lab Results:
Laboratory Data
WBC 5.0 10^3/uL (4.8-10.8) 11/26/24 02:40
Hgb 8.3 g/dL (13.0-18.0) L 11/26/24 02:40
Plt Count 178 10^3/uL (130-400) 11/26/24 02:40
PT 14.2 Sec (11.4-14.6) 11/21/24 09:07
INR 1.07 11/21/24 09:07
APTT Cancelled 11/26/24 06:00
eGFR > 60.00 11/26/24 02:40
Physical Exam
HEENT: Moist Mucous Membranes
Pulmonary: Other (unlabored)
GI: Other (REE bloody drainage)
Extremities: Pulses Present
[2024-11-26] MEDS: HEPARIN 25000 UNITS/250 ML IV ×2 (09:12→19:43)
--- NOTE | 2024-11-26 09:19 | W.PN.GS2 ---
Today's Communication / Plan
-
CLD
TPN
Hep gtt
Assessment / Plan
-
44 yo male with history of hypereosinophilic syndrome with known clotting disorder and chronic portal vein thrombus on Eliquis with AC held in anticipation of a colonoscopy this week who developed nausea, vomiting and intense abdominal pain followed
by rectal bleeding during his prep. CT with findings concerning for mesenteric ischemia, portal vein thrombus and SMV thrombus noted and taken to the OR
POD #12 ex lap with SBR (18cm necrotic bowel), left in discontinuity given ?viability of proximal bowel
POD #13 RTOR for small bowel anastomosis, no further resection needed
POD #7 RTOR for new small bowel ischemia, small bowel resection, discontinuity
POD #5 RTOR for SB anastomosis, abdominal closure
Tachycardia impoved, BP stable. Afebrile
Hb slight drift down
Pain well controlled on SCRAP IRON LOADER
2 uPRBC transfused 11/23
Plan:
-- Cont cld
-- Pain control with SCRAP IRON LOADER; Continue ATC ofirmev to minimize narcotic usage
-- Continue TPN
-- Insulin SS while on TPN
-- Continue heparin gtt
-- On chronic steroids, IV dosing as per primary team
-- OOB as tolerated
Subjective Data
-
Date of Service: November 26, 2024
AFVSS, reports multiple liquid stools an flatus, denies n/v, pain control improved
Objective Data
-
Intake and Output
11/25/24 11/26/24 11/27/24
06:59 06:59 06:59
Intake Total 3520 / 3724 4362.0 / 4428.0 198 / 198
Output Total 2770 / 2770 1820 / 1820 50 / 50
Balance 750 / 954 2542.0 / 2608.0 148 / 148
Intake:
Oral fluids 236 / 236
IV fluids (Total) 1416 / 1544 2236.0 / 2302.0 198 / 198
D5/0.45%NaCl 1,000 ml @ 40 mls/ 960 / 1000 920 / 960 120 / 120
hr IV .Q24H PRN Rx#:[id number]
Heparin 456 / 477 520 / 542 66 / 66
Insulin 50.0 / 54.0 12 / 12
Kcl 538.0 / 538.0
acyclovir 100 / 100
mag 108 / 108
IV piggybacks 250 / 250
TPN/PPN 1824 / 1900 1890 / 1890
Amount instilled into GI Tube (
Total)
[place] Sump
Output:
Drain Output (Total) 295 / 295 495 / 495 50 / 50
Right Abdomen Thiago-Daniel 295 / 295 495 / 495 50 / 50
Gastrointestinal tube output ( 225 / 225
Total)
[place] Sump 225 / 225
Urine, Vogel 1000 / 1000
Urine, Voided 1250 / 1250 1325 / 1325
Other:
Number of approximated MODERATE 2
amounts of urine
Number of approximated LARGE 2
amounts of urine
Vital Signs
Temp Pulse Resp BP Pulse Ox
98.2 F 92 18 158/85 99
11/26/24 07:40 11/26/24 08:00 11/26/24 08:00 11/26/24 08:00 11/26/24 09:02
Lab Results
11/26/24 02:40
11/26/24 02:40
Calcium 8.1 mg/dl (8.4-10.2) L 11/26/24 02:40
Phosphorus 2.8 mg/dl (2.5-4.5) 11/25/24 02:03
Magnesium 1.8 mg/dl (1.6-2.3) 11/25/24 02:03
Total Bilirubin 0.6 mg/dl (0.2-1.3) 11/25/24 02:03
Direct Bilirubin 0.3 mg/dl (0.0-0.4) 11/20/24 03:54
AST 61 U/L (17-59) H 11/25/24 02:03
ALT 83 U/L (0-50) H 11/25/24 02:03
Alkaline Phosphatase 217 U/L (38-126) H 11/25/24 02:03
Total Protein 5.1 g/dl (6.3-8.2) L 11/25/24 02:03
Albumin 2.5 g/dl (3.5-5.0) L 11/25/24 02:03
Physical Exam
-
Gen: NAD
Abd: soft, approp ttp, dressing cdi, drain more sanguinous today
Patient has a vogel catheter: No
Patient has a central line: Yes (PICC)
[2024-11-26] MEDS: KCL 270 MEQ IV (09:43)
[2024-11-26 09:54] LABS: Glucose - Point of Care 135 mg/dl (70-99)
--- NOTE | 2024-11-26 10:17 | W.PN.HOSP.TC ---
Today's Communication/Plan
-
Replete K, Mg
Monitor aptt
Assessment / Plan
Assessment / Plan
This is a 44-year-old male with past medical history of hypereosinophilic syndrome with skin involvement, diabetes, smoker, neuropathy, depression, portal vein thrombus on Eliquis, obesity presented with abdominal pain, nausea and vomiting, bright
red blood in the stools after taking Dulcolax and MiraLAX for EGD and colonoscopy. Post-op #D3 he started having continuous bloody bowel movements. Patient had another surgery for ischemic bowel. Post-op #D1
# Sepsis with severe enteritis involving long segment of ileum with rectal bleeding post colonoscopy and upper GI series prep
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 Hx Hypereosinophilic syndrome
- Leukocytosis resolved
- Lactated Ringer's 125ml/hr Q8h
- Hydrocortisone 100 mg given in ER-patient is on chronic steroid 21 mg last dose was 11/11/2024 has slowly been tapering from 30 mg down by 1 mg has been at 21 mg for the past few weeks
- IV Dilaudid as needed pain, Zofran nausea
- Blood cultures NGTD 11/13/2024
-11/20 Post op D#3 - ischemic bowel--laparatomy, small bowel resection--tentanively for 2nd look in 48hr+ileostomy. Pt vented until then
-Oncology-PRBC for HgB < 7.5 as active GI bleeding.
-11/21 Post op D#2 -Exploratory laparotomy, small bowel anastomosis- Operation performed without stopping IV heparin- extubated
-11/21 Post op Pulsatile bleeding at lateral skin edge. Suture Hemostasis- achieved by surgeon at bedside
-His baseline Steroid 21mg PO Prednisone = 84mg Hydrocortisone= keep it Hydrocortisone 25mg Q8h
-PT/OT
-Continue Clear liquids
-Pain control with PATIENT ADMITTING CLERK, demand dose increased; Continue ATC ofirmev to minimize narcotic usage
-Oncology- antiphospholipid antibody panel - pending
-Coumadin?
#Acute blood loss anemia
-2 previously+ 2U PRBC
-H&H trending
-APTT trending Q6h (goal 73-111)- Heparin restarted.
#Depressed, anxious
-Consulted Psychiatry
-Resume PO Zoloft once medically stable
-Continue 5mg Valium PRN
#History of Hypereosinophilic syndrome with typical skin rash follows at [facility] on chronic steroids
on chronic steroid 21 mg last dose was 11/11/2024 has slowly been tapering from 30 mg down by 1 mg has been at 21 mg for the past few weeks
-discontinued Jakafi 20 mg BID
-Patient receives Pegasys infusion once a week- held by
-Continue IV pantoprozole 40mg BID
-Holding Acyclovir
-3rd post op #D2 will increase Hydrocortisone from 25mg IV Q12h to 25mg IV Q6h. Once stable goal is to taper stress dose hydrocortisone to his baseline 21mg
#Hyponatremia
-resolved
#Electrolyte abnormalities
- Phosphorus 2.4- discussed with pharmacist maxed out his TPN for Phosporus, given curve is at -- monitor BMP, Phos, Mg, K
- Replete K(goal>4)
-Replete Mg (goal>2)
#History of portal vein thrombosis years ago
-Has not taken Eliquis 5 mg twice daily in 6 days due to upper GI and colonoscopy plan; on hep gtt APTT - on hold because of ongoing bleeding started 11/18/24 D#2
-Heparin ggt- Aptt trending
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
A1c is 7.9
- Patient is using Ozempic 1 mg once a week last dose was 11/08/2024
- Hyperglycemia- TPN dose changed 11/17/2024 (from44 dose 66)- Insulin drip per protocol
-11/22 Insulin Glargine 30U-hold
--Insulin SS while on TPN
#Chronic neuropathy
Patient takes gabapentin 300 mg at bedtime as needed
#Depression
Zoloft 50 mg at bedtime, npo and on hold for now
#Class I obesity�BMI 33
Patient currently on Ozempic
DVT prophylaxis- heparin
Full code
Anticipated Discharge: > 48 hours
Subjective/Interval History
-
Date of Service: November 26, 2024
He is lying in his bed. Started clear liquids yesterday. He had bm every hour, denies blood in stool. He was able to pass gas and denies abd pain. He slept good.
Objective Data
-
Labs:
Laboratory Results
11/26/24 11/26/24 11/26/24
02:40 06:00 10:00
WBC 5.0
Hgb 8.3 L
Hct 24.3 L
Plt Count 178
APTT 182.8 H* Cancelled Pending
Sodium 137
Potassium 3.7
Chloride 109 H
Carbon Dioxide 26
BUN 11
Creatinine 0.4 L
Glucose 148 H
Calcium 8.1 L
Vital Signs:
Vital Signs
Temp Pulse Resp BP Pulse Ox
98.2 F 92 18 158/85 99
11/26/24 07:40 11/26/24 08:00 11/26/24 08:00 11/26/24 08:00 11/26/24 09:02
I&O
11/25/24 11/26/24 11/27/24
06:59 06:59 06:59
Intake Total 3520 / 3724 4362.0 / 4428.0 198 / 198
Output Total 2770 / 2770 1820 / 1820 50 / 50
Balance 750 / 954 2542.0 / 2608.0 148 / 148
Review of Systems
-
History Source: Patient
Constitutional: Reports No Symptoms
EENT: Reports No Symptoms Reported
Respiratory: Reports No Symptoms
Cardiac: Reports No Symptoms
Abdomen/GI: Reports No Symptoms and Abdominal Pain
Breast: Reports No Symptoms
Genitourinary: Reports No Symptoms
Musculoskeletal: Reports No Symptoms
Skin: Reports No Symptoms
Neuro: Reports No Symptoms
Endocrine: Reports No Symptoms
Hematologic / Lymphatic: Reports No Symptoms
Allergy / Immunology: Reports No Symptoms
Physical Exam
-
General: Well Developed
HEENT: Normocephalic and Atraumatic
Respiratory: Clear to Auscultation
Cardiac: Regular Rhythm and S1/S2
Breast: Deferred by me
GI: Soft, Nontender, Nondistended and Normal Bowel Sounds
Rectal: Deferred by Provider
Musculoskeletal: No Cyanosis and No Edema
Skin: Warm
Neuro: AO x 3
Psych: Calm
[2024-11-26 10:42] LABS: Magnesium 2.2 mg/dl (1.6-2.3)
[2024-11-26 10:54] LABS: APTT 78.4 Sec (23.4-35.0)
--- NOTE | 2024-11-26 11:42 | PTCARENOTE ---
No change in patient's assessment. patient resting comfortably in chair at bedside. tolerating clears.
[2024-11-26 11:57] LABS: Glucose - Point of Care 212 mg/dl (70-99)
[2024-11-26] MEDS: OFIRMEV IV (12:34)
[2024-11-26 12:43] LABS: Glucose - Point of Care 204 mg/dl (70-99)
[2024-11-26 13:55] LABS: Glucose - Point of Care 153 mg/dl (70-99)
[2024-11-26] MEDS: VALIUM INJECTION 5 MG IV ×2 (14:15→20:49)
[2024-11-26] MEDS: NOVOLIN R INSULIN INFUSION 100 IV (14:35)
[2024-11-26 15:13] LABS: Glucose - Point of Care 156 mg/dl (70-99)
[2024-11-26] MEDS: DILAUDID PCA 30 IV (16:07)
[2024-11-26 16:10] LABS: Glucose - Point of Care 149 mg/dl (70-99)
[2024-11-26 17:16] LABS: APTT 56.4 Sec (23.4-35.0)
[2024-11-26] MEDS: D5/0.45%NACL 1000 IV (17:21)
--- NOTE | 2024-11-26 17:33 | PTCARENOTE ---
Spoke to surgery physician public works commissioner, Dr. Nagel. PTT has been subtherapeutic, then high after bolus and increased serosanguinous drainage in REE. Will hold bolus and just titrate gtt up per algorithm. Both blood draws were drawn peripherally, not
from PICC line and results communicated to care team.
[2024-11-26 17:52] LABS: Glucose - Point of Care 160 mg/dl (70-99)
[2024-11-26 19:09] LABS: Glucose - Point of Care 188 mg/dl (70-99)
--- NOTE | 2024-11-26 19:15 | PTCARENOTE ---
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
call reese in reach
[2024-11-26] MEDS: Parenteral Nutrition, Central 1900 IV (19:40)
[2024-11-26 20:08] LABS: Glucose - Point of Care 226 mg/dl (70-99)
[2024-11-26 21:06] LABS: Glucose - Point of Care 201 mg/dl (70-99)
[2024-11-26 22:21] LABS: Glucose - Point of Care 162 mg/dl (70-99)
[2024-11-26 23:21] LABS: Glucose - Point of Care 157 mg/dl (70-99)
[2024-11-26 23:48] LABS: APTT 127.9 Sec (23.4-35.0)
[2024-11-27] VITALS (21 sets, daily range): BP systolic 135–159; BP diastolic 72–99; BMI 33.3
--- NOTE | 2024-11-27 00:36 | PTCARENOTE ---
no changes from prior assessment, at bedside, call reese in reach
[2024-11-27 00:44] LABS: Glucose - Point of Care 154 mg/dl (70-99)
[2024-11-27 01:43] LABS: Glucose - Point of Care 167 mg/dl (70-99)
--- NOTE | 2024-11-27 03:02 | PTCARENOTE ---
pt appears to be resting comfortably in bed, call reese in reach
[2024-11-27 03:41] LABS: Glucose - Point of Care 161 mg/dl (70-99)
[2024-11-27] MEDS: HEPARIN 25000 UNITS/250 ML IV ×2 (04:17→17:00)
[2024-11-27] MEDS: OFIRMEV 100 IV (04:18)
[2024-11-27 04:48] LABS: Hematocrit 26.6 % (39.0-52.0); Hemoglobin 8.6 g/dL (13.0-18.0); Mean Corp Hgb Conc. 32.3 g/dL (33.0-37.0); Mean Corpuscular Volume 90.5 fL (80.0-94.0); Platelet Count 206 10^3/uL (130-400); Red Cell Dist. Width 16.9 % (11.5-14.5)
[2024-11-27 05:05] LABS: APTT 136.8 Sec (23.4-35.0)
[2024-11-27 05:41] LABS: Glucose - Point of Care 193 mg/dl (70-99)
[2024-11-27 06:04] LABS: Blood Urea Nitrogen 11 mg/dl (9-20); Calcium 7.9 mg/dl (8.4-10.2); Carbon Dioxide 27 mmol/L (22-30); Chloride 108 mmol/L (98-107); Estimated Creatinine Clearance > 125 ml/min; Glucose 184 mg/dl (70-99); Magnesium 2.0 mg/dl (1.6-2.3); Potassium 4.5 mmol/L (3.5-5.1); Sodium 136 mmol/L (135-145); eGFR > 60.00
[2024-11-27 06:42] LABS: Glucose - Point of Care 194 mg/dl (70-99)
--- NOTE | 2024-11-27 07:19 | W.PN.HOSP.TC ---
Today's Communication/Plan
-
Continue TPN, Insulin SS
Restart PO meds
Advanced to free liquid diet
heparin ggt
Assessment / Plan
Assessment / Plan
This is a 44-year-old male with past medical history of hypereosinophilic syndrome with skin involvement, diabetes, smoker, neuropathy, depression, portal vein thrombus on Eliquis, obesity presented with abdominal pain, nausea and vomiting, bright
red blood in the stools after taking Dulcolax and MiraLAX for EGD and colonoscopy. Post-op #D3 he started having continuous bloody bowel movements. Patient had another surgery for ischemic bowel. Post-op #D1
# Sepsis with severe enteritis involving long segment of ileum with rectal bleeding post colonoscopy and upper GI series prep
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 Hx Hypereosinophilic syndrome
- Leukocytosis resolved
- Lactated Ringer's 125ml/hr Q8h
- Hydrocortisone 100 mg given in ER-patient is on chronic steroid 21 mg last dose was 11/11/2024 has slowly been tapering from 30 mg down by 1 mg has been at 21 mg for the past few weeks
- IV Dilaudid as needed pain, Zofran nausea
- Blood cultures NGTD 11/13/2024
-11/20 Post op D#3 - ischemic bowel--laparatomy, small bowel resection--tentanively for 2nd look in 48hr+ileostomy. Pt vented until then
-Oncology-PRBC for HgB < 7.5 as active GI bleeding.
-11/21 Post op D#2 -Exploratory laparotomy, small bowel anastomosis- Operation performed without stopping IV heparin- extubated
-11/21 Post op Pulsatile bleeding at lateral skin edge. Suture Hemostasis- achieved by surgeon at bedside
-His baseline Steroid 21mg PO Prednisone = 84mg Hydrocortisone= keep it Hydrocortisone 25mg Q8h
-PT/OT
-Advanced to Free liquid diet
-Restart PO meds
- Pain control with ACADEMIC RECORDS SPECIALIST, transition to PO pain control over next 48 hrs
-Oncology- antiphospholipid antibody panel - pending- coumadin? heparin ggt
#Acute blood loss anemia
-2 previously+ 2U PRBC
-H&H trending
-APTT trending Q6h (goal 73-111)- Heparin restarted.
#Depressed, anxious
-Consulted Psychiatry
-Resume PO Zoloft once medically stable
-Continue 5mg Valium PRN
#History of Hypereosinophilic syndrome with typical skin rash follows at [facility] on chronic steroids
on chronic steroid 21 mg last dose was 11/11/2024 has slowly been tapering from 30 mg down by 1 mg has been at 21 mg for the past few weeks
-discontinued Jakafi 20 mg BID
-Patient receives Pegasys infusion once a week- held by
-Continue IV pantoprozole 40mg BID
-Holding Acyclovir
-3rd post op #D2 will increase Hydrocortisone from 25mg IV Q12h to 25mg IV Q6h. Once stable goal is to taper stress dose hydrocortisone to his baseline 21mg
#Hyponatremia
-resolved
#Electrolyte abnormalities
- Phosphorus 2.4- discussed with pharmacist maxed out his TPN for Phosporus, given curve is at -- monitor BMP, Phos, Mg, K
- Replete K(goal>4)
-Replete Mg (goal>2)
#History of portal vein thrombosis years ago
-Has not taken Eliquis 5 mg twice daily in 6 days due to upper GI and colonoscopy plan; on hep gtt APTT - on hold because of ongoing bleeding started 11/18/24 D#2
-Heparin ggt- Aptt trending
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
A1c is 7.9
- Patient is using Ozempic 1 mg once a week last dose was 11/08/2024
- Hyperglycemia- TPN dose changed 11/17/2024 (from44 dose 66)- Insulin drip per protocol
-11/22 Insulin Glargine 30U-hold
--Insulin SS while on TPN-- Once tolerating advanced diet and TPN stopped will start subcutaneous insulin.
#Chronic neuropathy
Patient takes gabapentin 300 mg at bedtime as needed
#Depression
Zoloft 50 mg at bedtime, npo and on hold for now
#Class I obesity�BMI 33
Patient currently on Ozempic
DVT prophylaxis- heparin
Full code
Anticipated Discharge: > 48 hours
Subjective/Interval History
-
Date of Service: November 27, 2024
He feels better. He had bms no bleeding. No burping. He was able to walk on the hallway twice yesterday.
Objective Data
-
Labs:
Laboratory Results
11/26/24 11/27/24 11/27/24
23:20 04:35 11:30
WBC 4.5 L
Hgb 8.6 L
Hct 26.6 L
Plt Count 206
APTT 127.9 H 136.8 H Pending
Sodium 136
Potassium 4.5
Chloride 108 H
Carbon Dioxide 27
BUN 11
Creatinine 0.4 L
Glucose 184 H
Calcium 7.9 L
Vital Signs:
Vital Signs
Temp Pulse Resp BP Pulse Ox
98 F 83 14 144/84 98
11/27/24 04:59 11/27/24 06:00 11/27/24 06:00 11/27/24 06:00 11/27/24 04:00
I&O
11/26/24 11/27/24 11/28/24
06:59 06:59 06:59
Intake Total 4362.0 / 4510.0 3697.5 / 3697.5
Output Total 1820 / 1820 1685 / 1685
Balance 2542.0 / 2690.0 /
Review of Systems
-
History Source: Patient
Constitutional: Reports No Symptoms
EENT: Reports No Symptoms Reported
Respiratory: Reports No Symptoms
Cardiac: Reports No Symptoms
Abdomen/GI: Reports No Symptoms
Breast: Reports No Symptoms
Genitourinary: Reports No Symptoms
Musculoskeletal: Reports No Symptoms
Skin: Reports Rash (on left arm)
Neuro: Reports No Symptoms
Endocrine: Reports No Symptoms
Hematologic / Lymphatic: Reports No Symptoms
Allergy / Immunology: Reports No Symptoms
Physical Exam
-
General: Well Developed
HEENT: Normocephalic and Atraumatic
Respiratory: Clear to Auscultation
Cardiac: Regular Rhythm and S1/S2
Breast: Deferred by me
GI: Soft, Nontender, Nondistended and Normal Bowel Sounds
Rectal: Deferred by Provider
Musculoskeletal: No Cyanosis and No Edema
Skin: Warm
Neuro: AO x 3
Psych: Calm
--- NOTE | 2024-11-27 07:37 | W.PN.INTV ---
Today's Communication / Plan
Recommendations
TPN and insulin drip continues
Convert to oral medications
Anticoagulation per hematology
Assessment
-
Patient is a 44-year-old male with history of hypereosinophilic syndrome along with hypercoagulable state chronically on steroids, Eliquis, Jakafi and Pegasys who was receiving GI prep for a scheduled EGD and colonoscopy as outpatient and his
Eliquis had been on hold. He presented to [place] with abdominal discomfort and bloody diarrhea. CT scan was suggestive of enteritis and initially patient was admitted to the hospital on IV fluids, antibiotics for concern for enteritis.
Patient was evaluated by GI and surgery service and on 11/14 was taken to the OR and had a segment of small bowel resected for mesenteric ischemia. Patient had another trip to OR on 11/17 for reanastomosis without needing additional resection. On
11/19 patient had worsening clinical status and repeat imaging was suggestive again of acute mesenteric ischemia requiring emergent laparotomy additional small bowel resection and postprocedure patient was brought to ICU intubated, mechanically
ventilated. Commercial Lines Manager consult was requested for further input.
Acute venoocclusive mesenteric ischemia s/p Exploratory laparotomy/Small bowel resection 11/14/24
Diagnostic laparoscopy converted to an exploratory laparotomy/ Small bowel anastomosis 11/16/24
Status post emergent laparotomy, small bowel resection 11/19/24
S/p Planned diagnostic laparoscopy converted to exploratory laparotomy/Small bowel anastomosis 11/21/24
Shock, suspect septic in the setting of severe enteritis
Acute respiratory failure, in the setting of emergent laparotomy, extubated 11/21
Acute blood loss anemia
Leukopenia
Hyperglycemia
Hypocalcemia
Transaminitis
Conditions present SECURITY AGENT:
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
DM, with hyperglycemia/neuropathy
Current smoker
depression
portal vein thrombosis on eliquis as OP
class I obesity
Plan
Respiratory status remained stable
Continue supplemental oxygen as needed-attempt to wean-99% on room air
Incentive spirometry encouraged
Nebulizers if needed-currently not bronchospastic
Pain control, doing well with dilaudid CANDLEMAKING LABORER
Breakthrough pain PRN
Rass goal 0
Pressors weaned off
Surgery following-correspondence reviewed
Heparin drip-eventual bridged back to Eliquis if no further surgery planned
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
Patient is status post s/p Exploratory laparotomy/Small bowel resection 11/14/24
Diagnostic laparoscopy converted to an exploratory laparotomy/ Small bowel anastomosis 11/16/24
Status post emergent laparotomy, small bowel resection 11/19/24
S/p Planned diagnostic laparoscopy converted to exploratory laparotomy/Small bowel anastomosis 11/21/24
Follow hemoglobin
Transfuse as needed
Nutrition-TPN continues
Enteral nutrition per surgery-clear liquids and diet being advanced by colorectal surgery
Begin oral medications
Status post IV Zosyn
Observe off antibiotics
H/o portal vein thrombosis, chronically on Eliquis, which was temporarily off for scheduled EGD and colonoscopy prior to this hospitalization
Has chronically been on steroid, Pegasys and Jakafi for hypereosinophilic syndrome and follows up at [facility].
Hematology oncology service on case
Technically not in Eliquis failure and will likely be resumed versus other oral anticoagulant per hematology
Monitor blood sugar
TPN continues until adequate oral intake
Insulin infusion continues-continue critical care glycemic protocol while on TPN
Diabetic nurse practitioner following-correspondence reviewed
DVT prophylaxis, currently on IV heparin
GI prophylaxis, IV Protonix
PT/OT
updated during multidisciplinary rounds 11/25/2024 and 11/26/2024 as well as 11/27/2024-all questions answered
If patient able to be weaned off insulin drip the patient could be transferred out of ICU-call pulmonary if respiratory issues arise
Critical care statement: A total of 38 minutes of critical care time was provided for this patient today. This includes management of unstable vital signs, evaluation of the patient at bedside, reviewing the patient�s pertinent medical records
including radiographs, insulin drip management microbiology, laboratory evaluations, and��discussion with primary team, consultants, pharmacy, nutrition, physical therapy, case management, charge nurse, critical care nursing, and respiratory therapy.
Data:
CXR 10/2024: Endotracheal tube with tip 3.6 cm above the clair. Mild elevation right hemidiaphragm. Linear atelectasis in the right lower lung.
CT Abd/Pel 10/2024: There is persistent thrombus within the SMV and extending into the tributaries of the SMV inferiorly. There is a small amount of nonocclusive thrombus in the anterior aspect of the main portal vein. There is an approximately 20
cm long segment of significant bowel wall thickening and adjacent edema, in the region of the proximal to mid ileum, which appears to be new from previous CT of November 13, 2024. Findings would suggest venoocclusive mesenteric ischemia. There is also
to a lesser degree wall thickening and adjacent mesenteric edema involving the distal ileum, although less severe than the proximal to mid ileal involvement. Small to moderate amount of free fluid as described. No evidence of free intraperitoneal
air.
ECHO 06/21/22- 1. Normal left ventricular size, wall thickness and systolic function without regional wall motion abnormalities. Estimated LV ejection fraction is 60 to 65% by visual estimation and by Luciano's method. Global longitudinal strain is
normal at -18.4%
2. Normal right ventricular size and function.
3. No significant valvular abnormalities.
4. No pericardial effusion.
5. No prior echocardiogram available for comparison.
Subjective Dataa
Subjective Data
Date of Service:
Date of Service: November 27, 2024
Chief Complaint: Commercial Lines Manager Follow Up and Pulmonary Follow Up
Subjective:
Feels better, eating more, pain controlled, less anxiety, no shortness of breath, chest pain
Review of Systems
General: Other (Per HPI)
Objective Data
Data Reviewed
Vital Signs / I&O / Oxygen:
Vital Signs
Temp Pulse Resp BP Pulse Ox
98 F 83 14 144/84 98
11/27/24 04:59 11/27/24 06:00 11/27/24 06:00 11/27/24 06:00 11/27/24 04:00
Intake and Output
11/26/24 11/27/24 11/28/24
06:59 06:59 06:59
Intake Total 4362.0 / 4510.0 3697.5 / 3843.5 146 / 146
Output Total 1820 / 1820 1685 / 1685
Balance 2542.0 / 2690.0 2012.5 / 2158.5 146 / 146
SaO2 [A/C] 100
SaO2 98
Nasal Cannula flow liters per 99
minute
Physical Exam
General: Respiratory Distress (n), Comfortable, Pain and Other (NAD, chronically ill appearing)
HEENT: Normocephalic, Anicteric and Moist Mucous Membranes
Cardiovascular: Regular Rhythm
Respiratory: Wheeze (n), Crackles (n), Rhonchi (n), Non-Labored Respirations, Accessory Resp Muscle Use (n) and Stridor (n)
GI: Soft, Distended, Tender, NG Tube and Other (incisions/drains noted, bleeding at site of drain)
Neurology: Awake, Alert and No Motor Deficits
Skin: Warm, Good Color, Cyanosis (n) and Jaundice
Labs/Micro/Reports
Lab Data
11/27/24 04:35
11/27/24 04:35
Laboratory Results
11/26/24 11/26/24 11/26/24
10:23 16:46 23:20
APTT 78.4 H 56.4 H 127.9 H
11/27/24
04:35
APTT 136.8 H
[2024-11-27 07:49] LABS: Glucose - Point of Care 172 mg/dl (70-99)
--- NOTE | 2024-11-27 08:09 | PN.DE.MGMTRT ---
Insulin Management
- -
11/27/2024: Diabetes Management Follow up
Patient admitted 11/13 with abdominal pain, N & V, weakness, bright red rectal bleeding. Consult for diabetes Management 11/20. PMH Hypereosinophilic syndrome, neuropathy, diabetes, current smoker, obesity, portal vein thrombosis. Prior to
admission no diabetes medications listed, A1C 7.9% on admission, Cr 0.4 eGFR > 60. CT scan--> Type IV mesenteric ischemia, small bowel resection 11/14, small bowel anastomosis 11/16. 11/19 Small bowel resection.
11/21 Exploratory laparotomy, small bowel anastomosis.
Patient is awake, alert, oriented, answering questions and able to discuss diabetes care plan, at bedside very supportive. Prior to admission was taking Ozempic and before that was taking metformin. Discussed with patient insulin would be best
plan for diabetes management.
Dietitian has seen patient and and visual educator has provided meter and insulin instruction.
Glycemic protocol restarted 11/22. Glucose range was 153 to 188 requiring 1.7 to 4 units of insulin per hour. Continues on TPN, to advance diet from clear to full liquids with ensure supplement.
Will continue critical care glycemic protocol while on TPN. Once tolerating advanced diet and TPN stopped with start subcutaneous insulin.
Discussed with nurse. Will cont to follow.
Diabetes History
- -
Type of Diabetes: 2 requiring insulin
Pre-Admission Diabetes Regimen
11/27/24
04:35
Creatinine 0.4 L
Lab Results
Hemoglobin A1c 7.9 % (4.0-5.6) H 11/14/24 07:22
Insulin Pump Settings
IP Diabetes Regimen
11/26/24 11/26/24 11/26/24
09:41 11:35 12:32
Glucose
POC Glucose 135 H 212 H 204 H
11/26/24 11/26/24 11/26/24
13:44 15:02 15:59
Glucose
POC Glucose 153 H 156 H 149 H
11/26/24 11/26/24 11/26/24
17:30 18:52 19:55
Glucose
POC Glucose 160 H 188 H 226 H
11/26/24 11/26/24 11/26/24
20:53 22:08 23:09
Glucose
POC Glucose 201 H 162 H 157 H
11/27/24 11/27/24 11/27/24
00:32 01:30 03:29
Glucose
POC Glucose 154 H 167 H 161 H
11/27/24 11/27/24 11/27/24
04:35 05:29 06:26
Glucose 184 H
POC Glucose 193 H 194 H
11/27/24
07:38
Glucose
POC Glucose 172 H
Meal type: Breakfast
Amount consumed: 100%
Patient Education
--- NOTE | 2024-11-27 08:22 | W.PN.GS2 ---
Today's Communication / Plan
-
FLD
PO meds
TPN
Hep gtt
Assessment / Plan
-
44 yo male with history of hypereosinophilic syndrome with known clotting disorder and chronic portal vein thrombus on Eliquis with AC held in anticipation of a colonoscopy this week who developed nausea, vomiting and intense abdominal pain followed
by rectal bleeding during his prep. CT with findings concerning for mesenteric ischemia, portal vein thrombus and SMV thrombus noted and taken to the OR
POD #13 ex lap with SBR (18cm necrotic bowel), left in discontinuity given ?viability of proximal bowel
POD #11 RTOR for small bowel anastomosis, no further resection needed
POD #8 RTOR for new small bowel ischemia, small bowel resection, discontinuity
POD #6 RTOR for SB anastomosis, abdominal closure
Tachycardia resolved, BP stable. Afebrile
Hb trending up
Pain well controlled on TEACHER EDUCATION INSTRUCTOR
2 uPRBC transfused 11/23
Drain clearing, output decreasing
Plan:
-- Adv to FLD
-- Restart PO meds
-- Pain control with TEACHER EDUCATION INSTRUCTOR, transition to PO pain control over next 48 hrs
-- Continue TPN
-- Insulin SS while on TPN
-- Continue heparin gtt, await hematology recs on oral A/C, he is ready to begin the transition
-- On chronic steroids, IV dosing as per primary team
-- OOB as tolerated
Subjective Data
-
Date of Service: November 27, 2024
AFVSS, lizandro cld, continues with flatus and BMs (improved frequency), denies n/v, ambulating, voiding, pain controlled
Objective Data
-
Intake and Output
11/26/24 11/27/24 11/28/24
06:59 06:59 06:59
Intake Total 4362.0 / 4510.0 3697.5 / 3843.5 146 / 146
Output Total 1820 / 1820 1685 / 1685
Balance 2542.0 / 2690.0 2011.5 / 2157.5 146 / 146
Intake:
Oral fluids 236 / 236
IV fluids (Total) 2236.0 / 2302.0 1624.5 / 1691.5 67 / 67
D5/0.45%NaCl 1,000 ml @ 40 mls/ 920 / 960 960 / 1000 40 / 40
hr IV .Q24H PRN Rx#:[id number]
Heparin 520 / 542 579 / 600 /
Insulin 50.0 / 54.0 85.5 / 91.5 6 / 6
Kcl 538.0 / 538.0
acyclovir 100 / 100
mag 108 / 108
IV piggybacks 135.0 / 135.0
TPN/PPN 189 / 1971 1937 / 2016 79 / 79
Output:
Drain Output (Total) 495 / 495 260 / 260
Right Abdomen Thiago-Daniel 495 / 495 260 / 260
Urine, Voided 1325 / 1325 1425 / 1425
Other:
Number of approximated MODERATE 2
amounts of urine
Number of approximated LARGE 2
amounts of urine
Vital Signs
Temp Pulse Resp BP Pulse Ox
97.8 F 82 15 137/83 98
11/27/24 08:00 11/27/24 07:00 11/27/24 07:00 11/27/24 07:00 11/27/24 04:00
Lab Results
11/27/24 04:35
11/27/24 04:35
Calcium 7.9 mg/dl (8.4-10.2) L 11/27/24 04:35
Phosphorus 2.8 mg/dl (2.5-4.5) 11/25/24 02:03
Magnesium 2.0 mg/dl (1.6-2.3) 11/27/24 04:35
Total Bilirubin 0.6 mg/dl (0.2-1.3) 11/25/24 02:03
Direct Bilirubin 0.3 mg/dl (0.0-0.4) 11/20/24 03:54
AST 61 U/L (17-59) H 11/25/24 02:03
ALT 83 U/L (0-50) H 11/25/24 02:03
Alkaline Phosphatase 217 U/L (38-126) H 11/25/24 02:03
Total Protein 5.1 g/dl (6.3-8.2) L 11/25/24 02:03
Albumin 2.5 g/dl (3.5-5.0) L 11/25/24 02:03
Physical Exam
-
Gen: NAD
Abd: soft, minimal ttp, incision cdi with jayjay, drain light ss
Patient has a vogel catheter: No
Patient has a central line: Yes (PICC)
[2024-11-27] MEDS: NSS (PRESERVATIVE FREE) 10 ML IV (08:46)
[2024-11-27] MEDS: ZOVIRAX INJECTION 108 MG IV (08:47)
[2024-11-27] MEDS: SOLU-CORTEF 25 MG IV (08:47)
[2024-11-27] MEDS: PROTONIX IV 40 MG IV (08:47)
--- NOTE | 2024-11-27 09:26 | PTCARENOTE ---
Received patient from caustic cresylate shift superintendent, see worklist for shift assessment. patient is AAOx4, sinus rhythm on monitor. on room air. heparin, tpn, insulin gtt infusing. dilaudid LINING CLEANER continued. Plan discussed with Juan F Higgins, [place], and
family living educator Saima Go Orders rec'd to increase diet to Full liquids and start with Ensure Enlive today with goal of 2 shakes per day starting tomorrow, then hopefully come off TPN. Abd incision dressing removed by surgeon, ok leave SADDLE LINING STITCHER. Colton
intact, no drainage or redness noted. Right REE drain with serosanguinous output. Color improved as per Dr. Sue. Pt in good spirits, very motivated to ambulate and increase diet, feeling good. Pt's at bedside, all questions answered. Call
reese in reach.
[2024-11-27 09:59] LABS: Glucose - Point of Care 157 mg/dl (70-99)
--- NOTE | 2024-11-27 10:57 | PTCARENOTE ---
Plan discussed in rounds, see orders- some meds transitioned to PO at this time. Pt updated and verbalized agreement. Encourage with progress.
[2024-11-27 11:41] LABS: Glucose - Point of Care 184 mg/dl (70-99)
[2024-11-27] MEDS: NOVOLOG FLEXPEN 4 UNITS SC ×2 (11:43→17:32)
[2024-11-27] MEDS: DELTASONE 21 MG PO (11:46)
[2024-11-27] MEDS: TYLENOL 1000 MG PO ×3 (11:47→23:39)
[2024-11-27 12:04] LABS: APTT 56.7 Sec (23.4-35.0)
--- NOTE | 2024-11-27 12:28 | W.PN.ONC2 ---
Today's Communication / Plan
-
will await return call from [place] to determine if enoxaparin or warfarin is preferred by pt specialist. Pt verbalized preference for enoxaparin.
Impression
Impression
44-year-old M a/w sepsis and severe enteritis.
Hx of SMV thrombosis, FVL, GI bleed, hyper eosinophilic syndrome
s/p exploratory laparotomy and small bowel resection 11/14. Repeat exploratory laparotomy on 11/16 with small bowel anastomosis. OR 11/19 for additional bowel resection
Rectal bleed
Hypereosinophilic syndrome with steroid dependence, now managed by Dr.s Donovan and Leisa at [facility]
Chronic portal vein thrombosis (last dose eliquis 11/08)
Hypercoagulable state
DMII
Neuropathy
ABLA -post operative abdominal bleeding 11/21 s/p 4 UPRBC during hospitalzation, last 11/23 -Hgb 8.6g/dL
Plan
Plan
1. Hypercoagulable state - in setting of hypereosinophilic syndrome, FVL w/ h/o portal vein thrombosis
-prior thrombophilia testing was notable for elevated AcL IgM/ B2G IgM in 2022 and elevated again during this hospitalization. He also carries a diagnosis of HES, FVL which are hypercoaguable states
-Unclear how accurate current these results are in the setting of sepsis/surgery; he should have these repeated in 12 weeks.
-I would NOT consider this to be DOAC failure and, up to now, no recurrent VTE events on DOAC.
-follow up Lupus anticoagulant
-due to SB rescetion possibly affecting apixaban absorbtion, I have called pt's anticoagulation specialist at [place] to collaborate if enoxoparin or warfarin is preferred. Pt prefers enoxaparin.
2. presented with bowel ischemia w/ SMV thrombosis in setting of holding eliquis since 11/08 for elective colonoscopy.
-s/p exploratory laparoscopy 11/14 with removal of 18 cm of more distal SB, followed by anastomosis 11/16, and additional bowel resection 11/19
3. ABLA -hgb stable, monitor cbc daily
Subjective/Objective
Subjective
no new complaints
ESTIMATOR BINDING, TPN
moving bowels
ambulating
Vital Signs:
Vital Signs
Temp Pulse Resp BP Pulse Ox
98.4 F 108 16 149/81 100
11/27/24 11:45 11/27/24 10:01 11/27/24 10:01 11/27/24 10:01 11/27/24 09:36
Lab Results:
Laboratory Data
WBC 4.5 10^3/uL (4.8-10.8) L 11/27/24 04:35
Hgb 8.6 g/dL (13.0-18.0) L 11/27/24 04:35
Plt Count 206 10^3/uL (130-400) 11/27/24 04:35
PT 14.2 Sec (11.4-14.6) 11/21/24 09:07
INR 1.07 11/21/24 09:07
APTT 56.7 Sec (23.4-35.0) H 11/27/24 11:41
eGFR > 60.00 11/27/24 04:35
Physical Exam
HEENT: Moist Mucous Membranes; No Jaundice
Pulmonary: Other (unlabored)
GI: Other (REE with serosang output, ab incision with dressing CDI)
Extremities: Pulses Present
Neuro: Non Focal
[2024-11-27 12:45] LABS: Glucose - Point of Care 139 mg/dl (70-99)
[2024-11-27 15:02] LABS: Glucose - Point of Care 281 mg/dl (70-99)
[2024-11-27] MEDS: VALIUM INJECTION 5 MG IV ×2 (15:18→23:39)
--- NOTE | 2024-11-27 15:43 | CM ---
S/P 4 abdominal surgeries. TPN. Transitioned to PO steroids, insulin drip. Discharge POC: HH vs outpatient.
--- NOTE | 2024-11-27 16:02 | PTCARENOTE ---
BUSINESS SERVICES ANALYST was discontinued this afternoon, PRN Dilaudid available -pt updated and verbalized understanding. Pt has tolerated Ensure Enlive x1 today, asking for a second one later if surgery is ok. Dr. Sue aware, and in agreement. Pt with 3 loose brown
BMs this shift so far, no blood noted. Currently awaiting orders for transition off heparin gtt to SQ Lovenox as per heme and surgery. Insulin gtt continues at this time. See worklist.
[2024-11-27 16:20] LABS: Glucose - Point of Care 221 mg/dl (70-99)
[2024-11-27] MEDS: NOVOLIN R INSULIN INFUSION 100 IV (17:01)
[2024-11-27 17:24] LABS: Glucose - Point of Care 227 mg/dl (70-99)
[2024-11-27] MEDS: DILAUDID 0.25 MG IV (18:26)
[2024-11-27 18:35] LABS: Glucose - Point of Care 227 mg/dl (70-99)
[2024-11-27] MEDS: PROTONIX 40 MG PO (19:34)
[2024-11-27] MEDS: ZOVIRAX 400 MG PO (19:34)
[2024-11-27 19:39] LABS: Glucose - Point of Care 190 mg/dl (70-99)
[2024-11-27 19:40] LABS: APTT 59.7 Sec (23.4-35.0)
--- NOTE | 2024-11-27 20:00 | PTCARENOTE ---
Pt received start of shift, HR SR/ST. Pt in bed, ambulating x1 assist with to bathroom. Gait steady - assist just with managing IV poles. Pt rates pain 3/10 in abdomen, states better post BM. Midline abdominal incision jayjay intact. REE with
serosanguineous drainage. TPN, insulin, heparin gtts as charted. PTT lab drawn and sent - resulted low. Discussed with OLMAN Mendoza - no bolus, increased gtt rate per order to 3100u/hr
[2024-11-27] MEDS: Parenteral Nutrition, Central 1880 IV (20:06)
[2024-11-27 20:47] LABS: Glucose - Point of Care 140 mg/dl (70-99)
[2024-11-27 21:47] LABS: Glucose - Point of Care 99 mg/dl (70-99)
[2024-11-27] MEDS: ZOLOFT 50 MG PO (22:17)
[2024-11-27 22:38] LABS: Glucose - Point of Care 148 mg/dl (70-99)
[2024-11-27 23:44] LABS: Glucose - Point of Care 198 mg/dl (70-99)
[2024-11-28] VITALS (23 sets, daily range): BP systolic 124–180; BP diastolic 75–105; BMI 32.5
[2024-11-28] MEDS: DILAUDID 0.25 MG IV ×5 (00:37→20:28)
[2024-11-28 00:42] LABS: Glucose - Point of Care 194 mg/dl (70-99)
--- NOTE | 2024-11-28 01:18 | PTCARENOTE ---
PRN pain medication - see MAY. PRN valium HS - see MAY. Pt in good spirits. No further change in assessment.
[2024-11-28] MEDS: HEPARIN 25000 UNITS/250 ML IV ×2 (01:34→11:41)
[2024-11-28 01:54] LABS: Glucose - Point of Care 187 mg/dl (70-99)
[2024-11-28 02:19] LABS: APTT 110.6 Sec (23.4-35.0)
[2024-11-28 02:45] LABS: Glucose - Point of Care 164 mg/dl (70-99)
[2024-11-28 03:45] LABS: Glucose - Point of Care 160 mg/dl (70-99)
[2024-11-28 04:05] LABS: Hematocrit 23.9 % (39.0-52.0); Hemoglobin 7.9 g/dL (13.0-18.0); Mean Corp Hgb Conc. 33.1 g/dL (33.0-37.0); Mean Corpuscular Volume 91.6 fL (80.0-94.0); Platelet Count 227 10^3/uL (130-400); Red Cell Dist. Width 17.2 % (11.5-14.5)
[2024-11-28 04:33] LABS: Blood Urea Nitrogen 13 mg/dl (9-20); Calcium 8.2 mg/dl (8.4-10.2); Carbon Dioxide 28 mmol/L (22-30); Chloride 107 mmol/L (98-107); Estimated Creatinine Clearance > 125 ml/min; Glucose 130 mg/dl (70-99); Potassium 3.0 mmol/L (3.5-5.1); Sodium 137 mmol/L (135-145); eGFR > 60.00
[2024-11-28 04:55] LABS: Glucose - Point of Care 151 mg/dl (70-99)
[2024-11-28] MEDS: TYLENOL 1000 MG PO ×3 (05:34→17:44)
[2024-11-28] MEDS: KCL 100 IV (05:35)
[2024-11-28] MEDS: KCL 20 MEQ PO (05:49)
[2024-11-28 05:50] LABS: Glucose - Point of Care 109 mg/dl (70-99)
[2024-11-28 05:52] LABS: Magnesium 2.0 mg/dl (1.6-2.3)
--- NOTE | 2024-11-28 06:17 | PTCARENOTE ---
PRN dilaudid - see MAY. Pt ambulated to bathroom x1 assist - loose BM. REE continuing to put out serosanguineous drainage. Potassium low AM labs - K rider and PO K ordered and administered.
[2024-11-28 06:42] LABS: Glucose - Point of Care 134 mg/dl (70-99)
--- NOTE | 2024-11-28 07:19 | W.PN.HOSP.TC ---
Today's Communication/Plan
-
try lactose free Ensure
Lovenox SQ
Continue TPN, ISS
APS panel pending
Assessment / Plan
Assessment / Plan
This is a 44-year-old male with past medical history of hypereosinophilic syndrome with skin involvement, diabetes, smoker, neuropathy, depression, portal vein thrombus on Eliquis, obesity presented with abdominal pain, nausea and vomiting, bright
red blood in the stools after taking Dulcolax and MiraLAX for EGD and colonoscopy. Post-op #D3 he started having continuous bloody bowel movements. Patient had another surgery for ischemic bowel. Post-op #D1
# Sepsis with severe enteritis involving long segment of ileum with rectal bleeding post colonoscopy and upper GI series prep
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 Hx Hypereosinophilic syndrome
- Leukocytosis resolved
- Lactated Ringer's 125ml/hr Q8h
- Hydrocortisone 100 mg given in ER-patient is on chronic steroid 21 mg last dose was 11/11/2024 has slowly been tapering from 30 mg down by 1 mg has been at 21 mg for the past few weeks
- IV Dilaudid as needed pain, Zofran nausea
- Blood cultures NGTD 11/13/2024
-11/20 Post op D#3 - ischemic bowel--laparatomy, small bowel resection--tentanively for 2nd look in 48hr+ileostomy. Pt vented until then
-Oncology-PRBC for HgB < 7.5 as active GI bleeding.
-11/21 Post op D#2 -Exploratory laparotomy, small bowel anastomosis- Operation performed without stopping IV heparin- extubated
-11/21 Post op Pulsatile bleeding at lateral skin edge. Suture Hemostasis- achieved by surgeon at bedside
-His baseline Steroid 21mg PO Prednisone = 84mg Hydrocortisone= keep it Hydrocortisone 25mg Q8h
-PT/OT
-Advanced to Free liquid diet-- try lactose free ensure for possible secondary Lactose intolerance.
-Restart PO meds
-Transition to PO pain control
-Oncology- antiphospholipid antibody panel - pending
-Lovenox 115mg SQ
#Acute blood loss anemia
-2 previously+ 2U PRBC
-H&H trending
-APTT goal 73-111
#Depressed, anxious
-Consulted Psychiatry
-Resume PO Zoloft once medically stable
-Continue 5mg Valium PRN
#History of Hypereosinophilic syndrome with typical skin rash follows at [facility] on chronic steroids
on chronic steroid 21 mg last dose was 11/11/2024 has slowly been tapering from 30 mg down by 1 mg has been at 21 mg for the past few weeks
-discontinued Jakafi 20 mg BID
-Patient receives Pegasys infusion once a week- held by
-Continue IV pantoprozole 40mg BID
-Holding Acyclovir
-3rd post op #D2 will increase Hydrocortisone from 25mg IV Q12h to 25mg IV Q6h. Once stable goal is to taper stress dose hydrocortisone to his baseline 21mg
#Hyponatremia
-resolved
#Electrolyte abnormalities
- Phosphorus 2.4- discussed with pharmacist maxed out his TPN for Phosporus, given curve is at -- monitor BMP, Phos, Mg, K
- Replete K(goal>4)
-Replete Mg (goal>2)
#History of portal vein thrombosis years ago
-Has not taken Eliquis 5 mg twice daily in 6 days due to upper GI and colonoscopy plan; on hep gtt APTT - on hold because of ongoing bleeding started 11/18/24 D#2
-Heparin ggt- Aptt trending
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
A1c is 7.9
- Patient is using Ozempic 1 mg once a week last dose was 11/08/2024
- Hyperglycemia- TPN dose changed 11/17/2024 (from44 dose 66)- Insulin drip per protocol
-11/22 Insulin Glargine 30U-hold
--Insulin SS while on TPN-- Once tolerating advanced diet and TPN stopped will start subcutaneous insulin.
#Chronic neuropathy
Patient takes gabapentin 300 mg at bedtime as needed
#Depression
Zoloft 50 mg at bedtime, npo and on hold for now
#Class I obesity�BMI 33
Patient currently on Ozempic
DVT prophylaxis- heparin
Full code
Anticipated Discharge: > 48 hours
Subjective/Interval History
-
Date of Service: November 28, 2024
He is sitting on his chair. He reports decreasing his pain medication and experienced more frequent pain than usual. He had 1 ensure and he developed diarrhea witihin hour. He had 3 bms. Later he tried pudding he had immediate diarrhea again. His
pain is generalized. He was able to walk 2 rounds on the floor yesterday. Denies bloody bm, no SOB, no dizziness or weakness.
Objective Data
-
Labs:
Laboratory Results
11/27/24 11/28/24 11/28/24
19:20 01:48 03:47
WBC 4.5 L
Hgb 7.9 L
Hct 23.9 L
Plt Count 227
APTT 59.7 H 110.6 H
Sodium
Potassium
Chloride
Carbon Dioxide
BUN
Creatinine
Glucose
Calcium
11/28/24 11/28/24
03:48 07:16
WBC
Hgb
Hct
Plt Count
APTT Pending
Sodium 137
Potassium 3.0 L D
Chloride 107
Carbon Dioxide 28
BUN 13
Creatinine 0.4 L
Glucose 130 H
Calcium 8.2 L
Vital Signs:
Vital Signs
Temp Pulse Resp BP Pulse Ox
98.8 F 98 17 152/95 100
11/28/24 04:45 11/28/24 06:14 11/28/24 06:14 11/28/24 06:14 11/27/24 12:00
I&O
11/27/24 11/28/24 11/29/24
06:59 06:59 06:59
Intake Total 3697.5 / 3843.5 3549.0 / 3549.0
Output Total 1685 / 1685 2395 / 2395
Balance 2012.5 / 2158.5 1154.0 / 1154.0
Review of Systems
-
History Source: Patient
Constitutional: Reports No Symptoms
EENT: Reports No Symptoms Reported
Respiratory: Reports No Symptoms
Cardiac: Reports No Symptoms
Abdomen/GI: Reports Diarrhea
Breast: Reports No Symptoms
Genitourinary: Reports No Symptoms
Musculoskeletal: Reports No Symptoms
Skin: Reports No Symptoms
Neuro: Reports No Symptoms
Endocrine: Reports No Symptoms
Hematologic / Lymphatic: Reports No Symptoms
Allergy / Immunology: Reports No Symptoms
Physical Exam
-
General: Well Developed and Well Nourished
HEENT: Normocephalic and Atraumatic
Respiratory: Clear to Auscultation
Cardiac: Regular Rhythm and S1/S2
Breast: Deferred by me
GI: Soft, Nontender, Nondistended and Normal Bowel Sounds
Rectal: Deferred by Provider
Genito-urinary: Deferred by me
Musculoskeletal: No Cyanosis and No Edema
Skin: Warm
Neuro: AO x 3
Psych: Calm
--- NOTE | 2024-11-28 07:35 | W.PN.INTV ---
Today's Communication / Plan
Recommendations
Advance diet
TPN and insulin drip continue
Observe off antibiotics
Follow hemoglobin
Assessment
-
Patient is a 44-year-old male with history of hypereosinophilic syndrome along with hypercoagulable state chronically on steroids, Eliquis, Jakafi and Pegasys who was receiving GI prep for a scheduled EGD and colonoscopy as outpatient and his
Eliquis had been on hold. He presented to [place] with abdominal discomfort and bloody diarrhea. CT scan was suggestive of enteritis and initially patient was admitted to the hospital on IV fluids, antibiotics for concern for enteritis.
Patient was evaluated by GI and surgery service and on 11/14 was taken to the OR and had a segment of small bowel resected for mesenteric ischemia. Patient had another trip to OR on 11/17 for reanastomosis without needing additional resection. On
11/19 patient had worsening clinical status and repeat imaging was suggestive again of acute mesenteric ischemia requiring emergent laparotomy additional small bowel resection and postprocedure patient was brought to ICU intubated, mechanically
ventilated. Beach Attendant consult was requested for further input.
Acute venoocclusive mesenteric ischemia s/p Exploratory laparotomy/Small bowel resection 11/14/24
Diagnostic laparoscopy converted to an exploratory laparotomy/ Small bowel anastomosis 11/16/24
Status post emergent laparotomy, small bowel resection 11/19/24
S/p Planned diagnostic laparoscopy converted to exploratory laparotomy/Small bowel anastomosis 11/21/24
Shock, suspect septic in the setting of severe enteritis
Acute respiratory failure, in the setting of emergent laparotomy, extubated 11/21
Acute blood loss anemia
Leukopenia
Hyperglycemia
Hypocalcemia
Transaminitis
Conditions present [employer]:
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
DM, with hyperglycemia/neuropathy
Current smoker
depression
portal vein thrombosis on eliquis as OP
class I obesity
Plan
Respiratory status continues to be stable
Continue supplemental oxygen as needed-attempt to wean-99% on room air
Incentive spirometry encouraged
Nebulizers if needed-currently not bronchospastic
Pain control, doing well with dilaudid BLACKSMITH ASSISTANT
Breakthrough pain PRN
Rass goal 0
Pressors weaned off
Surgery following-correspondence reviewed
Heparin drip-eventual bridged back to Eliquis if no further surgery planned
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
Patient is status post s/p Exploratory laparotomy/Small bowel resection 11/14/24
Diagnostic laparoscopy converted to an exploratory laparotomy/ Small bowel anastomosis 11/16/24
Status post emergent laparotomy, small bowel resection 11/19/24
S/p Planned diagnostic laparoscopy converted to exploratory laparotomy/Small bowel anastomosis 11/21/24
Follow hemoglobin
Transfuse as needed
Nutrition-TPN continues
Enteral nutrition per surgery-clear liquids and diet being advanced by colorectal surgery
Begin oral medications
Status post IV Zosyn
Observe off antibiotics
H/o portal vein thrombosis, chronically on Eliquis, which was temporarily off for scheduled EGD and colonoscopy prior to this hospitalization
Has chronically been on steroid, Pegasys and Jakafi for hypereosinophilic syndrome and follows up at [facility].
Hematology oncology service on case
Technically not in Eliquis failure and will likely be resumed versus other oral anticoagulant per hematology
Monitor blood sugar
TPN continues until adequate oral intake
Insulin infusion continues-continue critical care glycemic protocol while on TPN
Diabetic nurse practitioner following-correspondence reviewed
DVT prophylaxis, currently on IV heparin
GI prophylaxis, IV Protonix
PT/OT
updated during multidisciplinary rounds 11/25/2024 and 11/26/2024 as well as 11/27/2024 and 11/28/2024-all questions answered
If patient able to be weaned off insulin drip the patient could be transferred out of ICU-call pulmonary if respiratory issues arise
Critical care statement: A total of 38 minutes of critical care time was provided for this patient today. This includes management of unstable vital signs, evaluation of the patient at bedside, reviewing the patient�s pertinent medical records
including radiographs, insulin drip management microbiology, laboratory evaluations, and��discussion with primary team, consultants, pharmacy, nutrition, physical therapy, case management, charge nurse, critical care nursing, and respiratory therapy.
Data:
CXR 10/2024: Endotracheal tube with tip 3.6 cm above the clair. Mild elevation right hemidiaphragm. Linear atelectasis in the right lower lung.
CT Abd/Pel 10/2024: There is persistent thrombus within the SMV and extending into the tributaries of the SMV inferiorly. There is a small amount of nonocclusive thrombus in the anterior aspect of the main portal vein. There is an approximately 20
cm long segment of significant bowel wall thickening and adjacent edema, in the region of the proximal to mid ileum, which appears to be new from previous CT of November 13, 2024. Findings would suggest venoocclusive mesenteric ischemia. There is also
to a lesser degree wall thickening and adjacent mesenteric edema involving the distal ileum, although less severe than the proximal to mid ileal involvement. Small to moderate amount of free fluid as described. No evidence of free intraperitoneal
air.
ECHO 06/21/22- 1. Normal left ventricular size, wall thickness and systolic function without regional wall motion abnormalities. Estimated LV ejection fraction is 60 to 65% by visual estimation and by Luciano's method. Global longitudinal strain is
normal at -18.4%
2. Normal right ventricular size and function.
3. No significant valvular abnormalities.
4. No pericardial effusion.
5. No prior echocardiogram available for comparison.
Subjective Dataa
Subjective Data
Date of Service:
Date of Service: November 28, 2024
Chief Complaint: Beach Attendant Follow Up and Pulmonary Follow Up
Subjective:
Had 3 bowel movements after Ensure yesterday, ambulating, no complaints of shortness of breath, chest pain or increased abdominal pain-controlled
Review of Systems
General: Other (Per HPI)
Objective Data
Data Reviewed
Vital Signs / I&O / Oxygen:
Vital Signs
Temp Pulse Resp BP Pulse Ox
98.2 F 98 17 152/95 100
11/28/24 07:33 11/28/24 06:14 11/28/24 06:14 11/28/24 06:14 11/27/24 12:00
Intake and Output
11/27/24 11/28/24 11/29/24
06:59 06:59 06:59
Intake Total 3697.5 / 3843.5 3549.0 / 3549.0
Output Total 1685 / 1685 2395 / 2395
Balance 2012.5 / 2158.5 1154.0 / 1154.0
SaO2 [A/C] 100
SaO2 100
Nasal Cannula flow liters per 99
minute
Physical Exam
General: Respiratory Distress (n), Comfortable, Pain and Other (NAD, chronically ill appearing)
HEENT: Normocephalic, Anicteric and Moist Mucous Membranes
Cardiovascular: Regular Rhythm
Respiratory: Wheeze (n), Crackles (n), Rhonchi (n), Non-Labored Respirations, Accessory Resp Muscle Use (n) and Stridor (n)
GI: Soft, Distended, Tender, NG Tube and Other (incisions/drains noted, bleeding at site of drain)
Neurology: Awake, Alert and No Motor Deficits
Skin: Warm, Good Color, Cyanosis (n) and Jaundice
Labs/Micro/Reports
Lab Data
11/28/24 03:47
11/28/24 03:48
Laboratory Results
11/27/24 11/27/24 11/28/24
11:41 19:20 01:48
APTT 56.7 H 59.7 H 110.6 H
[2024-11-28 07:40] LABS: APTT 138.4 Sec (23.4-35.0)
[2024-11-28 07:41] LABS: Glucose - Point of Care 138 mg/dl (70-99)
--- NOTE | 2024-11-28 07:42 | PN.DE.MGMTRT ---
Insulin Management
- -
11/28/2024: Diabetes Management Follow up
Patient admitted 11/13 with abdominal pain, N & V, weakness, bright red rectal bleeding. Consult for diabetes Management 11/20. PMH Hypereosinophilic syndrome, neuropathy, diabetes, current smoker, obesity, portal vein thrombosis. Prior to
admission no diabetes medications listed, A1C 7.9% on admission, Cr 0.4 eGFR > 60. CT scan--> Type IV mesenteric ischemia, small bowel resection 11/14, small bowel anastomosis 11/16. 11/19 Small bowel resection.
11/21 Exploratory laparotomy, small bowel anastomosis.
Patient is awake, alert, oriented, answering questions and able to discuss diabetes care plan, at bedside very supportive. Prior to admission was taking Ozempic and before that was taking metformin. Discussed with patient insulin would be best
plan for diabetes management.
Dietitian has seen patient and and family educator has provided meter and insulin instruction.
Glycemic protocol restarted 11/22. Continues on TPN, diet was advanced from clear to full liquids with ensure supplement yesterday.
Glucose range was 109 to 194 overnight, requiring 1 to 6 units of insulin per hour.
Will continue critical care glycemic protocol while on TPN. Once tolerating advanced diet and TPN stopped will start subcutaneous insulin.
Discussed with nurse. Will cont to follow.
Diabetes History
- -
Type of Diabetes: 2 requiring insulin
Pre-Admission Diabetes Regimen
11/28/24
03:48
Creatinine 0.4 L
Lab Results
Hemoglobin A1c 7.9 % (4.0-5.6) H 11/14/24 07:22
Insulin Pump Settings
IP Diabetes Regimen
11/27/24 11/27/24 11/27/24
07:38 09:48 11:29
Glucose
POC Glucose 172 H 157 H 184 H
11/27/24 11/27/24 11/27/24
12:34 14:50 16:09
Glucose
POC Glucose 139 H 281 H 221 H
11/27/24 11/27/24 11/27/24
17:12 18:24 19:25
Glucose
POC Glucose 227 H 227 H 190 H
11/27/24 11/27/24 11/27/24
20:34 21:31 22:26
Glucose
POC Glucose 140 H 99 148 H
11/27/24 11/28/24 11/28/24
23:33 00:30 01:41
Glucose
POC Glucose 198 H 194 H 187 H
11/28/24 11/28/24 11/28/24
02:32 03:31 03:48
Glucose 130 H
POC Glucose 164 H 160 H
11/28/24 11/28/24 11/28/24
04:44 05:37 06:30
Glucose
POC Glucose 151 H 109 H 134 H
11/28/24
07:30
Glucose
POC Glucose 138 H
Meal type: Breakfast
Amount consumed: 100%
Patient Education
[2024-11-28] MEDS: NOVOLOG FLEXPEN SC (07:53)
--- NOTE | 2024-11-28 08:00 | PTCARENOTE ---
Received patient from detective captain, see worklist for shift assessment. patient is AAOx4, sinus rhythm on monitor. Remains on room air. heparin, tpn, insulin gtt and K rider infusing. Pt assisted into bathroom for loose brown BM. Pt steady on feet,
needs standby assist only. Pt worried about having diarrhea, does not want to have too much to drink. Right REE drain with serosanguinous output. Abd incision TYREL with jayjay intact, approximated. Pt seated in chair, ambulating w/ assistance
PRN. Plan discussed in rounds. Orders rec'd and carried out. Call reese in reach.
--- NOTE | 2024-11-28 09:12 | W.PN.GS2 ---
Today's Communication / Plan
-
could consider switch to therapeutic Lovenox in the meantime. While I do think that there is going to be some oral absorption consideration that needs to be made in the short-term, he does not have short gut and should be able to resume Eliquis
down the road without any issues.
TPN reordered
Assessment / Plan
-
44 yo male with history of hypereosinophilic syndrome with known clotting disorder and chronic portal vein thrombus on Eliquis with AC held in anticipation of a colonoscopy this week who developed nausea, vomiting and intense abdominal pain followed
by rectal bleeding during his prep. CT with findings concerning for mesenteric ischemia, portal vein thrombus and SMV thrombus noted and taken to the OR
11/14/2024 ex lap with SBR (18cm necrotic bowel), left in discontinuity given ?viability of proximal bowel
11/16/2024 RTOR for small bowel anastomosis, no further resection needed
11/19/2024 RTOR for new small bowel ischemia, small bowel resection, discontinuity
11/21/2024 RTOR for SB anastomosis, abdominal closure
Tachycardia resolved, BP stable. Afebrile
Hb stable
Pain well controlled on CRUDE UNIT OPERATOR
2 uPRBC transfused 11/23
Drain clearing, output decreasing
Plan:
-- Keep on full liquid diet, patient not able to tolerate enough calories yet so we will keep on TPN and insulin drip
-- Restart PO meds
-- Pain control with CRUDE UNIT OPERATOR, transition to PO pain control over next 48 hrs
-- Continue heparin gtt, await hematology recs on oral A/C, could consider switch to therapeutic Lovenox in the meantime. While I do think that there is going to be some oral absorption consideration that needs to be made in the short-term, he does
not have short gut and should be able to resume Eliquis down the road without any issues.
-- On chronic steroids, IV dosing as per primary team
-- OOB as tolerated
Time Spent
Total Time Spent with Patient (in minutes): 20
Subjective Data
-
Date of Service: November 28, 2024
Interval Events:
No acute events overnight. Slept well. Pain Controlled. Denies Nausea/Vomiting, +bowel function, having diarrhea with liquid meals.
Objective Data
-
Intake and Output
11/27/24 11/28/24 11/29/24
06:59 06:59 06:59
Intake Total 3697.5 / 3843.5 3549.0 / 3684.5 240.0 / 240.0
Output Total 1685 / 1685 2395 / 2395
Balance / 2157.5 1154.0 / 1289.5 240.0 / 240.0
Intake:
Oral fluids 716 / 716
IV fluids (Total) 1624.5 / 1691.5 1105.0 / 1162.5 84.0 / 84.0
D5/0.45%NaCl 1,000 ml @ 40 mls/ 960 / 1000 280 / 280
hr IV .Q24H PRN Rx#:[id number]
Heparin 579 / 600 618 / 649
Insulin 85.5 / 91.5 99.0 / 100.5 3.0 / 3.0
Kcl 50 / 50
acyclovir 108 / 108
IV piggybacks 135.0 / 135.0
TPN/PPN 1937 / 2016 1728 / 1806 156 / 156
Output:
Drain Output (Total) 260 / 260 245 / 245
Right Abdomen Thiago-Daniel 260 / 260 245 / 245
Urine, Voided 1425 / 1425 2150 / 2150
Other:
Number of approximated MODERATE 2
amounts of urine
Number of approximated LARGE 2
amounts of urine
Number of unmeasured liquid
stools
Rectum 3
Vital Signs
Temp Pulse Resp BP Pulse Ox
98.2 F 95 21 150/93 100
11/28/24 07:33 11/28/24 08:00 11/28/24 08:00 11/28/24 08:00 11/27/24 12:00
Lab Results
11/28/24 03:47
11/28/24 03:48
Calcium 8.2 mg/dl (8.4-10.2) L 11/28/24 03:48
Phosphorus 2.8 mg/dl (2.5-4.5) 11/25/24 02:03
Magnesium 2.0 mg/dl (1.6-2.3) 11/28/24 03:48
Total Bilirubin 0.6 mg/dl (0.2-1.3) 11/25/24 02:03
Direct Bilirubin 0.3 mg/dl (0.0-0.4) 11/20/24 03:54
AST 61 U/L (17-59) H 11/25/24 02:03
ALT 83 U/L (0-50) H 11/25/24 02:03
Alkaline Phosphatase 217 U/L (38-126) H 11/25/24 02:03
Total Protein 5.1 g/dl (6.3-8.2) L 11/25/24 02:03
Albumin 2.5 g/dl (3.5-5.0) L 11/25/24 02:03
Physical Exam
-
GENERAL/NEURO: Awake, Alert, no distress
CHEST: Unlabored breathing on RA
ABDOMEN: Soft, Non-Tender, Non-Distended, incision clean dry and intact. Harris in place.
Patient has a vogel catheter: No
Patient has a central line: Yes (Picc)
[2024-11-28] MEDS: ZOVIRAX 400 MG PO ×2 (09:19→20:07)
[2024-11-28] MEDS: PROTONIX 40 MG PO ×2 (09:19→20:07)
[2024-11-28] MEDS: DELTASONE 21 MG PO (09:19)
[2024-11-28 09:25] LABS: Glucose - Point of Care 165 mg/dl (70-99)
[2024-11-28 10:23] LABS: Glucose - Point of Care 155 mg/dl (70-99)
--- NOTE | 2024-11-28 10:30 | OR.RPT ---
Operative Report
Operative Report
Primary Surgeon: Vikram
Pre-op Diagnosis: Ischemic bowel
Post-op Diagnosis: Same
Procedure Performed: Exploratory laparotomy, small bowel resection
Anesthesia Type: GETA
Specimen / Cultures: Small bowel
Estimated Blood Loss: 5cc
Complications: None immediate
Operative Findings: 25cm frankly necrotic small bowel, proximal to this another 20cm approximately of dusky bowel, this was resected en bloc; anastomosis intact; proximal limb of anastomosis with mild early patchy ischemia extending from there to
the distal staple line, this was left in situ; mesentery taken with voyant; staple lines and cut edge of mesentery oversewn with 2-0 silk and surgiflo applied; abthera closure; tentatively for second look in 48 hrs and ileostomy creation to enable
rapid return to anticoagulation, pt to remain vented until then; and family updated
DOS: 11/19/24
Indications: This 44M with hypercoagulable state secondary to genetic disorder was 3 days post exploratory laparotomy and small bowel resection for bowel ischemia in a staged manner with initial discontinuity and take-back for second look and
anastomosis. On the day of this operation he developed progressive severe and ultimately intractable abdominal pain and increasing tachycardia. He was taken urgently to the operating room for re-exploratory laparotomy.
Description of procedure: The patient was placed on the operating table in the supine position. General anesthesia was induced. A time-out was completed verifying correct patient, procedure, site, positioning, and special equipment prior to
beginning this procedure. An nasogastric tube was already in place. The abdomen was prepped and draped in the usual sterile fashion. Skin staoples were removed and the midline suture was cut and the abdomen opened. Hemorrhagic fluid and dark purple
small bowel was immediately identified. The prior anastomosis was examined and found to be intact. The incision was enlarged to enhance exposure. The fluid was suctioned and the small bowel examined from ligament of treitz to the cecum. An area
proximal to the anastomosis was deeply purple and hemorrhagic and did not appear to be viable. Proximal to this and leading to the anastomosis the bowel was dusky but not conclusively nonviable and distal to this segment the bowel appeared similar.
The frankly necrotic bowel was stapled off proximally and distally with a POONAM stapler with purple loads. A voyant was used to liberate the segment from the mesentery. The stapled bowel ends and the mesentery were then oversewn with a running locking
2-0 silk suture and surgiflo was applied to enhance hemostasis. An abthera wound vac was placed.
The patient tolerated the procedure well and was taken to the intensive care unit intubated and hemodynamically stable.
--- NOTE | 2024-11-28 10:40 | OR.RPT ---
Operative Report
Operative Report
Primary Surgeon: Vikram
Dairy Farm Operator surgeon: Rony
Pre-op Diagnosis: Ischemic bowel
Post-op Diagnosis: Same
Procedure Performed: Exploratory laparotomy, small bowel anastomosis
Anesthesia Type: GETA
Specimen / Cultures: Small bowel
Estimated Blood Loss: 11cc
Complications: None immediate
Operative Findings: Operation performed without stopping IV heparin. All bowel viable, prior anastomosis intact but edematous, prior questionable bowel with improved and clearly viable appearance; new anastomosis created in side to side
antiperistaltic fashion with stapled common channel using POONAM abernathy load 60mm stapler, enterotomy closed with 2 layers of interrupted silk suture; 19 fr law drain
DOS: 11/21/24
Indications: This 44M with hypercoagulable state secondary to genetic disorder was 2 days post re-exploratory laparotomy and small bowel resection for bowel ischemia in a staged manner with bowel in discontinuity. On the day of this operation the
decision was made to proceed to the operating room for second look without interrupting therapeutic anticoagulation. The plan was for second look, possible bowel resection, possible ostomy.
Description of procedure: The patient was placed on the operating table in the supine position. General anesthesia was induced. A time-out was completed verifying correct patient, procedure, site, positioning, and special equipment prior to
beginning this procedure. An nasogastric tube was already in place. The outer abthera dressing was removed. The abdomen was prepped and draped in the usual sterile fashion. The abdomen was opened. The prior anastomosis was examined and found to be
intact. The small bowel was examined from ligament of treitz to the cecum. All bowel appeared viable. The small bowel was anastomosed in side-side fashion with common channel created with a abernathy load 60mm endoGIA stapler. The staple line was
inspected and hemostatic. The common channel was closed in 2 layers with interrupted 2-0 silk suture. The abdomen was irrigated thoroughly with warm sterile saline and a 19fr law drain was placed intot he anterior lower abdomen and brought out
through the right lower quadrant and secured to the skin with 2-0 nylon suture. The fascia was closed with #1 PDS stratafix suture and the skin was closed with jayjay after irirgating the subcutaneous tissue with warm sterile saline. Dr. Uribe
assisted with exposure, dissection, creation of anastomosis and closure.
The patient tolerated the procedure well and was taken to the intensive care unit extubated and hemodynamically stable
[2024-11-28] MEDS: KCL 40 MEQ PO (11:44)
[2024-11-28] MEDS: NOVOLOG FLEXPEN 2 UNITS SC (12:42)
[2024-11-28 12:45] LABS: Glucose - Point of Care 225 mg/dl (70-99)
[2024-11-28] MEDS: NOVOLIN R INSULIN INFUSION 100 IV (12:58)
[2024-11-28 13:42] LABS: Glucose - Point of Care 220 mg/dl (70-99)
[2024-11-28 14:42] LABS: Glucose - Point of Care 253 mg/dl (70-99)
[2024-11-28 14:56] LABS: APTT 77.0 Sec (23.4-35.0)
--- NOTE | 2024-11-28 15:01 | W.PN.ONC2 ---
Today's Communication / Plan
-
recommend therapeutic enoxaparin BID. Can be started during hospitalization and continued at discharge discussed with pts [facility] hematology specialists
Impression
Impression
44-year-old M a/w sepsis and severe enteritis.
Hx of SMV thrombosis, FVL, GI bleed, hyper eosinophilic syndrome
s/p exploratory laparotomy and small bowel resection 11/14. Repeat exploratory laparotomy on 11/16 with small bowel anastomosis. OR 11/19 for additional bowel resection
Rectal bleed
Hypereosinophilic syndrome with steroid dependence, now managed by Dr.s Donovan and Leisa at [facility]
Chronic portal vein thrombosis (last dose eliquis 11/08)
Hypercoagulable state
DMII
Neuropathy
ABLA -post operative abdominal bleeding 11/21 s/p 4 UPRBC during hospitalzation, last 11/23 -Hgb 8.6g/dL
Plan
Plan
1. Hypercoagulable state - in setting of hypereosinophilic syndrome, FVL w/ h/o portal vein thrombosis
-prior thrombophilia testing was notable for elevated AcL IgM/ B2G IgM in 2022 and elevated again during this hospitalization. He also carries a diagnosis of HES, FVL which are hypercoaguable states
-Unclear how accurate current these results are in the setting of sepsis/surgery; he should have these repeated in 12 weeks.
-I would NOT consider this to be DOAC failure and, up to now, no recurrent VTE events on DOAC.
-follow up Lupus anticoagulant
-due to SB rescetion possibly affecting apixaban absorbtion, I have called pt's anticoagulation specialist at [place] to collaborate if enoxoparin or warfarin is preferred. Pt prefers enoxaparin.
2. presented with bowel ischemia w/ SMV thrombosis in setting of holding eliquis since 11/08 for elective colonoscopy.
-s/p exploratory laparoscopy 11/14 with removal of 18 cm of more distal SB, followed by anastomosis 11/16, and additional bowel resection 11/19
3. ABLA -hgb stable, monitor cbc daily
Subjective/Objective
Subjective
denies bleeding
Vital Signs:
Vital Signs
Temp Pulse Resp BP Pulse Ox
97.9 F 106 21 138/81 100
11/28/24 11:48 11/28/24 14:00 11/28/24 14:00 11/28/24 14:00 11/27/24 12:00
Lab Results:
Laboratory Data
WBC 4.5 10^3/uL (4.8-10.8) L 11/28/24 03:47
Hgb 7.9 g/dL (13.0-18.0) L 11/28/24 03:47
Plt Count 227 10^3/uL (130-400) 11/28/24 03:47
PT 14.2 Sec (11.4-14.6) 11/21/24 09:07
INR 1.07 11/21/24 09:07
APTT 77.0 Sec (23.4-35.0) H 11/28/24 14:31
eGFR > 60.00 11/28/24 03:48
Physical Exam
HEENT: Moist Mucous Membranes; No Jaundice
Pulmonary: Other (unlabored)
GI: Other (REE with serosang)
Extremities: Pulses Present
Neuro: Non Focal
--- NOTE | 2024-11-28 15:08 | PTCARENOTE ---
Pt remains stable AOx3, ambulating in steen with PT, steady gait. So far tolerating FLD and first Ensure clear drink of the day. TPN/insulin/heparin gtts continue. PTT therapeutic. See flowsheet for [facility] details.
[2024-11-28 15:44] LABS: Glucose - Point of Care 236 mg/dl (70-99)
--- NOTE | 2024-11-28 16:14 | PTCARENOTE ---
PRN Dilaudid given. Pt reports feeling good after eating lunch tray -had tomato soup and cream of rice, sipping ensure johnson slowly. Bother and sister in law visiting.
--- NOTE | 2024-11-28 16:34 | CM ---
TPN, full liquids, ambulating in steen with therapy. Discharge POC: Therapy rec for HH vs outpatient PT. No discharge over weekend. Will await final determination.
[2024-11-28 16:47] LABS: Glucose - Point of Care 214 mg/dl (70-99)
[2024-11-28] MEDS: NOVOLOG FLEXPEN 4 UNITS SC (16:48)
[2024-11-28] MEDS: VALIUM INJECTION 5 MG IV (17:45)
[2024-11-28 17:56] LABS: Glucose - Point of Care 171 mg/dl (70-99)
[2024-11-28 19:14] LABS: Carbon Dioxide 25 mmol/L (22-30); Chloride 107 mmol/L (98-107); Potassium 4.5 mmol/L (3.5-5.1); Sodium 137 mmol/L (135-145)
[2024-11-28 19:16] LABS: Glucose - Point of Care 144 mg/dl (70-99)
--- NOTE | 2024-11-28 20:00 | PTCARENOTE ---
Pt is Aox3, Independent with most care, at bedside. Sinus tach 112-120 on monitor, c/o pain in abdominal and lower back, PRN Dilaudid given. Pt remains on Insulin gtt per glycemic protocol. TPN also infusing. Heparin D/C and Lovenox given. REE
drain with sanguinous output. Pt offers no complaints at this time. Call reese in reach.
[2024-11-28] MEDS: LOVENOX 115 MG SC (20:08)
[2024-11-28 20:13] LABS: Glucose - Point of Care 159 mg/dl (70-99)
[2024-11-28] MEDS: Parenteral Nutrition, Central 1890 IV (20:32)
[2024-11-28] MEDS: ZOLOFT 50 MG PO (21:07)
[2024-11-28 21:14] LABS: Glucose - Point of Care 114 mg/dl (70-99)
[2024-11-28 23:15] LABS: Glucose - Point of Care 150 mg/dl (70-99)
[2024-11-29] VITALS (15 sets, daily range): BP systolic 112–143; BP diastolic 33–100; BMI 32.2
[2024-11-29] MEDS: TYLENOL 1000 MG PO ×4 (00:08→17:03)
[2024-11-29] MEDS: VALIUM INJECTION 5 MG IV ×3 (00:08→22:33)
[2024-11-29 01:10] LABS: Glucose - Point of Care 95 mg/dl (70-99)
[2024-11-29] MEDS: DILAUDID 0.25 MG IV ×2 (02:03→10:07)
[2024-11-29 02:11] LABS: Glucose - Point of Care 135 mg/dl (70-99)
[2024-11-29 03:18] LABS: Anticoagulant Med Neutralizati Hepzyme (Not Performed); Neutralized dRVTT Screen Ratio Not Performed (<=1.20); Prothrombin Time 14.8 s (12.0-15.5); dRVTT 1.1 Mix Ratio Not Performed (<=1.20); dRVTT Confirmation Ratio Not Performed (<=1.20); dRVTT Screen Ratio 1.07 (<=1.20)
[2024-11-29 03:18] LABS: Glucose - Point of Care 198 mg/dl (70-99)
[2024-11-29 04:19] LABS: Glucose - Point of Care 177 mg/dl (70-99)
[2024-11-29 05:09] LABS: Hematocrit 26.4 % (39.0-52.0); Hemoglobin 8.8 g/dL (13.0-18.0); Mean Corp Hgb Conc. 33.3 g/dL (33.0-37.0); Mean Corpuscular Volume 91.7 fL (80.0-94.0); Platelet Count 280 10^3/uL (130-400); Red Cell Dist. Width 17.8 % (11.5-14.5)
[2024-11-29 05:11] LABS: Triglycerides 222 mg/dl (10-149)
[2024-11-29 05:20] LABS: Glucose - Point of Care 177 mg/dl (70-99)
[2024-11-29 06:13] LABS: Glucose - Point of Care 157 mg/dl (70-99)
--- NOTE | 2024-11-29 06:35 | PTCARENOTE ---
Assessment unchanged over night. Pt has no complaints.
[2024-11-29 07:17] LABS: Glucose - Point of Care 150 mg/dl (70-99)
--- NOTE | 2024-11-29 07:58 | W.PN.INTV ---
Today's Communication / Plan
Recommendations
TPN and insulin drip continue
Lovenox 1 mg/kg every 12 hours
Increase activity
Advance diet
Assessment
-
Patient is a 44-year-old male with history of hypereosinophilic syndrome along with hypercoagulable state chronically on steroids, Eliquis, Jakafi and Pegasys who was receiving GI prep for a scheduled EGD and colonoscopy as outpatient and his
Eliquis had been on hold. He presented to [facility] with abdominal discomfort and bloody diarrhea. CT scan was suggestive of enteritis and initially patient was admitted to the hospital on IV fluids, antibiotics for concern for enteritis.
Patient was evaluated by GI and surgery service and on 11/14 was taken to the OR and had a segment of small bowel resected for mesenteric ischemia. Patient had another trip to OR on 11/17 for reanastomosis without needing additional resection. On
11/19 patient had worsening clinical status and repeat imaging was suggestive again of acute mesenteric ischemia requiring emergent laparotomy additional small bowel resection and postprocedure patient was brought to ICU intubated, mechanically
ventilated. Health Center Manager consult was requested for further input.
Acute venoocclusive mesenteric ischemia s/p Exploratory laparotomy/Small bowel resection 11/14/24
Diagnostic laparoscopy converted to an exploratory laparotomy/ Small bowel anastomosis 11/16/24
Status post emergent laparotomy, small bowel resection 11/19/24
S/p Planned diagnostic laparoscopy converted to exploratory laparotomy/Small bowel anastomosis 11/21/24
Shock, suspect septic in the setting of severe enteritis
Acute respiratory failure, in the setting of emergent laparotomy, extubated 11/21
Acute blood loss anemia
Leukopenia
Hyperglycemia
Hypocalcemia
Transaminitis
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
DM, with hyperglycemia/neuropathy
Current smoker
depression
portal vein thrombosis on eliquis as OP
class I obesity
Plan
Respiratory status remained stable
Continue supplemental oxygen as needed-attempt to wean-99% on room air
Incentive spirometry encouraged
Nebulizers if needed-currently not bronchospastic
Pain control, doing well with dilaudid STAFFING AND SCHEDULING COORDINATOR
Breakthrough pain PRN
Rass goal 0
Pressors weaned off
Surgery following-correspondence reviewed
Heparin drip-eventual bridged back to Eliquis if no further surgery planned
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
Patient is status post s/p Exploratory laparotomy/Small bowel resection 11/14/24
Diagnostic laparoscopy converted to an exploratory laparotomy/ Small bowel anastomosis 11/16/24
Status post emergent laparotomy, small bowel resection 11/19/24
S/p Planned diagnostic laparoscopy converted to exploratory laparotomy/Small bowel anastomosis 11/21/24
Follow hemoglobin
Transfuse as needed
Nutrition-TPN continues
Enteral nutrition per surgery-clear liquids and diet being advanced by colorectal surgery
Advance oral feedings
Advance oral medications
Status post IV Zosyn
Observe off antibiotics
H/o portal vein thrombosis, chronically on Eliquis, which was temporarily off for scheduled EGD and colonoscopy prior to this hospitalization-unlikely a true Eliquis failure
Has chronically been on steroid, Pegasys and Jakafi for hypereosinophilic syndrome and follows up at [facility].
Hematology oncology service on case
Technically not in Eliquis failure and will likely be resumed versus other oral anticoagulant per hematology
Hematology following-correspondence reviewed-begin Lovenox 1 mg/kg every 12 hours and transition off heparin drip
Monitor blood sugar
TPN continues until adequate oral intake
Insulin infusion continues-continue critical care glycemic protocol while on TPN
Diabetic nurse practitioner following-correspondence reviewed
DVT prophylaxis, currently on IV heparin
GI prophylaxis, IV Protonix
PT/OT
Dr. Rogel updated during multidisciplinary rounds 11/25/2024 and 11/26/2024 as well as 11/27/2024 and 11/28/2024-all questions answered
Dr. Rogel updated 11/29/2024
If patient able to be weaned off insulin drip the patient could be transferred out of ICU-call pulmonary if respiratory issues arise
Critical care statement: A total of 36 minutes of critical care time was provided for this patient today. This includes management of unstable vital signs, evaluation of the patient at bedside, reviewing the patient�s pertinent medical records
including radiographs, insulin drip management microbiology, laboratory evaluations, and��discussion with primary team, consultants, pharmacy, nutrition, physical therapy, case management, charge nurse, critical care nursing, and respiratory therapy.
Data:
CXR 10/2024: Endotracheal tube with tip 3.6 cm above the clair. Mild elevation right hemidiaphragm. Linear atelectasis in the right lower lung.
CT Abd/Pel 10/2024: There is persistent thrombus within the SMV and extending into the tributaries of the SMV inferiorly. There is a small amount of nonocclusive thrombus in the anterior aspect of the main portal vein. There is an approximately 20
cm long segment of significant bowel wall thickening and adjacent edema, in the region of the proximal to mid ileum, which appears to be new from previous CT of November 13, 2024. Findings would suggest venoocclusive mesenteric ischemia. There is also
to a lesser degree wall thickening and adjacent mesenteric edema involving the distal ileum, although less severe than the proximal to mid ileal involvement. Small to moderate amount of free fluid as described. No evidence of free intraperitoneal
air.
ECHO 06/21/22- 1. Normal left ventricular size, wall thickness and systolic function without regional wall motion abnormalities. Estimated LV ejection fraction is 60 to 65% by visual estimation and by Luciano's method. Global longitudinal strain is
normal at -18.4%
2. Normal right ventricular size and function.
3. No significant valvular abnormalities.
4. No pericardial effusion.
5. No prior echocardiogram available for comparison.
Subjective Dataa
Subjective Data
Date of Service:
Date of Service: November 29, 2024
Chief Complaint: Health Center Manager Follow Up and Pulmonary Follow Up
Subjective:
Feeling better, was able to keep oral intake down without significant diarrhea, ambulating better, no complaints of shortness of breath, chest pain or abdominal pain
Review of Systems
General: Other (Per HPI)
Objective Data
Data Reviewed
Vital Signs / I&O / Oxygen:
Vital Signs
Temp Pulse Resp BP Pulse Ox
98.1 F 89 14 123/76 98
11/29/24 04:10 11/29/24 07:00 11/29/24 07:00 11/29/24 07:00 11/28/24 20:43
Intake and Output
11/28/24 11/29/24 11/30/24
06:59 06:59 06:59
Intake Total 3549.0 / 3684.5 2660.6 / 2741.3 80.7 / 80.7
Output Total 2395 / 2395 3105 / 3105
Balance 1154.0 / 1289.5 -444.4 / -363.7 80.7 / 80.7
SaO2 [A/C] 100
SaO2 98
Nasal Cannula flow liters per 99
minute
Physical Exam
General: Respiratory Distress (n), Comfortable, Pain and Other (NAD, chronically ill appearing)
HEENT: Normocephalic, Anicteric and Moist Mucous Membranes
Cardiovascular: Regular Rhythm
Respiratory: Wheeze (n), Crackles (n), Rhonchi (n), Non-Labored Respirations, Accessory Resp Muscle Use (n) and Stridor (n)
GI: Soft, Distended, Tender, NG Tube and Other (incisions/drains noted, bleeding at site of drain)
Neurology: Awake, Alert and No Motor Deficits
Skin: Warm, Good Color, Cyanosis (n) and Jaundice
Labs/Micro/Reports
Lab Data
11/29/24 04:19
11/28/24 17:52
Laboratory Results
11/28/24
14:31
APTT 77.0 H
[2024-11-29] MEDS: DELTASONE 21 MG PO (08:11)
[2024-11-29] MEDS: ZOVIRAX 400 MG PO ×2 (08:11→19:56)
[2024-11-29] MEDS: PROTONIX 40 MG PO ×2 (08:11→19:56)
[2024-11-29] MEDS: NOVOLOG FLEXPEN 2 UNITS SC ×3 (08:11→22:28)
[2024-11-29] MEDS: LOVENOX 115 MG SC ×2 (08:11→19:56)
[2024-11-29 08:14] LABS: Glucose - Point of Care 170 mg/dl (70-99)
--- NOTE | 2024-11-29 08:38 | PTCARENOTE ---
pt aaox3. states 2 pain. does not want pain med now. 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 r abd terra drain in place draining ss. room air. breath sounds diminished at base. pt states he is having loose stool but is trying to form. pt taking in full
liquid meals with clear ensure. pt asking to increase prednisone for itching. dr romero notified. tpn and insulin gtt running as ordered. red rash noted over lower back. reviewed plan of care with pt
--- NOTE | 2024-11-29 09:33 | W.PN.HOSP.TC ---
Today's Communication/Plan
-
Lovenox twice daily
Continue monitoring for any bleeding
Continue full liquid diet
Continue ensures
Will discuss with surgery regarding transitioning off of insulin drip therapy
Assessment / Plan
Assessment / Plan
Assessment:
44-year-old male with past medical history of hypereosinophilic syndrome with skin involvement, diabetes, smoker, neuropathy, depression, portal vein thrombus on Eliquis, obesity presented with abdominal pain, nausea and vomiting, bright red blood
in the stools after taking Dulcolax and MiraLAX for EGD and colonoscopy. He was found to have mesenteric vein thrombosis coming ischemia and had to undergo multiple surgeries. Currently he is feeling much better following surgeries, and is on the
road to recovery. Currently on insulin drip, transitioned from heparin to Lovenox and on TPN and full liquid diet at the moment.
11/14/2024 ex lap with SBR (18cm necrotic bowel), left in discontinuity given ?viability of proximal bowel
11/16/2024 RTOR for small bowel anastomosis, no further resection needed
11/19/2024 RTOR for new small bowel ischemia, small bowel resection, discontinuity
11/21/2024 RTOR for SB anastomosis, abdominal closure
Plan:
# Sepsis with severe enteritis involving long segment of ileum with rectal bleeding post colonoscopy and upper GI series prep
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 Hx Hypereosinophilic syndrome
- Was on antibiotics for 14 days, finished course
- 11/14/2024 ex lap with SBR (18cm necrotic bowel), left in discontinuity given ?viability of proximal bowel
- 11/16/2024 RTOR for small bowel anastomosis, no further resection needed
- 11/19/2024 RTOR for new small bowel ischemia, small bowel resection, discontinuity
- 11/21/2024 RTOR for SB anastomosis, abdominal closure
- Antiphospholipid panel positive, hematology oncology following, input appreciated
- Transitioned from heparin gtt to enoxaparin SQ twice daily
- As per the recommendations, patient to continue on enoxaparin sup cutaneous twice a day in the future
- Continue pain management as needed
# Postoperative blood loss anemia
- Has received a total of 4 units of PRBCs here.
- Continue to trend CBC, continue monitoring bowel movements for blood
- Hemoglobin has remained stable following third surgery
#History of Hypereosinophilic syndrome with typical skin rash
- follows at [facility] on chronic steroids
- on chronic steroid 21 mg
- discontinued Jakafi 20 mg BID
- Patient receives Pegasys infusion once a week- held by
- Continue IV pantoprozole 40mg BID
- Acyclovir resumed
- Now down to his home dose of 21 mg however rash is starting to return. Patient wanted go back up to 24 mg
- Resume Bactrim prophylaxis once tolerating low residue diet
#Depressed, anxious
- Consulted Psychiatry, input appreciated
- PO Zoloft 50 mg resumed
- Continue 5mg Valium PRN
#Hyponatremia
# Hypophosphatemia
# Hypomagnesia
- On TPN, continue to monitor and replete as necessary
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
- HbA1c is 7.9
- Patient is using Ozempic 1 mg once a week last dose was 11/08/2024
- Hyperglycemia- TPN dose changed 11/17/2024 (from44 dose 66)- Insulin drip per protocol
- 11/22 Insulin Glargine 30U-hold
- Insulin SS while on TPN-- Once tolerating advanced diet and TPN stopped will start subcutaneous insulin.
#Chronic neuropathy
Patient takes gabapentin 300 mg at bedtime as needed
#Class I obesity�BMI 32.5
- Affects all aspects of care
DVT prophylaxis-subcu Lovenox
Full code
Anticipated Discharge: > 48 hours
Subjective/Interval History
-
Date of Service: November 29, 2024
Spoke with patient this morning, he was just waking up. Reports that his pain is little bit better from yesterday however still having abdominal pain. Said that he had loose stools yesterday but did not notice any blood. Main complaint today is
that he has been having increased rash again. Says that it is due to his prednisone being down to 21 mg, would like to increase it to 24 mg. Same overall, his symptoms are much more improved from before. He has been able to tolerate the
lactose-free Ensure a lot better too. Is now up to 2 bottles
Objective Data
-
Labs:
Laboratory Results
11/29/24
04:19
WBC 4.3 L
Hgb 8.8 L
Hct 26.4 L
Plt Count 280 D
Vital Signs:
Vital Signs
Temp Pulse Resp BP Pulse Ox
97.7 F 89 14 123/76 98
11/29/24 08:00 11/29/24 07:00 11/29/24 07:00 11/29/24 07:00 11/29/24 08:00
I&O
11/28/24 11/29/24 11/30/24
06:59 06:59 06:59
Intake Total 3549.0 / 3684.5 2660.6 / 2741.3 161.7 / 161.7
Output Total 2395 / 2395 3105 / 3105
Balance 1154.0 / 1289.5 -444.4 / -363.7 161.7 / 161.7
Review of Systems
-
History Source: Patient
Constitutional: Reports No Symptoms
EENT: Reports No Symptoms Reported
Respiratory: Reports No Symptoms
Cardiac: Reports No Symptoms
Abdomen/GI: Reports Abdominal Pain and Diarrhea (Loose stools)
Genitourinary: Reports No Symptoms
Musculoskeletal: Reports No Symptoms
Skin: Reports Rash (Many different places in his body)
Neuro: Reports No Symptoms
Endocrine: Reports No Symptoms
Hematologic / Lymphatic: Reports No Symptoms
Allergy / Immunology: Reports No Symptoms
Physical Exam
-
General: Well Developed, Well Nourished, No Apparent Distress and Comfortable
HEENT: Normocephalic and Atraumatic
Respiratory: Clear to Auscultation and Non Labored Respirations
Cardiac: Regular Rhythm and S1/S2
GI: Soft, Nontender, Nondistended, Normal Bowel Sounds and Other (Abdominal sutures, no erythema, no drainage)
Musculoskeletal: No Clubbing, No Cyanosis and No Edema
Skin: Rash (Multiple small palpable rashes around extremities)
Neuro: AO x 3
Psych: Calm
Data Reviewed
-
Labs: Labs Reviewed by me, Discussed with Physician, Discussed with Nurse and Discussed with Patient
[2024-11-29] MEDS: DELTASONE 3 MG PO (10:04)
[2024-11-29 10:25] LABS: Glucose - Point of Care 183 mg/dl (70-99)
[2024-11-29 10:59] LABS: ALT (SGPT) 88 U/L (0-50); AST (SGOT) 51 U/L (17-59); Albumin 3.2 g/dl (3.5-5.0); Alkaline Phosphatase 229 U/L (38-126); Blood Urea Nitrogen 14 mg/dl (9-20); Calcium 8.7 mg/dl (8.4-10.2); Carbon Dioxide 27 mmol/L (22-30); Chloride 107 mmol/L (98-107); Estimated Creatinine Clearance > 125 ml/min; Glucose 180 mg/dl (70-99); Magnesium 1.9 mg/dl (1.6-2.3); Potassium 4.0 mmol/L (3.5-5.1); Sodium 138 mmol/L (135-145); Total Protein 6.0 g/dl (6.3-8.2); eGFR > 60.00
[2024-11-29 11:19] LABS: Glucose - Point of Care 264 mg/dl (70-99)
--- NOTE | 2024-11-29 11:51 | W.PN.GS2 ---
Today's Communication / Plan
-
d/c tpn and insulin gtt
Assessment / Plan
-
44 yo male with history of hypereosinophilic syndrome with known clotting disorder and chronic portal vein thrombus on Eliquis with AC held in anticipation of a colonoscopy this week who developed nausea, vomiting and intense abdominal pain followed
by rectal bleeding during his prep. CT with findings concerning for mesenteric ischemia, portal vein thrombus and SMV thrombus noted and taken to the OR
11/14/2024 ex lap with SBR (18cm necrotic bowel), left in discontinuity given ?viability of proximal bowel
11/16/2024 RTOR for small bowel anastomosis, no further resection needed
11/19/2024 RTOR for new small bowel ischemia, small bowel resection, discontinuity
11/21/2024 RTOR for SB anastomosis, abdominal closure
AFVSS
Hb stable on therapeutic Lovenox. s/p 4 units pRBC's with last transfusion on 11/23
Pain controlled
REE with SSF
Tolerating PO intake better, diarrhea slowing
Plan:
-- Keep on full liquid diet with supplements
-- TPN at 1/2 rate x4 hours then D/C
-- Appreciate diabetes management team, insulin gtt to be discontinued after TPN completed
-- Insulin ss once drip d/c'd
-- Pain controlled with scheduled Tylenol, PRN narcs
-- Continue Therapeutic lovenox, await hematology recs on oral A/C. Likely will be d/c'd on lovenox. Anticipate will be able to resume Eliquis as OP
-- On chronic steroids, dosing as per primary team
-- OOB as tolerated
Ok for transfer to [facility] from surgical standpoint once blood glucose stable off insulin gtt
Subjective Data
-
Date of Service: November 29, 2024
Pt seen and examined at bedside with Dr. Uribe. Denies n/v. Diarrhea slowing. Tolerating Ensure clear and FLD. Minimal pain.
Objective Data
-
Intake and Output
11/28/24 11/29/24 11/30/24
06:59 06:59 06:59
Intake Total 3549.0 / 3684.5 2660.6 / 2741.3 767.7 / 767.7
Output Total 2395 / 2395 3105 / 3105
Balance 1154.0 / 1289.5 -444.4 / -363.7 767.7 / 767.7
Intake:
Oral fluids 716 / 716 460 / 460 400 / 400
IV fluids (Total) 1105.0 / 1162.5 484.6 / 486.3 12.7 / 12.7
D5/0.45%NaCl 1,000 ml @ 40 mls/ 280 / 280
hr IV .Q24H PRN Rx#:[id number]
Heparin 618 / 649 328 / 328
Insulin 99.0 / 100.5 81.6 / 83.3 12.7 / 12.7
Kcl 75 / 75
acyclovir 108 / 108
TPN/PPN 1728 / 1806 1716 / 1795 355 / 355
Output:
Drain Output (Total) 245 / 245 80 / 80
Right Abdomen Thiago-Daniel 245 / 245 80 / 80
Urine, Voided 2150 / 2150 3025 / 3025
Other:
Number of approximated MODERATE 2 1
amounts of urine
Number of unmeasured liquid
stools
Rectum 3 1
Vital Signs
Temp Pulse Resp BP Pulse Ox
97.7 F 133 21 121/75 98
11/29/24 08:00 11/29/24 10:00 11/29/24 10:00 11/29/24 08:00 11/29/24 08:00
Lab Results
11/29/24 09:49
11/29/24 10:13
Calcium 8.7 mg/dl (8.4-10.2) 11/29/24 10:13
Phosphorus 3.6 mg/dl (2.5-4.5) 11/29/24 10:13
Magnesium 1.9 mg/dl (1.6-2.3) 11/29/24 10:13
Total Bilirubin 0.7 mg/dl (0.2-1.3) 11/29/24 10:13
Direct Bilirubin 0.3 mg/dl (0.0-0.4) 11/20/24 03:54
AST 51 U/L (17-59) 11/29/24 10:13
ALT 88 U/L (0-50) H 11/29/24 10:13
Alkaline Phosphatase 229 U/L (38-126) H 11/29/24 10:13
Total Protein 6.0 g/dl (6.3-8.2) L 11/29/24 10:13
Albumin 3.2 g/dl (3.5-5.0) L 11/29/24 10:13
Physical Exam
-
GENERAL/NEURO: Awake, Alert, no distress
CHEST: Unlabored breathing on RA
ABDOMEN: Soft, Non-Tender, Non-Distended, incision clean dry and intact. Harris intact. ERE with SSF
SKIN: hypereosinophilic rash, diffuse
Patient has a vogel catheter: No
Patient has a central line: Yes (Picc)
[2024-11-29 12:04] LABS: Glucose - Point of Care 191 mg/dl (70-99)
--- NOTE | 2024-11-29 12:36 | PTCARENOTE ---
no change in pt assessment
--- NOTE | 2024-11-29 12:54 | PTCARENOTE ---
pt walking hallways without difficulty
[2024-11-29 13:23] LABS: Glucose - Point of Care 242 mg/dl (70-99)
[2024-11-29 14:20] LABS: Glucose - Point of Care 212 mg/dl (70-99)
--- NOTE | 2024-11-29 15:45 | PTCARENOTE ---
tpn and insulin gtt turned off as ordered.
[2024-11-29] MEDS: NOVOLOG FLEXPEN-MODERATE RESISTANCE 1 UNITS SC (17:03)
[2024-11-29] MEDS: ROXICODONE 5 MG PO (17:07)
[2024-11-29 17:08] LABS: Glucose - Point of Care 170 mg/dl (70-99)
[2024-11-29] MEDS: ZOLOFT 50 MG PO (22:01)
[2024-11-29 22:15] LABS: Glucose - Point of Care 198 mg/dl (70-99)
[2024-11-30] VITALS (9 sets, daily range): BP systolic 112–154; BP diastolic 65–93; PULSE 129; O2SAT 98; BMI 31.9
[2024-11-30] MEDS: TYLENOL PO ×2 (02:06→05:36)
[2024-11-30] MEDS: ROXICODONE 5 MG PO ×3 (04:21→21:31)
[2024-11-30 04:48] LABS: Hematocrit 26.9 % (39.0-52.0); Hemoglobin 8.9 g/dL (13.0-18.0); Mean Corp Hgb Conc. 33.1 g/dL (33.0-37.0); Mean Corpuscular Volume 92.4 fL (80.0-94.0); Nucleated Red Blood Cells % 0 % (-); Platelet Count 278 10^3/uL (130-400); Red Cell Dist. Width 17.7 % (11.5-14.5)
[2024-11-30 05:11] LABS: ALT (SGPT) 87 U/L (0-50); AST (SGOT) 59 U/L (17-59); Albumin 3.2 g/dl (3.5-5.0); Alkaline Phosphatase 250 U/L (38-126); Blood Urea Nitrogen 10 mg/dl (9-20); Calcium 8.8 mg/dl (8.4-10.2); Carbon Dioxide 27 mmol/L (22-30); Chloride 106 mmol/L (98-107); Estimated Creatinine Clearance > 125 ml/min; Glucose 133 mg/dl (70-99); Magnesium 1.9 mg/dl (1.6-2.3); Potassium 4.1 mmol/L (3.5-5.1); Sodium 138 mmol/L (135-145); Total Protein 6.0 g/dl (6.3-8.2); eGFR > 60.00
--- NOTE | 2024-11-30 06:14 | PTCARENOTE ---
Pt Aox3, VSS, SR/ST on monitor. C/o pain in lower abdomen. PRN Oxycodone given. Pt able to ambulate to bathroom independently. has been staying the night at the bedside. offers no other complaints at this time.
[2024-11-30] MEDS: DELTASONE 24 MG PO (07:18)
[2024-11-30] MEDS: PROTONIX 40 MG PO ×2 (07:18→20:01)
[2024-11-30] MEDS: ZOVIRAX 400 MG PO ×2 (07:18→20:00)
[2024-11-30] MEDS: NOVOLOG FLEXPEN-MODERATE RESISTANCE SC (07:19)
[2024-11-30] MEDS: LOVENOX 115 MG SC ×2 (07:23→19:59)
--- NOTE | 2024-11-30 07:53 | PTCARENOTE ---
pt aaox3. states acceptable pain. sporadic areas of red itchy rash over torso. abd inc with stp c/d/i. right terra to bulb suction draining ss. pt ambulates in room
--- NOTE | 2024-11-30 08:27 | W.PN.HOSP.TC ---
Today's Communication/Plan
-
Possible downgrade to MedSurg
Continue insulin management
Continue monitoring for any blood loss or worsening abdominal symptoms
Possible increase to low residue diet today
Assessment / Plan
Assessment / Plan
Assessment:
44-year-old male with past medical history of hypereosinophilic syndrome with skin involvement, diabetes, smoker, neuropathy, depression, portal vein thrombus on Eliquis, obesity presented with abdominal pain, nausea and vomiting, bright red blood
in the stools after taking Dulcolax and MiraLAX for EGD and colonoscopy. He was found to have mesenteric vein thrombosis coming ischemia and had to undergo multiple surgeries. Currently he is feeling much better following surgeries, and is on the
road to recovery. Currently on insulin drip, transitioned from heparin to Lovenox and on TPN and full liquid diet at the moment.
11/14/2024 ex lap with SBR (18cm necrotic bowel), left in discontinuity given ?viability of proximal bowel
11/16/2024 RTOR for small bowel anastomosis, no further resection needed
11/19/2024 RTOR for new small bowel ischemia, small bowel resection, discontinuity
11/21/2024 RTOR for SB anastomosis, abdominal closure
Plan:
# Sepsis with severe enteritis involving long segment of ileum with rectal bleeding post colonoscopy and upper GI series prep
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 Hx Hypereosinophilic syndrome
- Was on antibiotics for 14 days, finished course
- 11/14/2024 ex lap with SBR (18cm necrotic bowel), left in discontinuity given ?viability of proximal bowel
- 11/16/2024 RTOR for small bowel anastomosis, no further resection needed
- 11/19/2024 RTOR for new small bowel ischemia, small bowel resection, discontinuity
- 11/21/2024 RTOR for SB anastomosis, abdominal closure
- Antiphospholipid panel positive, hematology oncology following, input appreciated
- Transitioned from heparin gtt to enoxaparin SQ twice daily
- As per the recommendations, patient to continue on enoxaparin subcutaneous twice a day in the future
- Downgraded to IMU level, if continues to improve today, can downgrade to MedSurg
- Possible increase to low residue diet today
- Continue pain management as needed
# Postoperative blood loss anemia
- Has received a total of 4 units of PRBCs here.
- Continue to trend CBC, continue monitoring bowel movements for blood
- Hemoglobin has remained stable following third surgery
#History of Hypereosinophilic syndrome with typical skin rash
- follows at [facility] on chronic steroids
- on chronic steroid 21 mg, dose increased to 24 mg yesterday
- discontinued Jakafi 20 mg BID
- Patient receives Pegasys infusion once a week- held by
- Continue IV pantoprozole 40mg BID
- Acyclovir resumed
- Resume Bactrim prophylaxis once tolerating low residue diet
#Depressed, anxious
- Consulted Psychiatry, input appreciated
- PO Zoloft 50 mg resumed
- Continue 5mg Valium PRN
#Hyponatremia
# Hypophosphatemia
# Hypomagnesia
- Finished TPN, continue full liquid diet
- Continue monitoring and replete electrolytes as needed
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
- HbA1c is 7.9
- Patient will have to use stop Ozempic at home, switch to insulin
- Diabetes nurse practitioner consulted, input appreciated
- Insulin sliding scale and subcutaneous insulin following TPN conclusion
#Chronic neuropathy
Patient takes gabapentin 300 mg at bedtime as needed
#Class I obesity�BMI 32.5
- Affects all aspects of care
DVT prophylaxis-subcu Lovenox
Full code
Anticipated Discharge: 24 - 48 hours
Subjective/Interval History
-
Date of Service: November 30, 2024
Patient seen this morning, reported no acute events overnight. Said that has been feeling much better and his abdominal pain is much improved from before. Reported some loose bowel movements yesterday however did not have any blood. Was weaned
off of the TPN yesterday and has been able to tolerate a full liquid diet. Overall, in much better spirits than before. Reports no shortness of breath, chest pain, headaches, lower extremity pain.
Objective Data
-
Labs:
Laboratory Results
11/30/24
04:28
WBC 4.2 L
Hgb 8.9 L
Hct 26.9 L
Plt Count 278
Sodium 138
Potassium 4.1
Chloride 106
Carbon Dioxide 27
BUN 10
Creatinine 0.5 L
Glucose 133 H
Calcium 8.8
Total Bilirubin 0.9
AST 59
ALT 87 H
Alkaline Phosphatase 250 H
Vital Signs:
Vital Signs
Temp Pulse Resp BP Pulse Ox
98.9 F 98 12 119/85 98
11/30/24 07:53 11/30/24 06:00 11/30/24 06:00 11/30/24 04:00 11/29/24 20:00
I&O
11/29/24 11/30/24 12/01/24
06:59 06:59 06:59
Intake Total 2660.6 / 2741.3 1702.7 / 1702.7
Output Total 3105 / 3105 85 / 85
Balance -444.4 / -363.7 1617.7 / 1617.7
Review of Systems
-
History Source: Patient
Constitutional: Reports No Symptoms
EENT: Reports No Symptoms Reported
Respiratory: Reports No Symptoms
Cardiac: Reports No Symptoms
Abdomen/GI: Reports Abdominal Pain and Diarrhea (Loose stools)
Genitourinary: Reports No Symptoms
Musculoskeletal: Reports No Symptoms
Skin: Reports Rash (Many different places in his body)
Neuro: Reports No Symptoms
Endocrine: Reports No Symptoms
Hematologic / Lymphatic: Reports No Symptoms
Allergy / Immunology: Reports No Symptoms
Physical Exam
-
General: Well Developed, Well Nourished, No Apparent Distress, Comfortable and Conversant
HEENT: Normocephalic and Atraumatic
Respiratory: Clear to Auscultation and Non Labored Respirations
Cardiac: Regular Rhythm and S1/S2
GI: Soft, Nontender, Nondistended, Normal Bowel Sounds and Other (Abdominal sutures, no erythema, no drainage)
Musculoskeletal: No Clubbing, No Cyanosis and No Edema
Skin: Rash (Multiple small palpable rashes around extremities)
Neuro: AO x 3
Psych: Calm
Data Reviewed
-
Labs: Labs Reviewed by me, Discussed with Physician and Discussed with Patient
--- NOTE | 2024-11-30 09:31 | W.PN.INTV ---
Today's Communication / Plan
Recommendations
Advance diet
Increase activity
Anticoagulation continues
TPN/insulin drip discontinued-patient downgraded to IMU status-acid supervisor will sign off-call pulmonary if respiratory issues arise
Assessment
-
Patient is a 44-year-old male with history of hypereosinophilic syndrome along with hypercoagulable state chronically on steroids, Eliquis, Jakafi and Pegasys who was receiving GI prep for a scheduled EGD and colonoscopy as outpatient and his
Eliquis had been on hold. He presented to [facility] with abdominal discomfort and bloody diarrhea. CT scan was suggestive of enteritis and initially patient was admitted to the hospital on IV fluids, antibiotics for concern for enteritis.
Patient was evaluated by GI and surgery service and on 11/14 was taken to the OR and had a segment of small bowel resected for mesenteric ischemia. Patient had another trip to OR on 11/17 for reanastomosis without needing additional resection. On
11/19 patient had worsening clinical status and repeat imaging was suggestive again of acute mesenteric ischemia requiring emergent laparotomy additional small bowel resection and postprocedure patient was brought to ICU intubated, mechanically
ventilated. Furnace Maintenance consult was requested for further input.
Acute venoocclusive mesenteric ischemia s/p Exploratory laparotomy/Small bowel resection 11/14/24
Diagnostic laparoscopy converted to an exploratory laparotomy/ Small bowel anastomosis 11/16/24
Status post emergent laparotomy, small bowel resection 11/19/24
S/p Planned diagnostic laparoscopy converted to exploratory laparotomy/Small bowel anastomosis 11/21/24
Shock, suspect septic in the setting of severe enteritis
Acute respiratory failure, in the setting of emergent laparotomy, extubated 11/21
Acute blood loss anemia
Leukopenia
Hyperglycemia
Hypocalcemia
Transaminitis
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
DM, with hyperglycemia/neuropathy
Current smoker
depression
portal vein thrombosis on eliquis as OP
class I obesity
Plan
Respiratory status remained stable
Continue supplemental oxygen as needed-attempt to wean-99% on room air
Incentive spirometry encouraged
Nebulizers if needed-currently not bronchospastic
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
Breakthrough pain PRN
Rass goal 0
Pressors off for days
Surgery following-correspondence reviewed
Heparin drip-eventual bridged back to Eliquis if no further surgery planned
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
Patient is status post s/p Exploratory laparotomy/Small bowel resection 11/14/24
Diagnostic laparoscopy converted to an exploratory laparotomy/ Small bowel anastomosis 11/16/24
Status post emergent laparotomy, small bowel resection 11/19/24
S/p Planned diagnostic laparoscopy converted to exploratory laparotomy/Small bowel anastomosis 11/21/24
Follow hemoglobin
Transfuse as needed
Nutrition-TPN has been discontinued
Insulin drip will be discontinued
Enteral nutrition per surgery-clear liquids and diet being advanced by colorectal surgery
Advance oral feedings
Advance oral medications
Status post IV Zosyn
Observe off antibiotics
H/o portal vein thrombosis, chronically on Eliquis, which was temporarily off for scheduled EGD and colonoscopy prior to this hospitalization-unlikely a true Eliquis failure
Has chronically been on steroid, Pegasys and Jakafi for hypereosinophilic syndrome and follows up at [facility].
Hematology oncology service on case
Technically not in Eliquis failure and will likely be resumed versus other oral anticoagulant per hematology
Hematology following-correspondence reviewed-begin Lovenox 1 mg/kg every 12 hours and transition off heparin drip
Monitor blood sugar
TPN continues until adequate oral intake
Insulin infusion continues-continue critical care glycemic protocol while on TPN
Diabetic nurse practitioner following-correspondence reviewed
DVT prophylaxis, currently on IV heparin
GI prophylaxis, IV Protonix
PT/OT
Dr. Rogel updated during multidisciplinary rounds 11/25/2024 and 11/26/2024 as well as 11/27/2024 and 11/28/2024-all questions answered
Dr. Rogel updated 11/29/2024
Patient weaned off TPN/insulin drip the patient could be transferred out of ICU-call pulmonary if respiratory issues arise
Reviewed the patient�s pertinent medical records including radiographs, insulin drip management microbiology, laboratory evaluations, and��discussion with primary team, consultants, pharmacy, nutrition, physical therapy, case management, charge
nurse, critical care nursing, and respiratory therapy.
Data:
CXR 10/2024: Endotracheal tube with tip 3.6 cm above the clair. Mild elevation right hemidiaphragm. Linear atelectasis in the right lower lung.
CT Abd/Pel 10/2024: There is persistent thrombus within the SMV and extending into the tributaries of the SMV inferiorly. There is a small amount of nonocclusive thrombus in the anterior aspect of the main portal vein. There is an approximately 20
cm long segment of significant bowel wall thickening and adjacent edema, in the region of the proximal to mid ileum, which appears to be new from previous CT of November 13, 2024. Findings would suggest venoocclusive mesenteric ischemia. There is also
to a lesser degree wall thickening and adjacent mesenteric edema involving the distal ileum, although less severe than the proximal to mid ileal involvement. Small to moderate amount of free fluid as described. No evidence of free intraperitoneal
air.
ECHO 06/21/22- 1. Normal left ventricular size, wall thickness and systolic function without regional wall motion abnormalities. Estimated LV ejection fraction is 60 to 65% by visual estimation and by Luciano's method. Global longitudinal strain is
normal at -18.4%
2. Normal right ventricular size and function.
3. No significant valvular abnormalities.
4. No pericardial effusion.
5. No prior echocardiogram available for comparison.
Subjective Dataa
Subjective Data
Date of Service:
Date of Service: November 30, 2024
Chief Complaint: Furnace Maintenance Follow Up and Pulmonary Follow Up
Subjective:
No complaints of shortness of breath, chest pain, tolerating increased p.o. intake, ambulating
Review of Systems
General: Other (Per HPI)
Objective Data
Data Reviewed
Vital Signs / I&O / Oxygen:
Vital Signs
Temp Pulse Resp BP Pulse Ox
98.9 F 98 12 119/85 98
11/30/24 07:53 11/30/24 06:00 11/30/24 06:00 11/30/24 04:00 11/29/24 20:00
Intake and Output
11/29/24 11/30/24 12/01/24
06:59 06:59 06:59
Intake Total 2660.6 / 2741.3 1702.7 / 1702.7
Output Total 3105 / 3105
Balance -444.4 / -363.7 1617.7 / 1617.7
SaO2 [A/C] 100
SaO2 98
Nasal Cannula flow liters per 99
minute
Physical Exam
General: Respiratory Distress (n), Comfortable, Pain and Other (NAD, chronically ill appearing)
HEENT: Normocephalic, Anicteric and Moist Mucous Membranes
Cardiovascular: Regular Rhythm
Respiratory: Wheeze (n), Crackles (n), Rhonchi (n), Non-Labored Respirations, Accessory Resp Muscle Use (n) and Stridor (n)
GI: Soft, Tender and NG Tube
Neurology: Awake, Alert and No Motor Deficits
Skin: Warm, Good Color, Cyanosis (n), Jaundice and Rash (Minor amounts anterior right greater than left thigh)
Labs/Micro/Reports
Lab Data
11/30/24 04:28
11/30/24 04:28
[2024-11-30] MEDS: NOVOLOG FLEXPEN-MODERATE RESISTANCE 1 UNITS SC (11:19)
[2024-11-30] MEDS: TYLENOL 1000 MG PO ×3 (11:22→23:30)
[2024-11-30 11:29] LABS: Glucose - Point of Care 192 mg/dl (70-99)
--- NOTE | 2024-11-30 11:33 | W.PN.GS2 ---
Today's Communication / Plan
-
Advance to LRD
Assessment / Plan
-
44 yo male with history of hypereosinophilic syndrome with known clotting disorder and chronic portal vein thrombus on Eliquis with AC held in anticipation of a colonoscopy this week who developed nausea, vomiting and intense abdominal pain followed
by rectal bleeding during his prep. CT with findings concerning for mesenteric ischemia, portal vein thrombus and SMV thrombus noted and taken to the OR
11/14/2024 ex lap with SBR (18cm necrotic bowel), left in discontinuity given ?viability of proximal bowel
11/16/2024 RTOR for small bowel anastomosis, no further resection needed
11/19/2024 RTOR for new small bowel ischemia, small bowel resection, discontinuity
11/21/2024 RTOR for SB anastomosis, abdominal closure
AFVSS
Hb stable on therapeutic Lovenox. s/p 4 units pRBC's with last transfusion on 11/23
Pain controlled
REE with SSF
Tolerating PO intake better, diarrhea slowing, TPN off on 11/29
Plan:
-- LRD with clear ensure
-- Appreciate diabetes management team, insulin gtt to be discontinued after TPN completed
-- Insulin ss, glucose stable off drip
-- Pain controlled with scheduled Tylenol, PRN narcs
-- C/W REE, anticipate removal prior to d/c
-- Continue Therapeutic lovenox, await hematology recs on oral A/C. Likely will be d/c'd on lovenox. Anticipate will be able to resume Eliquis as OP
-- On chronic steroids, dosing as per primary team
-- OOB as tolerated
Ok for transfer to /[facility] from surgical standpoint
Subjective Data
-
Date of Service: November 30, 2024
Pt seen and examined at bedside with Dr. Uribe. Lewis n/v. Tolerating fld with supplement shakes. OOB ambulating. Pain continues to improve.
Objective Data
-
Intake and Output
11/29/24 11/30/24 12/01/24
06:59 06:59 06:59
Intake Total 2660.6 / 2741.3 1702.7 / 1702.7
Output Total 3105 / 3105 85 / 85
Balance -444.4 / -363.7 1617.7 / 1617.7
Intake:
Oral fluids 460 / 460 1200 / 1200
IV fluids (Total) 484.6 / 486.3 30.7 / 30.7
Heparin 328 / 328
Insulin 81.6 / 83.3 30.7 / 30.7
Kcl 75 / 75
TPN/PPN 1716 / 1795 472 / 472
Output:
Drain Output (Total) 80 / 80 85 / 85
Right Abdomen Thiago-Daniel 80 / 80 85 / 85
Urine, Voided 3025 / 3025
Other:
Number of approximated MODERATE 1 3
amounts of urine
Number of unmeasured liquid
stools
Rectum 1
Vital Signs
Temp Pulse Resp BP Pulse Ox
99.2 F 94 12 138/90 97
11/30/24 11:00 11/30/24 08:00 11/30/24 07:18 11/30/24 07:18 11/30/24 07:18
Lab Results
11/30/24 04:28
11/30/24 04:28
Calcium 8.8 mg/dl (8.4-10.2) 11/30/24 04:28
Phosphorus 4.8 mg/dl (2.5-4.5) H 11/30/24 04:28
Magnesium 1.9 mg/dl (1.6-2.3) 11/30/24 04:28
Total Bilirubin 0.9 mg/dl (0.2-1.3) 11/30/24 04:28
Direct Bilirubin 0.3 mg/dl (0.0-0.4) 11/20/24 03:54
AST 59 U/L (17-59) 11/30/24 04:28
ALT 87 U/L (0-50) H 11/30/24 04:28
Alkaline Phosphatase 250 U/L (38-126) H 11/30/24 04:28
Total Protein 6.0 g/dl (6.3-8.2) L 11/30/24 04:28
Albumin 3.2 g/dl (3.5-5.0) L 11/30/24 04:28
Physical Exam
-
GENERAL/NEURO: Awake, Alert, no distress
CHEST: Unlabored breathing on RA
ABDOMEN: Soft, Non-Tender, Non-Distended, incision clean dry and intact. [place] intact. REE with SSF
SKIN: hypereosinophilic rash, diffuse
Patient has a vogel catheter: No
Patient has a central line: Yes (Picc)
[2024-11-30] MEDS: BACTRIM 400 MG/80 MG 1 TABLET PO (12:24)
[2024-11-30] MEDS: VALIUM INJECTION 5 MG IV ×2 (12:25→23:31)
--- NOTE | 2024-11-30 14:12 | PTCARENOTE ---
report given to imu rn and pt walked to [facility] with belongings including cell phone
--- NOTE | 2024-11-30 14:17 | PTCARENOTE ---
Patient arrived to IMU from ICU. Self when ambulating in room. Provided patient with items to get cleaned up with.
[2024-11-30 17:53] LABS: Glucose - Point of Care 268 mg/dl (70-99)
[2024-11-30] MEDS: NOVOLOG FLEXPEN-MODERATE RESISTANCE 5 UNITS SC (18:43)
[2024-11-30] MEDS: ZOLOFT 50 MG PO (20:01)
[2024-11-30 21:30] LABS: Glucose - Point of Care 217 mg/dl (70-99)
[2024-11-30] MEDS: BENADRYL 25 MG IV (22:12)
[2024-12-01] MEDS: ROXICODONE 5 MG PO ×3 (04:43→15:49)
[2024-12-01 04:47] VITALS: BMI 31.4
--- NOTE | 2024-12-01 04:55 | PTCARENOTE ---
Received pt at change of shift. Currently med/surg. Assessment as documented. Pt c/o pain. Administered PRN Trina per order (see MAR). Pt also c/o increased pruritus surrounding incision with an increased appearance of already existing rash.
Notified [employer] FR[employer]ORER. IV Benadryl ordered and administered. Pt states that the medication helped to make the itching bearable. PO Benadryl ordered PRN as well. Pt did not need an additional dose. Pt in bed with call reese in reach.
[2024-12-01 04:59] LABS: Hematocrit 27.2 % (39.0-52.0); Hemoglobin 9.1 g/dL (13.0-18.0); Mean Corp Hgb Conc. 33.5 g/dL (33.0-37.0); Mean Corpuscular Volume 91.3 fL (80.0-94.0); Platelet Count 271 10^3/uL (130-400); Red Cell Dist. Width 17.2 % (11.5-14.5)
[2024-12-01 05:50] LABS: ALT (SGPT) 97 U/L (0-50); AST (SGOT) 52 U/L (17-59); Albumin 3.2 g/dl (3.5-5.0); Alkaline Phosphatase 268 U/L (38-126); Blood Urea Nitrogen 12 mg/dl (9-20); Calcium 8.8 mg/dl (8.4-10.2); Carbon Dioxide 26 mmol/L (22-30); Chloride 106 mmol/L (98-107); Estimated Creatinine Clearance > 125 ml/min; Glucose 135 mg/dl (70-99); Magnesium 1.8 mg/dl (1.6-2.3); Potassium 4.2 mmol/L (3.5-5.1); Sodium 137 mmol/L (135-145); Total Protein 5.9 g/dl (6.3-8.2); Triglycerides 227 mg/dl (10-149); eGFR > 60.00
[2024-12-01] MEDS: TYLENOL 1000 MG PO ×2 (06:09→12:59)
--- NOTE | 2024-12-01 07:16 | W.PN.HOSP.TC ---
Addendum entered and electronically signed by Ranjit Claros MD 12/03/24 17:53:
dc
agree with resident below
Original Note:
Today's Communication/Plan
-
Hydroxyzine 25mg PO Q6h for pruritis
Confirmatory test for APS in 12 weeks
Plan Discharge today
Assessment / Plan
Assessment / Plan
Assessment:
44-year-old male with past medical history of hypereosinophilic syndrome with skin involvement, diabetes, smoker, neuropathy, depression, portal vein thrombus on Eliquis, obesity presented with abdominal pain, nausea and vomiting, bright red blood
in the stools after taking Dulcolax and MiraLAX for EGD and colonoscopy. He was found to have mesenteric vein thrombosis coming ischemia and had to undergo multiple surgeries. Currently he is feeling much better following surgeries, and is on the
road to recovery. Currently on SQ insulin, transitioned from heparin to Lovenox and on low residue diet at the moment.
11/14/2024 ex lap with SBR (18cm necrotic bowel), left in discontinuity given ?viability of proximal bowel
11/16/2024 RTOR for small bowel anastomosis, no further resection needed
11/19/2024 RTOR for new small bowel ischemia, small bowel resection, discontinuity
11/21/2024 RTOR for SB anastomosis, abdominal closure
Plan:
# Sepsis with severe enteritis involving long segment of ileum with rectal bleeding post colonoscopy and upper GI series prep
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 Hx Hypereosinophilic syndrome
- Was on antibiotics for 14 days, finished course
- 11/14/2024 ex lap with SBR (18cm necrotic bowel), left in discontinuity given ?viability of proximal bowel
- 11/16/2024 RTOR for small bowel anastomosis, no further resection needed
- 11/19/2024 RTOR for new small bowel ischemia, small bowel resection, discontinuity
- 11/21/2024 RTOR for SB anastomosis, abdominal closure
- Antiphospholipid panel positive, hematology oncology following, input appreciated
- Transitioned from heparin gtt to enoxaparin SQ twice daily
- As per the recommendations, patient to continue on enoxaparin SQ Q12h in the future
- Continue Low residue diet
- Continue pain management prn
- He is on Prednisone 24mg PO QD
- Start Hydroxyzine 25mg PO Q6h prn for pruritis
# Postoperative blood loss anemia
- Has received a total of 4 units of PRBCs here.
- Continue to trend CBC, continue monitoring bowel movements for blood
- Hemoglobin has remained stable following 4th surgery
#History of Hypereosinophilic syndrome with typical skin rash
- follows at [facility] on chronic steroids
- on chronic steroid 21 mg, dose increased to 24 mg yesterday
- discontinued Jakafi 20 mg BID
- Patient receives Pegasys infusion once a week- held by
- Continue Prilosec 20mg PO QD
- Acyclovir resumed
- Resume Bactrim prophylaxis sun-sun-sun
#Depressed, anxious
- Consulted Psychiatry, input appreciated
- PO Zoloft 50 mg resumed
- D/C valium - plan to discharge today
#Hyponatremia
# Hypophosphatemia
# Hypomagnesia
- Finished TPN, continue low residue diet
- Replete electrolytes as needed
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
- HbA1c is 7.9
- Patient will have to use stop Ozempic at home, switch to insulin
- Diabetes nurse practitioner consulted, input appreciated
- Continue SQ insulin
#Chronic neuropathy
Patient takes gabapentin 300 mg at bedtime as needed
#Class I obesity�BMI 32.5
- Affects all aspects of care
DVT prophylaxis-subcu Lovenox
Full code
Anticipated Discharge: Today
Subjective/Interval History
-
Date of Service: December 01, 2024
He started eating low residue diet, had valerie maynard was able to eat it without having any diarrhea. Bm are normal and decreased in frequency 2/day. He still has a little bit abdominal pain. He itches himself and has new rashes on his abdomen,
legs and arms most likely his HES. He feels better overall and ready to go home.
Objective Data
-
Labs:
Laboratory Results
12/01/24
04:52
WBC 3.8 L
Hgb 9.1 L
Hct 27.2 L
Plt Count 271
Sodium 137
Potassium 4.2
Chloride 106
Carbon Dioxide 26
BUN 12
Creatinine 0.5 L
Glucose 135 H
Calcium 8.8
Total Bilirubin 0.8
AST 52
ALT 97 H
Alkaline Phosphatase 268 H
Vital Signs:
Vital Signs
Temp Pulse Resp BP Pulse Ox
98.0 F 86 16 133/77 96
11/30/24 23:24 12/01/24 04:00 11/30/24 14:00 11/30/24 23:03 11/30/24 14:00
I&O
11/30/24 12/01/24 12/02/24
06:59 06:59 06:59
Intake Total 1702.7 / 1702.7 960 / 960
Output Total 85 / 85 335 / 335
Balance 1617.7 / 1617.7 625 / 625
Review of Systems
-
History Source: Patient
Constitutional: Reports No Symptoms
EENT: Reports No Symptoms Reported
Respiratory: Reports No Symptoms
Cardiac: Reports No Symptoms
Abdomen/GI: Reports No Symptoms
Breast: Reports No Symptoms
Genitourinary: Reports No Symptoms
Musculoskeletal: Reports No Symptoms
Skin: Reports Rash (Many different places in his body)
Neuro: Reports No Symptoms
Endocrine: Reports No Symptoms
Hematologic / Lymphatic: Reports No Symptoms
Allergy / Immunology: Reports No Symptoms
Physical Exam
-
General: Well Developed, Well Nourished, No Apparent Distress, Comfortable and Conversant
HEENT: Normocephalic and Atraumatic
Respiratory: Clear to Auscultation
Cardiac: Regular Rhythm and S1/S2
GI: Soft, Nontender, Nondistended and Normal Bowel Sounds
Rectal: Deferred by Provider
Genito-urinary: Deferred by me
Musculoskeletal: No Clubbing, No Cyanosis and No Edema
Skin: Rash (Multiple small palpable rashes around extremities, abdomen)
Neuro: AO x 3
Psych: Calm
[2024-12-01 08:03] LABS: Glucose - Point of Care 137 mg/dl (70-99)
[2024-12-01] MEDS: NOVOLOG FLEXPEN-MODERATE RESISTANCE SC (08:05)
--- NOTE | 2024-12-01 08:34 | PN.DE.MGMTRT ---
Insulin Management
- -
12/01/2024: Diabetes Management Follow up
Patient admitted 11/13 with abdominal pain, N & V, weakness, bright red rectal bleeding. Consult for diabetes Management 11/20. PMH Hypereosinophilic syndrome, neuropathy, diabetes, current smoker, obesity, portal vein thrombosis. Prior to
admission no diabetes medications listed, A1C 7.9% on admission, Cr 0.4 eGFR > 60. CT scan--> Type IV mesenteric ischemia, small bowel resection 11/14, small bowel anastomosis 11/16. 11/19 Small bowel resection.
11/21 Exploratory laparotomy, small bowel anastomosis.
Patient is awake, alert, oriented, answering questions and able to discuss diabetes care plan, at bedside very supportive. Prior to admission was taking Ozempic and before that was taking metformin. Discussed with patient and at length
that insulin would be best plan for diabetes management.
Glycemic protocol was dc'd on 11/29 after discontinuation of TPN. Diet was advanced low residue, pt tolerating well.
Glucose range 192 to 268, HS was 217, fasting 137 POC this AM.
Will start Lantus 15 units in AM, 1 st dose now. Start AC NovoLog 4 units. Pt is not a candidate for oral glycemic meds at this time.
He was instructed to followup with his PCP to determine when appropriate to transition from insulin to oral meds
Dietitian has seen patient and and clinical educator has provided meter and insulin instruction. Will ask Diabetes Nurse Educator to see pt and reinforce education with before discharge home today.
Discussed with nurse. Will cont to follow.
Diabetes History
- -
Type of Diabetes: 2 requiring insulin
Pre-Admission Diabetes Regimen
12/01/24
04:52
Creatinine 0.5 L
Lab Results
Hemoglobin A1c 7.9 % (4.0-5.6) H 11/14/24 07:22
Insulin Pump Settings
IP Diabetes Regimen
11/30/24 11/30/24 11/30/24
11:18 17:42 21:19
Glucose
POC Glucose 192 H 268 H 217 H
12/01/24 12/01/24
04:52 07:52
Glucose 135 H
POC Glucose 137 H
Meal type: Breakfast
Amount consumed: 100%
Patient Education
[2024-12-01] MEDS: LOVENOX 115 MG SC (08:40)
--- NOTE | 2024-12-01 08:43 | W.PN.ONC2 ---
Today's Communication / Plan
-
continue therapeutic enoxaparin
discharge planning
Impression
Impression
44-year-old M a/w sepsis and severe enteritis.
Hx of SMV thrombosis, FVL, GI bleed, hyper eosinophilic syndrome
s/p exploratory laparotomy and small bowel resection 11/14. Repeat exploratory laparotomy on 11/16 with small bowel anastomosis. OR 11/19 for additional bowel resection, OR 11/21/2024 RTOR for SB anastomosis, ab closure
Rectal bleed -resolved
Hypereosinophilic syndrome with steroid dependence, now managed by Dr.s Donovan and Leisa at [facility]
Chronic portal vein thrombosis (last dose eliquis 11/08)
Hypercoagulable state
DMII
Neuropathy
ABLA -post operative abdominal bleeding 11/21 s/p 4 UPRBC during hospitalzation, last 11/23 -Hgb 9.1g/dL
Plan
Plan
1. Hypercoagulable state - in setting of hypereosinophilic syndrome, FVL w/ h/o portal vein thrombosis
-prior thrombophilia testing was notable for elevated AcL IgM/ B2G IgM in 2022 and elevated again during this hospitalization. He also carries a diagnosis of HES, FVL which are hypercoaguable states
-Unclear how accurate current these results are in the setting of sepsis/surgery; he should have these repeated in 12 weeks.
-I would NOT consider this to be DOAC failure and, up to now, no recurrent VTE events on DOAC.
-Lupus anticoagulant negative
-Pt and Constantino team agree therapeutic enoxparin
2. presented with bowel ischemia w/ SMV thrombosis in setting of holding eliquis since 11/08 for elective colonoscopy.
-s/p exploratory laparoscopy 11/14 with removal of 18 cm of more distal SB, followed by anastomosis 11/16, and additional bowel resection 11/19, ab closure 11/21
-jayjay & REE drain removed
3. ABLA -hgb stable, monitor cbc daily
Subjective/Objective
Subjective
no new complaints
pain controlled
denies bleeding
Vital Signs:
Vital Signs
Temp Pulse Resp BP Pulse Ox
98.0 F 86 16 133/77 96
12/01/24 07:50 12/01/24 04:00 11/30/24 14:00 11/30/24 23:03 11/30/24 14:00
Lab Results:
Laboratory Data
WBC 3.8 10^3/uL (4.8-10.8) L 12/01/24 04:52
Hgb 9.1 g/dL (13.0-18.0) L 12/01/24 04:52
Plt Count 271 10^3/uL (130-400) 12/01/24 04:52
PT 14.2 Sec (11.4-14.6) 11/21/24 09:07
INR 1.07 11/21/24 09:07
APTT 77.0 Sec (23.4-35.0) H 11/28/24 14:31
eGFR > 60.00 12/01/24 04:52
Physical Exam
HEENT: Moist Mucous Membranes; No Jaundice
Pulmonary: Other (unlabored)
GI: Other
Extremities: Pulses Present
[2024-12-01] MEDS: BACTRIM 400 MG/80 MG 1 TABLET PO (08:55)
[2024-12-01] MEDS: PROTONIX 40 MG PO (08:55)
[2024-12-01] MEDS: ZOVIRAX 400 MG PO (08:55)
[2024-12-01] MEDS: DELTASONE 24 MG PO (08:56)
[2024-12-01 09:07] VITALS: BP 126/92
[2024-12-01] MEDS: LANTUS 0.15 UNITS SC (09:48)
--- NOTE | 2024-12-01 10:37 | W.PN.GS2 ---
Today's Communication / Plan
-
dispo planning
Assessment / Plan
-
44 yo male with history of hypereosinophilic syndrome with known clotting disorder and chronic portal vein thrombus on Eliquis with AC held in anticipation of a colonoscopy this week who developed nausea, vomiting and intense abdominal pain followed
by rectal bleeding during his prep. CT with findings concerning for mesenteric ischemia, portal vein thrombus and SMV thrombus noted and taken to the OR
11/14/2024 ex lap with SBR (18cm necrotic bowel), left in discontinuity given ?viability of proximal bowel
11/16/2024 RTOR for small bowel anastomosis, no further resection needed
11/19/2024 RTOR for new small bowel ischemia, small bowel resection, discontinuity
11/21/2024 RTOR for SB anastomosis, abdominal closure
AFVSS
Hb stable on therapeutic Lovenox. s/p 4 units pRBC's with last transfusion on 11/23
Pain controlled
REE with SSF (removed), [place] removed and steris applied
Tolerating PO intake better, diarrhea resolved, TPN off on 11/29
Plan:
-- LRD with clear ensure
-- Diabetic management team following
-- Pain controlled with scheduled Tylenol, PRN narcs
-- Continue Therapeutic lovenox, await hematology recs on oral A/C. Likely will be d/c'd on lovenox. Anticipate will be able to resume Eliquis as OP
-- On chronic steroids, dosing as per primary team
-- OOB as tolerated
Ok for discharge from surgical standpoint
Subjective Data
-
Date of Service: December 01, 2024
Pt seen and examined at bedside with Dr. Uribe. Lewis n/v. Tolerating diet. Passed an almost normal BM today, continues to pass flatus. Minimal discomfort.
Objective Data
-
Intake and Output
11/30/24 12/01/24 12/02/24
06:59 06:59 06:59
Intake Total 1702.7 / 1702.7 960 / 960 240 / 240
Output Total / 335
Balance 1617.7 / 1617.7 625 / 625 240 / 240
Intake:
Oral fluids 1200 / 1200 960 / 960 240 / 240
IV fluids (Total) 30.7 / 30.7
Insulin 30.7 / 30.7
TPN/PPN 472 / 472
Output:
Drain Output (Total) 335 /
Right Abdomen Thiago-Daniel /
Other:
Number of approximated MODERATE 3 2
amounts of urine
Vital Signs
Temp Pulse Resp BP Pulse Ox
98.0 F 108 16 126/92 96
12/01/24 07:50 12/01/24 09:07 11/30/24 14:00 12/01/24 09:07 11/30/24 14:00
Lab Results
12/01/24 04:52
12/01/24 04:52
Calcium 8.8 mg/dl (8.4-10.2) 12/01/24 04:52
Phosphorus 4.4 mg/dl (2.5-4.5) 12/01/24 04:52
Magnesium 1.8 mg/dl (1.6-2.3) 12/01/24 04:52
Total Bilirubin 0.8 mg/dl (0.2-1.3) 12/01/24 04:52
Direct Bilirubin 0.3 mg/dl (0.0-0.4) 11/20/24 03:54
AST 52 U/L (17-59) 12/01/24 04:52
ALT 97 U/L (0-50) H 12/01/24 04:52
Alkaline Phosphatase 268 U/L (38-126) H 12/01/24 04:52
Total Protein 5.9 g/dl (6.3-8.2) L 12/01/24 04:52
Albumin 3.2 g/dl (3.5-5.0) L 12/01/24 04:52
Physical Exam
-
GENERAL/NEURO: Awake, Alert, no distress
CHEST: Unlabored breathing on RA
ABDOMEN: Soft, Non-Tender, Non-Distended, incision clean dry and intact. Harris intact. REE with SSF
SKIN: hypereosinophilic rash, diffuse
Patient has a vogel catheter: No
Patient has a central line: No (Picc)
[2024-12-01] MEDS: VALIUM INJECTION 5 MG IV (11:29)
[2024-12-01] MEDS: ATARAX 25 MG PO (12:58)
[2024-12-01] MEDS: NOVOLOG FLEXPEN 4 UNITS SC (12:59)
[2024-12-01] MEDS: NOVOLOG FLEXPEN-MODERATE RESISTANCE 3 UNITS SC (13:00)
[2024-12-01 13:03] LABS: Glucose - Point of Care 227 mg/dl (70-99)
[2024-12-01 13:05] VITALS: BP 133/79
--- NOTE | 2024-12-01 13:35 | CM ---
Patient has been medically cleared for discharge to home with no additional skilled services. will transport home.
--- NOTE | 2024-12-01 14:16 | W.DCSUMMARY ---
Discharge Summary
Discharge Data
Date of Admission: 11/13/24
Date of Discharge: 12/01/24
-
Pending Results: No
Hospital Course
Discharging Physician : Dr. Keenan Galan, Dr. Ranjit Claros
Disposition : Home
Primary care physician : Dr. Ondina Llamas
Principal Discharge diagnosis :
Sepsis with severe enteritis involving long segment of ileum with rectal bleeding post colonoscopy and upper GI series prep
Acute mesenteric ischemia due to SMV thrombosis.
Chronic Discharge diagnosis :
Hx Hypereosinophilic syndrome
Hx of hypercoagulable state concern for Antiphospholipid syndrome (confirmatory APLA panel required)
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
Depression
Chronic Neuropathy
Hospital Course :
Patient presented to ED on 11/13/2024 with abdominal pain, nausea and vomiting, hematochezia after taking Dulcolax and Miralax for EGD/Colonoscopy. He has a hx of chronic PVT and is on Eliquis, which was held for his GI procedures. CT showed severe
wall thickening, submucosal edema RLQ ileal loops down to ICV in addition to SMV thrombosis. The exploratory laparatomy with small bowel resection was performed. He was on post-op Heparin drip and NG tube at ICU.
11/15/2024 he had Diagnostic laparoscopy converted to an exploratory laparotomy small bowel anastomosis. He received TPN and insulin SS while on TPN.
11/19/2024 he had bloody bm at midnight his Hb started to drop. Heparin was held and blood was transfused.
11/19/2024 he had his 3rd surgery exploratory laparatomy, small bowel resection for ischemic bowel. He was intubated and was on a ventilator until next surgery. IV heparin was continued to maintain therapeutic aPTT with severe hypercoagulability. O
11/21/2024 he had exploratory laparotomy, small bowel anastomosis. Operation performed without stopping IV heparin. He received blood transfusion. He was extubated. He was on NG tube, insulin SS on TPN and stress dose steroid throughout his stay at
the hospital.
11/25/2024 Clear fluids were started slowly, pain was controlled with DESIGN CONSULTANT. The next day Diet was advanced but still on TPN, insulin drip. He was able to start walking with PT. His meds were converted to oral and his need for pain relief decreased.
He was on Lovenox SQ BID.
11/29/2024 TPN and insulin drip was discontinued. He advanced to low residue diet slowly, his bm improved. He was able to continue with Low residue diet, SQ insulin and 24 mg Prednisone PO. Hydroxyzine was started for his rash possibly from HES.
Eliquis was discontinued. Started Lovenox 115mg SQ BID- preferred over coumadin by his [place] ice puller
Jakafi and Pegasys were on hold by Dr. Donovan
Continue Hydroxyzine as needed every 4 hours for pruritis
Discontinued Ozempic. Continue Lantus 15U in AM, Novolog 4U before meals.
Take Oxycodone 5mg tablet every 4 hours prn for pain management.
Prednisone was increased to 24mg pt will follow up with his ice puller before tapering it down.
Do not take Sertraline and Hydroxyzine at the same time.
Confirmatory APLA panel in 12 weeks required
-11/15/2024 Beta-2-GPI IgM Ab 40 (H), Anti-Cardiolipin IgM ab 25 (H)
Follow up with PCP regarding Insulin, chronic pain management within a week
Follow up with Dr. Donovan regarding your HES and anticoagulation meds within 1-2 weeks
Follow up with your GI dr at [place] within 1-2 weeks
Follow up with Dr. Edmondson regarding surgical f/u within a week
Important imaging findings :
11/13/2024 Abdomen/Pelvis CT
-Severe enteritis involving a long segment of ileum
12/20/2024 Abdomen/Pelvis CT
-There is persistent thrombus within the SMV and extending into the tributaries of the SMV inferiorly. There is a small amount of nonocclusive thrombus in the anterior aspect of the main portal vein.
-There is an approximately 20 cm long segment of significant bowel wall thickening and adjacent edema, in the region of the proximal to mid ileum, which appears to be new from previous CT of November 13, 2024. Findings would suggest venoocclusive
mesenteric ischemia.
-There is also to a lesser degree wall thickening and adjacent mesenteric edema involving the distal ileum, although less severe than the proximal to mid ileal involvement.
Procedure findings :
11/14/2024 ex lap with SBR (18cm necrotic bowel), left in discontinuity given ?viability of proximal bowel
11/16/2024 RTOR for small bowel anastomosis, no further resection needed
11/19/2024 RTOR for new small bowel ischemia, small bowel resection, discontinuity
11/21/2024 RTOR for SB anastomosis, abdominal closure
Intubation
Discharge Plan
-
Patient Disposition: Home (Routine Discharge)
Discharge Diagnosis/Procedures: Sepsis with severe enteritis involving long segment of ileum with rectal bleeding post colonoscopy and upper GI series prep
Acute mesenteric ischemia due to SMV thrombosis.
Hx Hypereosinophilic syndrome
Postoperative blood loss anemia
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
Condition: Fair
Diet: As tolerated and Diabetic, Carb Controlled
Additional Diets: Supplement your diet with protein shakes as needed
Activity: No strenuous activity
Additional Activity: do not lift over 15-20 lbs for the next 6 weeks
[address] Restrictions: Wait until off narcotics/comfortable twisiting
Bathing Restrictions: OK to Shower
Blood Work: after 12 weeks get confirmatory Antiphospholipid panel
Wound Care: Ok to shower and wash incision gently with soap and water. Keep clean gauze dressing over open area on incision and over where your drain was. Ok to remove for showers then apply a new clean dressing. Steri strips will come off on their
own over the next 5-7 days. Once the skin closes over your incision and drain site (drainage not present), ok to leave open to air.
Activity Restrictions/Additional Instructions:
Call your surgeon if you have worsening pain, nausea with vomiting or a fever >100.5
Referrals:
Marcello Donovan MD [Non-Admitting Privileges, Hematology / Oncology] - in one to two weeks
Referral Note: Follow up with Dr. Donovan regarding your HES and anticoagulation meds.
Ondina Llamas, DO [Family Provider] - in less than 1 week
Referral Note: Follow up with your PCP within a week for further insulin, pain management.
Jeff Uribe MD [Active, Surgical] - in two weeks
Additional Discharge Medication Instructions: Follow up with PCP regarding Insulin, chronic pain management
Follow up with Dr. Donovan regarding your HES and anticoagulation meds
Follow up with your GI dr at [place] within one to two weeks
Follow up with Dr. Edmondson regarding surgical f/u
Stopped Eliquis, Jakafi, Pegasys
Continue Lovenox 115mg subcutaneously twice daily.
Continue Hydroxyzine as needed every 4 hours.
Take Lantus 15U in AM, Novolog 4U before meals.
Take Oxycodone 5mg tablet every 4 hours as needed for pain management.
Your Prednisone was increased to 24mg please follow up with your ice puller before tapering it down.
Do not take Sertraline and Hydroxyzine at the same time.
Prescriptions:
New
hydroxyzine HCl 25 mg Tablet
25 mg PO QID PRN (Reason: pruritis) Qty: 10 0RF
enoxaparin 120 mg/0.8 mL Syringe
115 mg SC Q12H Qty: 8 0RF
insulin aspart U-100 100 unit/mL (3 mL) Insulin Pen
4 unit SC AC Qty: 15 0RF
oxycodone 5 mg tablet
5 mg PO Q6H PRN (Reason: Pain) Qty: 18 0RF
prednisone 20 mg tablet
20 mg PO DAILY Qty: 20 0RF
prednisone 1 mg tablet
4 mg PO DAILY 20 Days Qty: 80 0RF
(DME) Contour Next Test Strips Strip
Qty: 150 0RF
Rx Instructions:
Pt Testing 4 times a day
(DME) lancets [Microlet Lancet] Misc
Qty: 150 0RF
Rx Instructions:
Pt testing 4 times a day
(DME) pen needle, diabetic [Dianna 2nd Gen Pen Needle] 32 gauge x 5/32' Needle
Qty: 200 0RF
Rx Instructions:
Patient taking insulin 4 times a day
insulin glargine [Lantus Solostar U-100 Insulin] 100 unit/mL (3 mL) insulin pen
15 unit SC DAILY Qty: 15 0RF
Continued
gabapentin 100 mg Capsule
300 mg PO HS PRN (Reason: Neuropathy)
clobetasol 0.05 % cream
1 applic TOPICAL DAILY PRN (Reason: rash)
acyclovir 400 mg tablet
400 mg PO BID
sulfamethoxazole-trimethoprim 800-160 mg tablet
1 tab PO MOWEFR
sertraline 50 mg tablet
50 mg PO HS
Prilosec OTC
20 mg PO DAILY
Held
Pegasys 180 mcg/mL solution
144 mcg SC
Hold Instructions: Hold until seen by Dr. Donovan
Rx Instructions:
states patient takes 0.4 mL of 180 mcg per 0.5 mL
Jakafi 5 mg tablet
20 mg PO BID
Hold Instructions: Hold until seen by Dr. Donovan
Discontinued
Eliquis 5 mg tablet
5 mg PO BID
prednisone
21 mg PO DAILY
prednisone
15 mg PO ONCE
Discharge Orders:
Discharge Patient (As Directed); Ordered 12/01/24
Ordered By: Keenan Galan
Discharge Date and Time
Print Language: SPANISH
[2024-12-01 16:11] VITALS: BP 126/77
--- NOTE | 2024-12-01 16:59 | PTCARENOTE ---
12/01/2024 I met with patient and his to review diabetes management.
He is newly prescribed insulin: Lantus and Novolog. At previous consult, provided Magen with glucose meter and written material on T2D physiology, medications, DSME class, BS parameters, recommended HbA1c goals. I educated on physiology of T2D,
organ damage, managing with medications, monitoring BG, nutrition, activity, sleep and managing stress. I reinforced signs of hyperglycemia, hypoglycemia and hypoglycemia protocol; BS parameters and recommended HbA1c goals, glucometer and CGM
instructions, glucose tracker, medic alert bracelet and outpatient DSME program. Written material provided.
I demonstrated on proper blood sugar testing technique, patient verbalized acknowledgement. I educated and demonstrated on insulin injection technique, timing, and storage. Discussed long and short acting insulin; onset/peak/duration.
Discussed normal target glucose ranges and a monitoring schedule 15 minutes before each meal when prescribed Novolog, and preprandial AM. He has been completing his inpatient insulin injection administration with RN supervision.
Encouraged patient to follow up with his PCP for post d/c appointment and to monitor medication and blood glucose levels. Requested a prescription for blood sugar testing supplies to be sent to his pharmacy on record. Patient verbalized
understanding.
== END 2024-12-01 17:46 | disposition home or self-care (01) | DRG 853 ==
LOC: IMU 19:34
PROVIDERS: Clinical Nurse Specialist Family Health; Emergency Medicine; Family Medicine; Internal Medicine; Internal Medicine Critical Care Medicine; Internal Medicine Hematology & Oncology; Nurse Practitioner Family; Nurse Practitioner Primary Care; Registered Nurse; Surgery; ADMITTING PHYSICIAN Hospitalist; ATTENDING PHYSICIAN Hospitalist; CONSULT PHYSICIAN Internal Medicine; CONSULT PHYSICIAN Internal Medicine Hematology & Oncology; CONSULT PHYSICIAN Specialist; CONSULT PHYSICIAN Surgery; EMERGENCY PHYSICIAN Emergency Medicine; FAMILY PHYSICIAN Family Medicine; OTHER PHYSICIAN Psychiatry & Neurology Psychiatry
PROC: 0DB80ZZ Excision of Small Intestine, Open Approach (ICD-10-PCS; 2024-11-14)
PROC: 3E0436Z Introduction of Nutritional Substance into Central Vein, Percutaneous Approach (ICD-10-PCS; 2024-11-16)
PROC: 0D180Z8 Bypass Small Intestine to Small Intestine, Open Approach (ICD-10-PCS; 2024-11-16)
PROC: 05HY33Z Insertion of Infusion Device into Upper Vein, Percutaneous Approach (ICD-10-PCS; 2024-11-16)
PROC: 30233N1 Transfusion of Nonautologous Red Blood Cells into Peripheral Vein, Percutaneous Approach (ICD-10-PCS; 2024-11-19)
DX: A41.9 Sepsis, unspecified organism (principal); I81 Portal vein thrombosis; J96.00 Acute respiratory failure, unspecified whether with hypoxia or hypercapnia; K55.019 Acute (reversible) ischemia of small intestine, extent unspecified; K55.029 Acute infarction of small intestine, extent unspecified; R65.21 Severe sepsis with septic shock; D68.61 Antiphospholipid syndrome; D62 Acute posthemorrhagic anemia; R18.8 Other ascites; E87.1 Hypo-osmolality and hyponatremia; K56.7 Ileus, unspecified; D68.32 Hemorrhagic disorder due to extrinsic circulating anticoagulants; D72.119 Hypereosinophilic syndrome [HES], unspecified; E11.40 Type 2 diabetes mellitus with diabetic neuropathy, unspecified; E11.65 Type 2 diabetes mellitus with hyperglycemia; F32.A Depression, unspecified; F41.9 Anxiety disorder, unspecified; E66.812 Obesity, class 2; Z68.33 Body mass index [BMI] 33.0-33.9, adult; D72.819 Decreased white blood cell count, unspecified; E83.39 Other disorders of phosphorus metabolism; E83.42 Hypomagnesemia; R33.8 Other retention of urine; E87.6 Hypokalemia; T45.515A Adverse effect of anticoagulants, initial encounter; K42.9 Umbilical hernia without obstruction or gangrene; K76.0 Fatty (change of) liver, not elsewhere classified; F17.200 Nicotine dependence, unspecified, uncomplicated; Z79.01 Long term (current) use of anticoagulants; Z79.52 Long term (current) use of systemic steroids
CPT/HCPCS: 71045; 74174; 80048; 80051; 80053; 82248; 82805; 82962; 83036; 83605; 83690; 83735; 84100; 84478; 85014; 85018; 85025; 85027; 85520; 85525; 85610; 85613; 85670; 85730; 86146; 86147; 86850; 86900; 86901; 86920; 86922; 87040; 88307; 93005; 94002; 94003; 96361; 96374; 96375; 96376; 97116; 97163; 97167; 97530; 97535; 99285; C1776; P9016; Q9967

== ENCOUNTER 2025-02-02 14:25 | Emergency (ER) | payer BC, SELFPAY ==
[2025-02-02 14:28] VITALS: BP 137/90
[2025-02-02 14:45] LABS: Hematocrit 39.1 % (39.0-52.0); Hemoglobin 12.4 g/dL (13.0-18.0); Mean Corp Hgb Conc. 31.7 g/dL (33.0-37.0); Mean Corpuscular Volume 95.1 fL (80.0-94.0); Nucleated Red Blood Cells % 0 % (-); Platelet Count 426 10^3/uL (130-400); Red Cell Dist. Width 14.2 % (11.5-14.5)
[2025-02-02 15:11] LABS: ALT (SGPT) 21 U/L (0-50); AST (SGOT) 17 U/L (17-59); Albumin 4.6 g/dl (3.5-5.0); Alkaline Phosphatase 65 U/L (38-126); Blood Urea Nitrogen 14 mg/dl (9-20); Calcium 9.8 mg/dl (8.4-10.2); Carbon Dioxide 28 mmol/L (22-30); Chloride 104 mmol/L (98-107); Glucose 179 mg/dl (70-99); Lipase 92 U/L (23-300); Potassium 4.9 mmol/L (3.5-5.1); Sodium 135 mmol/L (135-145); Total Protein 7.7 g/dl (6.3-8.2); eGFR > 60.00
[2025-02-02 16:40] VITALS: BMI 34.0
--- NOTE | 2025-02-02 17:29 | ED.GENMED ---
History of Present Illness
General
Chief Complaint: Rectal Bleeding
Source: patient, records, spouse, previous radiology exam and previous hospital records
Exam Limitations: none
Time Seen by Provider: 02/02/25 15:37
Nursing documentation reviewed up to this point in time: agreed with
History of Present Illness
History of Present Illness:
Very pleasant 44-year-old male presents with abdominal cramping and some blood when he wipes, has a hypercoagulable state
Apparently was off his anticoagulation developed a clot in his abdomen requiring laparotomy
He tells me he left the hospital on Lovenox, but has been on Eliquis for about a month he tells me that his crampiness started around the time he started Eliquis a month ago it is left and right sided no vomiting no fever no hematuria
Past History
Past History
ED Past Medical History: Other (Hypereosinophilic syndrome. Clotting issues. 31 yea yeah thank you)
Social History
Tobacco: Smoker
Alcohol: Occasional
Drug: None
Personal:
Living: with family
Employment: Employed
Family History
Family History: Other (Noncontributory)
Phy Exam
Physical Exam
Physical Exam:
Physical Exam
General: no apparent distress, not acutely ill
Neck: supple. no meningeal signs. normal psoterior pharynx
Heart: s1/s2 regular rate and rhythm, no murmur. equal radial pulses.
Lungs: no acute respiratory distress. clear bilaterally
Abdomen: Vertical abdominal scar without appreciable hernia
Neuro: alert and oriented. no focal neurological deficits
Skin: no rash
Psychiatric: well kept. interactive and cooperative
Extremities: no edema. no calf tenderness. negative homans. good distal pulses
Course
Orders/Labs/Results
Orders:
Orders
02/02/25 14:35
Complete Blood Count/With Diff Urgent
Comprehensive Metabolic Panel Urgent
Lipase Urgent
02/02/25 16:19
Electrocardiogram (*1) Urgent
Reason for Study: Abdominal Pain
CT Abd/pelvis Angio W/wo Iv Urgent
Comment:
Reason For Exam: pain bleeding h/o sma clot
EKG- Treatment ONCE
02/02/25 19:05
0.9% Sodium Chloride 1000 ml [Nss] 1,000 ml IV BOLUS
Acetaminophen [Tylenol] 650 mg PO NOW STA
Abnormal Lab Results
02/02/25
14:35
RBC 4.11 L 10^6/uL
(4.70-6.10)
Hgb 12.4 L g/dL
(13.0-18.0)
MCV 95.1 H fL
(80.0-94.0)
MCHC 31.7 L g/dL
(33.0-37.0)
Plt Count 426 H 10^3/uL
(130-400)
MPV 10.6 H fL
(7.4-10.4)
Abs Immat Gran (auto) 0.1 H 10^3/uL
(0-0.05)
Absolute Neuts (auto) 6.8 H 10^3/uL
(1.4-6.5)
Absolute Lymphs (auto) 1.0 L 10^3/uL
(1.2-3.4)
Immature Gran % 0.8 H %
(0-0.5)
Neutrophils % 75.4 H %
(42.2-75.2)
Lymphocytes % 10.5 L %
(20.5-51.1)
Eosinophils % 7.2 H %
(0-6)
Glucose 179 H mg/dl
(70-99)
02/02/25 14:35
02/02/25 14:35
Vital Signs
Initial and Last Documented VS:
Initial Vital Signs
Temp Pulse Resp BP Pulse Ox
98.4 F 82 20 137/90 98
02/02/25 14:28 02/02/25 14:28 02/02/25 14:28 02/02/25 14:28 02/02/25 14:28
Last Documented Vital Signs
Temp Pulse Resp BP Pulse Ox
98.4 F 69 20 149/90 99
02/02/25 14:28 02/02/25 18:00 02/02/25 14:28 02/02/25 18:03 02/02/25 19:00
MDM/Problems Addressed
Differential Diagnosis Includes:
Ileus obstruction GI bleeding clotting abscess
MDM/Problems Addressed:
Pain bleeding
Chronic conditions affecting care: Previous abdomnial surgery
Acute Exacerbation and/or Progression of Chronic Illness: Previous abdomnial surgery
*Radiology
Radiology exam reviewed: radiology read reviewed
*Pulse Oximetry
SaO2: 98
Oxygen Mode of Delivery: Room air
Patient hypoxic: no
*EKG
Interpreted by ED Provider?: Yes
Interpretation: normal
Comparison EKG: no comparison EKG present
Heart Rate: 78
Rate: normal
Rhythm: sinus
Ischemia: no ischemia
*Is Consultant Interpretation
Rate: normal
Interpretation: normal
Heart Rate: 78
Rhythm: sinus
*Critical Care Note
Total Time (30-74mins, 75-104mins- exclusive of procedures): Not Applicable
Update Note
Update Note:
7:[address] PM update labs noted CT noted patient comfortable he is has some intermittent crampiness his abdomen states he feels lightheaded his EKG is noted been compliant with blood thinner, will give some IV fluids, encouraged to follow-up with his
manager culture
He appears comfortable, his abdomen is soft and nontender
ED Attending Note
-
Portions of this chart may have been created with voice recognition software.� Occasional wrong word or��sound alike� substitutions may have occurred due to the inherent limitations of voice recognition software.
Discharge Plan
Departure
Patient Disposition: Home (Routine Discharge)
Date of Disposition: 02/02/25
Time of Disposition: 19:46
Patient with high blood pressure during this ER visit?: No
Condition: Good
Discharge Problem:
Abdominal pain
Instructions: Gastrointestinal Bleeding (DC)
Prescriptions:
No Action
gabapentin 100 mg Capsule
300 mg PO HSPRN PRN (Reason: mild pain)
acyclovir 400 mg tablet
400 mg PO BID
sulfamethoxazole-trimethoprim 800-160 mg tablet
1 tab PO MOWEFR
Eliquis 5 mg Tablet
5 mg PO BID
insulin aspart U-100 100 unit/mL (3 mL) insulin pen
4 unit SC AC
insulin glargine [Lantus Solostar U-100 Insulin] 100 unit/mL (3 mL) insulin pen
17 unit SC DAILY
prednisone 1 mg Tablet
18 mg PO DAILY
prednisone 1 mg Tablet
3 mg PO QPM
Referrals:
Ondina Llamas DO [Family Provider] - Next open appointment
Activity Restrictions/Additional Instructions:
Drink plenty of fluids, continue your blood thinners as prescribed Tylenol as needed for pain
Return to the ER if weakness dizziness increased pain heavy rectal bleeding
Call your manager culture tomorrow to discuss your symptoms and arrange follow-up care
Interventions
Interventions:
*Risk Screen - Suicide Last Done: 02/02/25 14:28
*General Assessment Last Done: 02/02/25 14:28
*Neglect/Abuse Screening Last Done: 02/02/25 14:28
*ED- Fall Risk Assessment Last Done: 02/02/25 16:41
*ED COVID-19 Vaccine History Last Done: 02/02/25 16:41
*ED Influenza Vaccine History Last Done: 02/02/25 16:41
MY-Vkzgnd-Ouvkpmyjka Assessment Last Done: 02/02/25 18:11
ED- Cardiac Assessment Last Done: 02/02/25 18:00
ED- Pulmonary Assessment Last Done: 02/02/25 18:00
Discharge Date and Time
Print Language: IRISH
[2025-02-02 18:03] VITALS: BP 149/90
[2025-02-02] MEDS: TYLENOL 650 MG PO (19:24)
[2025-02-02 19:25] VITALS: BP 139/90
[2025-02-02] MEDS: NSS 1000 IV (19:25)
[2025-02-02 20:00] VITALS: BP 156/81
[2025-02-02 21:00] VITALS: BP 137/77
== END 2025-02-02 21:35 | disposition home or self-care (01) ==
LOC: EMR 14:25
PROVIDERS: EMERGENCY PHYSICIAN Emergency Medicine; FAMILY PHYSICIAN Family Medicine
DX: K62.5 Hemorrhage of anus and rectum (principal); F17.200 Nicotine dependence, unspecified, uncomplicated; Z79.01 Long term (current) use of anticoagulants
CPT/HCPCS: 99284; 96360; 74174; 80053; 83690; 85025; 93005; Q9967